=== PATIENT | female | born 1990 | race Caucasian/White ===

== ENCOUNTER 2021-07-05 16:08 | Emergency (ER) | payer OTHER, SELFPAY ==
--- NOTE | 2021-07-05 16:13 | ED.URI ---
HPI - URI/Sore Throat General Chief Complaint: Upper Respiratory Infection Stated Complaint: uri Time Seen by Provider: 07/05/21 16:13 Source: patient Mode of arrival: ambulatory Limitations: no limitations History of Present Illness HPI Narrative: Ms. Mares is a 31-year-old female patient presenting to the clinic today with complaints of productive cough, sinus pressure, and chest congestion/nasal congestion x9 days. She denies any known fever has had some chills. She reports that her sick kids are also sick and have received antibiotics for this illness. Reports that she is coughing so much that she is throwing up. MD elicited complaint: cough, rhinorrhea, nasal congestion and sinus pain Related Data Home Medications Medication Instructions Recorded Confirmed buspirone 15 mg PO BID 03/17/19 03/17/19 sertraline [Zoloft] 150 mg PO DAILY 03/17/19 03/17/19 Allergies Allergy/AdvReac Type Severity Reaction Status Date / Time No Known Allergies Allergy Verified 03/17/19 09:50 Review of Systems Review of Systems: Pertinent positives per HPI. Patient denies any fever, rash, headache, visual changes, dizziness, sore throat, shortness of breath, chest pain, palpitations, nausea, vomiting, diarrhea, constipation, abdominal pain, or any urinary issues. [facility] Social History Social History Gender identity (if verbalized by the patient): Female Comments At the time of my signature, I reviewed and agree with the nursing past medical, surgical, social, and family history. There is no relevant family history pertinent to the patient complaint. Exam Narrative: General: Well-developed, thin in no apparent distress Head: Normocephalic, atraumatic Eyes: Pupils equally round and reactive to light bilaterally, EOM intact, sclera and conjunctive clear, no discharge, lids normal Ears: TMs intact and clear, ear canals clear, no drainage, grossly hearing normal. Nose: Nares patent, yellow nasal discharge, moderate inflammation, sinus tenderness to the frontal sinuses. Mouth: Oropharynx without lesions or masses, good dentition, MMM. Postnasal drip Neck: Supple, trachea midline, no enlargement of anterior or posterior cervical nodes, no thyroid masses or goiter palpable. Cardio: Regular rate and rhythm, s1 and s2 normal, no murmur appreciated. Resp: Lung sounds diminished in the bases otherwise clear to auscultation bilaterally anteriorly and posteriorly, no rhonchi, rales, wheezing or rubs Course Course Emergency Course: Portions of this record may have been created with voice recognition software. Level of Care: Express Care Visit Vital Signs Vital signs: Vital Signs Temperature 37.0 C 07/05/21 16:23 Pulse Rate 99 07/05/21 16:23 Respiratory Rate 18 07/05/21 16:23 Blood Pressure 108/71 07/05/21 16:23 Pulse Oximetry 99 07/05/21 16:23 Temperature 37.0 C 07/05/21 16:23 Pulse Rate 99 07/05/21 16:23 Respiratory Rate 18 07/05/21 16:23 Blood Pressure 108/71 07/05/21 16:23 Pulse Oximetry 99 07/05/21 16:23 Vital signs reviewed MDM - URI/Sore Throat MDM Narrative Medical decision making narrative: At the time of visit patient is resting comfortably on the exam table. She has productive cough with yellow/green phlegm as well as sinus pressure and pain. I suspect that she is got acute bronchitis with sinusitis and will treat her with a prescription for some Augmentin as well as a prescription of for prednisone. Supportive measures were also discussed with patient she voiced understanding of discharge instructions and agreed with treatment plan. Differential Diagnosis Differential diagnosis: Likely sinusitis, viral infection, influenza and pharyngitis Discharge Plan Discharge Clinical Impression: Bronchitis Sinusitis Qualifiers: Sinusitis location: frontal Chronicity: acute Recurrence: non-recurrent Qualified Code(s): J01.10 -
[2021-07-05 16:23] VITALS: BP 108/71; PULSE 99; RESP 18; TEMP 37; O2SAT 99
== END 2021-07-05 16:24 | disposition home or self-care (01) ==
PROVIDERS: Emergency Provider Nurse Practitioner Family; PCP Family Medicine
DX: J01.10 Acute frontal sinusitis, unspecified (principal); J40 Bronchitis, not specified as acute or chronic
CPT/HCPCS: 99213; G0463

== ENCOUNTER 2021-07-21 11:08 | Emergency (ER) | payer OTHER, SELFPAY ==
--- NOTE | 2021-07-21 11:14 | ED.FEMALEGU ---
HPI - Female Genitourinary General Chief complaint: Unspecified Stated complaint: Preg Test Source: patient, RN notes reviewed and old records reviewed Mode of arrival: ambulatory Limitations: no limitations History of Present Illness HPI Narrative: 31-year-old female presents to the [facility] requesting a test. Patient states that she has tried to call multiple [employer] and not able to get in until she goes to urgent care for positive test and have the paperwork to prove it. Patient states that she is been taking vitamins. Denies any other symptoms. No abdominal pain or chest pain. Patient states last menstrual period was May 01. 2, para 1 Related Data Allergies Allergy/AdvReac Type Severity Reaction Status Date / Time No Known Allergies Allergy Verified 03/17/19 09:50 Review of Systems Review of Systems: All systems reviewed & are unremarkable except as noted in HPI and below Constitutional: Constitutional: Reports no additional constitutional complaints, Denies chills and Denies fatigue Eyes: Eyes: Reports no additional eye complaints ENT: Reports system reviewed and no additional complaints, except as documented Cardiovascular: Cardiovascular: Reports no additional cardiovascular complaints Respiratory: Respiratory: Reports no additional respiratory complaints Gastrointestinal: Gastrointestinal: Reports no additional gastrointestinal complaints, Denies abdominal pain, Denies diarrhea, Denies nausea and Denies vomiting Genitourinary: Genitourinary: Reports no additional female genitourinary complaints, Denies hematuria, Denies dysuria, Denies flank pain and Denies vaginal discharge Comments: Missed period Musculoskeletal: Musculoskeletal: Reports no additional musculoskeletal complaints and Denies back pain Integumentary/Breasts: Skin/Breast: Reports system reviewed and no additional complaints, except as docu Neurologic: Reports system reviewed and no additional complaints, except as documented Psychiatric: Psychiatric: Reports no additional psychiatric complaints Allergic/Immunologic: Allergic/Immunologic: Reports no additional allergic/immunologic complaints PMFSH Social History Social History Gender identity (if verbalized by the patient): Female Comments At the time of my signature, I reviewed and agree with the nursing past medical, surgical, social, and family history. There is no relevant family history pertinent to the patient complaint. Exam Const: General: healthy appearing, no acute distress and alert Nutritional Appearance: well nourished Orientation/consciousness: patient oriented x3 Limitations: no limitations HENMT: Head: normal to inspection Ears: external ears normal Eyes: Conjunctivae: conjunctivae normal Pupils: Equal, round and reactive pupils present Neck: Neck: normal visual inspection, no lymphadenopathy and no meningeal signs Chest: Chest palpation & inspection: normal inspection of the chest and abnormal inspection of the chest Resp: Effort & Inspection: normal respiratory effort Auscultation: clear to auscultation bilaterally Cardio: Rate: regular rate Rhythm: regular rhythm GI: GI Palp: Yes Soft to palpation and No Tenderness to palpation present (GI) Skin: General skin exam: normal color Rashes: no rashes Wounds: no wounds Neuro: General: patient oriented x3, moves all extremities, no meningeal signs and no focal motor deficits Cranial nerves: Yes Equal, round and reactive pupils present Speech: normal speech Gait exam (Neuro): Normal gait present Extrem: General: normal to inspection Psych: Mental Status: mental status grossly normal Affect: normal affect Attitude: cooperative Thought content: Yes Normal thought content present Judgement: Good judgement present (Psych) Course Course Emergency Course: Discharge instructions reviewed with patient, as well as pr
[2021-07-21 11:17] VITALS: BP 117/72; PULSE 102; RESP 16; TEMP 37.3; O2SAT 100
[2021-07-21 11:18] VITALS: BP 117/72; PULSE 102; RESP 16; TEMP 37.3; O2SAT 100
== END 2021-07-21 11:34 | disposition home or self-care (01) ==
PROVIDERS: Emergency Provider Nurse Practitioner; PCP Family Medicine
DX: Z32.01 Encounter for pregnancy test, result positive (principal)
CPT/HCPCS: 81025; 99212; G0463

== ENCOUNTER 2022-01-04 11:10 | Emergency (ER) | payer OTHER, SELFPAY ==
[2022-01-04 12:09] VITALS: BP 103/62; PULSE 74; RESP 16; TEMP 36.1; O2SAT 98
--- NOTE | 2022-01-04 12:37 | ED.URI ---
HPI - URI/Sore Throat General Chief Complaint: Upper Respiratory Infection Stated Complaint: fever/cough Time Seen by Provider: 01/04/22 12:37 Source: patient and RN notes reviewed Mode of arrival: ambulatory Limitations: no limitations History of Present Illness HPI Narrative: 31-year-old female who is 35 weeks presents with concern for cough, sore throat, headache, ear ringing for 8 days. She reports what little she can take [id number] is not helping. She reports intermittent fevers. MD elicited complaint: cough Related Data Allergies Allergy/AdvReac Type Severity Reaction Status Date / Time No Known Allergies Allergy Verified 03/17/19 09:50 Review of Systems Review of Systems: CONSTITUTIONAL: Reports malaise, fever. EYES: Denies visual changes, redness, or discharge. ENT: Reports rhinorrhea, congestion, sore throat. Denies sinus pain, otalgia CARDIOVASCULAR: Denies chest pain, palpitations, or edema. RESPIRATORY: Reports persistent cough. Denies dyspnea. GASTROINTESTINAL: Denies abdominal pain, nausea, vomiting, diarrhea SKIN: Denies rash or itching. MUSCULOSKELETAL: Reports myalgia. NEUROLOGIC: Reports headache. All systems reviewed & are unremarkable except as noted in HPI and below PMFSH Social History Social History Gender identity (if verbalized by the patient): Female Comments At time of signature, agree with nursing past medical, surgical, social and family history. There is no relevant family history pertinent to the presenting complaint Exam Narrative: GENERAL: Nontoxic-appearing and in no acute distress. HEAD: Normocephalic EYES: PERRLA, conjunctivae clear ENT: Nares clear, turbinates edematous and erythematous, clear discharge. Mucous membranes moist. TM pearly jensen with dull light reflex bilaterally; no tragal tenderness. Oropharynx not erythematous without lesions. Tonsils not enlarged and without exudate, no drooling, no hoarseness, no trismus, uvula midline. NECK: Supple. No lymphadenopathy CHEST: Inspiratory and expiratory wheeze throughout, no rhonchi, breath sounds equal. No rales, or stridor. No respiratory distress, speaks in full sentences. HEART: Regular rate and rhythm. No murmur heard. SKIN: Warm, dry, no rash. NEURO: Alert and oriented x3. PSYCH: Normal mood and affect Course Course Emergency Course: Discussed with patient findings on exam of lung sounds, discussed risks versus benefits of a chest x-ray along with risks versus benefits of treating with an antibiotic without a chest x-ray. Through shared decision making was decided to treat with antibiotic without a chest x-ray. Patient is aware of diagnosis, understands and agrees to treatment plan. Anticipatory guidance given. Patient agrees to follow-up as directed and is aware of reasons to seek care at the emergency department. Portions of this record may have been created with voice recognition software Level of Care: Express Care Visit Vital Signs Vital signs: Vital Signs Temperature 96.9 F L 01/04/22 12:09 Pulse Rate 74 01/04/22 12:09 Respiratory Rate 16 01/04/22 12:09 Blood Pressure 103/62 01/04/22 12:09 Pulse Oximetry 98 01/04/22 12:09 Oxygen Delivery Room Air 01/04/22 12:09 Temperature 96.9 F L 01/04/22 12:09 Pulse Rate 74 01/04/22 12:09 Respiratory Rate 16 01/04/22 12:09 Blood Pressure 103/62 01/04/22 12:09 Pulse Oximetry 98 01/04/22 12:09 Oxygen Delivery Room Air 01/04/22 12:09 Reviewed. MDM - URI/Sore Throat MDM Narrative Medical decision making narrative: Differential diagnosis considered: Baum virus, strep pharyngitis, allergic rhinitis, upper respiratory tract infection, sinusitis, rhinosinusitis, nasopharyngitis. viral pharyngitis, otitis media, otitis externa, pneumonia, bronchitis, viral cough syndrome, viral syndrome, and influenza. Exam findings show no acute concerns or changes; patient
== END 2022-01-04 12:50 | disposition home or self-care (01) ==
PROVIDERS: Emergency Provider Nurse Practitioner; PCP Family Medicine
DX: O99.513 Diseases of the respiratory system complicating pregnancy, third trimester (principal); Z3A.35 35 weeks gestation of pregnancy; Z20.822 Contact with and (suspected) exposure to COVID-19
CPT/HCPCS: 87081; 87426; 87804; 87880; 99213; C9803; G0463

== ENCOUNTER 2024-01-10 16:28 | Emergency (ER) | payer OTHER, SELFPAY ==
[2024-01-10 17:01] VITALS: BP 126/87; PULSE 96; RESP 20; TEMP 37.2; O2SAT 99
--- NOTE | 2024-01-10 17:26 | ED_ITS ---
HPI - Eye Problem General Chief complaint: Eye Problems Stated complaint: right eye painful,light sensitive Time Seen by Provider: 01/10/24 16:58 Source: patient and RN notes reviewed Mode of arrival: ambulatory Limitations: no limitations History of Present Illness HPI Narrative: Patient presents today complaining of a one-week history of right eye pain, watering itching, photophobia, and foreign body sensation. Reports her eye was matted shut this morning. She did have some intermittent vision changes, but has improved since earlier today. Pain increases with blinking. She does wear contacts and have been wearing them all week except today when she switched over to her glasses. Visual acuity upon arrival: Right eye-20/20, left eye-20/50. Related Data Home Medications Medication Instructions Recorded Confirmed dextroamphetamine-amphetamine 10 10 mg BID 01/10/24 01/10/24 mg tablet gabapentin 300 mg capsule 300 mg HS 01/10/24 01/10/24 lorazepam 0.5 mg tablet 0.5 mg HS 01/10/24 01/10/24 Allergies Allergy/AdvReac Type Severity Reaction Status Date / Time No Known Allergies Allergy Verified 01/10/24 16:56 Review of Systems Review of Systems: CONSTITUTIONAL: Denies body aches, fever, chills, or sweats. EYES: Right eye foreign body, watering, itching, matting, vision changes, photophobia, foreign body ENT: Denies rhinorrhea, congestion, sore throat, or otalgia. CARDIOVASCULAR: Denies chest pain, palpitations, or edema. RESPIRATORY: Denies cough or dyspnea. GASTROINTESTINAL: Denies abdominal pain, nausea, vomiting, or diarrhea. GENITOURINARY: Denies dysuria or hematuria. SKIN: Denies rash, itching, or wounds. MUSCULOSKELETAL: Denies back pain, joint pain, or myalgia. NEUROLOGIC: Denies headache, numbness, tingling, or weakness. PSYCH: Denies depression or anxiety. [facility] Social History Social History Gender identity (if verbalized by the patient): Female Comments At time of signature, I have reviewed and agree with nursing past medical, surgical, social and family history unless otherwise noted. Please see nursing chart for further information. There is no relevant family history pertinent to the presenting complaint Exam Narrative: GENERAL: Well-appearing, well-nourished, and in no acute distress. HEAD: Normocephalic, atraumatic. EYES: EOMI. PERRL. Left eye normal. Right eye: Mildly injected conjunctiva. No active drainage. No swelling.+ fluorescein uptake. See procedure note. ENT: Mucous membranes pink and moist. NECK: Normal AROM. CHEST: No respiratory distress. EXTREMITIES: Normal range of motion. No edema. SKIN: Warm, dry, no rash. Capillary refill normal. Normal skin turgor. NEURO: No focal deficits. Alert and oriented x3. Gait steady. PSYCH: Normal affect. No signs of depression or anxiety. Course Course Level of Care: Express Care Visit Vital Signs Vital signs: Vital Signs Temperature 99 F 01/10/24 17:01 Pulse Rate 96 01/10/24 17:01 Respiratory Rate 20 01/10/24 17:01 Blood Pressure 126/87 01/10/24 17:01 Pulse Oximetry 99 01/10/24 17:01 Oxygen Delivery Room Air 01/10/24 17:01 Temperature 99 F 01/10/24 17:01 Pulse Rate 96 01/10/24 17:01 Respiratory Rate 20 01/10/24 17:01 Blood Pressure 126/87 01/10/24 17:01 Pulse Oximetry 99 01/10/24 17:01 Oxygen Delivery Room Air 01/10/24 17:01 Reviewed Procedures Other Procedure Procedure 1: Other Procedure: Right eye was anesthetized with 1 drop of tetracaine and anesthesia was achieved. The eye was flushed with eye wash. Lid was inverted and examined. Moistened Qtip was used to sweep underneath the upper eyelid with 0 foreign bodies resulting. Cornea was dyed with fluorescein and 1 abrasion noted transecting the lower portion of the iris. Pt tolerated procedure well. MDM - Eye Problem MDM Narrative Medical decision making narrative: Corneal abrasion noted. Urged patient to keep hurt contacts out of her eye a until her eye is fully healed. Prescription for ofloxacin drops sent to pharmacy. Recommend follow-up with her eye doctor in 3 days, especially if symptoms are not improving. Patient agrees with plan. Anticipatory guidance given. Differential Diagnosis Differential diagnosis: Likely corneal abrasion, conjunctivitis and corneal ulcer Critical Care Time Critical Care Time Critical Care Time: No Discharge Plan Discharge Clinical Impression: Abrasion of cornea, right Qualifiers: Encounter type: initial encounter Qualified Code(s): S05.01XA - Injury of conjunctiva and corneal abrasion without foreign body, right eye, initial encounter Patient Disposition: Home, Self-Care Condition: Stable Instructions: Antibiotic Form, Corneal Abrasion (DC) Additional Instructions: Please use the ofloxacin eyedrops as directed. Do not put contacts back in your eye until your eye is feeling back to normal. Follow-up with an eye doctor in 3 days if symptoms are not improving. Your blood pressure was elevated above 120/80 today at Urgent Care. This puts you above the threshold for follow up. Please schedule a followup visit with your personal physician as soon as possible, for further evaluation and treatment. Even blood pressure exceeding 120/80 may indicate pre-hypertension. Prescriptions: New ofloxacin 0.3 % drops See Rx Instructions .ROUTE .COMPLEX Qty: 10 0RF Rx Instructions: put 1-2 drps into affected eye(s) every 2-4 h x 2 days, then 1-2 drps 4 times/day days 3-7 No Action dextroamphetamine-amphetamine 10 mg tablet 10 mg BID lorazepam 0.5 mg tablet 0.5 mg HS gabapentin 300 mg capsule 300 mg HS Follow-up/Referrals: PHYSICIAN,GEROPSYCHOLOGIST [Primary Care Provider] - Time of Disposition: 17:33
== END 2024-01-10 17:54 | disposition home or self-care (01) ==
PROVIDERS: Emergency Provider Nurse Practitioner
DX: S05.01XA Injury of conjunctiva and corneal abrasion without foreign body, right eye, initial encounter (principal); X58.XXXA Exposure to other specified factors, initial encounter; F98.8 Other specified behavioral and emotional disorders with onset usually occurring in childhood and adolescence
CPT/HCPCS: 99213; A9270; G0463

== ENCOUNTER 2024-05-13 00:05 | Emergency (ER) | payer OTHER, SELFPAY ==
--- NOTE | ~2024-05-13 | XR_ITS ---
Portable chest x-ray Comparison: 03/19/2005 Clinical History: Fever Findings: Lungs are clear, without focal consolidation or pleural effusion. Cardiomediastinal silho uette is stable. Bones and soft tissues are unremarkable. Impression: Normal chest. Reviewed, dictated and finalized at location . Impression: Normal chest.
[2024-05-13 00:07] VITALS: BP 137/74; PULSE 99; RESP 17; TEMP 38; O2SAT 100
--- OUTSIDE RECORDS SUMMARY | 2024-05-13 00:07 | XMS_ITS | Clinical Summary ---
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 Medications Norethindrone, Contraceptive, 0.35 MG tablet Take 1 tablet by mouth daily. 3 Active LORazepam (ATIVAN) 1 MG tablet Take 1 tablet (1 mg total) by mouth daily. Active amphetamine-dextroa mphetamine (ADDERALL) 10 MG tablet Take 1 tablet (10 mg total) by mouth daily. 4 Active vitamin D2, ergocalciferol, (DRISDOL) 1.25 mg capsule Take 1 capsule (1.25 mg total) by mouth every 7 days. 3 Active ondansetron (ZOFRAN-ODT) 4 MG disintegrating tablet Take 1 tablet (4 mg total) by mouth every 8 (eight) hours as needed for Nausea. 20 tablet 4 Active Social History Tobacco Use Types Packs/Day Years Used Date Smoking Tobacco: Every Day Smokeless Tobacco: Never Alcohol Use Standard Drinks/Week Comments Never 0 (1 standard drink = 0.6 oz pur e alcohol) AUDIT-C Answer Date Recorded Q1: How often do you have a drink containing alc ohol? Never 08/26/2020 Average Number of Drinks Not on file 021 Frequency of Binge Drinking Not on file 07/31 Comments No Sex and Gender Information Value Date Recorded Sex Assigned at Not on file Legal Sex Female 6:31 PM CDT Gender Identity Not on file Sexual Orientation Not on file Last Filed Vital Signs Vital Sign Reading Time Taken Comments Blood Pressure 154/105 11/12/2023 3:04 AM CDT Pulse 95 11/12/2023 3:04 AM CDT Temperature 36.7 C (98 F) 11/12/2023 3:04 AM CDT Respiratory Rate 16 11/12/2023 3:04 AM CDT Oxygen Saturation 98% 11/12/2023 3:04 AM CDT Inhaled Oxygen Concentration - - Weight 43.1 kg (95 lb) 11/12/2023 3:04 AM CDT Height 152.4 cm (5') 11/12/2023 3:04 AM CDT Body Mass Index 18.55 11/12/2023 3:04 AM CDT Plan of Treatment Health Maintenance Due Date Last Done Comments Annual Physical 1995 Pneumococcal Vaccine: Pediatrics (0 to 5 Years) and At-Risk Patients (6 to 64 Years) (1 of 2 - PCV) 1998 Hepatitis C 2010 HPV Vaccines (2 - 3-dose series) 07/22/2016 06/24/2016 Cervical Cancer Screening Pap with HPV Testing (Age 30 to 64) Every 5 Years 2022 COVID-19 Vaccine ( season) 2023 Influenza Adult (#1) 2023 02/01/2017 PHQ-2 (Physician [place]) 03/01/2024 Cervical Cancer Screening Pap Smear (Age 30 to 64) Every 3 Years 08/29/2024 08/29/2021 Cervical Cancer Screening with HPV 08/29/2024 DTaP, Tdap and Td Vaccines (8 - Td or Tdap) 11/15/2031 11/14/2021, 04/26/2017, 06/24/2016, Additional history exists Hepatitis B Vaccines Completed 06/24/2016, 03/05/2003, 08/09/2002, Additional history exists Meningococcal Vaccine Aged Out 06/24/2016, 007 No longer eligible based on patient's age to complete this topic Meningococcal B Vaccine Aged Out No l onger eligible based on patient's age to complete this topic RSV Immunizations Under 20 Months Aged Out No longer eligible based on patient's age to complete this topic Insurance [employer] Care Teams Pickle Cutter Relationship Specialty Start Date End Date None, Provider, PCP - General 08/26/20 Taina Freeman MD [address] [place] [address] [facility] 05/12/23
--- OUTSIDE RECORDS SUMMARY | 2024-05-13 00:07 | XMS_ITS | Referral Summary ---
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 CLERK 03/30/2024 3:26 PM PAYROLL ACCOUNTING CLERK Jayleen Amaral MD LAB BLOOD ORDERABLES Fi nal Result Performing Organization Address [facility] [place] [address] * (ABNORMAL) CBC without differential (03/30/2024 3:02 PM PAYROLL ACCOUNTING CLERK) [facility] [place] WBC 8.6 3.8 - 9.9 K/cumm Hgb 11.7(L) 11.9 - 15.5 g/dL [facility] Hct 35.5(L) 35.6 - 45.5 % [facility] Plt 292 150 - 400 K/cumm [facility] MPV 10.0 9.1 - 12.3 fL [facility] RBC 3.89(L) 3.90 - 5.20 M/cumm [facility] MCV 91.3 81.3 - 96.4 fL [facility] MCH 30.1 27.1 - 33.3 pg [facility] MCHC 33.0 32.3 - 35.7 g/dL [facility] RDW CV 13.4 11.1 - 14.9 % [facility] RDW SD 45.4 35.7 - 48.1 fL [facility] NRBC abs 0.00 0.00 - 0.01 K/cumm [facility] Blood 03/30/2024 3:02 PM PAYROLL ACCOUNTING CLERK 03/30/2024 3:26 PM PAYROLL ACCOUNTING CLERK Jayleen Amaral MD LAB BLOOD ORDERABLES Fi nal Result Performing Organization Address [facility] Co de Phone Number [facility] Department [place] [employer] [place] [address] * Total testosterone (03/30/2024 3:02 PM PAYROLL ACCOUNTING CLERK) Testosterone 20.0 8.4 - 48.1 ng/dL Blood 03/30/2024 3:02 PM PAYROLL ACCOUNTING CLERK 03/30/2024 3:33 PM PAYROLL ACCOUNTING CLERK Jayleen Amaral MD LAB BLOOD ORDERABLES Fi nal Result Performing Organization Address City/[facility] Co de Phone Number [facility] Department [place] [employer] [place] [address] * Follicle stimulating hormone (03/30/2024 3:02 PM PAYROLL ACCOUNTING CLERK) FSH 3.0 IUnits/L Comment: Interpretive Data Male: Adults: 1.5 - 12.4 IUnits/L Female: Follicular: 3.5 - 12.5 IUnits/L Ovulation: 4.7 - 21.5 IUnits/L Luteal: 1.7 - 7.7 IUnits/L Postmenopausal: 25.8 - 134.8 IUnits/L Current interpretive data was last revised 2015. Blood 03/30/2024 3:02 PM PAYROLL ACCOUNTING CLERK 03/30/2024 3:26 PM PAYROLL ACCOUNTING CLERK us Jayleen Amaral MD LAB BLOOD ORDERABLES Fi nal Result [facility] Department [place] [address] * Pap with reflex to High Risk HPV (08/29/2021 10:23 AM CDT) Thin prep (Pap test) 08/29/2021 10:23 AM CDT 08/29/2021 12:26 PM CDT Narrative PATHOLOGY [facility] - 09/11/2021 11:52 AM CDT EPIC results best viewed via link to PDF [facility] Sharyn Guerrero [facility] [place] [address] Note to Patients: This report may contain a detailed description of human tissue sent by a health care provider to the laboratory for pathologic evaluation. The content of this report is essential for diagnosis and may provide important critical findings. This information may be unfamiliar to patients to review without a medical professional present. It is advised that the patient review this report in the presence of a health care provider who can answer questions and explain the details. CYTOPATHOLOGY REPORT FINAL Patient Name: SAVANNA PRINCE Gender: F : 1990 (Age: 31) Address: [address] [place] [phone] Hospital #: [id number] Service: SUPERVISOR GRADING Location: [facility] Patient Type: [facility] Ref Lab Taken: 08/29/2021 Received: 08/29/2021 Accessioned: 09/02/2021 Reported: 09/11/2021 Physician(s): Les Couch MD, PHD FINAL INTERPRETATION SOURCE OF SPECIMEN: Liquid based Thin Prep pap with Reflex HPV STATEMENT OF ADEQUACY: - Satisfactory for evaluation - No endocervical/transformation zone sample present in a patient GENERAL CATEGORY: - Negative for squamous intraepithelial lesion or malignancy DESCRIPTION: - Shift in shane suggestive of bacterial vaginosis This specimen has been rescreened in accordance with this laboratory's Financial Business Analyst Program. 09/11/2021 11:52 CLEVE Bartholomew(ASCP) Report Electronically Reviewed and Signed Out By CLEVE Nieves(ASCP) 09/11/2021 11:52:49 Cervicovaginal Cytology (Pap Test) Disclaimer: The Pap test is a screening test used to detect cervical cancer and its precursors; it is not a diagnostic procedure. False negative and false positive results do occur. Pap test results should be interpreted in the context of pertinent clinical information and biopsy results as indicated. Gross Description A. Liquid based Thin Prep pap with Reflex HPV: Cervical/vaginal - Screening ThinPrep Clinical Diagnosis and History Last Menstrual Period: Not Provided. Menstrual History: The patient is a 31 year old woman with routine screening. Report Images and scanned documents, if included only viewable in PDF version The performance characteristics of some immunohistochemical stains, in-situ hybridization and fluorescence in-situ hybridization tests and immunophenotyping by flow cytometry cited in this report (if any) were determined by the Surgical Pathology Department at [facility] as part of an ongoing senior quality control technician program and in compliance with federally mandated regulations drawn from the Clinical Laboratory Improvement Act of 1988 (CLIA '88). Some of these tests rely on the use of analyte specific reagents and are subject to specific labeling requirements by the US Food and Drug Administration. Such diagnostic tests may only be performed in a facility that is certified by the Department of Health and Human Services as a high complexity laboratory under CLIA '88. The FDA has determined that such clearance or approval is not necessary. This test is used for clinical purposes. It should not be regarded as investigational or for research. Nevertheless, federal rules concerning the medical use of analyte specific reagents require that the following disclaimer be attached to the report: This test was developed and its performance characteristics determined by the Surgical Pathology Department of [facility]. It has not been cleared or approved by the U. S. Food and Drug Administration. Les Couch MD PhD LAB CYTOLOGY ORDERA BLES Final Result PATHOLOGY [facility] IO 3rd Floor [place], [place] [phone] * Hepatitis C antibody (08/27/2021 2:39 PM CDT) Hep C Ab Nonreactive Nonreactive [facility] Comment:Antibodies to HCV no t detected. Does NOT exclude the possibility of recent exposure to HCV. Blood 08/27/2021 2:39 PM CDT 08/27/2021 3:18 PM CDT us Les Couch MD PhD LAB MICROBI OLOGY - GENERAL ORDERABLES Edited Result - Final [facility] Department [place] [address] from Last 3 Months or Most Recently Relevant to Health Maintenance Insurance [facility] Advance Directives For more information, please contact: [phone] * Full Code (Latest Code Status on File) Date Activated Date Inactivated Comments 01/30/2022 9:49 AM 02/01/2022 6:51 PM * Full Code Date Activated Date Inactivated Comments 01/29/2022 10:53 PM 01/30/2022 9:49 AM Full CPR in case of cardiopulmonary arrest * Full Code Date Activated Date Inactivated Comments 01/21/2022 3:22 PM 01/22/2022 12:25 AM Full CPR in case of cardiopulmonary arrest Care Teams Consulting Services Project Manager Relationship Specialty Start Date End Date Taina Freeman MD [address] [address] PCP - General Family Medicine 08/27/21
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
--- OUTSIDE RECORDS SUMMARY | 2024-05-13 00:08 | XMS_ITS | Data Portability ---
Author Organization [facility], Main Office Address [address] [place] [address] Assessment No assessment recorded. Plan of Treatment Reminders Order Date Submit Date Provider Last Modified By Organization Details Last Modified Time Details Appointments None recorded. Lab iron + total iron-bindin g capacity (TIBC), serum 2022 023 [facility] (Lab), [address] [place], [address], 3 21:18:32 ferritin, serum or plasma 2022 023 [facility] (Lab), [address] [place], [address], 3 21:30:47 CBC w/ auto diff 2022 023 [facility] (Lab), [address] [place], [address], 3 19:51:06 vitamin B12, serum 2022 023 [facility] (Lab), [address] [place], [address], 3 22:11:07 folate, serum 2022 023 [facility] (Lab), [address] [place], [address], 3 22:11:13 Referral None recorded. Procedures None recorded. Surgeries None recorded. Imaging None recorded. Medication Orders cyanocobala min (vit B-12) 1,000 mcg/mL injection solution 2022 023 [email or web address] Not available 3 12:22:29 cyanocobala min (vit B-12) 1,000 mcg/mL injection solution 2022 023 [email or web address] Not available 3 09:19:36 cyanocobala min (vit B-12) 1,000 mcg tablet 2022 023 [facility]/Pharmacy #[id number], [address] [place], [address], 3 09:00:32 Patient TargetsNo targets recorded. Patient InstructionsNo instructions recorded. Reason for Referral None Reported. Results Created Date Observation Date Name Description Value Unit Range Abnormal Flag Note LastModifiedBy Organization Detail LastModifiedTime 12/13/1912/12/2020 VITAM IN B12 (LINDA SY ) vb12 312 pg/mL 239-93 1 Not Available [facility] (Lab) [address] [place], [address], 12/12/2020 22:45:39 12/13/1912/12/2020 PASQUALE TIN ferritin 6 NG/mL 6.24-1 37 low Not Available [facility] (Lab) [address] [place], [address], 12/12/2020 22:22:01 12/13/1912/12/2020 TSH thyroid-stim ulating hormone 0.998 uIU/m L 0.465- 4.680 Not Available [facility] (Lab) [address] [place], [address], 12/12/2020 22:19:06 12/13/1912/12/2020 VITAM IN D 25-HY DROXY vd25oh 47.1 NG/mL 30-100 Vitam in D Statu s: Defic ient: <20 ng/mL Insuf ficie nt: 20-29 ng/mL Suffi cient : 30-10 0 ng/mL Not Available [facility] (Lab) [address] [place], [address], 12/12/2020 22:11:16 12/13/1912/12/2020 T4 FREE free T4 1.05 NG/dL 0.78-2 .19 Not Available [facility] (Lab) [address] [place], [address], 12/12/2020 22:04:07 12/13/1912/12/2020 IRON/ TIBC PANEL total iron binding capacity 366 mcg/d L 265-47 5 Not Available [facility] (Lab) [address] [place], [address], 12/12/2020 21:54:28 12/13/1912/12/2020 IRON/ TIBC PANEL % transferrin saturation 32 % 20-55 Not Available [facility] (Lab) [address] [place], [address], 12/12/2020 21:54:28 12/13/1912/12/2020 IRON/ TIBC PANEL unsaturated iron bind capacity 248 mcg/d L 126-38 2 Not Available [facility] (Lab) [address] [place], [address], 12/12/2020 21:54:28 12/13/1912/12/2020 IRON/ TIBC PANEL iron 118 mcg/d L 42-175 Not Available [facility] (Lab) [address] [place], [address], 12/12/2020 21:54:28 12/13/1912/12/2020 MAGNE SIUM magnesium 2.1 mg/dL 1.6-2. 3 Not Available [facility] (Lab) [address] [place], [address], 12/12/2020 21:53:51 12/13/19 21 12/12/2020 COMPR EHENS NAHOMY METAB OLIC PANEL agap 10.0 mmol/ L 14-22 low Not Available [facility] (Lab) [address] [place], [address], 12/12/2020 21:53:48 12/13/19 21 12/12/2020 COMPR EHENS NAHOMY METAB OLIC PANEL sodium 138 mmol/ L 137-14 5 Not Available [facility] (Lab) [address] [place], [address], 12/12/2020 21:53:48 12/13/19 21 12/12/2020 COMPR EHENS NAHOMY METAB OLIC PANEL potassium 4.0 mmol/ L 3.5-5. 1 Not Available [facility] (Lab) [address] [place], [address], 12/12/2020 21:53:48 12/13/1912/12/2020 COMPR EHENS NAHOMY METAB OLIC PANEL chloride 106 mmol/ L 98-107 Not Available [facility] (Lab) [address] [place], [address], 12/12/2020 21:53:48 12/13/19 21 12/12/2020 COMPR EHENS NAHOMY METAB OLIC PANEL carbon dioxide 26 mmol/ L 22-30 Not Available [facility] (Lab) [address] [place], [address], 12/12/2020 21:53:48 12/13/19 21 12/12/2020 COMPR EHENS NAHOMY METAB OLIC PANEL glucose 95 mg/dL 70-99 Not Available [facility] (Lab) [address] [place], [address], 12/12/2020 21:53:48 12/13/19 21 12/12/2020 COMPR EHENS NAHOMY METAB OLIC PANEL BUN 10 mg/dL 8-19 Not Available [facility] (Lab) [address] [place], [address], 12/12/2020 21:53:48 12/13/1912/12/2020 COMPR EHENS NAHOMY METAB OLIC PANEL creatinine 0.60 mg/dL 0.66-1 .25 low Not Available [facility] (Lab) [address] [place], [address], 12/12/2020 21:53:48 12/13/1912/12/2020 COMPR EHENS NAHOMY METAB OLIC PANEL GFR >60 Refer ence Range : [place] ge GFR Healt hy Adult : >60 mL/mi n/1.7 3 m2 Chron ic Kidne y Disea se: 15-60 mL/mi n/1.7 3 m2 Kidne y Failu re: <15/m L/min /1.73 m2 www.n iddk. nih.g ov MDRD study equat ion hasn' t been valid ated in child hao <18 yrs of age, pregn ant women , the elder ly >85 yrs of age, or in some racia l or ethni c subgr oups, suc as Hispa nics. Outsi de the valid ated elizabeth eters , estim ated GFR is less accur ate requi ring clini chela judgm ent on a case by case basis . Clini chela inter preta tion for other races and ages must be made by the clini rudolph . Futhe rmore , any of th e limit ation s with the use of serum creat inine relat ed to nutri zahra l statu s o r medic ation usage hasn' t accou nted for the MDRD Study equat ion. For perso ns < 18 yrs of age, a pedia tric GFR calcu lator can be locat ed on the [facility] websi te: https ://dee dee davison.o zach/pr ofess ional s/kdo qi/gf r_cal culat or Not Available [facility] (Lab) [address] [place], [address], 12/12/2020 21:53:48 12/13/1912/12/2020 COMPR EHENS NAHOMY METAB OLIC PANEL alkaline phosphatase 43 U/L 38-126 Not Available [facility] (Lab) [address] [place], [address], 12/12/2020 21:53:48 12/13/19 21 12/12/2020 COMPR EHENS NAHOMY METAB OLIC PANEL alanine aminotransfe rase 19 U/L 0-35 Not Available [facility] (Lab) [address] [place], [address], 12/12/2020 21:53:48 12/13/1912/12/2020 COMPR EHENS NAHOMY METAB OLIC PANEL aspartate aminotransfe rase 29 U/L 15-37 Not Available [facility] (Lab) [address] [place], [address], 12/12/2020 21:53:48 12/13/1912/12/2020 COMPR EHENS NAHOMY METAB OLIC PANEL bilirubin, total 0.70 mg/dL 0.20-1 .30 Not Available [facility] (Lab) [address] [place], [address], 12/12/2020 21:53:48 12/13/1912/12/2020 COMPR EHENS ANHOMY METAB OLIC PANEL calcium 9.8 mg/dL 8.4-10 .2 Not Available [facility] (Lab) [address] [place], [address], 12/12/2020 21:53:48 12/13/19 21 12/12/2020 COMPR EHENS NAHOMY METAB OLIC PANEL total protein 7.3 g/dL 6.3-8. 2 Not Available [facility] (Lab) [address] [place], [address], 12/12/2020 21:53:48 12/13/19 21 12/12/2020 COMPR EHENS NAHOMY METAB OLIC PANEL albumin 4.5 g/dL 3.4-5. 0 Not Available [facility] (Lab) [address] [place], [address], 12/12/2020 21:53:48 12/13/19 21 12/12/2020 COMPR EHENS NAHOMY METAB OLIC PANEL globulin 2.8 g/dL 2.6-4. 2 Not Available [facility] (Lab) [address] [place], [address], 12/12/2020 21:53:48 12/13/1912/12/2020 COMPR EHENS NAHOMY METAB OLIC PANEL A/G ratio 1.6 ratio 1.0-2. 0 Not Available [facility] (Lab) [address] [place], [address], 12/12/2020 21:53:48 12/13/1912/12/2020 HEMOG LOBIN A1C HA1C 5.4 % 4.0-6. 0 Diabe angela Scree mallory Crite stephenie: <5.7% Consi stent with absen ce of diabe angela 5.7-6 .4% Consi stent with incre ased risk for diabe angela (pred iabet es) >OR=6 .5% Consi stent with diabe angela REFER ENCE: Diabe angela Care 2016, 39(Soto ppl.1 ):s13 -s22 Not Available [facility] (Lab) [address] [place], [address], 12/12/2020 21:36:09 12/13/1912/12/2020 CBC/C OMPLE TE BLD COUNT W/DIF F hematocrit 39.9 % 35.7-4 5.7 Not Available [facility] (Lab) [address] [place], [address], 12/12/2020 20:06:02 12/13/19 21 12/12/2020 CBC/C OMPLE TE BLD COUNT W/DIF F white blood cells 8.3 x10'3 /uL 4.2-10 .8 Not Available [facility] (Lab) [address] [place], [address], 12/12/2020 20:06:02 12/13/19 21 12/12/2020 CBC/C OMPLE TE BLD COUNT W/DIF F red blood cells 4.55 x10'6 /uL 3.80-5 .20 Not Available [facility] (Lab) [address] [place], [address], 12/12/2020 20:06:02 12/13/1912/12/2020 CBC/C OMPLE TE BLD COUNT W/DIF F hemoglobin 13.0 g/dL 12.0-1 5.6 Not Available [facility] (Lab) [address] [place], [address], 12/12/2020 20:06:02 12/13/1912/12/2020 CBC/C OMPLE TE BLD COUNT W/DIF F mean red cell volume 87.7 fL 82.0-9 9.0 Not Available [facility] (Lab) [address] [place], [address], 12/12/2020 20:06:02 12/13/1912/12/2020 CBC/C OMPLE TE BLD COUNT W/DIF F mean red cell hemoglobin 28.6 pg 27.0-3 3.0 Not Available [facility] (Lab) [address] [place], [address], 12/12/2020 20:06:02 12/13/1912/12/2020 CBC/C OMPLE TE BLD COUNT W/DIF F mean RBC HGB concentratio n 32.6 g/dL 31.0-3 6.0 Not Available [facility] (Lab) [address] [place], [address], 12/12/2020 20:06:02 12/13/1912/12/2020 CBC/C OMPLE TE BLD COUNT W/DIF F red cell distribution width 14.4 % 11.8-1 5.5 Not Available [facility] (Lab) [address] [place], [address], 12/12/2020 20:06:02 12/13/19 21 12/12/2020 CBC/C OMPLE TE BLD COUNT W/DIF F platelets 369 x10'3 /uL 150-40 0 Not Available [facility] (Lab) [address] [place], [address], 12/12/2020 20:06:02 12/13/1912/12/2020 CBC/C OMPLE TE BLD COUNT W/DIF F mean platelet volume 10.4 fL 9.0-12 .4 Not Available [facility] (Lab) [address] [place], [address], 12/12/2020 20:06:02 12/13/1912/12/2020 CBC/C OMPLE TE BLD COUNT W/DIF F neutrophils 55.5 % 39.0-7 2.0 Not Available [facility] (Lab) [address] [place], [address], 12/12/2020 20:06:02 12/13/1912/12/2020 CBC/C OMPLE TE BLD COUNT W/DIF F lymphocytes 36.4 % 16.0-4 7.0 Not Available [facility] (Lab) [address] [place], [address], 12/12/2020 20:06:02 12/13/1912/12/2020 CBC/C OMPLE TE BLD COUNT W/DIF F monocytes 5.9 % 5.0-12 .0 Not Available [facility] (Lab) [address] [place], [address], 12/12/2020 20:06:02 12/13/1912/12/2020 CBC/C OMPLE TE BLD COUNT W/DIF F eosinophils 1.2 % 1.0-7. 0 Not Available [facility] (Lab) [address] [place], [address], 12/12/2020 20:06:02 12/13/19 21 12/12/2020 CBC/C OMPLE TE BLD COUNT W/DIF F basophils 0.5 % 0.0-2. 0 Not Available [facility] (Lab) [address] [place], [address], 12/12/2020 20:06:02 12/13/1912/12/2020 CBC/C OMPLE TE BLD COUNT W/DIF F immature granulocytes 0.5 % 0.00-0 .50 Not Available [facility] (Lab) [address] [place], [address], 12/12/2020 20:06:02 12/13/1912/12/2020 CBC/C OMPLE TE BLD COUNT W/DIF F neutrophils, absolute count 4.58 x10'3 /uL 1.5-8. 0 Not Available [facility] (Lab) [address] [place], [address], 12/12/2020 20:06:02 12/13/1912/12/2020 CBC/C OMPLE TE BLD COUNT W/DIF F lymphocytes, absolute count 3.00 x10'3 /uL 1.07-3 .43 Not Available [facility] (Lab) [address] [place], [address], 12/12/2020 20:06:02 12/13/1912/12/2020 CBC/C OMPLE TE BLD COUNT W/DIF F monocytes, absolute count 0.49 x10'3 /uL 0.29-0 .99 Not Available [facility] (Lab) [address] [place], [address], 12/12/2020 20:06:02 12/13/19 21 12/12/2020 CBC/C OMPLE TE BLD COUNT W/DIF F eosinophils, absolute count 0.10 x10'3 /uL 0.02-0 .53 Not Available [facility] (Lab) [address] [place], [address], 12/12/2020 20:06:02 12/13/19 21 12/12/2020 CBC/C OMPLE TE BLD COUNT W/DIF F basophils, absolute count 0.04 x10'3 /uL 0.01-0 .08 Not Available [facility] (Lab) [address] [place], [address], 12/12/2020 20:06:02 12/13/19 21 12/12/2020 CBC/C OMPLE TE BLD COUNT W/DIF F immature granulocytes ,absolute 0.04 x10'3 /uL 0.00-0 .05 Not Available [facility] (Lab) [address] [place], [address], 12/12/2020 20:06:02 12/13/19 21 12/12/2020 CBC/C OMPLE TE BLD COUNT W/DIF F nucleated red blood cells 0.0 % -0 Not Available [facility] (Lab) [address] [place], [address], 12/12/2020 20:06:02 12/13/19 21 12/12/2020 CBC/C OMPLE TE BLD COUNT W/DIF F NRBC# 0.00 x10'3 /uL Not Available [facility] (Lab) [address] [place], [address], 12/12/2020 20:06:02 06/05/19 22 06/06/2021 KAMAR/A NTINU CLEAR ANTIB ODIES ,IFA antinuclear antibodies, ifa negati ve Negat nahomy <1:80 Borde rline 1:80 Posit nahomy >1:80 ICA nomen clatu re: AC-0 For more infor jann n about Hep-2 cell patte rns use ANAgloria ttern s.org , the offic ial websi te for the Inter natio nal Conse nsus on Antin uclea r Antib adilia (KAMAR) Patte rns ([facility] ). Perfo rmed at: - [facility] n [address] [facility], [place] [address] Lab Direc tor: Cornelius stewart PhD, Phone : [phone] Not Available [facility] [address] [place], [address], 06/06/2021 17:09:51 06/05/19 22 06/04/2021 VITAM IN B12 (LINDA SY ) vb12 272 pg/mL 239-93 1 Not Available [facility] (Lab) [address] [place], [address], 06/04/2021 22:32:44 06/05/19 22 06/04/2021 VITAM IN D 25-HY DROXY vd25oh 23.9 NG/mL 30-100 low Vitam in D Statu s: Defic ient: <20 ng/mL Insuf ficie nt: 20-29 ng/mL Suffi cient : 30-10 0 ng/mL Not Available [facility] (Lab) [address] [place], [address], 06/04/2021 22:00:05 06/05/19 22 06/04/2021 HEMOG LOBIN A1C HA1C 5.1 % 4.0-6. 0 Diabe angela Scree mallory Crite stephenie: <5.7% Consi stent with absen ce of diabe angela 5.7-6 .4% Consi stent with incre ased risk for diabe angela (pred iabet es) >OR=6 .5% Consi stent with diabe angela REFER ENCE: Diabe angela Care 2016, 39(Soto ppl.1 ):s13 -s22 Not Available [facility] (Lab) [address] [place], [address], 06/04/2021 20:27:57 06/05/19 22 06/04/2021 PASQUALE TIN ferritin 7 NG/mL 6.24-1 37 Not Available [facility] (Lab) [address] [place], [address], 06/04/2021 20:03:55 06/05/19 22 06/04/2021 TSH thyroid-stim ulating hormone 1.570 uIU/m L 0.465- 4.680 Not Available [facility] (Lab) [address] [place], [address], 06/04/2021 20:02:19 06/05/19 22 06/04/2021 SEDIM ENTAT ION RATE erythrocyte sedimentatio n rate 12 mm/HR 0-20 Not Available [facility] (Lab) [address] [place], [address], 06/04/2021 19:47:26 06/05/19 22 06/04/2021 T4 FREE free T4 1.18 NG/dL 0.78-2 .19 Not Available [facility] (Lab) [address] [place], [address], 06/04/2021 19:38:29 06/05/19 22 06/04/2021 IRON/ TIBC PANEL total iron binding capacity 356 mcg/d L 265-47 5 Not Available [facility] (Lab) [address] [place], [address], 06/04/2021 19:33:02 06/05/19 22 06/04/2021 IRON/ TIBC PANEL % transferrin saturation 9 % 20-55 low Not Available [facility] (Lab) [address] [place], [address], 06/04/2021 19:33:02 06/05/19 22 06/04/2021 IRON/ TIBC PANEL unsaturated iron bind capacity 325 mcg/d L 126-38 2 Not Available [facility] (Lab) [address] [place], [address], 06/04/2021 19:33:02 06/05/19 22 06/04/2021 IRON/ TIBC PANEL iron 31 mcg/d L 42-175 low Not Available [facility] (Lab) [address] [place], [address], 06/04/2021 19:33:02 06/05/19 22 06/04/2021 C REACT NAHOMY PROTE IN,UL TRA SENS C-reactive protein <0.030 mg/dL 0.0-0. 5 Not Available [facility] (Lab) [address] [place], [address], 06/04/2021 19:32:16 06/05/19 22 06/04/2021 RHEUM ATOID FACTO R rf <8.6 IU/mL 0.0-11 .9 Not Available [facility] (Lab) [address] [place], [address], 06/04/2021 19:32:15 06/05/19 22 06/04/2021 MAGNE SIUM magnesium 2.1 mg/dL 1.6-2. 3 Not Available [facility] (Lab) [address] [place], [address], 06/04/2021 19:30:47 06/05/19 22 06/04/2021 COMPR EHENS NAHOMY METAB OLIC PANEL carbon dioxide 23 mmol/ L 22-30 Not Available [facility] (Lab) [address] [place], [address], 06/04/2021 19:30:44 06/05/19 22 06/04/2021 COMPR EHENS NAHOMY METAB OLIC PANEL sodium 136 mmol/ L 137-14 5 low Not Available [facility] (Lab) [address] [place], [address], 06/04/2021 19:30:44 06/05/19 22 06/04/2021 COMPR EHENS NAHOMY METAB OLIC PANEL potassium 4.1 mmol/ L 3.5-5. 1 Not Available [facility] (Lab) [address] [place], [address], 06/04/2021 19:30:44 06/05/19 22 06/04/2021 COMPR EHENS NAHOMY METAB OLIC PANEL chloride 103 mmol/ L 98-107 Not Available [facility] (Lab) [address] [place], [address], 06/04/2021 19:30:44 06/05/19 22 06/04/2021 COMPR EHENS NAHOMY METAB OLIC PANEL agap 14.1 mmol/ L 14-22 Not Available [facility] (Lab) [address] [place], [address], 06/04/2021 19:30:44 06/05/19 22 06/04/2021 COMPR EHENS NAHOMY METAB OLIC PANEL glucose 98 mg/dL 70-99 Not Available [facility] (Lab) [address] [place], [address], 06/04/2021 19:30:44 06/05/19 22 06/04/2021 COMPR EHENS NAHOMY METAB OLIC PANEL BUN 10 mg/dL 8-19 Not Available [facility] (Lab) [address] [place], [address], 06/04/2021 19:30:44 06/05/19 22 06/04/2021 COMPR EHENS NAHOMY METAB OLIC PANEL creatinine 0.57 mg/dL 0.66-1 .25 low Not Available [facility] (Lab) [address] [place], [address], 06/04/2021 19:30:44 06/05/19 22 06/04/2021 COMPR EHENS NAHOMY METAB OLIC PANEL GFR >60 Refer ence Range : [place] ge GFR Healt hy Adult : >60 mL/mi n/1.7 3 m2 Chron ic Kidne y Disea se: 15-60 mL/mi n/1.7 3 m2 Kidne y Failu re: <15/m L/min /1.73 m2 www.n iddk. nih.g ov The MDRD study equat ion has not been valid ated in child hao <18 years of age; pregn ant women ; the elder ly >85 years of age; or in some racia l or ethni c subgr oups, such as Hispa nics. Outsi de the valid ated elizabeth eters , estim ated GFR is less accur ate, requi ring clini chela judgm ent on a case- by-ca se basis . Clini chela inter preta tion for other races and ages must be made by the clini rudolph. The MDRD study equat ion has not been valid ated for the evalu ation of serum creat inine relat ed to nutri zahra l statu s or medic ation usage . For perso ns <18 years of age, a pedia tric GFR calcu lator is avail able on the [facility] websi te: https ://dee dee mane.jose davison.o rg/pr ciro mckeonal s/kdo qi/gf r_cal culat or Not Available [facility] (Lab) [address] [place], [address], 06/04/2021 19:30:44 06/05/19 22 06/04/2021 COMPR EHENS NAHOMY METAB OLIC PANEL alkaline phosphatase 50 U/L 38-126 Not Available [facility] (Lab) [address] [place], [address], 06/04/2021 19:30:44 06/05/19 22 06/04/2021 COMPR EHENS NAHOMY METAB OLIC PANEL alanine aminotransfe rase 18 U/L 0-35 Not Available [facility] (Lab) [address] [place], [address], 06/04/2021 19:30:44 06/05/19 22 06/04/2021 COMPR EHENS NAHOMY METAB OLIC PANEL aspartate aminotransfe rase 24 U/L 15-37 Not Available [facility] (Lab) [address] [place], [address], 06/04/2021 19:30:44 06/05/19 22 06/04/2021 COMPR EHENS NAHOMY METAB OLIC PANEL bilirubin, total 0.40 mg/dL 0.20-1 .30 Not Available [facility] (Lab) [address] [place], [address], 06/04/2021 19:30:44 06/05/19 22 06/04/2021 COMPR EHENS NAHOMY METAB OLIC PANEL calcium 10.2 mg/dL 8.4-10 .2 Not Available [facility] (Lab) [address] [place], [address], 06/04/2021 19:30:44 06/05/19 22 06/04/2021 COMPR EHENS NAHOMY METAB OLIC PANEL total protein 7.6 g/dL 6.3-8. 2 Not Available [facility] (Lab) [address] [place], [address], 06/04/2021 19:30:44 06/05/19 22 06/04/2021 COMPR EHENS NAHOMY METAB OLIC PANEL albumin 4.9 g/dL 3.4-5. 0 Not Available [facility] (Lab) [address] [place], [address], 06/04/2021 19:30:44 06/05/19 22 06/04/2021 COMPR EHENS NAHOMY METAB OLIC PANEL globulin 2.7 g/dL 2.6-4. 2 Not Available [facility] (Lab) [address] [place], [address], 06/04/2021 19:30:44 06/05/19 22 06/04/2021 COMPR EHENS NAHOMY METAB OLIC PANEL A/G ratio 1.8 ratio 1.0-2. 0 Not Available [facility] (Lab) [address] [facility] [place], [address], 06/04/2021 19:30:44 06/05/19 22 06/04/2021 CBC/C OMPLE TE BLD COUNT W/DIF F hematocrit 35.6 % 35.7-4 5.7 low Not Available [facility] (Lab) [address] [place], [address], 06/04/2021 19:05:36 06/05/19 22 06/04/2021 CBC/C OMPLE TE BLD COUNT W/DIF F white blood cells 7.6 x10'3 /uL 4.2-10 .8 Not Available [facility] (Lab) [address] [place], [address], 06/04/2021 19:05:36 06/05/19 22 06/04/2021 CBC/C OMPLE TE BLD COUNT W/DIF F red blood cells 4.12 x10'6 /uL 3.80-5 .20 Not Available [facility] (Lab) [address] [place], [address], 06/04/2021 19:05:36 06/05/19 22 06/04/2021 CBC/C OMPLE TE BLD COUNT W/DIF F hemoglobin 11.7 g/dL 12.0-1 5.6 low Not Available [facility] (Lab) [address] [place], [address], 06/04/2021 19:05:36 06/05/19 22 06/04/2021 CBC/C OMPLE TE BLD COUNT W/DIF F mean red cell volume 86.4 fL 82.0-9 9.0 Not Available [facility] (Lab) [address] [place], [address], 06/04/2021 19:05:36 06/05/19 22 06/04/2021 CBC/C OMPLE TE BLD COUNT W/DIF F mean red cell hemoglobin 28.4 pg 27.0-3 3.0 Not Available [facility] (Lab) [address] [place], [address], 06/04/2021 19:05:36 06/05/19 22 06/04/2021 CBC/C OMPLE TE BLD COUNT W/DIF F mean RBC HGB concentratio n 32.9 g/dL 31.0-3 6.0 Not Available [facility] (Lab) [address] [place], [address], 06/04/2021 19:05:36 06/05/19 22 06/04/2021 CBC/C OMPLE TE BLD COUNT W/DIF F neutrophils 56.5 % 39.0-7 2.0 Not Available [facility] (Lab) [address] [place], [address], 06/04/2021 19:05:36 06/05/19 22 06/04/2021 CBC/C OMPLE TE BLD COUNT W/DIF F red cell distribution width 17.8 % 11.8-1 5.5 high Not Available [facility] (Lab) [address] [place], [address], 06/04/2021 19:05:36 06/05/19 22 06/04/2021 CBC/C OMPLE TE BLD COUNT W/DIF F platelets 365 x10'3 /uL 150-40 0 Not Available [facility] (Lab) [address] [place], [address], 06/04/2021 19:05:36 06/05/19 22 06/04/2021 CBC/C OMPLE TE BLD COUNT W/DIF F mean platelet volume 10.4 fL 9.0-12 .4 Not Available [facility] (Lab) [address] [place], [address], 06/04/2021 19:05:36 06/05/19 22 06/04/2021 CBC/C OMPLE TE BLD COUNT W/DIF F lymphocytes 33.0 % 16.0-4 7.0 Not Available [facility] (Lab) [address] [place], [address], 06/04/2021 19:05:36 06/05/19 22 06/04/2021 CBC/C OMPLE TE BLD COUNT W/DIF F monocytes 8.4 % 5.0-12 .0 Not Available [facility] (Lab) [address] [place], [address], 06/04/2021 19:05:36 06/05/19 22 06/04/2021 CBC/C OMPLE TE BLD COUNT W/DIF F eosinophils 1.7 % 1.0-7. 0 Not Available [facility] (Lab) [address] [place], [address], 06/04/2021 19:05:36 06/05/19 22 06/04/2021 CBC/C OMPLE TE BLD COUNT W/DIF F basophils 0.3 % 0.0-2. 0 Not Available [facility] (Lab) [address] [place], [address], 06/04/2021 19:05:36 06/05/19 22 06/04/2021 CBC/C OMPLE TE BLD COUNT W/DIF F immature granulocytes 0.1 % 0.00-0 .50 Not Available [facility] (Lab) [address] [place], [address], 06/04/2021 19:05:36 06/05/19 22 06/04/2021 CBC/C OMPLE TE BLD COUNT W/DIF F neutrophils, absolute count 4.31 x10'3 /uL 1.5-8. 0 Not Available [facility] (Lab) [address] [place], [address], 06/04/2021 19:05:36 06/05/19 22 06/04/2021 CBC/C OMPLE TE BLD COUNT W/DIF F lymphocytes, absolute count 2.52 x10'3 /uL 1.07-3 .43 Not Available [facility] (Lab) [address] [place], [address], 06/04/2021 19:05:36 06/05/19 22 06/04/2021 CBC/C OMPLE TE BLD COUNT W/DIF F monocytes, absolute count 0.64 x10'3 /uL 0.29-0 .99 Not Available [facility] (Lab) [address] [place], [address], 06/04/2021 19:05:36 06/05/19 22 06/04/2021 CBC/C OMPLE TE BLD COUNT W/DIF F nucleated red blood cells 0.0 % -0 Not Available [facility] (Lab) [address] [place], [address], 06/04/2021 19:05:36 06/05/19 22 06/04/2021 CBC/C OMPLE TE BLD COUNT W/DIF F eosinophils, absolute count 0.13 x10'3 /uL 0.02-0 .53 Not Available [facility] (Lab) [address] [place], [address], 06/04/2021 19:05:36 06/05/19 22 06/04/2021 CBC/C OMPLE TE BLD COUNT W/DIF F basophils, absolute count 0.02 x10'3 /uL 0.01-0 .08 Not Available [facility] (Lab) [address] [place], [address], 06/04/2021 19:05:36 06/05/19 22 06/04/2021 CBC/C OMPLE TE BLD COUNT W/DIF F immature granulocytes ,absolute 0.01 x10'3 /uL 0.00-0 .05 Not Available [facility] (Lab) [address] [place], [address], 06/04/2021 19:05:36 06/05/19 22 06/04/2021 CBC/C OMPLE TE BLD COUNT W/DIF F NRBC# 0.00 x10'3 /uL Not Available [facility] (Lab) [address] [place], [address], 06/04/2021 19:05:36 04/24/19 23 04/24/2022 VITAM IN B12 (LINDA SY ) vb12 265 pg/mL 239-93 1 Not Available [facility] (Lab) [address] [place], [address], 04/24/2022 23:07:27 04/24/19 23 04/24/2022 VITAM IN D 25-HY DROXY vd25oh 16.0 NG/mL 30-100 low Vitam in D Statu s: Defic ient: <20 ng/mL Insuf ficie nt: 20-29 ng/mL Suffi cient : 30-10 0 ng/mL Not Available [facility] (Lab) [address] [place], [address], 04/24/2022 22:19:47 04/24/19 23 04/24/2022 PASQUALE TIN ferritin 15 NG/mL 6.24-1 37 Not Available [facility] (Lab) [address] [place], [address], 04/24/2022 21:49:59 04/24/19 23 04/24/2022 TSH thyroid-stim ulating hormone 3.070 uIU/m L 0.465- 4.680 Not Available [facility] (Lab) [address] [place], [address], 04/24/2022 21:49:24 04/24/19 23 04/24/2022 T4 FREE free T4 1.01 NG/dL 0.78-2 .19 Not Available [facility] (Lab) [address] [place], [address], 04/24/2022 21:47:07 04/24/19 23 04/24/2022 IRON/ TIBC PANEL total iron binding capacity 306 mcg/d L 265-47 5 Not Available [facility] (Lab) [address] [place], [address], 04/24/2022 21:45:37 04/24/19 23 04/24/2022 IRON/ TIBC PANEL % transferrin saturation 36 % 20-55 Not Available [facility] (Lab) [address] [place], [address], 04/24/2022 21:45:37 04/24/19 23 04/24/2022 IRON/ TIBC PANEL unsaturated iron bind capacity 196 mcg/d L 126-38 2 Not Available [facility] (Lab) [address] [place], [address], 04/24/2022 21:45:37 04/24/19 23 04/24/2022 IRON/ TIBC PANEL iron 110 mcg/d L 42-175 Not Available [facility] (Lab) [address] [place], [address], 04/24/2022 21:45:37 04/24/19 23 04/24/2022 MAGNE SIUM magnesium 2.0 mg/dL 1.6-2. 3 Not Available [facility] (Lab) [address] [place], [address], 04/24/2022 21:44:23 04/24/19 23 04/24/2022 COMPR EHENS NAHOMY METAB OLIC PANEL glucose 87 mg/dL 70-99 Not Available [facility] (Lab) [address] [place], [address], 04/24/2022 21:44:19 04/24/19 23 04/24/2022 COMPR EHENS NAHOMY METAB OLIC PANEL sodium 138 mmol/ L 137-14 5 Not Available [facility] (Lab) [address] [place], [address], 04/24/2022 21:44:19 04/24/19 23 04/24/2022 COMPR EHENS NAHOMY METAB OLIC PANEL potassium 4.5 mmol/ L 3.5-5. 1 Not Available [facility] (Lab) [address] [place], [address], 04/24/2022 21:44:19 04/24/19 23 04/24/2022 COMPR EHENS NAHOMY METAB OLIC PANEL chloride 108 mmol/ L 98-107 high Not Available [facility] (Lab) [address] [place], [address], 04/24/2022 21:44:19 04/24/19 23 04/24/2022 COMPR EHENS NAHOMY METAB OLIC PANEL carbon dioxide 21 mmol/ L 22-30 low Not Available [facility] (Lab) [address] [place], [address], 04/24/2022 21:44:19 04/24/19 23 04/24/2022 COMPR EHENS NAHOMY METAB OLIC PANEL anion gap 13.5 mmol/ L 14-22 low Not Available [facility] (Lab) [address] [place], [address], 04/24/2022 21:44:19 04/24/19 23 04/24/2022 COMPR EHENS NAHOMY METAB OLIC PANEL BUN 10 mg/dL 8-19 Not Available [facility] (Lab) [address] [place], [address], 04/24/2022 21:44:19 04/24/19 23 04/24/2022 COMPR EHENS NAHOMY METAB OLIC PANEL creatinine 0.57 mg/dL 0.66-1 .25 low Not Available [facility] (Lab) [address] [place], [address], 04/24/2022 21:44:19 04/24/19 23 04/24/2022 COMPR EHENS NAHOMY METAB OLIC PANEL GFR >60 Refer ence Range : [place] ge GFR Healt hy Adult : >60 mL/mi n/1.7 3 m2 Chron ic Kidne y Disea se: 15-60 mL/mi n/1.7 3 m2 Kidne y Failu re: <15/m L/min /1.73 m2 www.n iddk. nih.g ov The MDRD study equat ion has not been valid ated in child hao <18 years of age; pregn ant women ; the elder ly >85 years of age; or in some racia l or ethni c subgr oups, such as Mani nics. Outsi de the valid ated elizabeth eters , estim ated GFR is less accur ate, requi ring clini chela judgm ent on a case- by-ca se basis . Clini chela inter preta tion for other races and ages must be made by the clini rudolph. The MDRD study equat ion has not been valid ated for the evalu ation of serum creat inine relat ed to nutri zahra l statu s or medic ation usage . For perso ns <18 years of age, a pedia tric GFR calcu lator is avail able on the [facility] websi te: https ://dee dee mane.jose davison.o rg/pr ofess ional s/kdo qi/gf r_cal culat or Not Available [facility] (Lab) [address] [place], [address], 04/24/2022 21:44:19 04/24/19 23 04/24/2022 COMPR EHENS NAHOMY METAB OLIC PANEL alkaline phosphatase 51 U/L 38-126 Not Available [facility] (Lab) [address] [place], [address], 04/24/2022 21:44:19 04/24/19 23 04/24/2022 COMPR EHENS NAHOMY METAB OLIC PANEL alanine aminotransfe rase 21 U/L 0-35 Not Available [facility] (Lab) [address] [place], [address], 04/24/2022 21:44:19 04/24/19 23 04/24/2022 COMPR EHENS NAHOMY METAB OLIC PANEL aspartate aminotransfe rase 25 U/L 15-37 Not Available [facility] (Lab) [address] [place], [address], 04/24/2022 21:44:19 04/24/19 23 04/24/2022 COMPR EHENS NAHOMY METAB OLIC PANEL bilirubin, total 0.40 mg/dL 0.20-1 .30 Not Available [facility] (Lab) [address] [place], [address], 04/24/2022 21:44:19 04/24/19 23 04/24/2022 COMPR EHENS NAHOMY METAB OLIC PANEL calcium 9.9 mg/dL 8.4-10 .2 Not Available [facility] (Lab) [address] [place], [address], 04/24/2022 21:44:19 04/24/19 23 04/24/2022 COMPR EHENS NAHOMY METAB OLIC PANEL total protein 7.2 g/dL 6.3-8. 2 Not Available [facility] (Lab) [address] [place], [address], 04/24/2022 21:44:19 04/24/19 23 04/24/2022 COMPR EHENS NAHOMY METAB OLIC PANEL albumin 4.5 g/dL 3.4-5. 0 Not Available [facility] (Lab) [address] [place], [address], 04/24/2022 21:44:19 04/24/19 23 04/24/2022 COMPR EHENS NAHOMY METAB OLIC PANEL globulin 2.7 g/dL 2.6-4. 2 Not Available [facility] (Lab) [address] [place], [address], 04/24/2022 21:44:19 04/24/1904/24/2022 COMPR EHENS NAHOMY METAB OLIC PANEL A/G ratio 1.7 ratio 1.0-2. 0 Not Available [facility] (Lab) [address] [place], [address], 04/24/2022 21:44:19 04/24/19 23 04/24/2022 HEMOG LOBIN A1C HA1C 5.4 % 4.0-6. 0 Diabe angela Scree mallory Crite stephenie: <5.7% Consi stent with absen ce of diabe angela 5.7-6 .4% Consi stent with incre ased risk for diabe angela (pred iabet es) >OR=6 .5% Consi stent with diabe angela REFER ENCE: Diabe angela Care 2016, 39(Soto ppl.1 ):s13 -s22 Not Available [facility] (Lab) [address] [place], [address], 04/24/2022 21:39:34 04/24/1904/24/2022 CBC/C OMPLE TE BLD COUNT W/DIF F mean red cell volume 94.6 fL 82.0-9 9.0 Not Available [facility] (Lab) [address] [place], [address], 04/24/2022 20:12:45 04/24/1904/24/2022 CBC/C OMPLE TE BLD COUNT W/DIF F white blood cells 12.0 x10'3 /uL 4.2-10 .8 high Not Available [facility] (Lab) [address] [place], [address], 04/24/2022 20:12:45 04/24/19 23 04/24/2022 CBC/C OMPLE TE BLD COUNT W/DIF F red blood cells 4.25 x10'6 /uL 3.80-5 .20 Not Available [facility] (Lab) [address] [place], [address], 04/24/2022 20:12:45 04/24/19 23 04/24/2022 CBC/C OMPLE TE BLD COUNT W/DIF F hemoglobin 13.3 g/dL 12.0-1 5.6 Not Available [facility] (Lab) [address] [place], [address], 04/24/2022 20:12:45 04/24/19 23 04/24/2022 CBC/C OMPLE TE BLD COUNT W/DIF F hematocrit 40.2 % 35.7-4 5.7 Not Available [facility] (Lab) [address] [place], [address], 04/24/2022 20:12:45 04/24/19 23 04/24/2022 CBC/C OMPLE TE BLD COUNT W/DIF F mean red cell hemoglobin 31.3 pg 27.0-3 3.0 Not Available [facility] (Lab) [address] [place], [address], 04/24/2022 20:12:45 04/24/19 23 04/24/2022 CBC/C OMPLE TE BLD COUNT W/DIF F mean RBC HGB concentratio n 33.1 g/dL 31.0-3 6.0 Not Available [facility] (Lab) [address] [place], [address], 04/24/2022 20:12:45 04/24/19 23 04/24/2022 CBC/C OMPLE TE BLD COUNT W/DIF F red cell distribution width 13.1 % 11.8-1 5.5 Not Available [facility] (Lab) [address] [place], [address], 04/24/2022 20:12:45 04/24/19 23 04/24/2022 CBC/C OMPLE TE BLD COUNT W/DIF F platelets 375 x10'3 /uL 150-40 0 Not Available [facility] (Lab) [address] [place], [address], 04/24/2022 20:12:45 04/24/19 23 04/24/2022 CBC/C OMPLE TE BLD COUNT W/DIF F mean platelet volume 11.3 fL 9.0-12 .4 Not Available [facility] (Lab) [address] [place], [address], 04/24/2022 20:12:45 04/24/19 23 04/24/2022 CBC/C OMPLE TE BLD COUNT W/DIF F neutrophils 63.3 % 39.0-7 2.0 Not Available [facility] (Lab) [address] [place], [address], 04/24/2022 20:12:45 04/24/19 23 04/24/2022 CBC/C OMPLE TE BLD COUNT W/DIF F lymphocytes 26.5 % 16.0-4 7.0 Not Available [facility] (Lab) [address] [place], [address], 04/24/2022 20:12:45 04/24/19 23 04/24/2022 CBC/C OMPLE TE BLD COUNT W/DIF F monocytes 7.0 % 5.0-12 .0 Not Available [facility] (Lab) [address] [place], [address], 04/24/2022 20:12:45 04/24/19 23 04/24/2022 CBC/C OMPLE TE BLD COUNT W/DIF F eosinophils 2.4 % 1.0-7. 0 Not Available [facility] (Lab) [address] [place], [address], 04/24/2022 20:12:45 04/24/19 23 04/24/2022 CBC/C OMPLE TE BLD COUNT W/DIF F basophils 0.3 % 0.0-2. 0 Not Available [facility] (Lab) [address] [place], [address], 04/24/2022 20:12:45 04/24/19 23 04/24/2022 CBC/C OMPLE TE BLD COUNT W/DIF F immature granulocytes 0.5 % 0.00-0 .50 Not Available [facility] (Lab) [address] [place], [address], 04/24/2022 20:12:45 04/24/1904/24/2022 CBC/C OMPLE TE BLD COUNT W/DIF F neutrophils, absolute count 7.58 x10'3 /uL 1.5-8. 0 Not Available [facility] (Lab) [address] [place], [address], 04/24/2022 20:12:45 04/24/19 23 04/24/2022 CBC/C OMPLE TE BLD COUNT W/DIF F lymphocytes, absolute count 3.17 x10'3 /uL 1.07-3 .43 Not Available [facility] (Lab) [address] [place], [address], 04/24/2022 20:12:45 04/24/1904/24/2022 CBC/C OMPLE TE BLD COUNT W/DIF F monocytes, absolute count 0.84 x10'3 /uL 0.29-0 .99 Not Available [facility] (Lab) [address] [place], [address], 04/24/2022 20:12:45 04/24/1904/24/2022 CBC/C OMPLE TE BLD COUNT W/DIF F eosinophils, absolute count 0.29 x10'3 /uL 0.02-0 .53 Not Available [facility] (Lab) [address] [place], [address], 04/24/2022 20:12:45 04/24/19 23 04/24/2022 CBC/C OMPLE TE BLD COUNT W/DIF F basophils, absolute count 0.04 x10'3 /uL 0.01-0 .08 Not Available [facility] (Lab) [address] [place], [address], 04/24/2022 20:12:45 04/24/19 23 04/24/2022 CBC/C OMPLE TE BLD COUNT W/DIF F immature granulocytes ,absolute 0.06 x10'3 /uL 0.00-0 .05 high Not Available [facility] (Lab) [address] [place], [address], 04/24/2022 20:12:45 04/24/19 23 04/24/2022 CBC/C OMPLE TE BLD COUNT W/DIF F nucleated red blood cells 0.0 % -0 Not Available [facility] (Lab) [address] [place], [address], 04/24/2022 20:12:45 04/24/19 23 04/24/2022 CBC/C OMPLE TE BLD COUNT W/DIF F NRBC# 0.00 x10'3 /uL Not Available [facility] (Lab) [address] [place], [address], 04/24/2022 20:12:45 09/16/1909/15/2022 CBC/C OMPLE TE BLD COUNT W/DIF F white blood cells 9.2 x10'3 /uL 4.2-10 .8 Not Available [facility] (Lab) [address] [place], [address], 09/15/2022 19:51:06 09/16/1909/15/2022 CBC/C OMPLE TE BLD COUNT W/DIF F red blood cells 4.35 x10'6 /uL 3.80-5 .20 Not Available [facility] (Lab) [address] [place], [address], 09/15/2022 19:51:06 09/16/19 23 09/15/2022 CBC/C OMPLE TE BLD COUNT W/DIF F hemoglobin 13.4 g/dL 12.0-1 5.6 Not Available [facility] (Lab) [address] [place], [address], 09/15/2022 19:51:06 09/16/19 23 09/15/2022 CBC/C OMPLE TE BLD COUNT W/DIF F hematocrit 40.6 % 35.7-4 5.7 Not Available [facility] (Lab) [address] [place], [address], 09/15/2022 19:51:06 09/16/19 23 09/15/2022 CBC/C OMPLE TE BLD COUNT W/DIF F mean red cell volume 93.3 fL 82.0-9 9.0 Not Available [facility] (Lab) [address] [place], [address], 09/15/2022 19:51:06 09/16/19 23 09/15/2022 CBC/C OMPLE TE BLD COUNT W/DIF F mean red cell hemoglobin 30.8 pg 27.0-3 3.0 Not Available [facility] (Lab) [address] [place], [address], 09/15/2022 19:51:06 09/16/19 23 09/15/2022 CBC/C OMPLE TE BLD COUNT W/DIF F mean RBC HGB concentratio n 33.0 g/dL 31.0-3 6.0 Not Available [facility] (Lab) [address] [place], [address], 09/15/2022 19:51:06 09/16/19 23 09/15/2022 CBC/C OMPLE TE BLD COUNT W/DIF F red cell distribution width 14.1 % 11.8-1 5.5 Not Available [facility] (Lab) [address] [place], [address], 09/15/2022 19:51:06 09/16/1909/15/2022 CBC/C OMPLE TE BLD COUNT W/DIF F platelets 401 x10'3 /uL 150-40 0 high Not Available [facility] (Lab) [address] [place], [address], 09/15/2022 19:51:06 09/16/19 23 09/15/2022 CBC/C OMPLE TE BLD COUNT W/DIF F mean platelet volume 10.5 fL 9.0-12 .4 Not Available [facility] (Lab) [address] [place], [address], 09/15/2022 19:51:06 09/16/19 23 09/15/2022 CBC/C OMPLE TE BLD COUNT W/DIF F neutrophils 62.5 % 39.0-7 2.0 Not Available [facility] (Lab) [address] [place], [address], 09/15/2022 19:51:06 09/16/1909/15/2022 CBC/C OMPLE TE BLD COUNT W/DIF F lymphocytes 28.1 % 16.0-4 7.0 Not Available [facility] (Lab) [address] [place], [address], 09/15/2022 19:51:06 09/16/19 23 09/15/2022 CBC/C OMPLE TE BLD COUNT W/DIF F monocytes 6.6 % 5.0-12 .0 Not Available [facility] (Lab) [address] [place], [address], 09/15/2022 19:51:06 09/16/19 23 09/15/2022 CBC/C OMPLE TE BLD COUNT W/DIF F eosinophils 2.0 % 1.0-7. 0 Not Available [facility] (Lab[facility] [address] [facility] [place], [address], 09/15/2022 19:51:06 09/16/1909/15/2022 CBC/C OMPLE TE BLD COUNT W/DIF F basophils 0.5 % 0.0-2. 0 Not Available [facility] (Lab) [address] [place], [address], 09/15/2022 19:51:06 09/16/1909/15/2022 CBC/C OMPLE TE BLD COUNT W/DIF F immature granulocytes 0.3 % 0.00-0 .50 Not Available [facility] (Lab) [address] [place], [address], 09/15/2022 19:51:06 09/16/1909/15/2022 CBC/C OMPLE TE BLD COUNT W/DIF F neutrophils, absolute count 5.73 x10'3 /uL 1.5-8. 0 Not Available [facility] (Lab) [address] [place], [address], 09/15/2022 19:51:06 09/16/1909/15/2022 CBC/C OMPLE TE BLD COUNT W/DIF F lymphocytes, absolute count 2.58 x10'3 /uL 1.07-3 .43 Not Available [facility] (Lab) [address] [place], [address], 09/15/2022 19:51:06 09/16/19 23 09/15/2022 CBC/C OMPLE TE BLD COUNT W/DIF F monocytes, absolute count 0.61 x10'3 /uL 0.29-0 .99 Not Available [facility] (Lab) [address] [place], [address], 09/15/2022 19:51:06 09/16/19 23 09/15/2022 CBC/C OMPLE TE BLD COUNT W/DIF F eosinophils, absolute count 0.18 x10'3 /uL 0.02-0 .53 Not Available [facility] (Lab) [address] [place], [address], 09/15/2022 19:51:06 09/16/19 23 09/15/2022 CBC/C OMPLE TE BLD COUNT W/DIF F basophils, absolute count 0.05 x10'3 /uL 0.01-0 .08 Not Available [facility] (Lab) [address] [place], [address], 09/15/2022 19:51:06 09/16/19 23 09/15/2022 CBC/C OMPLE TE BLD COUNT W/DIF F immature granulocytes ,absolute 0.03 x10'3 /uL 0.00-0 .05 Not Available [facility] (Lab) [address] [place], [address], 09/15/2022 19:51:06 09/16/19 23 09/15/2022 CBC/C OMPLE TE BLD COUNT W/DIF F nucleated red blood cells 0.0 % -0 Not Available [facility] (Lab) [address] [place], [address], 09/15/2022 19:51:06 09/16/19 23 09/15/2022 CBC/C OMPLE TE BLD COUNT W/DIF F NRBC# 0.00 x10'3 /uL Not Available [facility] (Lab) [address] [place], [address], 09/15/2022 19:51:06 09/16/19 23 09/15/2022 IRON/ TIBC PANEL total iron binding capacity 331 mcg/d L 265-47 5 Not Available [facility] (Lab) [address] [place], [address], 09/15/2022 21:20:57 09/16/1909/15/2022 IRON/ TIBC PANEL % transferrin saturation 45 % 20-55 Not Available [facility] (Lab) [address] [place], [address], 09/15/2022 21:20:57 09/16/19 23 09/15/2022 IRON/ TIBC PANEL unsaturated iron bind capacity 181 mcg/d L 126-38 2 Not Available [facility] (Lab) [address] [place], [address], 09/15/2022 21:20:57 09/16/19 23 09/15/2022 IRON/ TIBC PANEL iron 150 mcg/d L 42-175 Not Available [facility] (Lab) [address] [place], [address], 09/15/2022 21:20:57 09/16/19 23 09/15/2022 PASQUALE TIN ferritin 12 NG/mL 6.24-1 37 Not Available [facility] (Lab) [address] [place], [address], 09/15/2022 21:30:47 09/16/19 23 09/15/2022 VITAM IN B12 (LINDA SY ) vb12 271 pg/mL 239-93 1 Not Available [facility] (Lab) [address] [place], [address], 09/15/2022 22:11:07 09/16/19 23 09/15/2022 FOLAT E, SERUM /PLAS MA folate 3.59 NG/mL 2.76-2 0.0 Not Available [facility] (Lab) [address] [place], [address], 09/15/2022 22:11:13 Result Notes None recorded. Problems Name Problem SNOMED Code Status Onset Date Resolution Date Notes Provider Name and Address Organization Details Recorded Time Cobalamin deficiency 044749215 Active 2021 Not Available [facility] 23:30:02 Vitamin D deficiency 88216406 Active 2021 Not Available [employer] 3 23:30:02 Depressive disorder 30472622 Active 2020 Not Available [facility] 3 23:30:02 Adult attention deficit hyperactivity disorder 588422365 Active 2020 Not Available [facility] 3 23:30:02 Anxiety 25387242 Active 2020 Not Available [facility] 3 23:30:02 Iron deficiency anemia 46679335 Active 2021 Not Available [facility] 3 23:30:02 Paresthesia 10799749 Active 2022 Taina Freeman MD [address] [place] [address], [facility] [address], [place], [address] , [facility] [employer] 3 13:47:15 Problem Notes None recorded. Medical Equipment None Reported. Allergies No known drug allergies Medications Name Sig Start Date Stop Date Status Note LastModified by Organization Details LastModified Time cyclobenzap rine 10 mg tablet 12/12 completed Not Available Not Available Not Available Vitamin B-6 25 mg tablet TAKE 1 TABLET BY MOUTH TWICE A DAY 04/23 completed Not Available Not Available Not Available nicotine 14 mg/24 hr daily transdermal patch APPLY 1 PATCH EVERY DAY 04/23 completed Not Available Not Available Not Available ondansetron HCl 4 mg tablet TAKE 1 TABLET BY MOUTH EVERY 8 HOURS NEEDED FOR NAUSEA AND VOMITING 04/23 completed Not Available Not Available Not Available prednisone 20 mg tablet TAKE 2 TABLETS BY MOUTH EVERY DAY FOR 5 DAYS 04/23 completed Not Available Not Available Not Available dextroamphe tamine-amph etamine 10 mg tablet 12/12 completed Not Available Not Available Not Available sertraline 100 mg tablet 04/23 completed Not Available Not Available Not Available cyanocobala min (vit B-12) 1,000 mcg tablet 1 po qday 2022 active Not Available Not Available Not Avai lable acetaminoph en 500 mg tablet 04/23 completed Not Available Not Available Not Available lamotrigine 25 mg tablet TAKE 1 TABLET DAILY FOR 2 WEEKS, THEN 2 TABLETS DAILY FOR 2 WEEKS, THEN 4 TABLETS DAILY 04/23 completed Not Available Not Available Not Available famotidine 20 mg tablet TAKE 1 TABLET BY MOUTH TWICE A DAY 04/23 completed Not Available Not Available Not Available pantoprazol e 40 mg tablet,melony yed release TAKE 1 TABLET BY MOUTH EVERY DAY active Not Available Not Available No t Available cyanocobala min (vit B-12) 1,000 mcg/mL injection solution Inject 1 mL every month by subcutane ous route. 2022 active Not Available Not Available Not Avai lable ferrous sulfate 325 mg (65 mg iron) tablet TAKE 1 TABLET BY MOUTH EVERY DAY WITH BREAKFAST 04/23 completed Not Available Not Available Not Available dextroamphe tamine-amph etamine 20 mg tablet TAKE 1 TABLET BY MOUTH TWICE A DAY 04/23 completed Not Available Not Available Not Available fluoxetine 10 mg capsule 1 po qday 04/23 completed Not Available Not Available Not Available docusate sodium 100 mg capsule 04/23 completed Not Available Not Available Not Available dextroamphe tamine-amph etamine ER 10 mg 24hr capsule,ext end release 12/12 completed Not Available Not Available Not Available hydroxyzine HCl 25 mg tablet TAKE 1 TABLET BY MOUTH 3 TIMES A DAY NEEDED FOR ITCHING. 04/23 completed Not Available Not Available Not Available ergocalcife rol (vitamin D2) 1,250 mcg (50,000 unit) capsule TAKE 1 CAPSULE EVERY WEEK BY ORAL ROUTE. active Not Available Not Available No t Available lorazepam 1 mg tablet TAKE 1 TABLET BY MOUTH THREE TIMES A DAY active Not Available Not Available No t Available ibuprofen 600 mg tablet 04/23 completed Not Available Not Available Not Available albuterol sulfate HFA 90 mcg/actuati on aerosol inhaler 2 PUFF INHALED FOUR TIMES DAILY NEEDED FOR SHORTNESS OF BREATH OR WHEEZING 04/23 completed Not Available Not Available Not Available norethindro ne (contracept nahomy) 0.35 mg tablet TAKE 1 TABLET BY MOUTH AT THE SAME TIME EACH DAY active Not Available Not Available No t Available sertraline 50 mg tablet TAKE 1 TABLET BY MOUTH EVERY DAY 04/23 completed Not Available Not Available Not Available risperidone 1 mg tablet TAKE 1 TABLET BY MOUTH IN THE MORNING AND 1 AT BEDTIME 04/23 completed Not Available Not Available Not Available amoxicillin 875 mg-potassiu m clavulanate 125 mg tablet TAKE 1 TABLET BY MOUTH EVERY 12 HOURS FOR 10 DAYS 04/23 completed Not Available Not Available Not Available aripiprazol e 5 mg tablet 04/23 completed Not Available Not Available Not Available nitrofurant oin monohydrate /macrocryst als 100 mg capsule 12/12 completed Not Available Not Available Not Available aripiprazol e 2 mg tablet 12/12 completed Not Available Not Available Not Available Vitals Date Recorded Body mass index (BMI) Body height Oxygen saturation Oxygen saturation in Arterial blood by Pulse oximetry Heart rate Body temperature Body weight Systolic blood pressure Diastolic blood pressure Provider Name and Address Organization Details Last Updated DateTime 1 15.7 kg/m2 154.94 cm 95 % 95 % 93 /min 98.3 [degF] 70857.1 7 g 110 mm[Hg] 74 mm[Hg] Not Available [facility] 3 23:29:10 Date Recorded Body mass index (BMI) Body height Oxygen saturation Oxygen saturation in Arterial blood by Pulse oximetry Heart rate Body temperature Body weight Systolic blood pressure Diastolic blood pressure Provider Name and Address Organization Details Last Updated DateTime 2 17.4 kg/m2 154.94 cm 98 % 98 % 122 /min 98.2 [degF] 61851.5 g 106 mm[Hg] 76 mm[Hg] Not Available [facility] 3 23:29:11 Date Recorded Body mass index (BMI) Body height Oxygen saturation Oxygen saturation in Arterial blood by Pulse oximetry Heart rate Body temperature Body weight Systolic blood pressure Diastolic blood pressure Provider Name and Address Organization Details Last Updated DateTime 3 21.2 kg/m2 154.94 cm 100 % 100 % 83 /min 98.5 [degF] 47803.3 5 g 118 mm[Hg] 70 mm[Hg] Not Available [facility] 3 23:29:11 Date Recorded Body height Body mass index (BMI) Body weight Body temperature Heart rate Oxygen saturation Oxygen saturation in Arterial blood by Pulse oximetry Systolic blood pressure Diastolic blood pressure Provider Name and Address Organization Details Last Updated DateTime 3 154.94 cm 20.2 kg/m2 62695.3 8 g 98 [degF] 84 /min 99 % 99 % 116 mm[Hg] 76 mm[Hg] Jacqueline Ingram RN [place] [facility] 08:45:12 Date Recorded Body height Body mass index (BMI) Body weight Body temperature Heart rate Oxygen saturation Oxygen saturation in Arterial blood by Pulse oximetry Systolic blood pressure Diastolic blood pressure Provider Name and Address Organization Details Last Updated DateTime 3 154.94 cm 19.3 kg/m2 82745.4 2 g 98.2 [degF] 92 /min 99 % 99 % 100 mm[Hg] 60 mm[Hg] Jacqueline Ingram RN [place] [facility] 12:01:00 Social History Question Answer Notes LastModified by Organizat ion Details LastModified Time Tobacco Smoking Status Current Every Day Smoker Not Available [facility] 04/29/2022 23:28:30 What Is Your Level Of Caffeine Consumption? Occasional [id number] Information not available 04/29/2022 What Type Of Diet Are You Following? REGULAR MIGRATION.967671 8130 Information not available 04/29/2022 What Was The Date Of Your Most Recent Tobacco Screening? 12/12/2020 MIGRATION.[id number] Information not available 04/29/2022 What Is Your Current Pack Years? 20-29packyears MIGRATION.505253 5058 Information not available 04/29/2022 What Is Your Relationship Status? Single MIGRATION.[id number] 7939 Information not available 04/29/2022 Do You Use Your Seat Belt Or Car Seat Routinely? Yes MIGRATION.030495 5764 Information not available 04/29/2022 At What Age Did You Start Smoking Tobacco? 20 MIGRATION.077102 6907 Information not available 04/29/2022 How Much Tobacco Do You Smoke? 1 PPD MIGRATION.190927 1853 Information not available 04/29/2022 Do You Participate In Social Media? No MIGRATION.726539 9594 Information not available 04/29/2022 Do You Feel Stressed (tense, Restless, Nervous, Or Anxious, Or Unable To Sleep At Night)? [id number] MIGRATION.423112 6971 Information not available 04/29/2022 Do You Use Any Illicit Or Recreational Drugs? No MIGRATION.695668 6193 Information not available 04/29/2022 Has Tobacco Cessation Counseling Been Provided? No MIGRATION.201929 0999 Information not available 04/29/2022 Do You Have Any Dietary Restrictions? No MIGRATION.716295 5816 Information not available 04/29/2022 Do You Or Have You Ever Used Any Other Forms Of Tobacco Or Nicotine? No MIGRATION.428058 5973 Information not available 04/29/2022 Sex: Female Functional Status Question Answer Note LastModified by Organizat ion Details LastModified Time What is your exercise level? Occasional [id number] 26 Information not available 04/29/2022 Mental Status None recorded. Family History Relationship Description Onset Age of this Age Resolved Age Notes LastModified by Organization Details LastModified Time Father Cerebrovascu lar accident MIGRATION.862 [id number] Not available 04/29/2022 23:28:48 Father Essential hypertension MIGRATION.540 [id number] Not available 04/29/2022 23:28:48 Father Chronic pain MIGRATION.0 30 [id number] Not available 04/29/2022 23:28:48 Mother Chronic pain MIGRATION.0 30 [id number] Not available 04/29/2022 23:28:48 Sister Deep venous thrombosis MIGRATION.910 [id number] Not available 04/29/2022 23:28:48 Sister Cardiac arrest 30 MIGRATION.814 [id number] Not available 04/29/2022 23:28:49 Maternal Aunt Deep venous thrombosis MIGRATION.700 [id number] Not available 04/29/2022 23:28:49 Maternal Grandmother Deep venous thrombosis MIGRATION.407 [id number] Not available 04/29/2022 23:28:49 Maternal Grandmother Amyotrophic lateral sclerosis MIGRATION.450 [id number] Not available 04/29/2022 23:28:49 Notes:Potentially some pater nal aunts/uncles ALS Medical History No medical history recorded. Gynecological History Statement/Question Response Menses Monthly N How many live births 1 Date of Last Pap Abnormal Pap N Age at Menarche 13 Date of LMP Breast Problems no Obstetrics History GPAL:G 1 P 0 0 0 0 Past Encounters Encounter ID Performer Location Encounter Start Date Encounter Closed Date Diagnosis/Indication Diagnosis SNOMED-CT Code Diagnosis ICD10 Code Diagnosis Note [id number] [facility] Primary Care Jaquan enrico [address] [facility] [address] [place] [address] 12/12/2020 00:00:00 12/19/2020 09:58:51 [id number] [facility] Primary Care Willian prettye [address] [facility] [address] [place] [address] 06/04/2021 00:00:00 06/04/2021 17:00:43 [id number] [facility] Primary Care Willian prettye [address] [facility] [address] [place] [address] 04/23/2022 00:00:00 04/28/2022 08:02:27 [id number] Taina Freeman MD [facility] Primary Care Willian prettye [address] [facility] [address] [place] [address] 08/05/2022 08:40:07 08/05/2022 09:27:02 Cobalamin deficiency 151466424 E53.8 b12 was below 300, pt with numbness/t ingling, 1000 mcg IM x 1b12 1000 mcg po qdayf/u in 4 weeks, recheck labsconsid er further testing if no improvemen t vs neuro referral Iron defic iency anemia 19958616 D50.9 labs in April normal, but pt notes she had iron infusion in Dec2rechec k labs in 4 weeks to monitor [id number] Taina Freeman MD [facility] Primary Care Willian weston [address] [facility] [address] [place], [place] [address] 09/15/2022 11:56:31 09/15/2022 13:14:41 Cobalamin deficiency 863288835 E53.8 b12 was below 300, pt with numbness/t ingling, fooyxryb15 1000 mcg IM x 1b12 1000 mcg po qdayf/u in 4 weeks, recheck labsconsid er further testing if no improvemen t vs neuro referral update 09/15/22 B12 shot todayrepea t labsif normal, will refer to neurology for further evaluation of symptoms Iron defic iency anemia 79658497 D50.9 labs in April normal, but pt notes she had iron infusion in Dec2rechec k labs in 4 weeks to monitor update 09/15/22: Check labs todayunabl e to tolerate oral iron, will refer for iron infusion if low Health Concerns Section Related Observation LastModified by Organization Lainey mclean LastModified Time None Recorded Concern Status LastModified by Organization Details LastModified Time None Recorded Advance Directives Directive None Recorded Payers Encounter Date Sequence Insurance Name Policy Number Policy Mccormack Covered Member ID Mccormack Member ID Guarantor Name 08/05/2022 1 [facility] (MEDICAID HMO) [id number] Huyen Mares [id number] Huyen Mares 09/15/2022 1 [facility] (MEDICAID HMO) [id number] Huyen Hardingyer [id number] Huyen Mares Notes Date Note Type Note Provider Name and Address Organization Details Recorded Time 08/05/2022 text/html very fatigued, still dizzy. Has h/o iron deficiency anemia, can't tolerate oral iron pills. Has h/o b12 deficiencyhad baby 2 months ago, on progesterone only pill with light vaginal bleedinghas long h/o heartburn-not currently taking anythinghas long h/o diarrhea, no current blood in stools update 08/05/22: Had iron infusion in 12/2021. No interval change in symptoms. Taina Freeman MD [address], [place], [address], [employer] 08/05/2022 09:03:49 09/15/2022 text/html very fatigued, still dizzy. Has h/o iron deficiency anemia, can't tolerate oral iron pills. Has h/o b12 deficiencyhad baby 2 months ago, on progesterone only pill with light vaginal bleedinghas long h/o heartburn-not currently taking anythinghas long h/o diarrhea, no current blood in stools update 08/05/22: Had iron infusion in 12/2021. No interval change in symptoms. update 09/15/22: Energy may be a bit better with b12 replacement, otherwise no interval change. Taina Freeman MD [address], [place], [address], [employer] 09/15/2022 12:12:29 OBGyn Episode No OBEpisode recorded.
--- OUTSIDE RECORDS SUMMARY | 2024-05-13 00:08 | XMS_ITS | Patient Health Summary ---
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 AM [facility] Squamous Epithelial Cells 6-10(A) None Seen, 0-2, 3-5 /hpf 03/02/2017 10:55 AM [facility] Mucus UA 1+ /LPF 03/02/2017 10:55 AM [facility] Urine URINE SPECIMEN OBTAINED BY CLEAN CATCH PROCEDURE / Unknown Collection / Unknown 03/02/2017 10:23 AM [employer]ELINE REPRESENTATIVES 03/02/2017 10:37 AM [facility] Narrative [facility] - 03/02/2017 10:55 AM [employer]EL[employer] REPRESENTATIVES Justin Diaz MD LAB - URINALYSIS ORDERABLES Performing Organization Address [facility]/ZIP Co de Phone Number [facility] [address] [place] [address] * CULTURE URINE (03/02/2017 10:23 AM LIFELINE REPRESENTATIVES) Only the most recent of2 resultswithin the time period is included. Culture Urine 10,000-50,000 CFU/mL urogenital shane ROSALEE 03/03/2017 2:55 PM LIFELINE REPRESENTATIVES [facility] Urine URINE SPECIMEN OBTAINED BY CLEAN CATCH PROCEDURE / Unknown Collection / Unknown 03/02/2017 10:23 AM [employer] REPRESENTATIVES 03/02/2017 10:37 AM [employer] REPRESENTATIVES Justin Diaz MD LAB - MICROBIOLO GY ORDERABLES [facility] [address] [place] [address], [facility] [phone] * ALPHA FETOPROTEIN BLOOD MATERNAL QUAD PANEL (02/01/2017 1:16 PM LIFELINE REPRESENTATIVES) Results Report 02/04/2017 3:36 AM LIFELINE REPRESENTATIVES [facility] Test Results *Screen Negative* 02/04/2017 3:36 AM LIFELINE REPRESENTATIVES [facility] Gestational Age Weeks 18.4 WEEKS 02/04/2017 3:36 AM LIFELINE REPRESENTATIVES [facility] Gestational Age Based On Ultrasound 02/04/2017 3:36 AM LIFELINE REPRESENTATIVES [facility] Comment:18.4 on 02/01/2017 M[age] [place] 25[age]2 YEARS 02/04/2017 3:36 AM LIFELINE REPRESENTATIVES [facility] Race 02/04/2017 3:36 AM LIFELINE REPRESENTATIVES [facility] Weight 112 lbs 02/04/2017 3:36 AM LIFELINE REPRESENTATIVES [facility] Insulin Dependent Diabetes No 02/04/2017 3:36 AM [employer]ELINE REPRESENTATIVES [facility] Multiple Gestation No 2016 3:36 AM LIFELINE REPRESENTATIVES [facility] Alpha-Fetoprotein Value (EIA) 46.0 ng/mL 02/04/2017 3:36 AM LIFELINE REPRESENTATIVES [facility] AFP MoM Value 0.83 02/04/2017 3:36 AM LIFELINE REPRESENTATIVES [facility] hCG Value 64715 mIU/mL 02/04/2017 3:36 AM LIFELINE REPRESENTATIVES [facility] hCG Mom 1.31 02/04/2017 3:36 AM LIFELINE REPRESENTATIVES [facility] Estriol Value 1.81 ng/mL 02/04/2017 3:36 AM LIFELINE REPRESENTATIVES [facility] Estriol MoM 1.14 02/04/2017 3:36 AM LIFELINE REPRESENTATIVES [facility] JOSE E Value 278.31 pg/mL 02/04/2017 3:36 AM LIFELINE REPRESENTATIVES [facility] Jose E MoM Value 1.30 02/04/2017 3:36 AM LIFELINE REPRESENTATIVES [facility] ([facility]) OSBR Risk 1 [place] [address] 02/04/2017 3:36 AM LIFELINE REPRESENTATIVES [facility] ([facility]) DSR (2nd Trimester) 1 IN 2174 02/04/2017 3:36 AM LIFELINE REPRESENTATIVES [facility] ([facility]) DSR (By Age) 1 IN 1022 017 3:36 AM LIFELINE REPRESENTATIVES [facility] ([facility]) T18 Risk Not increased 02/04/2017 3:36 AM LIFELINE REPRESENTATIVES [facility] ([facility]) T18 (by Age) 1:3981 02/04/2017 3:36 AM LIFELINE REPRESENTATIVES [facility] ([facility]) Interpretation Comment 02/04/2017 3:36 AM LIFELINE REPRESENTATIVES [facility] ([facility]) Comment: Interpretation: Screen Negative This result is screen negative for OSB, Down Syndrome and Trisomy 18. The AFP MoM and patient specific risks calculated are based on the gestational age and the clinical information provided. This test can identify up to 80% of open neural tube defects. Closed neural tube defects and some open defects may not be detected by this test. The combination of maternal age, AFP, hCG, uE3, and JOSE E identifies 75-80% of Down Syndrome. The combination of maternal age, AFP, hCG and uE3 identifies 60% of Trisomy 18 pregnancies. The [employer] recommends amniocentesis be offered to women age 35 and older. Recalculations are not recommended when gestational dating by LMP and ultrasound are within 10 days. Comments Comment 02/04/2017 3:36 AM LIFELINE REPRESENTATIVES [facility] ([facility]) Comment: Shani Bassett, PhD, [facility] Director, Biochemical and Molecular Genetics References: Available Upon Request. Multiples Of Median Cutoffs Abbreviation Definitions For AFP Elevations IDD- Insulin Dep Diabetes Cochran 2.5 Black 2.8 OSBR- Open Spina Bifida IDD 2.0 Twins 4.5 Risk DSR Cutoff 1:270 DSR- Down Syndrome Risk T18 Cutoff 1:100 T18- Trisomy 18 Down Syndrome and Trisomy 18 screening are considered Investigational For further inquiries contact [facility] Services at [phone]. Blood BLOOD SPECIMEN / Unknown Venipuncture / Unknown 02/01/2017 1:16 PM L[employer]ELINE REPRESENTATIVES 02/01/2017 1:31 PM LIFELINE REPRESENTATIVES Narrative [facility] ([facility]) - 02/04/2017 3:36 AM LIFELINE REPRESENTATIVES [facility]formed at[facility] [address] [place], [place] [id number] Legal Services Professional: Ghada Louise MD, Phone: [phone] Huyen Johnston MD LAB - CHEMISTRY SILVIANO HOLLIDAY Performing Organization Address City/[facility]/ZIP Co de Phone Number [facility] ([facility]) [address] [place] [address] * STREP A SCREEN DIRECT W RFLX STREP A CULTURE (01/27/2017 7:24 PM LIFELINE REPRESENTATIVES) Strep A Rapid Negative Negative 01/27/2017 7:37 PM LIFELINE REPRESENTATIVES [facility] Microbiology ENTIRE THROAT (SURFACE REGION OF NECK) / Unknown Collection / Unknown 01/27/2017 7:24 PM [employer]ELINE REPRESENTATIVES 01/27/2017 7:27 PM [employer]IFELINE REPRESENTATIVES Narrative [facility] - 01/27/2017 7:37 PM [employer]ELINE REPRESENTATIVES Test has reflexed to a Strep A culture. Candi Easton DO LAB - MICROBIOLOGY O RDERASHELLEY Performing Organization Address [facility] Co de Phone Number [facility] [address] [place] [address] * CULTURE STREP GROUP A (01/27/2017 7:24 PM LIFELINE REPRESENTATIVES) Culture Negative for beta-hemolytic Streptococcus Group A ROSALEE 01/30/2017 12:57 PM LIFELINE REPRESENTATIVES [facility] Microbiology ENTIRE THROAT (SURFACE REGION OF NECK) / Unknown Collection / Unknown 01/27/2017 7:24 PM LIFELINE REPRESENTATIVES 01/27/2017 7:27 PM LIFELINE REPRESENTATIVES Candi Easton DO LAB - MICROBIOLOGY O RDERABLES Performing Organization Address City/[facility]/ZIP Co de Phone Number [facility] [address] [place] [address], [facility] [phone] * (ABNORMAL) URINALYSIS MICROSCOPIC ONLY W/REFLEX CULTURE (01/27/2017 6:54 PM [employer]IFELINE REPRESENTATIVES) Reflex Status Culture to follow 01/27/2017 7:13 PM [facility] RBC UA 0-5 0-5, None Seen # /hpf 01/27/2017 7:13 PM [facility] WBC UA 0-5 0-5, None Seen # /hpf 01/27/2017 7:13 PM [facility] Bacteria UA Trace(A) None Seen 01/27/2017 7:13 PM [facility] Squamous Epithelial Cells 6-10(A) None Seen, 0-2, 3-5 /hpf 01/27/2017 7:13 PM [facility] Mucus UA 2+ /LPF 01/27/2017 7:13 PM [facility] Urine URINE SPECIMEN OBTAINED BY CLEAN CATCH PROCEDURE / Unknown Collection / Unknown 01/27/2017 6:54 PM [employer] REPRESENTATIVES 01/27/2017 7:01 PM [employer]IFELINE REPRESENTATIVES Narrative [facility] - 01/27/2017 7:13 PM LIFELINE REPRESENTATIVES Candi Easton DO LAB - URINALYSIS ORD ERABLES [facility] [address] [place] [address] * (ABNORMAL) URINALYSIS ROUTINE W/REFLEX TO CULTURE (01/27/2017 6:54 PM [employer]IFELINE REPRESENTATIVES) Color UA Yellow Straw, Yellow 01/27/2017 7:13 PM [facility] Clarity UA Slt Cloudy(A) Clear 01/27/2017 7:13 PM [facility] Glucose UA Negative Negative 01/27/2017 7:13 PM [facility] Bilirubin UA Negative Negative 01/27/2017 7:13 PM [facility] Ketone UA Negative Negative 01/27/2017 7:13 PM [facility] Specific [place] UA 1.015 1.005 - 1.030 01/27/2017 7:13 PM [facility] Blood UA 1+(A) Negative 01/27/2017 7:13 PM [facility] pH UA 6.0 5.0 - 8.0 pH 01/27/2017 7:13 PM [facility] Protein UA Negative Negative 01/27/2017 7:13 PM [facility] Urobilinogen UA Negative Negative mg/dL 01/27/2017 7:13 PM [facility] Nitrite UA Negative Negative 01/27/2017 7:13 PM [facility] Leukocyte UA 1+(A) Negative 01/27/2017 7:13 PM [facility] Urine Microscopy Urine microscopy to follow 01/27/2017 7:13 PM [facility] Reflex Status Culture to follow 01/27/2017 7:13 PM [facility] Urine URINE SPECIMEN OBTAINED BY CLEAN CATCH PROCEDURE / Unknown Collection / Unknown 01/27/2017 6:54 PM [employer] REPRESENTATIVES 01/27/2017 7:01 PM LIFELINE REPRESENTATIVES [facility] - 01/27/2017 7:13 PM LIFELINE REPRESENTATIVES Candi Easton DO LAB - URINALYSIS ORD ERABLES [facility] [address] [place] [address] * (ABNORMAL) COMPREHENSIVE METABOLIC PANEL (01/27/2017 6:31 PM LIFELINE REPRESENTATIVES) Glucose 83 74 - 106 mg/dL 01/27/2017 6:54 PM [facility] Sodium 135(L) 136 - 145 mmol/L 01/27/2017 6:54 PM [facility] Potassium 3.6 3.5 - 5.1 mmol/L 01/27/2017 6:54 PM [facility] Chloride 103 98 - 107 mmol/L 01/27/2017 6:54 PM [facility] CO2 24 22 - 31 mmol/L 01/27/2017 6:54 PM [facility] Calcium 9.1 8.5 - 10.1 mg/dL 01/27/2017 6:54 PM [facility] Anion Gap 8 8 - 16 mmol/L 01/27/2017 6:54 PM [facility] BUN 4(L) 7 - 21 mg/dL 01/27/2017 6:54 PM [facility] Creatinine 0.43(L) 0.50 - 1.30 mg/dL 01/27/2017 6:54 PM [facility] Alkaline Phosphatase 56 38 - 126 U/L 01/27/2017 6:54 PM [facility] ALT 20 13 - 61 U/L 01/27/2017 6:54 PM [facility] AST 18 5 - 40 U/L 01/27/2017 6:54 PM LIFELINE REPRESENTATIVES [facility] Protein Total 6.9 6.4 - 8.2 gm/dL 01/27/2017 6:54 PM LIFELINE REPRESENTATIVES [facility] Albumin 3.1(L) 3.4 - 5.0 gm/dL 01/27/2017 6:54 PM LIFELINE REPRESENTATIVES [facility] Bilirubin Total 0.2 0.2 - 1.0 mg/dL 01/27/2017 6:54 PM [employer]IFELINE REPRESENTATIVES [facility] eGFR by MDRD >60 >60 mL/min/1.7 3m2 01/27/2017 6:54 PM LIFELINE REPRESENTATIVES [facility] eGFR by MDRD >60 >60 mL/min/1.7 3m2 01/27/2017 6:54 PM LIFELINE REPRESENTATIVES [facility] Blood BLOOD SPECIMEN / Unknown Venipuncture / Unknown 01/27/2017 6:31 PM [employer] REPRESENTATIVES 01/27/2017 6:35 PM [employer]ELINE REPRESENTATIVES Candi Easton DO LAB - CHEMISTRY SILVIANO HOLLIDAY Performing Organization Address City/State/[facility] Co de Phone Number [facility] [address] [place] [phone] * SKIN TEST PPD - POINT OF CARE (09/29/2016) PPD neg MISCELLANEOUS SAMPLE S / Unknown 09/29/2016 Pinky Garcia LEATHER PRODUCTION WORKER-

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
--- OUTSIDE RECORDS SUMMARY | 2024-05-13 00:08 | XMS_ITS | Clinical Summary ---
Author Organization [facility] Address [address] [place] [address] Care Team Providers Care Call Center Dispatcher Name Role Phone Barbra Kendrick PA-C Unavailable [phone] Barbra Kendrick PA-C Primary Care Provider [phone] Source Comments [facility],non-owned Affiliates and Associated Physician Practices is amultiple site organization consisting of ambulatory clinics and hospital sitesin [place], [place], [place] and [place]. This disclosure is being madepursuant to the Care Everywhere program and may not contain all information available regarding this patient. Last updated 17.[facility] Allergies Active Allergy Reactions Criticality Noted [...] 20 mg by mouth once daily Active Gqhytgjl-Obj-Ip-FA ( VITAMIN WITH IRON) tabletIndications:S upervision of [...] 02/01/2017 MENINGOCOCAL MENINGITIS 06/24/2016 TDAP (7yrs+) 04/26/2017,06/24/2016 Family History Medical History Relation Name Comments Bipolar Disorder Father Hypertension Father Anxiety Disorder Mother Alcohol abuse Sister Relation Name Status Comments Father Mother Sister Social History Tobacco Use Types Packs/Day Years [...] Mass Index 25.89 07/09/2017 11:04 AM CDT Plan of Treatment Health Maintenance Due Date Last Done Comments PAP SMEAR 1992 HEPATITIS C SCREENING 03/22/2010 HEPATITIS B VACCINE (2 of 3 - 19+ 3-dose series) 07/22/2016 06/24/2016 HPV VACCINE (2 - 3-dose series) 07/22/2016 06/24/2016 COVID-19 VACCINE (1 - 2023-2 5 season) 2023 INFLUENZA VACCINE (#1) 2023 02/01/2017 DEPRESSION SCREENING 03/01/2024 DTAP/TDAP/TD VACCINES (3 - T d or Tdap) 04/26/2027 04/26/2017, 06/24/2016 ZOSTER VACCINE (1 of 2) 2042 MENINGOCOCCAL GROUPS A/C/Y/W VACCINE Aged Out 06/24/2016 No longer eligible b ased on patient's age to complete this topic HIV SCREENING Completed 04/26/2017 HIB VACCINE Aged Out No longer eligi ble based on patient's age to complete this topic MENINGOCOCCAL (Group B) VACCINE SHARED DECISION-MAKING Aged Out No longer eligible based on patient's age to complete this topic PNEUMOCOCCAL VACCINE Aged Out No long er eligible based on patient's age to complete this topic Procedures Procedure Name Priority Date/Time Associated Diagnosis Comments CULTURE STREP B Routine 06/01/2017 3:22 PM CDT 35 weeks gestation of (HCC) HIV-1 HIV-2 ANTIBODY + HIV P24 AG PANEL Routine 04/26/2017 3:30 PM AUTO TECH Supervision of high-risk of young primigravida (HCC) GLUCOSE CHALLENGE Routine 03/30/2017 1:3 8 PM AUTO TECH Supervision of high-risk of young primigravida (HCC) from Last 3 Months or Most Recently Relevant to Health Maintenance Results * (ABNORMAL) CULTURE STREP B (06/01/2017 3:22 PM CDT) Culture Strep B Growth of Streptococcus agalactiae (Group B)(AA) ROSALEE 06/03/2017 3:13 PM CDT [facility] Microbiology MISCELLANEOUS SAMPLES / Unknown Collection / Unknown 06/01/2017 3:22 PM CDT 06/01/2017 3:29 PM CDT Narrative [facility] - 06/03/2017 3:13 PM CDT Susceptibility testing of penicillin, other beta-lactam antibiotics, and vancomycin is not necessary for beta-hemolytic streptococci groups A,B,C and G because resistant strains have not been recognized. Debra Cortes MD LAB - MICROBIOLOGY O RDERABLES [facility] [address] [place], [place] [address] [phone] * HIV-1 HIV-2 ANTIBODY + HIV P24 AG PANEL (04/26/2017 3:30 PM AUTO TECH) Pathologist [facility] HIV1/2 Ab + P24 Ag Non Reactive Non Reactive 04/27/2017 12:22 AM AUTO TECH [facility] Blood BLOOD SPECIMEN / Unknown Venipuncture / Unknown 04/26/2017 3:30 PM AUTO TECH 04/26/2017 3:46 PM AUTO TECH Narrative [facility] - 04/27/2017 12:22 AM AUTO TECH No Laboratory evidence of HIV infection. Judit Ingram MD LAB - CHEMISTRY O [place] Performing Organization Address City/[facility]/ZIP Co de Phone Number [facility] [address] [place] [address] * GLUCOSE CHALLENGE (03/30/2017 1:38 PM AUTO TECH) [facility] Glucose Challenge 97 64 - 140 mg/dL 03/30/2017 2:28 PM AUTO TECH [facility] Glucose Challenge Time 1 hr 03/30/2017 2:28 PM AUTO TECH [facility] Blood BLOOD SPECIMEN / Unknown Venipuncture / Unknown 03/30/2017 1:38 PM AUTO TECH 03/30/2017 2:04 PM AUTO TECH Kwadwo Givens MD LAB - CHEMISTRY [place] [facility] [address] [place] [address] from Last 3 Months or Most Recently Relevant to Health Maintenance Advance Directives * Full Code (Latest Code Status on File) Date Activated Date Inactivated Comments 07/09/2017 12:57 PM 07/12/2017 5:35 PM * Full Code Date Activated Date Inactivated Comments 03/03/2017 4:49 AM 03/03/2017 2:29 PM * Full Code Date Activated Date Inactivated Comments 03/03/2017 4:08 AM 03/03/2017 4:49 AM Care Teams Call Center Dispatcher Relationship Specialty Start Date End Date Barbra Kendrick PA-C PCP - General 02/08/18 Barbra Kendrick PA-C Physician Judo Teacher 12/16/16
[2024-05-13 00:41] LABS: Basophils Percent Auto 0.2 % (0.2-1.2); Hematocrit 38.5 % (37.0-47.0); Hemoglobin 13.2 g/dL (12.0-15.0); Immature Granulocyte Absolute 0.05 K/mm3 (0.00-0.031); Immature Granulocyte Percent A 0.4 % (0-0.5); Lymphocytes Absolute Auto 0.92 K/mm3 (0.9-3.2); Lymphocytes Percent Auto 7.5 % (18.3-44.2); Mean Corpuscular HGB Conc 34.3 g/dl (32-36); Mean Corpuscular Hemoglobin 30.5 pg (26-34); Mean Corpuscular Volume 88.9 fl (80-100); Mean Platelet Volume 9.8 fl (7.4-10.4); Monocytes Absolute Auto 1.1 K/mm3 (0.1-0.6); Monocytes Percent Auto 8.7 % (2.6-8.5); Neutrophils Absolute Auto 10.2 K/mm3 (1.3-6.7); Neutrophils Percent Auto 83.2 % (45.5-73.1); Platelet Count Result 299 k/mm3 (150-375); Red Blood Count 4.33 M/mm3 (4.2-5.4); Red Cell Distribution Width 14.9 % (11.5-14.5); White Blood Count 12.3 K/mm3 (4.5-10.0)
[2024-05-13 00:54] LABS: Alanine Aminotransferase 24 U/L (6-35); Alkaline Phosphatase 44 U/L (38-126); Anion Gap 16 mmol/L (4-12); Aspartate Amino Transferase 24 U/L (14-36); Bilirubin,Total 0.6 mg/dL (0.2-1.3); Blood Urea Nitrogen 10 mg/dL (7-17); Calcium 9.2 mg/dL (8.4-10.2); Carbon Dioxide 17 mmol/L (22-30); Chloride 101 mmol/L (98-107); Estimated CRCL calculation 58 ml/min; Estimated Glomerular Filt Rate > 60; Glucose 146 mg/dL (65-110); Lipase 84 U/L (23-300); Potassium 3.7 mmol/L (3.4-5.0); Sodium 134 mmol/L (137-145)
[2024-05-13 01:17] LABS: Influenza A QL RT-PCR Negative (Negative); Influenza B QL RT-PCR Negative (Negative); RSV RNA, RT-PCR Negative (Negative); SARS-CoV-2 RNA PCR Negative (Negative)
[2024-05-13 03:16] LABS: Add Urine Microscopic? YES; Appearance Urine Cloudy (Clear); Bacteria Urine None Seen /hpf; Bilirubin Urine 1+ (Negative); Blood Urine 3+ (Negative); Color Urine Dark Yellow (Yellow); Glucose Urine UA Negative (Negative); Ketones Urine Trace mg/dL (Negative); Leukocyte Esterase Ur Trace LEU/UL (Negative); Need Manual Microscopic Reviewed; Nitrate Urine Negative (Negative); Non Pathogenic Casts 0-2; Protein Urine 3+ mg/dL (Negative); RBC Urine >100 /hpf (0-2); Specific Grav Ur 1.034 (1.001-1.035); Squamous Epithelial Cell Urine None Seen /hpf (Few); WBC Urine 0-5 /hpf (0-3)
[2024-05-13 04:52] VITALS: BP 125/84; PULSE 110; RESP 17; TEMP 38.9; O2SAT 98
[2024-05-13] MEDS: ACETAMINOPHEN 500 MG TABLET 1000 MG PO (05:02)
--- OUTSIDE RECORDS SUMMARY | 2024-05-13 05:28 | XMS_ITS | Referral Summary ---
Author Organization [address] Address [address] [place] [phone] Care Team Providers Care Flight Control Tower Operator Name Role Phone Taina Freeman MD Primary Care Provider + Encounters Date Type Department Care Team Description 04/28/2024 9:00 AM CONDUCTOR FREIGHT Procedure visit [facility] [address] [place] [address] Floor [address] [place] [phone] Jayleen Amaral MD Encounter for IUD insertion (Primary Dx); Screen for STD (sexually transmitted disease); Abnormal uterine bleeding 03/30/2024 2:15 PM CONDUCTOR FREIGHT Office Visit [facility] [address] [place] [address] Floor [address] [place] [phone] Jayleen Amaral MD Bilateral ovarian cysts (Primary [...] # Disposition: Follow up task sent to [facility] scheduling pool. Desires discharge home today. 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 More than 4 times per year 02/01/2022 Do you belong to any clubs o r organizations such as episcopalian groups, unions, fraternal or athletic groups, or [...] care, and heating? Not very hard 02/01/2022 [facility] Occupat ional Health - Occupational Stress [...] place to sleep or slept in a penitentiary (including now)? No 02/01/2022 [place] Depression Scale Answer Date Recorded [place] Depression Scale Total 20 10/27/2021 The thought [...] Comments Blood Pressure 130/83 04/28/2024 9:10 AM CONDUCTOR FREIGHT Pulse 99 04/28/2024 9:10 AM CONDUCTOR FREIGHT Temperature 37.2 C (99 F) 01/24/2024 5:00 PM CONDUCTOR FREIGHT Respiratory Rate 18 01/24/2024 9:37 PM CONDUCTOR FREIGHT Oxygen Saturation 99% 04/28/2024 9:10 AM CONDUCTOR FREIGHT Inhaled Oxygen Concentration - - Weight 44 kg (96 lb 14.4 oz) 04/28/2024 9:10 AM CONDUCTOR FREIGHT Height 154.9 cm (5' 1 ) 03/30/2024 2:23 PM CONDUCTOR FREIGHT Body Mass Index 18.31 03/30/2024 2:23 PM CONDUCTOR FREIGHT Plan of Treatment Not on file Procedures Procedure Name Priority Date/Time Associated Diagnosis Comments TRICHOMONAS VAGINALIS PCR Routine 04/28/2024 9:50 AM CONDUCTOR FREIGHT N. GONORRHOEAE/C. TRACHOMATIS AMPLIFICATION Routine 04/28/2024 9:50 AM CONDUCTOR FREIGHT POCT HCG, URINE Routine 04/28/2024 9:16 AM CONDUCTOR FREIGHT Encounter for IUD insertion PROLACTIN Routine 03/30/2024 3:02 PM CONDUCTOR FREIGHT Abnormal uterine bleeding TOTAL TESTOSTERONE Routine 03/30/2024 3: 02 PM CONDUCTOR FREIGHT Abnormal uterine bleeding ESTRADIOL Routine 03/30/2024 3:02 PM CONDUCTOR FREIGHT Abnormal uterine bleeding FOLLICLE STIMULATING HORMONE Routine 03/30/2024 3:02 PM CONDUCTOR FREIGHT Abnormal uterine bleeding CBC WITHOUT DIFFERENTIAL Routine 03/30/2024 3:02 PM CONDUCTOR FREIGHT Abnormal uterine bleeding THYROID FUNCTION CASCADE Routine 03/30/2024 3:02 PM CONDUCTOR FREIGHT Abnormal uterine bleeding PAP WITH REFLEX TO HIGH RISK HPV Routine 08/29/2021 10:23 AM CDT Encounter for supervision of other normal in second trimester HEPATITIS C ANTIBODY Routine 08/27/2021 2:39 PM CDT , unspecified gestational age from Last 3 Months or Most Recently Relevant to Health Maintenance Results * N. gonorrhoeae/C. trachomatis Amplification Endocervical (04/28/2024 9:50 AM CONDUCTOR FREIGHT) C. trachomatis Not Detected DARLENE N. gonorrhoeae Not Detected [facility] Comment: Interpretive Data This assay detects Chlamydia trachomatis and Neisseria gonorrhoeae by nucleic acid amplification testing (NAAT). This assay has been cleared by the [place] Food and Drug administration. The performance characteristics of this test have been verified by the [facility] Molecular Infectious Disease laboratory. The performance characteristics of this test have not been evaluated in individuals less than 14 years of age. Current Interpretive Data was last revised on 2023. Endocervical 04/28/2024 9:50 AM CONDUCTOR FREIGHT 04/28/2024 11:42 AM CONDUCTOR FREIGHT us Jayleen Amaral MD LAB MICROBIOLOGY - GENE [facility] ORDERABLES Final Result FRED [facility] [place] [address] [facility] * Trichomonas vaginalis PCR Endocervical (04/28/2024 9:50 AM CONDUCTOR FREIGHT) [facility] Trichomonas DNA Not Detected [facility] Comment: Interpretive Data This assay detects Trichomonas vaginalis by nucleic acid amplification testing (NAAT). This assay has been cleared by the [place] Food and Drug administration. The performance characteristics of this test have been verified by the [facility] Molecular Infectious Disease laboratory. The performance of this test has not been evaluated in individuals less than 18 years of age. Current Interpretive Data was last revised on 2023. Endocervical 04/28/2024 9:50 AM CONDUCTOR FREIGHT 04/28/2024 11:42 AM CONDUCTOR FREIGHT Jayleen Amaral MD LAB MICROBIOLOGY - GENE RAL ORDERABLES Final Result Performing Organization Address City/[facility] Co de Phone Number FRED [facility] [place] [address] [facility] * POCT hCG, urine (04/28/2024 9:16 AM CONDUCTOR FREIGHT) [facility] HCG, ur, POC Negative Negative Lot Number [id number] QC Backgroud Clear Acceptable QC Control Line Acceptable Urine 04/28/2024 9:16 AM CONDUCTOR FREIGHT Result [facility] Jayleen Amaral MD POINT OF CARE TEST ORDE RABLES Final Result * Thyroid Function [place] (03/30/2024 3:02 PM CONDUCTOR FREIGHT) [facility] TSH 1.18 0.30 - 4.20 mcIUnit/mL Blood 03/30/2024 3:02 PM CONDUCTOR FREIGHT 03/30/2024 3:26 PM CONDUCTOR FREIGHT Jayleen Amaral MD LAB BLOOD ORDERABLES Fi nal Result Performing Organization Address [facility] Co de Phone Number [place] [address] * (ABNORMAL) Prolactin (03/30/2024 3:02 PM CONDUCTOR FREIGHT) [facility] Prolactin 4.1(L) 4.8 - 23.3 ng/mL Blood 03/30/2024 3:02 PM CONDUCTOR FREIGHT 03/30/2024 3:33 PM CONDUCTOR FREIGHT Jayleen Amaral MD LAB BLOOD ORDERABLES Fi nal Result Performing Organization Address [facility] [place] [address] * Estradiol (03/30/2024 3:02 PM CONDUCTOR FREIGHT) [facility] Estradiol 69.6 pg/mL Comment: Interpretive Data Males: 11 43 pg/mL Females: Premenopausal: 31 533 pg/mL Postmenopausal: < 50 pg/mL Patients treated with Fluvestrant (Faslodex) should be tested using an alternate assay such as LC-MS due to potential for cross-reactivity. Estradiol varies widely throughout the menstrual cycle. Current interpretive data was last revised 2023. Blood 03/30/2024 3:02 PM CONDUCTOR FREIGHT 03/30/2024 3:26 PM CONDUCTOR FREIGHT Jayleen Amaral MD LAB BLOOD ORDERABLES Fi nal Result Performing Organization Address [facility] [place] [address] * (ABNORMAL) CBC without differential (03/30/2024 3:02 PM CONDUCTOR FREIGHT) [facility] WBC 8.6 3.8 - 9.9 K/cumm Hgb 11.7(L) 11.9 - 15.5 g/dL [facility] Hct 35.5(L) 35.6 - 45.5 % [facility] Plt 292 150 - 400 K/cumm [facility] MPV 10.0 9.1 - 12.3 fL [facility] RBC 3.89(L) 3.90 - 5.20 M/cumm [facility] MCV 91.3 81.3 - 96.4 fL [facility] MCH 30.1 27.1 - 33.3 pg [facility] MCHC 33.0 32.3 - 35.7 g/dL [facility] RDW CV 13.4 11.1 - 14.9 % [facility] RDW SD 45.4 35.7 - 48.1 fL [facility] NRBC abs 0.00 0.00 - 0.01 K/cumm [facility] Blood 03/30/2024 3:02 PM CONDUCTOR FREIGHT 03/30/2024 3:26 PM CONDUCTOR FREIGHT Jayleen Amaral MD LAB BLOOD ORDERABLES Fi nal Result Performing Organization Address [facility] Co de Phone Number [facility] [place] [address] * Total testosterone (03/30/2024 3:02 PM CONDUCTOR FREIGHT) Testosterone 20.0 8.4 - 48.1 ng/dL Blood 03/30/2024 3:02 PM CONDUCTOR FREIGHT 03/30/2024 3:33 PM CONDUCTOR FREIGHT Jayleen Amaral MD LAB BLOOD ORDERABLES Fi nal Result Performing Organization Address [facility] Co de Phone Number [facility] [place] [address] * Follicle stimulating hormone (03/30/2024 3:02 PM CONDUCTOR FREIGHT) [facility] 3.0 IUnits/L Comment: Interpretive Data Male: Adults: 1.5 - 12.4 IUnits/L Female: Follicular: 3.5 - 12.5 IUnits/L Ovulation: 4.7 - 21.5 IUnits/L Luteal: 1.7 - 7.7 IUnits/L Postmenopausal: 25.8 - 134.8 IUnits/L Current interpretive data was last revised 2015. Blood 03/30/2024 3:02 PM CONDUCTOR FREIGHT 03/30/2024 3:26 PM CONDUCTOR FREIGHT us Jayleen Amaral MD LAB BLOOD ORDERABLES Fi nal Result FR[facility] Department [place] [address] * Pap with reflex to High Risk HPV (08/29/2021 10:23 AM CDT) Thin prep (Pap test) 08/29/2021 10:23 AM CDT 08/29/2021 12:26 PM CDT Narrative PATHOLOGY [facility] - 09/11/2021 11:52 AM CDT EPIC results best viewed via link to PDF [facility] Sharyn Guerre[facility] [place] [address] Note to Patients: This report may contain [...] Gender: F : 1990 (Age: 31) Address: [address] [place] [phone] Hospital #: [id number] Service: SOLUTION MAKE UP OPERATOR Location: [facility] Patient Type: [facility] Ref Lab Taken: 08/29/2021 Received: 08/29/2021 Accessioned: [...] been rescreened in accordance with this laboratory's Labor Utilization Superintendent Program. 09/11/2021 11:52 CLEVE Bartholomew(ASCP) Report Electronically [...] determined by the Surgical Pathology Department at [facility] as part of an ongoing quality control assistant program and in compliance with federally mandated [...] determined by the Surgical Pathology Department of [facility]. It has not been cleared or approved by the [place]. Food and Drug Administration. Les Couch MD PhD LAB CYTOLOGY ORDERA BLES Final Result PATHOLOGY [facility] IO 3rd Floor [place], [place] [phone] * Hepatitis C antibody (08/27/2021 2:39 PM CDT) Hep C Ab Nonreactive Nonreactive [facility] Comment:Antibodies to HCV no t detected. Does NOT exclude the possibility of recent exposure to HCV. Blood 08/27/2021 2:39 PM CDT 08/27/2021 3:18 PM CDT us Les Couch MD PhD LAB MICROBI OLOGY - GENERAL ORDERABLES Edited Result - Final [facility] [place] [address] from Last 3 Months or Most Recently Relevant to Health Maintenance Insurance [facility] Advance Directives For more information, please contact: [phone] * Full Code (Latest Code Status on File) Date Activated Date Inactivated Comments 01/30/2022 9:49 AM 02/01/2022 6:51 PM * Full Code Date Activated Date Inactivated Comments 01/29/2022 10:53 PM 01/30/2022 9:49 AM Full CPR in case of cardiopulmonary arrest * Full Code Date Activated Date Inactivated Comments 01/21/2022 3:22 PM 01/22/2022 12:25 AM Full CPR in case of cardiopulmonary arrest Care Teams Flight Control Tower Operator Relationship Specialty Start Date End Date Taina Freeman MD [address] [place] [address] [phone] PCP - General Family Medicine 08/27/21
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
--- OUTSIDE RECORDS SUMMARY | 2024-05-13 05:28 | XMS_ITS | Clinical Summary ---
Author Organization [facility] Address [facility] [place] [address] Care Team Providers Care Shopping Inspector Name Role Phone None, Provider Primary Care Provider Taina Wallace MD Unavailable Allergies Active Allergy Reactions Criticality Noted Date [...] Influenza Adult (#1) 2023 02/01/2017 PHQ-2 (Physician [place]) 03/01/2024 Cervical Cancer Screening Pap Smear (Age [...] complete this topic Insurance [employer]ZAR Care Teams Shopping Inspector Relationship Specialty Start Date End Date None, Provider, PCP - General 08/26/20 Taina Freeman MD [address] [place] [id number] [facility] 05/12/23
--- OUTSIDE RECORDS SUMMARY | 2024-05-13 05:28 | XMS_ITS | Clinical Summary ---
Author Organization [facility] Address [address] [place] [address] Care Team Providers Care Director Imaging Name Role Phone Barbra Kendrick PA-C Unavailable [phone] Barbra Kendrick PA-C Primary Care Provider [phone] Source Comments [facility],non-owned Affiliates and Associated Physician Practices is amultiple site organization consisting of ambulatory clinics and hospital sitesin [place] and [place]. This disclosure is being madepursuant to the Care Everywhere program and may not contain all information available regarding this patient. Last updated 17.[facility] Allergies Active Allergy Reactions Criticality Noted [...] 20 mg by mouth once daily Active Athgqlgi-Avz-Fa-FA ( VITAMIN WITH IRON) tabletIndications:S upervision of [...] P24 AG PANEL Routine 04/26/2017 3:30 PM BIOMEDICAL ENGINEERING AIDE Supervision of high-risk of young primigravida (HCC) GLUCOSE CHALLENGE Routine 03/30/2017 1:3 8 PM BIOMEDICAL ENGINEERING AIDE Supervision of high-risk of young primigravida (HCC) from Last 3 Months or Most Recently Relevant to Health Maintenance Results * (ABNORMAL) CULTURE STREP B (06/01/2017 3:22 PM CDT) Culture Strep B Growth of Streptococcus agalactiae (Group B)(AA) [place] 06/03/2017 3:13 PM CDT [facility] MICROBIOLOGY Microbiology MISCELLANEOUS SAMPLES / Unknown Collection / Unknown 06/01/2017 3:22 PM CDT 06/01/2017 3:29 PM CDT Narrative [facility] MICROBIOLOGY - 06/03/2017 3:13 PM CDT Susceptibility testing of penicillin, other beta-lactam antibiotics, and vancomycin is not necessary for beta-hemolytic streptococci groups A,B,C and G because resistant strains have not been recognized. Debra Cortes MD LAB - MICROBIOLOGY O RDERABLES [facility] MICROBIOLOGY [address] [place], [place] [address] [place] [phone] * HIV-1 HIV-2 ANTIBODY + HIV P24 AG PANEL (04/26/2017 3:30 PM BIOMEDICAL ENGINEERING AIDE) Pathologist [facility] HIV1/2 Ab + P24 Ag Non Reactive Non Reactive 04/27/2017 12:22 AM BIOMEDICAL ENGINEERING AIDE [facility] Blood BLOOD SPECIMEN / Unknown Venipuncture / Unknown 04/26/2017 3:30 PM BIOMEDICAL ENGINEERING AIDE 04/26/2017 3:46 PM BIOMEDICAL ENGINEERING AIDE Narrative [facility] - 04/27/2017 12:22 AM BIOMEDICAL ENGINEERING AIDE No Laboratory evidence of HIV infection. Judit Ingram MD LAB - CHEMISTRY O [place] Performing Organization Address City/[facility]/ZIP Co de Phone Number [facility] [address] [place] [address] * GLUCOSE CHALLENGE (03/30/2017 1:38 PM BIOMEDICAL ENGINEERING AIDE) [facility] Glucose Challenge 97 64 - 140 mg/dL 03/30/2017 2:28 PM BIOMEDICAL ENGINEERING AIDE [facility] Glucose Challenge Time 1 hr 03/30/2017 2:28 PM BIOMEDICAL ENGINEERING AIDE [facility] Blood BLOOD SPECIMEN / Unknown Venipuncture / Unknown 03/30/2017 1:38 PM BIOMEDICAL ENGINEERING AIDE 03/30/2017 2:04 PM BIOMEDICAL ENGINEERING AIDE Kwadwo Givens MD LAB - CHEMISTRY [place] [facility] [address] [place] [address] from Last 3 Months or Most Recently Relevant to Health Maintenance Advance Directives * Full Code (Latest Code Status on File) Date Activated Date Inactivated Comments 07/09/2017 12:57 PM 07/12/2017 5:35 PM * Full Code Date Activated Date Inactivated Comments 03/03/2017 4:49 AM 03/03/2017 2:29 PM * Full Code Date Activated Date Inactivated Comments 03/03/2017 4:08 AM 03/03/2017 4:49 AM Care Teams Director Imaging Relationship Specialty Start Date End Date Barbra Kendrick PA-C PCP - General 02/08/18 Barbra Kendrick PA-C Physician Peanut Vendor 12/16/16
--- OUTSIDE RECORDS SUMMARY | 2024-05-13 05:28 | XMS_ITS | Referral Summary ---
Author Organization [facility] Address [address] [place] [address] Care Team Providers Care Inside Sales Supervisor Name Role Phone Barbra Kendrick PA-C Unavailable [phone] Barbra Kendrick PA-C Primary Care Provider [phone] Source Comments [facility],non-owned Affiliates and Associated Physician Practices is amultiple site organization consisting of ambulatory clinics and hospital sitesin [place], [place], [place] and [place]. This disclosure is being madepursuant to the Care Everywhere program and may not contain all information available regarding this patient. Last updated 17.[facility] Allergies Active Allergy Reactions Criticality Noted [...] 20 mg by mouth once daily Active Szkeonsd-Pcf-Ha-FA ( VITAMIN WITH IRON) tabletIndications:S upervision of [...] P24 AG PANEL Routine 04/26/2017 3:30 PM INDUSTRIAL AUTOMATION ENGINEER Supervision of high-risk of young primigravida (HCC) GLUCOSE CHALLENGE Routine 03/30/2017 1:3 8 PM INDUSTRIAL AUTOMATION ENGINEER Supervision of high-risk of young primigravida (HCC) from Last 3 Months or Most Recently Relevant to Health Maintenance Results * (ABNORMAL) CULTURE STREP B (06/01/2017 3:22 PM CDT) Culture Strep B Growth of Streptococcus agalactiae (Group B)(AA) [place] 06/03/2017 3:13 PM CDT [facility] MICROBIOLOGY Microbiology MISCELLANEOUS SAMPLES / Unknown Collection / Unknown 06/01/2017 3:22 PM CDT 06/01/2017 3:29 PM CDT Narrative [facility] MICROBIOLOGY - 06/03/2017 3:13 PM CDT Susceptibility testing of penicillin, other beta-lactam antibiotics, and vancomycin is not necessary for beta-hemolytic streptococci groups A,B,C and G because resistant strains have not been recognized. Debra Cortes MD LAB - MICROBIOLOGY O RDERABLES [facility]CROBIOLOG[facility] [address] [place] [place] [address], [facility] [phone] * HIV-1 HIV-2 ANTIBODY + HIV P24 AG PANEL (04/26/2017 3:30 PM INDUSTRIAL AUTOMATION ENGINEER) HIV1/2 Ab + P24 Ag Non Reactive Non Reactive 04/27/2017 12:22 AM INDUSTRIAL AUTOMATION ENGINEER [facility] Blood BLOOD SPECIMEN / Unknown Venipuncture / Unknown 04/26/2017 3:30 PM INDUSTRIAL AUTOMATION ENGINEER 04/26/2017 3:46 PM INDUSTRIAL AUTOMATION ENGINEER Narrative [facility] - 04/27/2017 12:22 AM INDUSTRIAL AUTOMATION ENGINEER No Laboratory evidence of HIV infection. Judit Ingram MD LAB - CHEMISTRY O RDERABLES [facility] [address] [place] [address] * GLUCOSE CHALLENGE (03/30/2017 1:38 PM INDUSTRIAL AUTOMATION ENGINEER) [facility] Glucose Challenge 97 64 - 140 mg/dL 03/30/2017 2:28 PM INDUSTRIAL AUTOMATION ENGINEER [facility] Glucose Challenge Time 1 hr 03/30/2017 2:28 PM INDUSTRIAL AUTOMATION ENGINEER [facility] Blood BLOOD SPECIMEN / Unknown Venipuncture / Unknown 03/30/2017 1:38 PM INDUSTRIAL AUTOMATION ENGINEER 03/30/2017 2:04 PM INDUSTRIAL AUTOMATION ENGINEER Kwadwo Givens MD LAB - CHEMISTRY [place] [facility] [address] [place] [address] from Last 3 Months or Most Recently [...] 4:08 AM 03/03/2017 4:49 AM Care Teams Inside Sales Supervisor Relationship Specialty Start Date End Date Barbra Kendrick PA-C PCP - General 02/08/18 Barbra Kendrick PA-C Physician Back Panel Padder 12/16/16
--- OUTSIDE RECORDS SUMMARY | 2024-05-13 05:29 | XMS_ITS | Patient Health Summary ---
Author Organization [facility] Address [address] [place] [address] Care Team Providers Care Design Technician Name Role Phone Barbra Kendrick PA-C Unavailable [phone] Barbra Kendrick PA-C Primary Care Provider [phone] Note from [facility],non-owned Affiliates and Associated Physician Practices is amultiple site organization consisting of ambulatory clinics and hospital sitesin [place], [place], [place] and [place]. This disclosure is being madepursuant to the Care Everywhere program and may not contain all information available regarding this patient. Last updated 17.[facility] Allergies * Cefaclor(Urticaria) -Medium Criticality Medications * [...] 20 mg by mouth once daily * Svrzvjva-Uug-Da-FA ( VITAMIN WITH IRON) tablet(Started 03/04/2017) Take [...] for Supervision of high-risk of young primigravida ([facility]) * GLUCOSE PROTEIN KETONE URINE - POINT OF CAR(Performed 06/29/2017) Performed for Encounter to establish gestational age using ultrasound ([facility]) * GLUCOSE PROTEIN KETONE URINE - POINT OF CAR(Performed 06/22/2017) Performed for Supervision of high-risk of young primigravida ([facility]) * GLUCOSE PROTEIN KETONE URINE - POINT OF CAR(Performed 06/15/2017) Performed for Supervision of high-risk of young primigravida ([facility]) * SONOGRAM - COMPLETE(Performed 06/08/2017) Performed for 35 weeks gestation of ([facility]) * GLUCOSE PROTEIN KETONE URINE - POINT OF CAR(Performed 06/08/2017) Performed for Supervision of high-risk of young primigravida ([facility]) * CULTURE STREP B(Performed 06/01/2017) Performed for 35 weeks gestation of ([facility]) * GLUCOSE PROTEIN KETONE URINE - POINT OF CAR(Performed 06/01/2017) Performed for 35 weeks gestation of ([facility]) * GLUCOSE PROTEIN KETONE URINE - POINT OF CAR(Performed 05/25/2017) Performed for Supervision of high-risk of young primigravida ([facility]) * SONOGRAM - COMPLETE(Performed 05/11/2017) Performed for Evaluate anatomy not seen on prior sonogram * CBC W AUTO DIFFERENTIAL(Performed 05/11/2017) Performed for Supervision of high-risk of young primigravida ([facility]) * GLUCOSE PROTEIN KETONE URINE - POINT OF CAR(Performed 05/11/2017) Performed for Supervision of high-risk of young primigravida ([facility]) * RPR(Performed 04/26/2017) Performed for Supervision of high-risk of young primigravida ([facility]) * HIV-1 HIV-2 ANTIBODY + HIV P24 AG PANEL(Performed 04/26/2017) Performed for Supervision of high-risk of young primigravida ([facility]) * GLUCOSE PROTEIN KETONE URINE - POINT OF CAR(Performed 04/26/2017) Performed for Encounter to establish gestational age using ultrasound ([facility]) * SONOGRAM - COMPLETE(Performed 03/30/2017) * GLUCOSE CHALLENGE(Performed 03/30/2017) Performed for Supervision of high-risk of young primigravida ([facility]) * GLUCOSE PROTEIN KETONE URINE - POINT OF CAR(Performed 03/30/2017) Performed for Supervision of high-risk of young primigravida ([facility]) * IMAGING/RADIOLOGY/XRAY RESULTS ORDER(Performed 03/09/2017) * BLOOD TYPE VERIFICATION(Performed 03/03/2017) * TYPE + SCREEN PANEL(Performed 03/03/2017) Performed for Supervision of high-risk of young primigravida ([facility]) * CBC W AUTO DIFFERENTIAL(Performed 03/03/2017) Performed for Supervision of high-risk of young primigravida ([facility]) * CULTURE STREP B(Performed 03/03/2017) Performed for Supervision of high-risk of young primigravida ([facility]) * TRICHOMONAS RAPID TEST(Performed 03/03/2017) Performed for Supervision of high-risk of young primigravida ([facility]) * CHLAMYDIA + GC AMPLIFIED PROBE(Performed 03/03/2017) Performed for Supervision of high-risk of young primigravida ([facility]) * LAB HISTORICAL RESULTS-ONBASE(Performed 03/03/2017) * LAB HISTORICAL RESULTS-ONBASE(Performed 03/03/2017) * LAB HISTORICAL RESULTS-ONBASE(Performed 03/03/2017) * LAB HISTORICAL RESULTS-ONBASE(Performed 03/03/2017) * SONOGRAM - COMPLETE(Performed 03/02/2017) * URINE MICROSCOPIC ONLY(Performed 03/02/2017) Performed for Supervision of high-risk of young primigravida ([facility]) * URINALYSIS REFLEX TO MICROSCOPIC NO CULTURE(Performed 03/02/2017) Performed for Supervision of high-risk of young primigravida ([facility]) * CULTURE URINE(Performed 03/02/2017) Performed for Supervision of high-risk of young primigravida ([facility]) * GLUCOSE PROTEIN KETONE URINE - POINT OF CAR(Performed 03/02/2017) Performed for Supervision of high-risk of young primigravida ([facility]) * ALPHA FETOPROTEIN BLOOD MATERNAL QUAD PANEL(Performed 02/01/2017) Performed for Supervision of high-risk of young primigravida ([facility]) * GLUCOSE PROTEIN KETONE URINE - POINT OF CAR(Performed 02/01/2017) Performed for Supervision of high-risk of young primigravida ([facility]) * SONOGRAM - COMPLETE(Performed 02/01/2017) Performed for Supervision of high-risk of young primigravida ([facility]) * CULTURE STREP GROUP A(Performed 01/27/2017) * [...] Encounter to establish gestational age using ultrasound ([facility]) * GLUCOSE PROTEIN KETONE URINE - POINT OF CAR(Performed 12/16/2016) Performed for Supervision of high-risk of young primigravida ([facility]) * SONOGRAM - COMPLETE(Performed 12/16/2016) * SKIN [...] - 15.6 gm/dL 07/11/2017 5:49 AM CDT [facility] Hematocrit 25.9(L) 35.9 - 45.5 % 07/11/2017 5:49 AM CDT [facility] Blood BLOOD SPECIMEN / Unknown Lab Venipuncture / Unknown 07/11/2017 5:28 AM CDT 07/11/2017 5:36 AM CDT Cinda Donaldson MD LAB - HEMATOLOGY ORD ERABLES [facility] [address] [place] [address] * (ABNORMAL) BLOOD GASES CORD BERNARDINO (ISTAT) (07/10/2017 3:59 AM CDT) pH Cord Venous POCT 7.30 7.28 - 7.40 pH 07/10/2017 4:03 AM CDT [facility] pCO2 Cord Venous POCT 36 35 - 45 mmHg 07/10/2017 4:03 AM CDT [facility] pO2 Cord Venous POCT 17(L) 22 - 33 mmHg 07/10/2017 4:03 AM CDT [facility] HCO3 Cord Arterial POCT 18(L) 22 - 24 mmol/L 07/10/2017 4:03 AM CDT [facility] BE Cord Venous POCT Calc -8(L) -6.4 - 1.6 mmol/L 07/10/2017 4:03 AM CDT [facility] TCO2 Cord Venous POCT 19(L) 22 - 30 mmol/L 07/10/2017 4:03 AM CDT [facility] O2 Saturation % Cord Venous Calc POCT 21 % 07/10/2017 4:03 AM CDT [facility] Site CORD BERNARDINO 07/10/2017 4:03 AM CDT [facility] Sample iSTAT CORD V 07/10/2017 4:03 AM CDT [facility] Blood CORD BLOOD SPECIMEN / Unknown 07/10/2017 3:59 AM CDT 07/10/2017 4:03 AM CDT Kailyn Muhammad MD LAB - POINT OF CARE ORDERABLES Performing Organization Address City/State/[facility] Co de Phone Number [facility] [address] [place] [address] * PREPARE (CROSSMATCH) RBC UNIT(S), 2 Units (07/09/2017 7:45 PM CDT) Product Code [id number] [facility] Unit Donor # [id number] S [facility] ABO Donor Type O [facility] Rh Type Unit POS [facility] Unit Status Ret'd [facility] ABO Rh Type Unit OPOS [facility] Donor Unit Expiration Date [facility] Blood Type Barcode 5100 [facility] Product Code [id number] [facility] Unit Donor [facility] [id number] S [facility] ABO Donor Type O [facility] Rh Type Unit POS [facility] Unit Status Ret'd [facility] ABO Rh Type Unit OPOS [facility] Donor Unit Expiration Date [facility] Blood Type Barcode 5100 [facility] Blood Bank BLOOD SPECIMEN / Unknown 07/09/2017 7:45 PM CDT Debra Cortes MD LAB - BLOOD BANK ORD ERABLES Performing Organization Address [facility] Co de Phone Number [facility] [address] [place] [address] * RUBELLA ANTIBODY IGG (07/09/2017 12:13 PM CDT) Rubella Antibody IgG Positive - Immune 07/09/2017 1:07 PM CDT [facility] Blood BLOOD SPECIMEN / Unknown Venipuncture / Unknown 07/09/2017 12:13 PM CDT 07/09/2017 12:19 PM CDT Apple Pineda DO LAB - SEROLOGY ORDERABLES Performing Organization Address [facility] Co de Phone Number [facility] [address] [place] [address] * TYPE & SCREEN (07/09/2017 11:44 AM CDT) Only the most recent of2 resultswithin the time period is included. ABO O 07/09/2017 12:52 PM CDT [facility] Rh Type Positive 07/09/2017 12:52 PM CDT [facility] Comment:History checked. Antibody Screen Negative 07/09/2017 12:52 PM CDT [facility] Blood Bank BLOOD SPECIMEN / Unknown Venipuncture / Unknown 07/09/2017 11:44 AM CDT 07/09/2017 12:03 PM CDT Apple Pineda DO LAB - BLOOD BAN K ORDERABLES Performing Organization Address [facility] Co de Phone Number [facility] [address] [place] [address] * (ABNORMAL) CBC W AUTO DIFFERENTIAL (07/09/2017 11:44 AM CDT) Only the most recent of4 resultswithin the time period is included. WBC 10.3 4.4 - 10.7 x10E9/L 07/09/2017 12:10 PM CDT [facility] WBC Corrected x10E9/L 07/09/2017 12:10 PM CDT [facility] RBC 3.55(L) 3.80 - 5.20 x10E12/L 07/09/2017 12:10 PM CDT [facility] Hemoglobin 8.5(L) 12.0 - 15.6 gm/dL 07/09/2017 12:10 PM CDT [facility] Hematocrit 27.8(L) 35.9 - 45.5 % 07/09/2017 12:10 PM CDT [facility] MCV 78.3(L) 80.7 - 98.3 fl 07/09/2017 12:10 PM CDT [facility] MCH 23.9(L) 26.7 - 34.0 pg 07/09/2017 12:10 PM CDT [facility] MCHC 30.6(L) 30.8 - 35.9 gm/dL 07/09/2017 12:10 PM CDT [facility] Platelet Count 308 153 - 416 x10E9/L 07/09/2017 12:10 PM CDT [facility] RDW-CV 15.2(H) 12.1 - 14.9 % 07/09/2017 12:10 PM CDT [facility] MPV 11.4 9.4 - 12.9 fl 07/09/2017 12:10 PM CDT [facility] Neutrophils % 61.6 44.0 - 73.0 % 07/09/2017 12:10 PM CDT [facility] Lymphocytes % 27.3 20.0 - 43.0 % 07/09/2017 12:10 PM CDT [facility] Monocytes % 9.1 5.0 - 13.0 % 07/09/2017 12:10 PM CDT [facility] Eosinophils % 0.8 0.0 - 6.0 % 07/09/2017 12:10 PM CDT [facility] Basophils % 0.2 0.0 - 2.0 % 07/09/2017 12:10 PM CDT [facility] Immature Granulocytes 1.0 0 - 1 % 07/09/2017 12:10 PM CDT [facility] Neutrophil Absolute 6.36 2.01 - 7.14 x10E9/L 07/09/2017 12:10 PM CDT [facility] Lymphocytes Absolute 2.82 1.07 - 3.94 x10E9/L 07/09/2017 12:10 PM CDT [facility] Monocytes Absolute 0.94 0.26 - 1.07 x10E9/L 07/09/2017 12:10 PM CDT [facility] Eosinophils Absolute 0.08 0 - 0.47 x10E9/L 07/09/2017 12:10 PM CDT [facility] Basophils Absolute 0.02 0 - 0.08 x10E9/L 07/09/2017 12:10 PM CDT [facility] Immature Granulocytes Absolute 0.10(H) 0.00 - 0.06 x10E9/L 07/09/2017 12:10 PM CDT [facility] nRBC Auto 0 /100 WBC 07/09/2017 12:10 PM CDT [facility] Blood BLOOD SPECIMEN / Unknown Venipuncture / Unknown 07/09/2017 11:44 AM CDT 07/09/2017 12:03 PM CDT Apple Pineda DO LAB - HEMATOLOG Y ORDERABLES [facility] [address] [place] [address] * GLUCOSE PROTEIN KETONE URINE - POINT [...] POINT OF CARE ORDERABLES Performing Organization Address City/[facility] Co de Phone Number [facility] POCT TESTING [address] [place] [address] * SONOGRAM - COMPLETE (06/29/2017 3:52 PM CDT) Only the most recent of7 resultswithin the time period is included. Anatomical Region Laterality Modality Other 06/29/2017 3:52 PM CDT Narrative 06/29/2017 4:54 PM CDT [facility] PHONE: FAX: Pat. Name: HUYEN PRINCE Pat. No: [id number] Study Date: 06/29/2017 3:52pm , Age: 01 1990, 27 Pregnancies: 1, Para 0 Height: 61 in Weight: 100 lb LMP: 08/25/2016 GA by LMP: 44w0d GA by Base: 39w5d SOCRATES: 07/01/2017 GA by US: 38w0d SOCRATES: 07/13/2017 GA Selected: 39w5d (From [facility]) SOCRATES: 07/01/2017 Referring MD: MD Imelda, [facility] Medical Driver: Louise Garvey RDMS CPT4: [id number] BMI: 18.89 Hist/Ind: Low lying placenta-resolved Depression/Anxiety Size less than Dates MEASUREMENTS & AGE GROWTH EVALUATION Measurement GA Range Srce %for GA Ratios ----- ---- ------- BPD 9.4 cm 38w2d (51s3i-11s6r) Hadl BPD 53% FL/BPD 0.81 (0.71 - 0.87) HC 33.1 cm 37w5d (45d6n-64e6f) Hadl HC 8% FL/AC 0.23 (0.20 - 0.24) AC 33.6 cm 37w4d (29z1b-13g7g) Hadl AC 17% HC/AC 0.98 (0.89 - 1.08) FL 7.6 cm 39w0d (17m1m-53q1x) Hadl FL 50% CI 0.82 (0.70 - 0.86) HL 6.1 cm 35w4d (44i7j-53c1m) Alfredo HL <05 GA for sonogram 38w0d (08k2n-78o7y) Weight Estimate: based on (BPD,HC,AC,FL) [place]lock Weight: [...] <Electronic Signature> 06/29/2017 04:53pm Solis Ryder MD [facility] ORDERABLES * (ABNORMAL) CULTURE STREP B (06/01/2017 3:22 PM CDT) Only the most recent of2 resultswithin the time period is included. Culture Strep B Growth of Streptococcus agalactiae (Group B)(AA) [place] 06/03/2017 3:13 PM CDT [facility] Microbiology MISCELLANEOUS SAMPLES / Unknown Collection / Unknown 06/01/2017 3:22 PM CDT 06/01/2017 3:29 PM CDT Narrative [facility] - 06/03/2017 3:13 PM CDT Susceptibility testing of penicillin, other beta-lactam antibiotics, and vancomycin is not necessary for beta-hemolytic streptococci groups A,B,C and G because resistant strains have not been recognized. Debra Cortes MD LAB - MICROBIOLOGY O RDLINDA [facility] [address] [phone] * HIV-1 HIV-2 ANTIBODY + HIV P24 AG PANEL (04/26/2017 3:30 PM [employer]) HIV1/2 Ab + P24 Ag Non Reactive Non Reactive 04/27/2017 12:22 AM [employer] Blood BLOOD SPECIMEN / Unknown Venipuncture / Unknown 04/26/2017 3:30 PM [employer] 04/26/2017 3:46 PM [employer] Narrative [facility] - 04/27/2017 12:22 AM [employer] No Laboratory evidence of HIV infection. Judit Ingram MD LAB - CHEMISTRY O RDERASHELLEY [facility] [address] [place] [address] * RPR (04/26/2017 3:30 PM [employer]) RPR Non Reactive Non Reactive 04/27/2017 10:[address] [facility] Blood BLOOD SPECIMEN / Unknown Venipuncture / Unknown 04/26/2017 3:30 PM [employer] 04/26/2017 3:46 PM [employer] Judit Ingram MD LAB - CHEMISTRY O RDERABLES [facility] [address] [place] [address] * GLUCOSE CHALLENGE (03/30/2017 1:38 PM [employer]) Pathologist [facility] Glucose Challenge 97 64 - 140 mg/dL 03/30/2017 2:28 PM [employer] [facility] Glucose Challenge Time 1 hr 03/30/2017 2:28 PM [employer] Blood BLOOD SPECIMEN / Unknown Venipuncture / Unknown 03/30/2017 1:38 PM [employer] 03/30/2017 2:04 PM [employer] Kwadwo Givens MD LAB - CHEMISTRY SILVIANO HOLLIDAY Performing Organization Address City/[facility]/ZIP Co de Phone Number [facility] [address] [place] [address] * BLOOD TYPE VERIFICATION (03/03/2017 6:07 AM [employer]) ABO O 03/03/2017 7:09 AM [employer] Rh Type Positive 03/03/2017 7:09 AM [employer] Blood Bank BLOOD SPECIMEN / Unknown Lab Venipuncture / Unknown 03/03/2017 6:07 AM [employer] 03/03/2017 6:16 AM [employer] Moses Lopez MD LAB - BLOOD BANK ORD ERABLES Performing Organization Address [facility]/ZIP Co de Phone Number [facility] [address] [place] [address] * TRICHOMONAS RAPID TEST (03/03/2017 4:48 AM [employer]) Trichomonas Rapid Test Negative Negative 03/03/2017 5:37 AM [employer] [facility] Microbiology ENTIRE VAGINA / Unknown Collection / Unknown 03/03/2017 4:48 AM [employer] 03/03/2017 5:20 AM [employer] Mackenzie Baker MD LAB - MICROBIOLOGY O RDGURJITBLES Performing Organization Address City/[facility]/ZIP Co de Phone Number [facility] [address] [place] [address] * CHLAMYDIA + GC AMPLIFIED PROBE (03/03/2017 4:48 AM [employer]) Chlamydia Amplified Probe Negative Negative 03/03/2017 12:38 PM [employer] GC Amplified Probe Negative Negative 03/03/2017 12:38 PM [employer] Microbiology PART OF UTERINE CERVIX / Unknown Collection / Unknown 03/03/2017 4:48 AM [employer] 03/03/2017 5:20 AM [employer] Narrative [facility] - 03/03/2017 12:38 PM [employer] Results based on detection/no detection of ribosomal RNA by amplified method. Mackenzie Baker MD LAB - MICROBIOLOGY O RDLINDA [facility] [address] [place], [place] [id number] [place] [address] * LAB HISTORICAL RESULTS-ONBASE (03/03/2017) Only the most recent of4 resultswithin the time period is included. 03/03/2017 Historical Provider LAB - CHEMISTRY O ANTHONY Performing Organization Address City/[facility]/ZIP Co de Phone Number [place] [address] [place], [place] [id number] [place] [address] * (ABNORMAL) URINALYSIS ROUTINE AUTO Urine Clean Catch (03/02/2017 10:23 AM [employer]) Color UA Yellow Straw, Yellow 03/02/2017 10:[address] [facility] Clarity UA Slt Cloudy(A) Clear 03/02/2017 10:[address] [facility] Glucose UA Negative Negative 03/02/2017 10:[address] [facility] Bilirubin UA Negative Negative 03/02/2017 10:[address] [facility] Ketone UA Negative Negative 03/02/2017 10:[address] [facility] Specific [place] UA 1.015 1.005 - 1.030 03/02/2017 10:[address] [facility] Blood UA 1+(A) Negative 03/02/2017 10:[address] [facility] pH UA 6.0 5.0 - 8.0 pH 03/02/2017 10:[address] [facility] Protein UA Negative Negative 03/02/2017 10:[address] [facility] Urobilinogen UA Negative Negative mg/dL 03/02/2017 10:[address] [facility] Nitrite UA Negative Negative 03/02/2017 10:[address] [facility] Leukocyte UA 3+(A) Negative 03/02/2017 10:[address] [facility] Urine Microscopy Urine microscopy to follow 03/02/2017 10:[address] [facility] Urine URINE SPECIMEN OBTAINED BY CLEAN CATCH PROCEDURE / Unknown Collection / Unknown 03/02/2017 10:23 AM [employer] 03/02/2017 10:37 AM [facility] Narrative [facility] - 03/02/2017 10:52 AM [employer] Justin Diaz MD LAB - URINALYSIS ORDERABLES Performing Organization Address City/[facility]/ZIP Co de Phone Number [facility] [address] [place] [address] * (ABNORMAL) URINALYSIS MICROSCOPIC ONLY (03/02/2017 10:23 AM [employer]) RBC UA 0-5 0-5, None Seen # /hpf 03/02/2017 10:[address] [facility] WBC UA 21-50(A) 0-5, None Seen # /hpf 03/02/2017 10:[address] [facility] Bacteria UA Trace(A) None Seen 03/02/2017 10:[address] [facility] Squamous Epithelial Cells 6-10(A) None Seen, 0-2, 3-5 /hpf 03/02/2017 10:[address] [facility] Mucus UA 1+ /LPF 03/02/2017 10:[address] [facility] Urine URINE SPECIMEN OBTAINED BY CLEAN CATCH PROCEDURE / Unknown Collection / Unknown 03/02/2017 10:23 AM [employer] 03/02/2017 10:37 AM [facility] Narrative [facility] - 03/02/2017 10:55 AM [employer] Justin Diaz MD LAB - URINALYSIS ORDERABLES Performing Organization Address [facility]/ZIP Co de Phone Number [facility] [address] [place] [id number] * CULTURE URINE (03/02/2017 10:23 AM [employer]) Only the most recent of2 resultswithin the time period is included. Culture Urine 10,000-50,000 CFU/mL urogenital shane [place]ALEE 03/03/2017 2:55 PM [employer] MICROBIOLOG[facility] Urine URINE SPECIMEN OBTAINED BY CLEAN CATCH PROCEDURE / Unknown Collection / Unknown 03/02/2017 10:23 AM CARDROOM PLASTIC CARD GRADER 03/02/2017 10:37 AM CARDROOM PLASTIC CARD GRADER Justin Diaz MD LAB - MICROBIOLO GY ORDERABLES [facility] MICRO[facility] [address] [place] [address], [facility] [phone] * ALPHA FETOPROTEIN BLOOD MATERNAL QUAD PANEL (02/01/2017 1:16 PM CARDROOM PLASTIC CARD GRADER) Results Report 02/04/2017 3:36 AM CARDROOM PLASTIC CARD GRADER [facility] ([facility]) Test Results *Screen Negative* 02/04/2017 3:36 AM CARDROOM PLASTIC CARD GRADER [facility] ([facility]) Gestational Age Weeks 18.4 WEEKS 02/04/2017 3:36 AM CARDROOM PLASTIC CARD GRADER [facility]) Gestational Age Based On Ultrasound 02/04/2017 3:36 AM CARDROOM PLASTIC CARD GRADER [facility] ([facility]) Comment:18.4 on 02/01/2017 M[age] [place] 25[age]2 YEARS 02/04/2017 3:36 AM CARDROOM PLASTIC CARD GRADER [facility]) Race 02/04/2017 3:36 AM CARDROOM PLASTIC CARD GRADER [facility] Weight 112 lbs 02/04/2017 3:36 AM CARDROOM PLASTIC CARD GRADER [facility]) Insulin Dependent Diabetes No 02/04/2017 3:36 AM CARDROOM PLASTIC CARD GRADER [facility]) Multiple Gestation No 2016 3:36 AM CARDROOM PLASTIC CARD GRADER [facility]) Alpha-Fetoprotein Value (EIA) 46.0 ng/mL 02/04/2017 3:36 AM CARDROOM PLASTIC CARD GRADER [facility]) AFP MoM Value 0.83 02/04/2017 3:36 AM CARDROOM PLASTIC CARD GRADER [facility] hCG Value 55742 mIU/mL 02/04/2017 3:36 AM CARDROOM PLASTIC CARD GRADER [facility] hCG Mom 1.31 02/04/2017 3:36 AM CARDROOM PLASTIC CARD GRADER [facility]) Estriol Value 1.81 ng/mL 02/04/2017 3:36 AM CARDROOM PLASTIC CARD GRADER [facility]) Estriol MoM 1.14 02/04/2017 3:36 AM CARDROOM PLASTIC CARD GRADER [facility]) JOSE E Value 278.31 pg/mL 02/04/2017 3:36 AM CARDROOM PLASTIC CARD GRADER [facility]) Jose E MoM Value 1.30 02/04/2017 3:36 AM CARDROOM PLASTIC CARD GRADER [facility] ([facility]) [place] 1 [place] [address] 02/04/2017 3:36 AM CARDROOM PLASTIC CARD GRADER [facility] ([facility]) DSR (2nd Trimester) 1 IN 2174 02/04/2017 3:36 AM CARDROOM PLASTIC CARD GRADER [facility] ([facility]) DSR (By Age) 1 IN 1022 017 3:36 AM CARDROOM PLASTIC CARD GRADER [facility] ([facility]) T18 Risk Not increased 02/04/2017 3:36 AM CARDROOM PLASTIC CARD GRADER [facility] ([facility]) T18 (by Age) 1:3981 02/04/2017 3:36 AM CARDROOM PLASTIC CARD GRADER [facility] ([facility]) Interpretation Comment 02/04/2017 3:36 AM CARDROOM PLASTIC CARD GRADER [facility] ([facility]) Comment: Interpretation: Screen Negative This result is [...] identifies 60% of Trisomy 18 pregnancies. The [employer] recommends amniocentesis be offered to women age 35 and older. Recalculations are not recommended when gestational dating by LMP and ultrasound are within 10 days. Comments Comment 02/04/2017 3:36 AM CARDROOM PLASTIC CARD GRADER [facility] ([facility]) Comment: Shani Bassett, PhD, [facility] Director, Biochemical and Molecular Genetics References: Available Upon Request. Multiples Of Median Cutoffs Abbreviation Definitions For AFP Elevations IDD- Insulin Dep Diabetes Cochran 2.5 Black 2.8 OSBR- Open Spina Bifida IDD 2.0 Twins 4.5 Risk DSR Cutoff 1:270 DSR- Down Syndrome Risk T18 Cutoff 1:100 T18- Trisomy 18 Down Syndrome and Trisomy 18 screening are considered Investigational For further inquiries contact [facility] Services at [phone]. Blood BLOOD SPECIMEN / Unknown Venipuncture / Unknown 02/01/2017 1:16 PM CARDROOM PLASTIC CARD GRADER 02/01/2017 1:31 PM CARDROOM PLASTIC CARD GRADER Narrative [facility] ([facility]) - 02/04/2017 3:36 AM CARDROOM PLASTIC CARD GRADER Performed at: - [facility] [address] [place], [place] [id number] Hot Air Furnace Installer And Repairer: Ghada Louise MD, Phone: [phone] Huyen Johnston MD LAB - CHEMISTRY SILVIANO HOLLIDAY Performing Organization Address City/[facility]/ZIP Co de Phone Number [facility] ([facility]) [address] [place] [address] * STREP A SCREEN DIRECT W RFLX STREP A CULTURE (01/27/2017 7:24 PM CARDROOM PLASTIC CARD GRADER) Strep A Rapid Negative Negative 01/27/2017 7:37 PM CARDROOM PLASTIC CARD GRADER [facility] Microbiology ENTIRE THROAT (SURFACE REGION OF NECK) / Unknown Collection / Unknown 01/27/2017 7:24 PM CARDROOM PLASTIC CARD GRADER 01/27/2017 7:27 PM CARDROOM PLASTIC CARD GRADER Narrative [facility] - 01/27/2017 7:37 PM CARDROOM PLASTIC CARD GRADER Test has reflexed to a Strep A culture. Candi Easton DO LAB - MICROBIOLOGY O RDERASHELLEY Performing Organization Address [facility] Co de Phone Number [facility] [address] [place] [address] * CULTURE STREP GROUP A (01/27/2017 7:24 PM CARDROOM PLASTIC CARD GRADER) Culture Negative for beta-hemolytic Streptococcus Group A ROSALEE 01/30/2017 12:57 PM CARDROOM PLASTIC CARD GRADER [facility] MICROBIOLOGY Microbiology ENTIRE THROAT (SURFACE REGION OF NECK) / Unknown Collection / Unknown 01/27/2017 7:24 PM CARDROOM PLASTIC CARD GRADER 01/27/2017 7:27 PM CARDROOM PLASTIC CARD GRADER Candi Easton DO LAB - MICROBIOLOGY O RDERABLES Performing Organization Address City/[facility]/ZIP Co de Phone Number [facility] MICROBIOLOGY [address] [place] [address], [facility] [phone] * (ABNORMAL) URINALYSIS MICROSCOPIC ONLY W/REFLEX CULTURE (01/27/2017 6:54 PM CARDROOM PLASTIC CARD GRADER) Reflex Status Culture to follow 01/27/2017 7:[address] [facility] RBC UA 0-5 0-5, None Seen # /hpf 01/27/2017 7:[address] [facility] WBC UA 0-5 0-5, None Seen # /hpf 01/27/2017 7:[address] [facility] Bacteria UA Trace(A) None Seen 01/27/2017 7:[address] [facility] Squamous Epithelial Cells 6-10(A) None Seen, 0-2, 3-5 /hpf 01/27/2017 7:[address] [facility] Mucus UA 2+ /LPF 01/27/2017 7:[address] [facility] Urine URINE SPECIMEN OBTAINED BY CLEAN CATCH PROCEDURE / Unknown Collection / Unknown 01/27/2017 6:54 PM CARDROOM PLASTIC CARD GRADER 01/27/2017 7:01 PM CARDROOM PLASTIC CARD GRADER Narrative [facility] - 01/27/2017 7:13 PM CARDROOM PLASTIC CARD GRADER Candi Easton DO LAB - URINALYSIS ORD ERABLES [facility] [address] [place] [address] * (ABNORMAL) URINALYSIS ROUTINE W/REFLEX TO CULTURE (01/27/2017 6:54 PM CARDROOM PLASTIC CARD GRADER) Color UA Yellow Straw, Yellow 01/27/2017 7:[address] [facility] Clarity UA Slt Cloudy(A) Clear 01/27/2017 7:[address] [facility] Glucose UA Negative Negative 01/27/2017 7:[address] [facility] Bilirubin UA Negative Negative 01/27/2017 7:[address] [facility] Ketone UA Negative Negative 01/27/2017 7:[address] [facility] Specific [place] UA 1.015 1.005 - 1.030 01/27/2017 7:[address] [facility] Blood UA 1+(A) Negative 01/27/2017 7:[address] [facility] pH UA 6.0 5.0 - 8.0 pH 01/27/2017 7:[address] [facility] Protein UA Negative Negative 01/27/2017 7:[address] [facility] Urobilinogen UA Negative Negative mg/dL 01/27/2017 7:[address] [facility] Nitrite UA Negative Negative 01/27/2017 7:[address] [facility] Leukocyte UA 1+(A) Negative 01/27/2017 7:[address] [facility] Urine Microscopy Urine microscopy to follow 01/27/2017 7:[address] [facility] Reflex Status Culture to follow 01/27/2017 7:[address] [facility] Urine URINE SPECIMEN OBTAINED BY CLEAN CATCH PROCEDURE / Unknown Collection / Unknown 01/27/2017 6:54 PM CARDROOM PLASTIC CARD GRADER 01/27/2017 7:01 PM CARDROOM PLASTIC CARD GRADER [facility]ORAT[facility] - 01/27/2017 7:13 PM CARDROOM PLASTIC CARD GRADER Candi Easton DO LAB - URINALYSIS ORD ERABLES [facility] [address] [place] [address] * (ABNORMAL) COMPREHENSIVE METABOLIC PANEL (01/27/2017 6:31 PM CARDROOM PLASTIC CARD GRADER) Glucose 83 74 - 106 mg/dL 01/27/2017 6:[address] [facility] Sodium 135(L) 136 - 145 mmol/L 01/27/2017 6:[address] [facility] Potassium 3.6 3.5 - 5.1 mmol/L 01/27/2017 6:[address] [facility] Chloride 103 98 - 107 mmol/L 01/27/2017 6:[address] [facility] CO2 24 22 - 31 mmol/L 01/27/2017 6:[address] [facility] Calcium 9.1 8.5 - 10.1 mg/dL 01/27/2017 6:[address] [facility] Anion Gap 8 8 - 16 mmol/L 01/27/2017 6:[address] [facility] BUN 4(L) 7 - 21 mg/dL 01/27/2017 6:[address] [facility] Creatinine 0.43(L) 0.50 - 1.30 mg/dL 01/27/2017 6:[address] [facility] Alkaline Phosphatase 56 38 - 126 U/L 01/27/2017 6:[address] [facility] ALT 20 13 - 61 U/L 01/27/2017 6:[address] [facility] AST 18 5 - 40 U/L 01/27/2017 6:54 PM CARDROOM PLASTIC CARD GRADER [facility] Protein Total 6.9 6.4 - 8.2 gm/dL 01/27/2017 6:54 PM CARDROOM PLASTIC CARD GRADER [facility] Albumin 3.1(L) 3.4 - 5.0 gm/dL 01/27/2017 6:54 PM CARDROOM PLASTIC CARD GRADER [facility] Bilirubin Total 0.2 0.2 - 1.0 mg/dL 01/27/2017 6:54 PM CARDROOM PLASTIC CARD GRADER [facility] eGFR by MDRD >60 >60 mL/min/1.7 3m2 01/27/2017 6:54 PM CARDROOM PLASTIC CARD GRADER [facility] eGFR by MDRD >60 >60 mL/min/1.7 3m2 01/27/2017 6:54 PM CARDROOM PLASTIC CARD GRADER [facility] Blood BLOOD SPECIMEN / Unknown Venipuncture / Unknown 01/27/2017 6:31 PM CARDROOM PLASTIC CARD GRADER 01/27/2017 6:35 PM CARDROOM PLASTIC CARD GRADER Candi Easton DO LAB - CHEMISTRY SILVIANO HOLLIDAY Performing Organization Address City/State/[facility] Co de Phone Number [facility] [address] [place] [id number] * SKIN TEST PPD - POINT OF CARE (09/29/2016) PPD neg MISCELLANEOUS SAMPLE S / Unknown 09/29/2016 Pinky Garcia EYEWEAR CONSULTANT-GAS COMPRESSOR OPERATOR LAB - POINT OF CA RE ORDERABLES Care Teams Design Technician Relationship Specialty Start Date End Date Barbra Kendrick PA-C PCP - General 02/08/18 Barbra Kendrick PA-C Physician Braid Folder 12/16/16
[2024-05-13] MEDS: KETOROLAC 30 MG/ML VIAL (*BKC) IV PUSH (05:42)
[2024-05-13] MEDS: SODIUM CHLORIDE 0.9% IV 2,000 ML 999 ML IV CONT (05:43)
--- NOTE | 2024-05-13 06:01 | ED_ITS ---
HPI - General Adult General Chief complaint: Nausea/Vomiting/Diarrhea Stated complaint: nausea/vomiting/confusion Time Seen by Provider: 05/13/24 05:16 History of Present Illness HPI narrative: This is a 34-year-old female presenting with 1 day of fevers. Associated symptoms include nausea, vomiting, diarrhea, fatigue, headaches and body aches. She denies chest pain difficulty breathing or urinary symptoms. She has been taking Motrin Tylenol with some relief. Patient had a Mirena placed several weeks ago. Related Data Home Medications ?Medication ?Instructions ?Recorded ?Confirmed ?Last Taken ?Type dextroamphetamine-amphetamine 10 10 mg BID 01/10/24 01/10/24 Unknown History mg tablet gabapentin 300 mg capsule 300 mg HS 01/10/24 01/10/24 Unknown History lorazepam 0.5 mg tablet 0.5 mg HS 01/10/24 01/10/24 Unknown History Allergies Allergy/AdvReac Type Severity Reaction Status Date / Time No Known Allergies Allergy Verified 05/13/24 00:06 [facility] Social History Social History Gender identity (if verbalized by the patient): Female Exam 2 Narrative: APPEARANCE: No apparent distress. Head: atraumatic. EYES: EOMI, NOSE: Atraumatic NECK: Trachea midline RESPIRATORY: No increased rate of breathing clear to auscultation CARDIOVASCULAR: Mildly tachycardic no peripheral edema ABDOMINAL: Soft nontender no guarding or rebound, no CVA tenderness MUSCULOSKELETAl: No obvious deformities NEURO: Alert. Moving 4/4 extremities SKIN:: Warm, dry. Normal color PSYCHIATRIC: Normal affect Course Vital Signs Vital signs: Vital Signs Temperature 100.4 F H 05/13/24 00:07 Pulse Rate 99 05/13/24 00:07 Respiratory Rate 17 05/13/24 00:07 Blood Pressure 137/74 05/13/24 00:07 Pulse Oximetry 100 05/13/24 00:07 Oxygen Delivery Room Air 05/13/24 00:07 Temperature 102.1 F H 05/13/24 04:52 Pulse Rate 110 H 05/13/24 04:52 Respiratory Rate 17 05/13/24 04:52 Blood Pressure 125/84 05/13/24 04:52 Pulse Oximetry 98 05/13/24 04:52 Oxygen Delivery Room Air 05/13/24 00:07 Medical Decision Making [facility] Narrative Medical decision making narrative: -Course: 34-year-old female presenting with 1 day symptoms. Patient give Toradol, Tylenol and IV fluids. Workup significant for a white count of 12.3. Metabolic panel within normal limits. Urine without evidence of infection. Urine had RBCs but she is starting her menstrual period. Viral swabs negative. Patient was concerned about her Mirena but she has no suprapubic tenderness or vaginal symptoms. On re-evaluation patient is feeling better. Suspect viral illness. Patient discharged with supportive measures and return precautions. Primary care follow-up -DDX includes but is not limited to: Viral syndrome, pneumonia, UTI, endometritis Vital Signs Vital Signs: Vital Signs Temperature 100.4 F H 05/13/24 00:07 Pulse Rate 99 05/13/24 00:07 Respiratory Rate 17 05/13/24 00:07 Blood Pressure 137/74 05/13/24 00:07 Pulse Oximetry 100 05/13/24 00:07 Oxygen Delivery Room Air 05/13/24 00:07 Temperature 102.1 F H 05/13/24 04:52 Pulse Rate 110 H 05/13/24 04:52 Respiratory Rate 17 05/13/24 04:52 Blood Pressure 125/84 05/13/24 04:52 Pulse Oximetry 98 05/13/24 04:52 Oxygen Delivery Room Air 05/13/24 00:07 Lab Data 05/13/24 00:26 05/13/24 00:26 Labs: Lab Results 05/13/24 05/13/24 Range/Units 00:26 02:57 WBC 12.3 H (4.5-10.0) K/mm3 RBC 4.33 (4.2-5.4) M/mm3 Hgb 13.2 (12.0-15.0) g/dL Hct 38.5 (37.0-47.0) % MCV 88.9 (80-100) fl MCH 30.5 (26-34) pg MCHC 34.3 (32-36) g/dl RDW 14.9 H (11.5-14.5) % Plt Count 299 (150-375) k/mm3 MPV 9.8 (7.4-10.4) fl Immature Gran % (Auto) 0.4 (0-0.5) % Neut % (Auto) 83.2 H (45.5-73.1) % Lymph % (Auto) 7.5 L (18.3-44.2) % Whiteside % (Auto) 8.7 H (2.6-8.5) % Eos % (Auto) 0.0 (0-4.4) % Baso % (Auto) 0.2 (0.2-1.2) % Lymph # (Auto) 0.92 (0.9-3.2) K/mm3 Whiteside # (Auto) 1.1 H (0.1-0.6) K/mm3 Eos # (Auto) 0.0 (0-0.3) K/mm3 Baso # (Auto) 0.0 (0.0-0.1) K/mm3 Abs Immat Gran (auto) 0.05 H (0.00-0.031) K/mm3 Absolute Neuts (auto) 10.2 H (1.3-6.7) K/mm3 Absolute Nucleated RBC 0.000 (0.0-0.012) K/mm3 Nucleated RBC % 0.0 (0.0-0.2) % Sodium 134 L (137-145) mmol/L Potassium 3.7 (3.4-5.0) mmol/L Chloride 101 (98-107) mmol/L Carbon Dioxide 17 L (22-30) mmol/L Anion Gap 16 H (4-12) mmol/L BUN 10 (7-17) mg/dL Creatinine 0.83 (0.7-1.0) mg/dL Estim Creat Clear Calc 58 ml/min Estimated GFR > 60 (59 - ) Glucose 146 H (65-110) mg/dL Calcium 9.2 (8.4-10.2) mg/dL Total Bilirubin 0.6 (0.2-1.3) mg/dL AST 24 (14-36) U/L ALT 24 (6-35) U/L Alkaline Phosphatase 44 (38-126) U/L Total Protein 8.0 (6.3-8.2) g/dL Albumin 5.0 (3.5-5.1) g/dL Lipase 84 (23-300) U/L Urine Color Dark yellow (Yellow) Urine Appearance Cloudy H (Clear) Urine pH 6.0 (5.0-9.0) Ur Specific [place] 1.034 (1.001-1.035) Urine Protein 3+ H (Negative) mg/dL Urine Glucose (UA) Negative (Negative) mg/dL Urine Ketones Trace H (Negative) mg/dL Ur Blood (Man) 3+ H (Negative) Urine Nitrate Negative (Negative) Urine Bilirubin 1+ H (Negative) Urine Urobilinogen 1.0 (<2.0) mg/dL Add Ur Microanalysis Reviewed Leukocyte Esterase Rfl Trace H (Negative) RAMIRO/UL Urine RBC >100 H (0-2) /hpf Urine WBC 0-5 (0-3) /hpf Ur Squamous Epith Cells None seen (Few) /hpf Urine Bacteria None seen /hpf Urine Casts 0-2 Influenza A (RT-PCR) Negative (Negative) Influenza B (RT-PCR) Negative (Negative) RSV (RT-PCR) Negative (Negative) SARS-CoV-2 RNA (RT-PCR) Negative (Negative) Discharge Plan Discharge Clinical Impression: Acute viral syndrome Patient Disposition: Home, Self-Care Condition: Stable Instructions: Antibiotic Form, Viral Syndrome (ED) Additional Instructions: You were seen in the emergency department for fevers. I suspect you have a viral illness. Continue using Motrin and Tylenol for fevers and body aches. Use Zofran for nausea. If you feel that you are getting worse or you develop any new symptoms please return to the ED for re-evaluation. Patient Language: Spanish Prescriptions: New ibuprofen 800 mg tablet 800 mg PO TID PRN (Reason: pain) 7 Days Qty: 21 0RF acetaminophen 500 mg tablet 1,000 mg PO TID PRN (Reason: cassandra) 7 Days Qty: 42 0RF ondansetron 4 mg tablet,disintegrating 4 mg PO Q8H PRN (Reason: nausea and vomiting) Qty: 14 0RF No Action dextroamphetamine-amphetamine 10 mg tablet 10 mg BID lorazepam 0.5 mg tablet 0.5 mg HS gabapentin 300 mg capsule 300 mg HS ofloxacin 0.3 % drops See Rx Instructions .ROUTE .COMPLEX Qty: 10 0RF Rx Instructions: put 1-2 drps into affected eye(s) every 2-4 h x 2 days, then 1-2 drps 4 times/day days 3-7 Follow-up/Referrals: PHYSICIAN,CHIPPER MACHINE OPERATOR [Primary Care Provider] -
[2024-05-13 07:35] VITALS: BP 102/69; PULSE 88; RESP 17; O2SAT 99
== END 2024-05-13 07:37 | disposition home or self-care (01) ==
PROVIDERS: Emergency Provider Emergency Medicine
DX: B34.9 Viral infection, unspecified (principal); Z20.822 Contact with and (suspected) exposure to COVID-19
CPT/HCPCS: 36415; 71045; 80053; 81001; 83690; 85025; 87637; 96361; 96374; 99284; A9270; J1885; J7030

== ENCOUNTER 2024-05-16 12:29 | Emergency (ER) | payer OTHER, SELFPAY ==
--- NOTE | ~2024-05-16 | CT_ITS ---
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 Comparison: None. Technique: CT soft tissues neck was performed with contrast. . Automated exposure control and iterat lane reconstruction technique were employed. The dose-length product was 158.86 mGy-cm. 75 mL Omnipaqu e 350 was given IV. Findings: LOWER HEAD: The visualized brain parenchyma, optic globes/orbits and mastoids are normal. Right max illary sinus disease. SALIVARY GLANDS: Dilated ducts in size the right submandibular gland with possible occlusion of the m ain duct due to edema. Follow-up advised.. THYROID: Normal. SUPRAHYOID DEEP SPACES: Edema is seen in the right side of the neck extending down around the right s ubmandibular gland and extending superiorly to the area posterior to the tonsil and deep to the azeb ble with abscess seen posterior to the tongue measuring 3 x 1.9x 2.3 cm which is most likely peritons illar abscess. Deviation of the uvula to the left is noted. Narrowing of the oropharynx is noted. Lym phadenopathy is seen in the right and left posterior triangles and in the parapharyngeal spaces with the largest measures 1.8 cm on the right and 1.3 cm on the left CAROTID ARTERIES: Normal. JUGULAR VEINS: Severe narrowing or near occlusion seen near to the right skull base. ORAL CAVITY: normal as visualized. LARYNX AND TRACHEA: Patent and normal. No prevertebral soft tissue swelling. SUPERFICIAL SOFT TISSUES: Normal. No lymphadenopathy or neck mass. THORACIC INLET/VISUALIZED UPPER CHEST: Normal. SKELETAL: Normal. IMPRESSION: 1. Right peritonsillar abscess extending to superiorly near to the skull base and inferiorly around the submandibular gland with narrowing of the oropharyngeal area. 2. Bilateral lymphadenopathy in the parapharyngeal and posterior triangles. 3. Narrowing of the jugular vein on the right side near to the skull base. Reviewed, dictated and finalized at location A. IMPRESSION: 1. Right peritonsillar abscess extending to superiorly near to the skull base and inferiorly around the submandibular gland with narrowing of the oropharynge al area. 2. Bilateral lymphadenopathy in the parapharyngeal and posterior triangles. 3. Narrowing of the jugular vein on the right side near to the skull base.
[2024-05-16 12:34] VITALS: BP 124/68; PULSE 106; RESP 16; TEMP 36.4; O2SAT 100
--- OUTSIDE RECORDS SUMMARY | 2024-05-16 13:48 | XMS_ITS | Clinical Summary ---
Author Organization [facility] Address [address] [place] [address] Care Team Providers Care Guest Service Manager Name Role Phone Barbra Kendrick PA-C Unavailable [phone] Barbra Kendrick PA-C Primary Care Provider [phone] Source Comments [facility],non-owned Affiliates and Associated Physician Practices is amultiple site organization consisting of ambulatory clinics and hospital sitesin [place], [place], [place] and [place]. This disclosure is being madepursuant to the Care Everywhere program and may not contain all information available regarding this patient. Last updated 17.[facility] Allergies Active Allergy Reactions [...] 20 mg by mouth once daily Active [id number]-[id number]-[id number] ( VITAMIN WITH IRON) tabletIndications:S upervision of [...] P24 AG PANEL Routine 04/26/2017 3:30 PM TRANSMISSION MECHANIC Supervision of high-risk of young primigravida (HCC) GLUCOSE CHALLENGE Routine 03/30/2017 1:3 8 PM TRANSMISSION MECHANIC Supervision of high-risk of young primigravida (HCC) from Last 3 Months or Most Recently Relevant to Health Maintenance Results * (ABNORMAL) CULTURE STREP B (06/01/2017 3:22 PM CDT) Culture Strep B Growth of Streptococcus agalactiae (Group B)(AA) ROSALEE 06/03/2017 3:13 PM CDT [facility] MICRO[facility] Microbiology MISCELLANEOUS SAMPLES / Unknown Collection / Unknown 06/01/2017 3:22 PM CDT 06/01/2017 3:29 PM CDT Narrative [facility]CRO[facility] - 06/03/2017 3:13 PM CDT Susceptibility testing of penicillin, other beta-lactam antibiotics, and vancomycin is not necessary for beta-hemolytic streptococci groups A,B,C and G because resistant strains have not been recognized. Debra Cortes MD LAB - MICROBIOLOGY O RDERABLES [facility]CROBIOLOG[facility] [address] [place], [place] [address] [phone] * HIV-1 HIV-2 ANTIBODY + HIV P24 AG PANEL (04/26/2017 3:30 PM TRANSMISSION MECHANIC) Pathologist [facility] HIV1/2 Ab + P24 Ag Non Reactive Non Reactive 04/27/2017 12:22 AM TRANSMISSION MECHANIC [facility] Blood BLOOD SPECIMEN / Unknown Venipuncture / Unknown 04/26/2017 3:30 PM TRANSMISSION MECHANIC 04/26/2017 3:46 PM TRANSMISSION MECHANIC Narrative [facility] - 04/27/2017 12:22 AM TRANSMISSION MECHANIC No Laboratory evidence of HIV infection. Judit Ingram MD LAB - CHEMISTRY O NOLANERASHELLEY Performing Organization Address City/[facility]/ZIP Co de Phone Number [facility] [address] [place] [address] * GLUCOSE CHALLENGE (03/30/2017 1:38 PM TRANSMISSION MECHANIC) [facility] Glucose Challenge 97 64 - 140 mg/dL 03/30/2017 2:28 PM TRANSMISSION MECHANIC [facility] Glucose Challenge Time 1 hr 03/30/2017 2:28 PM TRANSMISSION MECHANIC [facility] Blood BLOOD SPECIMEN / Unknown Venipuncture / Unknown 03/30/2017 1:38 PM TRANSMISSION MECHANIC 03/30/2017 2:04 PM TRANSMISSION MECHANIC Kwadwo Givens MD LAB - CHEMISTRY SILVIANO HOLLIDAY [facility] [address] [place] [address] from Last 3 Months or Most Recently Relevant to Health Maintenance Advance Directives * Full Code (Latest Code Status on File) Date Activated Date Inactivated Comments 07/09/2017 12:57 PM 07/12/2017 5:35 PM * Full Code Date Activated Date Inactivated Comments 03/03/2017 4:49 AM 03/03/2017 2:29 PM * Full Code Date Activated Date Inactivated Comments 03/03/2017 4:08 AM 03/03/2017 4:49 AM Care Teams Guest Service Manager Relationship Specialty Start Date End Date Barbra Kendrick PA-C PCP - General 02/08/18 Barbra Kendrick PA-C Physician Stratigrapher 12/16/16
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
--- OUTSIDE RECORDS SUMMARY | 2024-05-16 13:48 | XMS_ITS | Referral Summary ---
Author Organization [address] Address [address] [place] [phone] Care Team Providers Care Mitten Sewer Name Role Phone Taina Freeman MD Primary Care Provider + Encounters Date Type Department Care Team Description 04/28/2024 9:00 AM OVERHEAD CRANE INSPECTOR Procedure visit [facility] [address] [place] [address] Floor [address] [place] [phone] Jayleen Amaral MD Encounter for IUD insertion (Primary Dx); Screen for STD (sexually transmitted disease); Abnormal uterine bleeding 03/30/2024 2:15 PM OVERHEAD CRANE INSPECTOR Office Visit [facility] Clinic [address] [place] [address] Floor [address] [place] [phone] Jayleen Amaral MD Bilateral ovarian cysts (Primary [...] # Disposition: Follow up task sent to [facility] scheduling pool. Desires discharge home today. [...] education: completed in all 3 trimesters [x] Founder / Ceo: Completed [x] Car seat discussed [x] PP [...] week 02/01/2022 How often do you attend [facility] or tenriism services? More than 4 times per year 02/01/2022 Do you belong to any clubs o r organizations such as zoroastrianism groups, unions, fraternal or athletic groups, or [...] care, and heating? Not very hard 02/01/2022 [facility] Occupat ional Health - Occupational Stress [...] place to sleep or slept in a group home (including now)? No 02/01/2022 [place] Depression Scale Answer Date Recorded [place] Depression Scale Total 20 10/27/2021 The thought [...] Comments Blood Pressure 130/83 04/28/2024 9:10 AM OVERHEAD CRANE INSPECTOR Pulse 99 04/28/2024 9:10 AM OVERHEAD CRANE INSPECTOR Temperature 37.2 C (99 F) 01/24/2024 5:00 PM OVERHEAD CRANE INSPECTOR Respiratory Rate 18 01/24/2024 9:37 PM OVERHEAD CRANE INSPECTOR Oxygen Saturation 99% 04/28/2024 9:10 AM OVERHEAD CRANE INSPECTOR Inhaled Oxygen Concentration - - Weight 44 kg (96 lb 14.4 oz) 04/28/2024 9:10 AM OVERHEAD CRANE INSPECTOR Height 154.9 cm (5' 1 ) 03/30/2024 2:23 PM OVERHEAD CRANE INSPECTOR Body Mass Index 18.31 03/30/2024 2:23 PM OVERHEAD CRANE INSPECTOR Plan of Treatment Not on file Procedures Procedure Name Priority Date/Time Associated Diagnosis Comments TRICHOMONAS VAGINALIS PCR Routine 04/28/2024 9:50 AM OVERHEAD CRANE INSPECTOR N. GONORRHOEAE/C. TRACHOMATIS AMPLIFICATION Routine 04/28/2024 9:50 AM OVERHEAD CRANE INSPECTOR POCT HCG, URINE Routine 04/28/2024 9:16 AM OVERHEAD CRANE INSPECTOR Encounter for IUD insertion PROLACTIN Routine 03/30/2024 3:02 PM OVERHEAD CRANE INSPECTOR Abnormal uterine bleeding TOTAL TESTOSTERONE Routine 03/30/2024 3: 02 PM OVERHEAD CRANE INSPECTOR Abnormal uterine bleeding ESTRADIOL Routine 03/30/2024 3:02 PM OVERHEAD CRANE INSPECTOR Abnormal uterine bleeding FOLLICLE STIMULATING HORMONE Routine 03/30/2024 3:02 PM OVERHEAD CRANE INSPECTOR Abnormal uterine bleeding CBC WITHOUT DIFFERENTIAL Routine 03/30/2024 3:02 PM OVERHEAD CRANE INSPECTOR Abnormal uterine bleeding THYROID FUNCTION CASCADE Routine 03/30/2024 3:02 PM OVERHEAD CRANE INSPECTOR Abnormal uterine bleeding PAP WITH REFLEX TO HIGH RISK HPV Routine 08/29/2021 10:23 AM CDT Encounter for supervision of other normal in second trimester HEPATITIS C ANTIBODY Routine 08/27/2021 2:39 PM CDT , unspecified gestational age from Last 3 Months or Most Recently Relevant to Health Maintenance Results * N. gonorrhoeae/C. trachomatis Amplification Endocervical (04/28/2024 9:50 AM OVERHEAD CRANE INSPECTOR) C. trachomatis Not Detected DARLENE N. gonorrhoeae Not Detected [facility] Comment: Interpretive Data This assay detects Chlamydia trachomatis and Neisseria gonorrhoeae by nucleic acid amplification testing (NAAT). This assay has been cleared by the [place] Food and Drug administration. The performance characteristics of this test have been verified by the [facility] laboratory. The performance characteristics of this test have not been evaluated in individuals less than 14 years of age. Current Interpretive Data was last revised on 2023. Endocervical 04/28/2024 9:50 AM OVERHEAD CRANE INSPECTOR 04/28/2024 11:42 AM OVERHEAD CRANE INSPECTOR us Jayleen Amaral MD LAB MICROBIOLOGY - GENE [facility] ORDERABLES Final Result [facility] [place] [address] [facility] * Trichomonas vaginalis PCR Endocervical (04/28/2024 9:50 AM OVERHEAD CRANE INSPECTOR) [facility] Trichomonas DNA Not Detected [facility] Comment: Interpretive Data This assay detects Trichomonas vaginalis by nucleic acid amplification testing (NAAT). This assay has been cleared by the [place] Food and Drug administration. The performance characteristics of this test have been verified by the [facility] laboratory. The performance of this test has not been evaluated in individuals less than 18 years of age. Current Interpretive Data was last revised on 2023. Endocervical 04/28/2024 9:50 AM OVERHEAD CRANE INSPECTOR 04/28/2024 11:42 AM OVERHEAD CRANE INSPECTOR Jayleen Amaral MD LAB MICROBIOLOGY - GENE [facility] ORDERABLES Final Result Performing Organization Address City/[facility] Co de Phone Number FRED [facility] Department [place] [address] [facility] * POCT hCG, urine (04/28/2024 9:16 AM OVERHEAD CRANE INSPECTOR) [facility] HCG, ur, POC Negative Negative Lot Number [id number] QC Backgroud Clear Acceptable QC Control Line Acceptable Urine 04/28/2024 9:16 AM OVERHEAD CRANE INSPECTOR Result [facility] Jayleen Amaral MD POINT OF CARE TEST ORDE RABLES Final Result * Thyroid Function [place] (03/30/2024 3:02 PM OVERHEAD CRANE INSPECTOR) [facility] TSH 1.18 0.30 - 4.20 mcIUnit/mL Blood 03/30/2024 3:02 PM OVERHEAD CRANE INSPECTOR 03/30/2024 3:26 PM OVERHEAD CRANE INSPECTOR Jayleen Amaral MD LAB BLOOD ORDERABLES Fi nal Result Performing Organization Address [facility] Co de Phone Number [place] [address] * (ABNORMAL) Prolactin (03/30/2024 3:02 PM OVERHEAD CRANE INSPECTOR) [facility] Prolactin 4.1(L) 4.8 - 23.3 ng/mL Blood 03/30/2024 3:02 PM OVERHEAD CRANE INSPECTOR 03/30/2024 3:33 PM OVERHEAD CRANE INSPECTOR Jayleen Amaral MD LAB BLOOD ORDERABLES Fi nal Result Performing Organization Address [facility] [place] [address] * Estradiol (03/30/2024 3:02 PM OVERHEAD CRANE INSPECTOR) [facility] Estradiol 69.6 pg/mL Comment: Interpretive Data Males: 11 43 pg/mL Females: Premenopausal: 31 533 pg/mL Postmenopausal: < 50 pg/mL Patients treated with Fluvestrant (Faslodex) should be tested using an alternate assay such as LC-MS due to potential for cross-reactivity. Estradiol varies widely throughout the menstrual cycle. Current interpretive data was last revised 2023. Blood 03/30/2024 3:02 PM OVERHEAD CRANE INSPECTOR 03/30/2024 3:26 PM OVERHEAD CRANE INSPECTOR Jayleen Amaral MD LAB BLOOD ORDERABLES Fi nal Result Performing Organization Address [facility] [place] [address] * (ABNORMAL) CBC without differential (03/30/2024 3:02 PM OVERHEAD CRANE INSPECTOR) [facility] WBC 8.6 3.8 - 9.9 K/cumm Hgb 11.7(L) 11.9 - 15.5 g/dL [facility] Hct 35.5(L) 35.6 - 45.5 % [facility] Plt 292 150 - 400 K/cumm [facility] MPV 10.0 9.1 - 12.3 fL [facility] RBC 3.89(L) 3.90 - 5.20 M/cumm [facility] MCV 91.3 81.3 - 96.4 fL [facility] MCH 30.1 27.1 - 33.3 pg [facility] MCHC 33.0 32.3 - 35.7 g/dL [facility] RDW CV 13.4 11.1 - 14.9 % [facility] RDW SD 45.4 35.7 - 48.1 fL [facility] NRBC abs 0.00 0.00 - 0.01 K/cumm [facility] Blood 03/30/2024 3:02 PM OVERHEAD CRANE INSPECTOR 03/30/2024 3:26 PM OVERHEAD CRANE INSPECTOR Jayleen Amaral MD LAB BLOOD ORDERABLES Fi nal Result Performing Organization Address [facility] Co de Phone Number [facility] Department [place] [address] * Total testosterone (03/30/2024 3:02 PM OVERHEAD CRANE INSPECTOR) Testosterone 20.0 8.4 - 48.1 ng/dL Blood 03/30/2024 3:02 PM OVERHEAD CRANE INSPECTOR 03/30/2024 3:33 PM OVERHEAD CRANE INSPECTOR Jayleen Amaral MD LAB BLOOD ORDERABLES Fi nal Result Performing Organization Address City/[facility] Co de Phone Number [facility] Department [place] [address] * Follicle stimulating hormone (03/30/2024 3:02 PM OVERHEAD CRANE INSPECTOR) [facility] 3.0 IUnits/L Comment: Interpretive Data Male: Adults: 1.5 - 12.4 IUnits/L Female: Follicular: 3.5 - 12.5 IUnits/L Ovulation: 4.7 - 21.5 IUnits/L Luteal: 1.7 - 7.7 IUnits/L Postmenopausal: 25.8 - 134.8 IUnits/L Current interpretive data was last revised 2015. Blood 03/30/2024 3:02 PM OVERHEAD CRANE INSPECTOR 03/30/2024 3:26 PM OVERHEAD CRANE INSPECTOR us Jayleen Amaral MD LAB BLOOD ORDERABLES Fi nal Result [facility] [place] [address] * Pap with reflex to High Risk HPV (08/29/2021 10:23 AM CDT) Thin prep (Pap test) 08/29/2021 10:23 AM CDT 08/29/2021 12:26 PM CDT Narrative PATHOLOGY [facility] - 09/11/2021 11:52 AM CDT EPIC results best viewed via link to PDF [facility] Sharyn Guerrero [facility] [place] [address] Note to Patients: This report may contain [...] Gender: F : 1990 (Age: 31) Address: [address] [place] [phone] Hospital #: [id number] Service: BOTTOM SCRUBBER Location: [facility] Patient Type: [facility] Ref Lab Taken: [...] been rescreened in accordance with this laboratory's Circulation Librarian Program. 09/11/2021 11:52 CLEVE Bartholomew(ASCP) Report Electronically [...] determined by the Surgical Pathology Department at [facility] as part of an ongoing ict quality assurance engineer program and in compliance with federally mandated [...] determined by the Surgical Pathology Department of [facility]. It has not been cleared or approved by the [place]. [place]. Food and Drug Administration. Les Couch MD PhD LAB CYTOLOGY ORDERA BLES Final Result PATHOLOGY [facility] [address] Floor [place], [place] [phone] * Hepatitis C antibody (08/27/2021 2:39 PM CDT) Hep C Ab Nonreactive Nonreactive [facility] Comment:Antibodies to HCV no t detected. Does NOT exclude the possibility of recent exposure to HCV. Blood 08/27/2021 2:39 PM CDT 08/27/2021 3:18 PM CDT us Les Couch MD PhD LAB MICROBI OLOGY - GENERAL ORDERABLES Edited Result - Final [facility] [place] [address] from Last 3 Months or Most Recently Relevant to Health Maintenance Insurance [facility] Advance Directives For more information, please contact: [phone] * Full Code (Latest Code Status on File) Date Activated Date Inactivated Comments 01/30/2022 9:49 AM 02/01/2022 6:51 PM * Full Code Date Activated Date Inactivated Comments 01/29/2022 10:53 PM 01/30/2022 9:49 AM Full CPR in case of cardiopulmonary arrest * Full Code Date Activated Date Inactivated Comments 01/21/2022 3:22 PM 01/22/2022 12:25 AM Full CPR in case of cardiopulmonary arrest Care Teams Mitten Sewer Relationship Specialty Start Date End Date Taina Freeman MD [address] [address] PCP - General Family Medicine 08/27/21
--- OUTSIDE RECORDS SUMMARY | 2024-05-16 13:48 | XMS_ITS | Clinical Summary ---
Author Organization [facility] Address [facility] [place] [address] Care Team Providers Care Senior Vice President And Chief Information Officer Name Role Phone None, Provider Primary Care Provider Taina Wallace MD Unavailable [phone] Allergies Active Allergy Reactions Criticality Noted Date [...] Influenza Adult (#1) 2023 02/01/2017 PHQ-2 (Physician Arlee) 03/01/2024 Cervical Cancer Screening Pap Smear (Age [...] complete this topic Insurance [employer] Care Teams Senior Vice President And Chief Information Officer Relationship Specialty Start Date End Date None, Provider, PCP - General 08/26/20 Taina Freeman MD [address] [place] [id number] [facility] 05/12/23
--- NOTE | 2024-05-16 14:04 | ED.GENADULT ---
HPI - General Adult General Chief complaint: Fever <Dakotah Booker PA-C - Last Filed: 05/16/24 14:06> Stated complaint: Fever-Flu like symptoms-difficulty swallowing <Dakotah Booker PA-C - Last Filed: 05/16/24 14:06> Time Seen by Provider: 05/16/24 14:06 <Dakotah Booker PA-C - Last Filed: 05/16/24 14:06> Focused HPI: This is a 34-year-old female who presents to the ED for chief complaint of sore throat and difficulty swallowing. Over the past couple days she states that she has had difficulty opening her mouth and taking her medications due to the sore throat. It is worse on the right side and has noticed swelling to the right submandibular region. Endorses temperature of 101.7? F at home. Denies left-sided pain or swelling. Denies shortness of breath GENERAL: Well-appearing, well-nourished, and in no acute distress. HEAD: Normocephalic, atraumatic. ENT: Submandibular swelling palpated in the area is quite tender. There is trismus and muffled voice. Able to partially visualize right peritonsillar significant swelling and redness. Floor of the mouth intact. CHEST: Clear to auscultation. No respiratory distress. HEART: Regular rate and rhythm. NEURO: Alert and oriented x3. Patient screened in triage and initial orders placed. Additional care and disposition to be based upon diagnostic testing and treatment. <Dakotah Booker PA-C - Last Filed: 05/16/24 14:06> History of Present Illness HPI narrative: Agree with the above following additions/corrections: Seen 05/13/2024 for a fever/nausea/vomiting/diarrhea that had begun on the . Viral panel was negative the that time that she was diagnosed with generalized viral syndrome. At home she has been trialing Tylenol. She developed a new lump in her right neck and has been having difficulty swallowing and is still nauseated vomiting, barely able to talk. Febrile to 103 at home. Has a sore throat. <Shameka Mckeon MD - Last Filed: 05/16/24 21:55> Related Data Home medications: Home Medications ?Medication ?Instructions ?Recorded ?Confirmed ?Last Taken ?Type dextroamphetamine-amphetamine 10 10 mg BID 01/10/24 01/10/24 Unknown History mg tablet gabapentin 300 mg capsule 300 mg HS 01/10/24 01/10/24 Unknown History lorazepam 0.5 mg tablet 0.5 mg HS 01/10/24 01/10/24 Unknown History <Dakotah Booker PA-C - Last Filed: 05/16/24 14:06> Allergies/adverse reactions: Allergies Allergy/AdvReac Type Severity Reaction Status Date / Time No Known Allergies Allergy Verified 05/13/24 00:06 <Dakotah Booker PA-C - Last Filed: 05/16/24 14:06> [facility] Social History Social History: Social History Gender identity (if verbalized by the patient): Female <Dakotah Booker PA-C - Last Filed: 05/16/24 14:06> Exam Narrative: GENERAL: Ill-appearing, cachectic/emaciated HEAD: Normocephalic, atraumatic. EYES: non icteric ENT: Nares clear, no rhinorrhea or epistaxis. Muffled voice/dysphonia. Trismus. Prominent right tonsillar structure consistent with peritonsillar abscess. Unable to appreciate uvula. Managing secretions. NECK: No meningismus. Significant R > L lymphadenopathy. CHEST: Speaking in full sentences. No respiratory distress. HEART: Tachycardic rate and rhythm. . ABDOMEN: Soft, nondistended. EXTREMITIES: Normal range of motion. No lower extremity edema. SKIN: Warm, dry, no rash. NEURO: No focal deficits. Alert and oriented x3. PSYCH: Normal mood and affect. <Shameka Mckeon MD - Last Filed: 05/16/24 21:55> Course Vital Signs Vital signs: Vital Signs Temperature 97.6 F 05/16/24 12:34 Pulse Rate 106 H 05/16/24 12:34 Respiratory Rate 16 05/16/24 12:34 Blood Pressure 124/68 05/16/24 12:34 Pulse Oximetry 100 05/16/24 12:34 Temperature 100.3 F H 05/16/24 20:32 Pulse Rate 115 H 05/16/24 20:32 Respiratory Rate 19 05/16/24 20:32 Blood Pressure 127/66 05/16/24 20:32 Pulse Oximetry 97 05/16/24 20:32 <Dakotah Booker PA-C - Last Filed: 05/16/24 14:06> Vital Signs Temperature 97.6 F 05/16/24 12:34 Pulse Rate 106 H 05/16/24 12:34 Respiratory Rate 16 05/16/24 12:34 Blood Pressure 124/68 05/16/24 12:34 Pulse Oximetry 100 05/16/24 12:34 Temperature 100.3 F H 05/16/24 20:32 Pulse Rate 115 H 05/16/24 20:32 Respiratory Rate 19 05/16/24 20:32 Blood Pressure 127/66 05/16/24 20:32 Pulse Oximetry 97 05/16/24 20:32 <Shameka Mckeon MD - Last Filed: 05/16/24 21:55> Medical Decision Making MDM Narrative Medical decision making narrative: Patient presents with dysphagia/odynophagia and dysphonia as well as nausea/vomiting/diarrhea and febrile at home to 103F. In the emergency department she is afebrile with vital signs notable for mild tachycardia. Elevated CRP. Leukocytosis. Right [employer]ST on exam and confirmed on CT. Given Solu-Medrol and Unasyn. Needle Aspiration - Procedure Note Glycopyrilate administered to decrease secretions. Suction available for use by myself and patient as needed Laryngoscope used as tongue depressor and light source Injected 2mL of lidocaine into mucosa of anterior tonsillar pillar using 25 gauge needle Cut distal tip off of needle sheath and placed over spinal needle (used over 18gau given degree of trismus) to expose 1 cm of needle to prevent accidentally plunging deeper than desired First tried superior then middle then inferior poles Blood return without significant purulent aspiration material Suction used. Patient tolerated procedure well Estimated blood loss <10cc Discussed with customer sales distributor Dr. Yee who states if she is otherwise tolerating her secretions would recommend that she be seen in his clinic office tomorrow morning, 05/17/2024. Recommend she call at 8:30 a.m. and office staff would put her on the schedule later that morning. He has a procedure at 9am but will be able to be seen after that. COnfirmed address. Recommends continuing antibiotics, states clindamycin or Augmentin are fine. Recommends steroid be given and I did inform him that this had already been done. Patient to be discharged but upon obtaining discharge vital signs it was noted that she had become febrile to 103.2F with HR 122. Patient given acetaminophen, ketorolac and 1 L IV fluids. Patient reassessed and she notes that she is in pain again and uncomfortable, especially now in her back as she has been lying the stretcher for several hours. Patient initially believe she is unable to swallow pills so acetaminophen order was changed to elixir. She then attempted to swallow this but notes that she had difficulty and to spit it/suction it out. She would like to trial pills again. Patient states she previously took Ativan multiple times a day for anxiety. This has been decreased to 0.5mg dosage and she only takes it at night but not for the past several days due to pain. We discussed strategies to enable her to safely be discharged home to make appointment. Because she is describing stiff muscle use and pain and is anxious and has been having difficulty breathing, I think it is reasonable to give a small dose of Valium. She is open to this. Still tachycardic but improved and fever has defervesced a bit as well. I did give strict ED return precautions and she verified understanding. <Shameka Mckeon MD - Last Filed: 05/16/24 21:55> Differential Diagnosis Differential Diagnosis: peritonsillar abscess; RPA. Considered Jalen's angina. Considered suppurative/reactive lymph node versus additional abscess in neck. Viral versus bacterial etiology including covid, flu, strep. <Shameka Mckeon MD - Last Filed: 05/16/24 21:55> Vital Signs Vital Signs: Vital Signs Temperature 97.6 F 05/16/24 12:34 Pulse Rate 106 H 05/16/24 12:34 Respiratory Rate 16 05/16/24 12:34 Blood Pressure 124/68 05/16/24 12:34 Pulse Oximetry 100 05/16/24 12:34 Temperature 100.3 F H 05/16/24 20:32 Pulse Rate 115 H 05/16/24 20:32 Respiratory Rate 19 05/16/24 20:32 Blood Pressure 127/66 05/16/24 20:32 Pulse Oximetry 97 05/16/24 20:32 <Dakotah Booker PA-C - Last Filed: 05/16/24 14:06> Vital Signs Temperature 97.6 F 05/16/24 12:34 Pulse Rate 106 H 05/16/24 12:34 Respiratory Rate 16 05/16/24 12:34 Blood Pressure 124/68 05/16/24 12:34 Pulse Oximetry 100 05/16/24 12:34 Temperature 100.3 F H 05/16/24 20:32 Pulse Rate 115 H 05/16/24 20:32 Respiratory Rate 19 05/16/24 20:32 Blood Pressure 127/66 05/16/24 20:32 Pulse Oximetry 97 05/16/24 20:32 <Shameka Mckeon MD - Last Filed: 05/16/24 21:55> Lab Data Lab results reviewed: Yes I reviewed the patient's lab results. <Shameka Mckeon MD - Last Filed: 05/16/24 21:55> Result diagrams: 05/16/24 14:05 05/16/24 14:05 <Dakotah Booker PA-C - Last Filed: 05/16/24 14:06> Labs: Lab Results 05/16/24 05/16/24 05/16/24 Range/Units 14:05 14:05 15:32 WBC 14.2 H (4.5-10.0) K/mm3 RBC 4.96 (4.2-5.4) M/mm3 Hgb 14.7 (12.0-15.0) g/dL Hct 44.1 (37.0-47.0) % MCV 88.9 (80-100) fl MCH 29.6 (26-34) pg MCHC 33.3 (32-36) g/dl RDW 15.0 H (11.5-14.5) % Plt Count 309 (150-375) k/mm3 MPV 10.2 (7.4-10.4) fl Immature Gran % (Auto) 0.6 H (0-0.5) % Neut % (Auto) 88.1 H (45.5-73.1) % Lymph % (Auto) 5.5 L (18.3-44.2) % [place] % (Auto) 5.3 (2.6-8.5) % Eos % (Auto) 0.1 (0-4.4) % Baso % (Auto) 0.4 (0.2-1.2) % Lymph # (Auto) 0.79 L (0.9-3.2) K/mm3 [place] # (Auto) 0.8 H (0.1-0.6) K/mm3 Eos # (Auto) 0.0 (0-0.3) K/mm3 Baso # (Auto) 0.1 (0.0-0.1) K/mm3 Abs Immat Gran (auto) 0.08 H (0.00-0.031) K/mm3 Absolute Neuts (auto) 12.5 H (1.3-6.7) K/mm3 Absolute Nucleated RBC 0.000 (0.0-0.012) K/mm3 Nucleated RBC % 0.0 (0.0-0.2) % PT 16.8 H (11.1-14.7) Seconds INR 1.3 APTT 37.6 H (22.3-36.8) Seconds Sodium 138 (137-145) mmol/L Potassium 3.4 (3.4-5.0) mmol/L Chloride 97 L (98-107) mmol/L Carbon Dioxide 26 (22-30) mmol/L Anion Gap 15 H (4-12) mmol/L BUN 12 (7-17) mg/dL Creatinine 0.70 (0.7-1.0) mg/dL Estim Creat Clear Calc 64 ml/min Estimated GFR > 60 (59 - ) Glucose 128 H (65-110) mg/dL Lactic Acid 1.4 (0.7-2.0) mmol/L Calcium 9.4 (8.4-10.2) mg/dL Total Bilirubin 0.9 (0.2-1.3) mg/dL AST 53 H (14-36) U/L ALT 86 H (6-35) U/L Alkaline Phosphatase 152 H (38-126) U/L C-Reactive Protein 28.4 H (<1.0) mg/dL Total Protein 9.0 H (6.3-8.2) g/dL Albumin 4.8 (3.5-5.1) g/dL Lipase 54 Cancelled (23-300) U/L Urine Color (Yellow) Urine Appearance (Clear) Urine pH (5.0-9.0) Ur Specific [place] (1.001-1.035) Urine Protein (Negative) mg/dL Urine Glucose (UA) (Negative) mg/dL Urine Ketones (Negative) mg/dL Ur Blood (Man) (Negative) Urine Nitrate (Negative) Urine Bilirubin (Negative) Urine Urobilinogen (<2.0) mg/dL Leukocyte Esterase Rfl (Negative) RAMIRO/UL Urine RBC (0-2) /hpf Urine WBC (0-3) /hpf Ur Squamous Epith Cells (Few) /hpf Urine Bacteria /hpf Urine Casts Monoscreen (Negative) Group A Strep (PCR) (Negative) 05/16/24 05/16/24 05/16/24 Range/Units 16:25 17:40 17:41 WBC (4.5-10.0) K/mm3 RBC (4.2-5.4) M/mm3 Hgb (12.0-15.0) g/dL Hct (37.0-47.0) % MCV (80-100) fl MCH (26-34) pg MCHC (32-36) g/dl RDW (11.5-14.5) % Plt Count (150-375) k/mm3 MPV (7.4-10.4) fl Immature Gran % (Auto) (0-0.5) % Neut % (Auto) (45.5-73.1) % Lymph % (Auto) (18.3-44.2) % [place] % (Auto) (2.6-8.5) % Eos % (Auto) (0-4.4) % Baso % (Auto) (0.2-1.2) % Lymph # (Auto) (0.9-3.2) K/mm3 [place] # (Auto) (0.1-0.6) K/mm3 Eos # (Auto) (0-0.3) K/mm3 Baso # (Auto) (0.0-0.1) K/mm3 Abs Immat Gran (auto) (0.00-0.031) K/mm3 Absolute Neuts (auto) (1.3-6.7) K/mm3 Absolute Nucleated RBC (0.0-0.012) K/mm3 Nucleated RBC % (0.0-0.2) % PT (11.1-14.7) Seconds INR APTT (22.3-36.8) Seconds Sodium (137-145) mmol/L Potassium (3.4-5.0) mmol/L Chloride (98-107) mmol/L Carbon Dioxide (22-30) mmol/L Anion Gap (4-12) mmol/L BUN (7-17) mg/dL Creatinine (0.7-1.0) mg/dL Estim Creat Clear Calc ml/min Estimated GFR (59 - ) Glucose (65-110) mg/dL Lactic Acid (0.7-2.0) mmol/L Calcium (8.4-10.2) mg/dL Total Bilirubin (0.2-1.3) mg/dL AST (14-36) U/L ALT (6-35) U/L Alkaline Phosphatase (38-126) U/L C-Reactive Protein (<1.0) mg/dL Total Protein (6.3-8.2) g/dL Albumin (3.5-5.1) g/dL Lipase (23-300) U/L Urine Color Yellow (Yellow) Urine Appearance Clear (Clear) Urine pH 6.0 (5.0-9.0) Ur Specific [place] > 1.045 H (1.001-1.035) Urine Protein 2+ H (Negative) mg/dL Urine Glucose (UA) Negative (Negative) mg/dL Urine Ketones 2+ H (Negative) mg/dL Ur Blood (Man) 3+ H (Negative) Urine Nitrate Negative (Negative) Urine Bilirubin Negative (Negative) Urine Urobilinogen 1.0 (<2.0) mg/dL Leukocyte Esterase Rfl Negative (Negative) RAMIRO/UL Urine RBC 51-100 H (0-2) /hpf Urine WBC 0-5 (0-3) /hpf Ur Squamous Epith Cells None seen (Few) /hpf Urine Bacteria None seen /hpf Urine Casts 0-2 Monoscreen Negative (Negative) Group A Strep (PCR) Detected A (Negative) <Dakotah Booker PA-C - Last Filed: 05/16/24 14:06> Lab Results 05/16/24 05/16/24 05/16/24 Range/Units 14:05 14:05 15:32 WBC 14.2 H (4.5-10.0) K/mm3 RBC 4.96 (4.2-5.4) M/mm3 Hgb 14.7 (12.0-15.0) g/dL Hct 44.1 (37.0-47.0) % MCV 88.9 (80-100) fl MCH 29.6 (26-34) pg MCHC 33.3 (32-36) g/dl RDW 15.0 H (11.5-14.5) % Plt Count 309 (150-375) k/mm3 MPV 10.2 (7.4-10.4) fl Immature Gran % (Auto) 0.6 H (0-0.5) % Neut % (Auto) 88.1 H (45.5-73.1) % Lymph % (Auto) 5.5 L (18.3-44.2) % [place] % (Auto) 5.3 (2.6-8.5) % Eos % (Auto) 0.1 (0-4.4) % Baso % (Auto) 0.4 (0.2-1.2) % Lymph # (Auto) 0.79 L (0.9-3.2) K/mm3 [place] # (Auto) 0.8 H (0.1-0.6) K/mm3 Eos # (Auto) 0.0 (0-0.3) K/mm3 Baso # (Auto) 0.1 (0.0-0.1) K/mm3 Abs Immat Gran (auto) 0.08 H (0.00-0.031) K/mm3 Absolute Neuts (auto) 12.5 H (1.3-6.7) K/mm3 Absolute Nucleated RBC 0.000 (0.0-0.012) K/mm3 Nucleated RBC % 0.0 (0.0-0.2) % PT 16.8 H (11.1-14.7) Seconds INR 1.3 APTT 37.6 H (22.3-36.8) Seconds Sodium 138 (137-145) mmol/L Potassium 3.4 (3.4-5.0) mmol/L Chloride 97 L (98-107) mmol/L Carbon Dioxide 26 (22-30) mmol/L Anion Gap 15 H (4-12) mmol/L BUN 12 (7-17) mg/dL Creatinine 0.70 (0.7-1.0) mg/dL Estim Creat Clear Calc 64 ml/min Estimated GFR > 60 (59 - ) Glucose 128 H (65-110) mg/dL Lactic Acid 1.4 (0.7-2.0) mmol/L Calcium 9.4 (8.4-10.2) mg/dL Total Bilirubin 0.9 (0.2-1.3) mg/dL AST 53 H (14-36) U/L ALT 86 H (6-35) U/L Alkaline Phosphatase 152 H (38-126) U/L C-Reactive Protein 28.4 H (<1.0) mg/dL Total Protein 9.0 H (6.3-8.2) g/dL Albumin 4.8 (3.5-5.1) g/dL Lipase 54 Cancelled (23-300) U/L Urine Color (Yellow) Urine Appearance (Clear) Urine pH (5.0-9.0) Ur Specific [place] (1.001-1.035) Urine Protein (Negative) mg/dL Urine Glucose (UA) (Negative) mg/dL Urine Ketones (Negative) mg/dL Ur Blood (Man) (Negative) Urine Nitrate (Negative) Urine Bilirubin (Negative) Urine Urobilinogen (<2.0) mg/dL Leukocyte Esterase Rfl (Negative) RAMIRO/UL Urine RBC (0-2) /hpf Urine WBC (0-3) /hpf Ur Squamous Epith Cells (Few) /hpf Urine Bacteria /hpf Urine Casts Monoscreen (Negative) Group A Strep (PCR) (Negative) 05/16/24 05/16/24 05/16/24 Range/Units 16:25 17:40 17:41 WBC (4.5-10.0) K/mm3 RBC (4.2-5.4) M/mm3 Hgb (12.0-15.0) g/dL Hct (37.0-47.0) % MCV (80-100) fl MCH (26-34) pg MCHC (32-36) g/dl RDW (11.5-14.5) % Plt Count (150-375) k/mm3 MPV (7.4-10.4) fl Immature Gran % (Auto) (0-0.5) % Neut % (Auto) (45.5-73.1) % Lymph % (Auto) (18.3-44.2) % [place] % (Auto) (2.6-8.5) % Eos % (Auto) (0-4.4) % Baso % (Auto) (0.2-1.2) % Lymph # (Auto) (0.9-3.2) K/mm3 [place] # (Auto) (0.1-0.6) K/mm3 Eos # (Auto) (0-0.3) K/mm3 Baso # (Auto) (0.0-0.1) K/mm3 Abs Immat Gran (auto) (0.00-0.031) K/mm3 Absolute Neuts (auto) (1.3-6.7) K/mm3 Absolute Nucleated RBC (0.0-0.012) K/mm3 Nucleated RBC % (0.0-0.2) % PT (11.1-14.7) Seconds INR APTT (22.3-36.8) Seconds Sodium (137-145) mmol/L Potassium (3.4-5.0) mmol/L Chloride (98-107) mmol/L Carbon Dioxide (22-30) mmol/L Anion Gap (4-12) mmol/L BUN (7-17) mg/dL Creatinine (0.7-1.0) mg/dL Estim Creat Clear Calc ml/min Estimated GFR (59 - ) Glucose (65-110) mg/dL Lactic Acid (0.7-2.0) mmol/L Calcium (8.4-10.2) mg/dL Total Bilirubin (0.2-1.3) mg/dL AST (14-36) U/L ALT (6-35) U/L Alkaline Phosphatase (38-126) U/L C-Reactive Protein (<1.0) mg/dL Total Protein (6.3-8.2) g/dL Albumin (3.5-5.1) g/dL Lipase (23-300) U/L Urine Color Yellow (Yellow) Urine Appearance Clear (Clear) Urine pH 6.0 (5.0-9.0) Ur Specific [place] > 1.045 H (1.001-1.035) Urine Protein 2+ H (Negative) mg/dL Urine Glucose (UA) Negative (Negative) mg/dL Urine Ketones 2+ H (Negative) mg/dL Ur Blood (Man) 3+ H (Negative) Urine Nitrate Negative (Negative) Urine Bilirubin Negative (Negative) Urine Urobilinogen 1.0 (<2.0) mg/dL Leukocyte Esterase Rfl Negative (Negative) RAMIRO/UL Urine RBC 51-100 H (0-2) /hpf Urine WBC 0-5 (0-3) /hpf Ur Squamous Epith Cells None seen (Few) /hpf Urine Bacteria None seen /hpf Urine Casts 0-2 Monoscreen Negative (Negative) Group A Strep (PCR) Detected A (Negative) <Shameka Mckeon MD - Last Filed: 05/16/24 21:55> Imaging Data Radiologist's impression: Impressions Soft Tissue Neck CT 05/16/24 15:19 IMPRESSION: 1. Right peritonsillar abscess extending to superiorly near to the skull base and inferiorly around the submandibular gland with narrowing of the oropharyngeal area. 2. Bilateral lymphadenopathy in the parapharyngeal and posterior triangles. 3. Narrowing of the jugular vein on the right side near to the skull base. <Shameka Mckeon MD - Last Filed: 05/16/24 21:55> Discharge Plan Discharge Clinical Impression: Abscess, peritonsillar, Lymphadenopathy of head and neck region, CRP elevated, Leukocytosis, Transaminitis, Strep pharyngitis <Dakotah Booker PA-C - Last Filed: 05/16/24 14:06> Patient Disposition: Home, Self-Care <Dakotah Booker PA-C - Last Filed: 05/16/24 14:06> Condition: Stable <Dakotah Booker PA-C - Last Filed: 05/16/24 14:06> Instructions: Antibiotic Form, Pharyngitis (ED), Peritonsillar Abscess (DC), Leukocytosis (ED), Transaminitis (ED) <Dakotah Booker PA-C - Last Filed: 05/16/24 14:06> Additional Instructions: As we discussed, call the ENT (ear, nose, throat)/customer sales distributor's office at 8:30 a.m. in the morning 05/17/24 and they will tell you when your appointment tomorrow will be. You can continue to take the antibiotics prescribed. Acetaminophen/Tylenol (maximum 4000 mg per day) is safe to take with NSAIDs (ibuprofen/Motrin) for pain relief. Return to the emergency department with any new or worsening symptoms including shortness of breath, difficulty managing your secretions, etc. It is important that you take the entire duration to reduce risk of complication (scarlet fever, rheumatic fever, abscess, mastoiditis).Also return if you have signs or symptoms of glomerulonephritis (foamy urine, edema) as well as other new/unmanaged/worsened symptoms. <Dakotah Booker PA-C - Last Filed: 05/16/24 14:06> Patient Language: Moldovan <Dakotah Booker PA-C - Last Filed: 05/16/24 14:06> Prescriptions: New clindamycin HCl 300 mg capsule 300 mg PO Q6H 7 Days Qty: 28 0RF ibuprofen 600 mg tablet 600 mg PO TID PRN (Reason: pain) Qty: 30 0RF acetaminophen 500 mg capsule 1,000 mg PO Q6H PRN (Reason: pain) Qty: 30 0RF No Action dextroamphetamine-amphetamine 10 mg tablet 10 mg BID lorazepam 0.5 mg tablet 0.5 mg HS gabapentin 300 mg capsule 300 mg HS ofloxacin 0.3 % drops See Rx Instructions .ROUTE .COMPLEX Qty: 10 0RF Rx Instructions: put 1-2 drps into affected eye(s) every 2-4 h x 2 days, then 1-2 drps 4 times/day days 3-7 ibuprofen 800 mg tablet 800 mg PO TID PRN (Reason: pain) 7 Days Qty: 21 0RF acetaminophen 500 mg tablet 1,000 mg PO TID PRN (Reason: cassandra) 7 Days Qty: 42 0RF ondansetron 4 mg tablet,disintegrating 4 mg PO Q8H PRN (Reason: nausea and vomiting) Qty: 14 0RF <Dakotah Booker PA-C - Last Filed: 05/16/24 14:06> Follow-up/Referrals: Bryan Yee MD [Physician] - ([facility] [id number] ) UNKNOWN,DOCTOR [Primary Care Provider] - <Dakotah Booker PA-C - Last Filed: 05/16/24 14:06> Stand Alone Forms: Work/School Release IP <Dakotah Booker PA-C - Last Filed: 05/16/24 14:06> Time of Disposition: 18:48 <Dakotah Booker PA-C - Last Filed: 05/16/24 14:06> 18:48 <Shameka Mckeon MD - Last Filed: 05/16/24 21:55>
[2024-05-16 14:15] LABS: Basophils Absolute Auto 0.1 K/mm3 (0.0-0.1); Basophils Percent Auto 0.4 % (0.2-1.2); Eosinophils Percent Auto 0.1 % (0-4.4); Hematocrit 44.1 % (37.0-47.0); Hemoglobin 14.7 g/dL (12.0-15.0); Immature Granulocyte Absolute 0.08 K/mm3 (0.00-0.031); Immature Granulocyte Percent A 0.6 % (0-0.5); Lymphocytes Absolute Auto 0.79 K/mm3 (0.9-3.2); Lymphocytes Percent Auto 5.5 % (18.3-44.2); Mean Corpuscular HGB Conc 33.3 g/dl (32-36); Mean Corpuscular Hemoglobin 29.6 pg (26-34); Mean Corpuscular Volume 88.9 fl (80-100); Mean Platelet Volume 10.2 fl (7.4-10.4); Monocytes Absolute Auto 0.8 K/mm3 (0.1-0.6); Monocytes Percent Auto 5.3 % (2.6-8.5); Neutrophils Absolute Auto 12.5 K/mm3 (1.3-6.7); Neutrophils Percent Auto 88.1 % (45.5-73.1); Platelet Count Result 309 k/mm3 (150-375); Red Blood Count 4.96 M/mm3 (4.2-5.4); White Blood Count 14.2 K/mm3 (4.5-10.0)
[2024-05-16] MEDS: SODIUM CHLORIDE 0.9% IV 1,000 ML 999 ML IV CONT ×3 (14:21→19:32)
[2024-05-16] MEDS: methylPREDNISolone SOD SUCC 125 MG VIAL IV PUSH (14:21)
[2024-05-16] MEDS: HYDROmorphone HCL INJ (*CRX) 1 MG/ML SYR 0.5 MG IV PUSH ×2 (14:22→19:50)
[2024-05-16] MEDS: KETOROLAC 15 MG/ML VIAL (*BKC) IV PUSH ×2 (14:22→19:33)
[2024-05-16 14:26] LABS: INR 1.3; Prothrombin Time 16.8 Seconds (11.1-14.7)
[2024-05-16 14:28] LABS: Partial Thromboplastin Time 37.6 Seconds (22.3-36.8)
[2024-05-16 14:30] LABS: Alanine Aminotransferase 86 U/L (6-35); Albumin Level 4.8 g/dL (3.5-5.1); Alkaline Phosphatase 152 U/L (38-126); Anion Gap 15 mmol/L (4-12); Aspartate Amino Transferase 53 U/L (14-36); Bilirubin,Total 0.9 mg/dL (0.2-1.3); Blood Urea Nitrogen 12 mg/dL (7-17); Calcium 9.4 mg/dL (8.4-10.2); Carbon Dioxide 26 mmol/L (22-30); Chloride 97 mmol/L (98-107); Estimated CRCL calculation 64 ml/min; Estimated Glomerular Filt Rate > 60; Glucose 128 mg/dL (65-110); Lipase 54 U/L (23-300); Potassium 3.4 mmol/L (3.4-5.0); Sodium 138 mmol/L (137-145)
[2024-05-16 15:04] LABS: CRP 28.4 mg/dL (<1.0)
--- OUTSIDE RECORDS SUMMARY | 2024-05-16 15:30 | XMS_ITS | Clinical Summary ---
Author Organization [facility] Address [facility] [place] [address] Care Team Providers Care Sales Office Administrator Name Role Phone None, Provider Primary Care Provider Taina Wallace MD Unavailable [phone] Allergies Active Allergy Reactions Criticality Noted Date [...] Influenza Adult (#1) 2023 02/01/2017 PHQ-2 (Physician [place]) 03/01/2024 Cervical Cancer Screening Pap Smear (Age [...] complete this topic Insurance BALTAZAR Care Teams Sales Office Administrator Relationship Specialty Start Date End Date None, Provider, PCP - General 08/26/20 Taina Freeman MD [address] [place] [address] [facility] 05/12/23
--- OUTSIDE RECORDS SUMMARY | 2024-05-16 15:30 | XMS_ITS | Clinical Summary ---
Author Organization [facility] Address [address] [place] [address] Care Team Providers Care Car Construction Superintendent Name Role Phone Barbra Kendrick PA-C Unavailable [phone] Barbra Kendrick PA-C Primary Care Provider [phone] Source Comments [facility],non-owned Affiliates and Associated Physician Practices is amultiple site organization consisting of ambulatory clinics and hospital sitesin [place], [place], [place] and [place]. This disclosure is being madepursuant to the Care Everywhere program and may not contain all information available regarding this patient. Last updated 17.[facility] Allergies Active Allergy Reactions Criticality Noted Date [...] 20 mg by mouth once daily Active Mtnvioiq-Jyy-Tx-FA ( VITAMIN WITH IRON) tabletIndications:S upervision of [...] P24 AG PANEL Routine 04/26/2017 3:30 PM SQUIRREL MAN Supervision of high-risk of young primigravida (HCC) GLUCOSE CHALLENGE Routine 03/30/2017 1:3 8 PM SQUIRREL MAN Supervision of high-risk of young primigravida (HCC) from Last 3 Months or Most Recently Relevant to Health Maintenance Results * (ABNORMAL) CULTURE STREP B (06/01/2017 3:22 PM CDT) Culture Strep B Growth of Streptococcus agalactiae (Group B)(AA) ROSALEE 06/03/2017 3:13 PM CDT [facility] MICROBIOLOGY Microbiology MISCELLANEOUS SAMPLES / Unknown Collection / Unknown 06/01/2017 3:22 PM CDT 06/01/2017 3:29 PM CDT Narrative [facility] MICROBIOLOGY - 06/03/2017 3:13 PM CDT Susceptibility testing of penicillin, other beta-lactam antibiotics, and vancomycin is not necessary for beta-hemolytic streptococci groups A,B,C and G because resistant strains have not been recognized. Debra Cortes MD LAB - MICROBIOLOGY O RDERABLES [facility] MICROBIOLOGY [address] [place], [place] [address] [phone] * HIV-1 HIV-2 ANTIBODY + HIV P24 AG PANEL (04/26/2017 3:30 PM SQUIRREL MAN) Pathologist [facility] HIV1/2 Ab + P24 Ag Non Reactive Non Reactive 04/27/2017 12:22 AM SQUIRREL MAN [facility] Blood BLOOD SPECIMEN / Unknown Venipuncture / Unknown 04/26/2017 3:30 PM SQUIRREL MAN 04/26/2017 3:46 PM SQUIRREL MAN Narrative [facility] - 04/27/2017 12:22 AM SQUIRREL MAN No Laboratory evidence of HIV infection. Judit Ingram MD LAB - CHEMISTRY O NOLANERASHELLEY Performing Organization Address City/[facility]/ZIP Co de Phone Number [facility] [address] [place] [address] * GLUCOSE CHALLENGE (03/30/2017 1:38 PM SQUIRREL MAN) [facility] Glucose Challenge 97 64 - 140 mg/dL 03/30/2017 2:28 PM SQUIRREL MAN [facility] Glucose Challenge Time 1 hr 03/30/2017 2:28 PM SQUIRREL MAN [facility] Blood BLOOD SPECIMEN / Unknown Venipuncture / Unknown 03/30/2017 1:38 PM SQUIRREL MAN 03/30/2017 2:04 PM SQUIRREL MAN Kwadwo Givens MD LAB - CHEMISTRY SILVIANO HOLLID[place] [facility] [address] [place] [address] from Last 3 Months or Most Recently Relevant to Health Maintenance Advance Directives * Full Code (Latest Code Status on File) Date Activated Date Inactivated Comments 07/09/2017 12:57 PM 07/12/2017 5:35 PM * Full Code Date Activated Date Inactivated Comments 03/03/2017 4:49 AM 03/03/2017 2:29 PM * Full Code Date Activated Date Inactivated Comments 03/03/2017 4:08 AM 03/03/2017 4:49 AM Care 

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
--- OUTSIDE RECORDS SUMMARY | 2024-05-16 15:30 | XMS_ITS | Data Portability ---
Author Organization [email or web address], Main Office Address [address] [place] [address] Assessment No assessment recorded. Plan of Treatment Reminders Order Date Submit Date Provider Last Modified By Organization Details Last Modified Time Details Appointments None recorded. Lab iron + total iron-bindin g capacity (TIBC), serum 2022 023 [facility] (Lab), [address] [place], [address], 3 21:18:32 ferritin, serum or plasma 2022 023 [facility] (Lab), [address] [place], [address], 3 21:30:47 CBC w/ auto diff 2022 023 [facility] (Lab), [address] [place], [address], 3 19:51:06 vitamin B12, serum 2022 023 [facility] (Lab), [address] [place], [address], 3 22:11:07 folate, serum 2022 023 [facility] (Lab), [address] [place], [address], 3 22:11:13 Referral None recorded. Procedures None recorded. Surgeries None recorded. Imaging None recorded. Medication Orders cyanocobala min (vit B-12) 1,000 mcg/mL injection solution 2022 023 [email or web address] Not available 3 12:22:29 cyanocobala min (vit B-12) 1,000 mcg/mL injection solution 2022 023 [email or web address] Not available 3 09:19:36 cyanocobala min (vit B-12) 1,000 mcg tablet 2022 023 [facility]armacy #[id number], [address] [place], [address], 3 09:00:32 Patient TargetsNo targets recorded. Patient InstructionsNo instructions recorded. Reason for Referral None Reported. Results Created Date Observation Date Name Description Value Unit Range Abnormal Flag Note LastModifiedBy Organization Detail LastModifiedTime 12/13/1912/12/2020 VITAM IN B12 (LINDA SY ) vb12 312 pg/mL 239-93 1 Not Available [facility] (Lab) [address] [place], [address], 12/12/2020 22:45:39 12/13/1912/12/2020 PASQUALE TIN ferritin 6 NG/mL 6.24-1 37 low Not Available [facility] (Lab) [address] [place], [address], 12/12/2020 22:22:01 12/13/1912/12/2020 TSH thyroid-stim ulating hormone 0.998 uIU/m L 0.465- 4.680 Not Available [facility] (Lab) [address] [place], [address], 12/12/2020 22:19:06 12/13/1912/12/2020 VITAM IN D 25-HY DROXY vd25oh 47.1 NG/mL 30-100 Vitam in D Statu s: Defic ient: <20 ng/mL Insuf ficie nt: 20-29 ng/mL Suffi cient : 30-10 0 ng/mL Not Available [facility] (Lab) [address] [place], [address], 12/12/2020 22:11:16 12/13/1912/12/2020 T4 FREE free T4 1.05 NG/dL 0.78-2 .19 Not Available [facility] (Lab) [address] [place], [address], 12/12/2020 22:04:07 12/13/1912/12/2020 IRON/ TIBC PANEL total iron binding capacity 366 mcg/d L 265-47 5 Not Available [facility] (Lab) [address] [place], [address], 12/12/2020 21:54:28 12/13/1912/12/2020 IRON/ TIBC PANEL % transferrin saturation 32 % 20-55 Not Available [facility] (Lab) [address] [place], [address], 12/12/2020 21:54:28 12/13/1912/12/2020 IRON/ TIBC PANEL unsaturated iron bind capacity 248 mcg/d L 126-38 2 Not Available [facility] (Lab) [address] [place], [address], 12/12/2020 21:54:28 12/13/1912/12/2020 IRON/ TIBC PANEL iron 118 mcg/d L 42-175 Not Available [facility] (Lab) [address] [place], [address], 12/12/2020 21:54:28 12/13/1912/12/2020 MAGNE SIUM magnesium 2.1 mg/dL 1.6-2. 3 Not Available [facility] (Lab) [address] [place], [address], 12/12/2020 21:53:51 12/13/19 21 12/12/2020 COMPR EHENS NAHOMY METAB OLIC PANEL agap 10.0 mmol/ L 14-22 low Not Available [facility] (Lab) [address] [place], [address], 12/12/2020 21:53:48 12/13/19 21 12/12/2020 COMPR EHENS NAHOMY METAB OLIC PANEL sodium 138 mmol/ L 137-14 5 Not Available [facility] (Lab) [address] [place], [address], 12/12/2020 21:53:48 12/13/19 21 12/12/2020 COMPR EHENS NAHOMY METAB OLIC PANEL potassium 4.0 mmol/ L 3.5-5. 1 Not Available [facility] (Lab) [address] [place], [address], 12/12/2020 21:53:48 12/13/1912/12/2020 COMPR EHENS NAHOMY METAB OLIC PANEL chloride 106 mmol/ L 98-107 Not Available [facility] (Lab) [address] [place], [address], 12/12/2020 21:53:48 12/13/19 21 12/12/2020 COMPR EHENS NAHOMY METAB OLIC PANEL carbon dioxide 26 mmol/ L 22-30 Not Available [facility] (Lab) [address] [place], [address], 12/12/2020 21:53:48 12/13/19 21 12/12/2020 COMPR EHENS NAHOMY METAB OLIC PANEL glucose 95 mg/dL 70-99 Not Available [facility] (Lab) [address] [place], [address], 12/12/2020 21:53:48 12/13/19 21 12/12/2020 COMPR EHENS NAHOMY METAB OLIC PANEL BUN 10 mg/dL 8-19 Not Available [facility] (Lab) [address] [place], [address], 12/12/2020 21:53:48 12/13/1912/12/2020 COMPR EHENS NAHOMY METAB OLIC PANEL creatinine 0.60 mg/dL 0.66-1 .25 low Not Available [facility] (Lab) [address] [place], [address], 12/12/2020 21:53:48 12/13/1912/12/2020 COMPR EHENS NAHOMY METAB OLIC PANEL GFR >60 Refer ence Range : [place] ge GFR Healt hy Adult : >60 [...] lator can be locat ed on the [facility] websi te: https :[email or web address] dee davison.o zach/pr ofess ional s/kdo qi/gf r_cal culat or Not Available [facility] (Lab) [address] [place], [address], 12/12/2020 21:53:48 12/13/1912/12/2020 COMPR EHENS NAHOMY METAB OLIC PANEL alkaline phosphatase 43 U/L 38-126 Not Available [facility] (Lab) [address] [place], [address], 12/12/2020 21:53:48 12/13/19 21 12/12/2020 COMPR EHENS NAHOMY METAB OLIC PANEL alanine aminotransfe rase 19 U/L 0-35 Not Available [facility] (Lab) [address] [place], [address], 12/12/2020 21:53:48 12/13/1912/12/2020 COMPR EHENS NAHOMY METAB OLIC PANEL aspartate aminotransfe rase 29 U/L 15-37 Not Available [facility] (Lab) [address] [place], [address], 12/12/2020 21:53:48 12/13/1912/12/2020 COMPR EHENS NAHOMY METAB OLIC PANEL bilirubin, total 0.70 mg/dL 0.20-1 .30 Not Available [facility] (Lab) [address] [place], [address], 12/12/2020 21:53:48 12/13/1912/12/2020 COMPR EHENS NAHOMY METAB OLIC PANEL calcium 9.8 mg/dL 8.4-10 .2 Not Available [facility] (Lab) [address] [place], [address], 12/12/2020 21:53:48 12/13/19 21 12/12/2020 COMPR EHENS NAHOMY METAB OLIC PANEL total protein 7.3 g/dL 6.3-8. 2 Not Available [facility] (Lab) [address] [place], [address], 12/12/2020 21:53:48 12/13/19 21 12/12/2020 COMPR EHENS NAHOMY METAB OLIC PANEL albumin 4.5 g/dL 3.4-5. 0 Not Available [facility] (Lab) [address] [place], [address], 12/12/2020 21:53:48 12/13/19 21 12/12/2020 COMPR EHENS NAHOMY METAB OLIC PANEL globulin 2.8 g/dL 2.6-4. 2 Not Available [facility] (Lab) [address] [place], [address], 12/12/2020 21:53:48 12/13/1912/12/2020 COMPR EHENS NAHOMY METAB OLIC PANEL A/G ratio 1.6 ratio 1.0-2. 0 Not Available [facility] (Lab) [address] [place], [address], 12/12/2020 21:53:48 12/13/1912/12/2020 HEMOG LOBIN A1C HA1C 5.4 % 4.0-6. 0 Diabe angela Scree mallory Crite stephenie: <5.7% Consi stent with absen ce of diabe angela 5.7-6 .4% Consi stent with incre ased risk for diabe angela (pred iabet es) >OR=6 .5% Consi stent with diabe angela REFER ENCE: Diabe angela Care 2016, 39(Soto ppl.1 ):s13 -s22 Not Available [facility] (Lab) [address] [place], [address], 12/12/2020 21:36:09 12/13/1912/12/2020 CBC/C OMPLE TE BLD COUNT W/DIF F hematocrit 39.9 % 35.7-4 5.7 Not Available [facility] (Lab) [address] [place], [address], 12/12/2020 20:06:02 12/13/19 21 12/12/2020 CBC/C OMPLE TE BLD COUNT W/DIF F white blood cells 8.3 x10'3 /uL 4.2-10 .8 Not Available [facility] (Lab) [address] [place], [address], 12/12/2020 20:06:02 12/13/19 21 12/12/2020 CBC/C OMPLE TE BLD COUNT W/DIF F red blood cells 4.55 x10'6 /uL 3.80-5 .20 Not Available [facility] (Lab) [address] [place], [address], 12/12/2020 20:06:02 12/13/1912/12/2020 CBC/C OMPLE TE BLD COUNT W/DIF F hemoglobin 13.0 g/dL 12.0-1 5.6 Not Available [facility] (Lab) [address] [place], [address], 12/12/2020 20:06:02 12/13/1912/12/2020 CBC/C OMPLE TE BLD COUNT W/DIF F mean red cell volume 87.7 fL 82.0-9 9.0 Not Available [facility] (Lab) [address] [place], [address], 12/12/2020 20:06:02 12/13/1912/12/2020 CBC/C OMPLE TE BLD COUNT W/DIF F mean red cell hemoglobin 28.6 pg 27.0-3 3.0 Not Available [facility] (Lab) [address] [place], [address], 12/12/2020 20:06:02 12/13/1912/12/2020 CBC/C OMPLE TE BLD COUNT W/DIF F mean RBC HGB concentratio n 32.6 g/dL 31.0-3 6.0 Not Available [facility] (Lab) [address] [place], [address], 12/12/2020 20:06:02 12/13/1912/12/2020 CBC/C OMPLE TE BLD COUNT W/DIF F red cell distribution width 14.4 % 11.8-1 5.5 Not Available [facility] (Lab) [address] [place], [address], 12/12/2020 20:06:02 12/13/19 21 12/12/2020 CBC/C OMPLE TE BLD COUNT W/DIF F platelets 369 x10'3 /uL 150-40 0 Not Available [facility] (Lab) [address] [place], [address], 12/12/2020 20:06:02 12/13/1912/12/2020 CBC/C OMPLE TE BLD COUNT W/DIF F mean platelet volume 10.4 fL 9.0-12 .4 Not Available [facility] (Lab) [address] [place], [address], 12/12/2020 20:06:02 12/13/1912/12/2020 CBC/C OMPLE TE BLD COUNT W/DIF F neutrophils 55.5 % 39.0-7 2.0 Not Available [facility] (Lab) [address] [place], [address], 12/12/2020 20:06:02 12/13/1912/12/2020 CBC/C OMPLE TE BLD COUNT W/DIF F lymphocytes 36.4 % 16.0-4 7.0 Not Available [facility] (Lab) [address] [place], [address], 12/12/2020 20:06:02 12/13/1912/12/2020 CBC/C OMPLE TE BLD COUNT W/DIF F monocytes 5.9 % 5.0-12 .0 Not Available [facility] (Lab) [address] [place], [address], 12/12/2020 20:06:02 12/13/1912/12/2020 CBC/C OMPLE TE BLD COUNT W/DIF F eosinophils 1.2 % 1.0-7. 0 Not Available [facility] (Lab) [address] [place], [address], 12/12/2020 20:06:02 12/13/19 21 12/12/2020 CBC/C OMPLE TE BLD COUNT W/DIF F basophils 0.5 % 0.0-2. 0 Not Available [facility] (Lab) [address] [place], [address], 12/12/2020 20:06:02 12/13/1912/12/2020 CBC/C OMPLE TE BLD COUNT W/DIF F immature granulocytes 0.5 % 0.00-0 .50 Not Available [facility] (Lab) [address] [place], [address], 12/12/2020 20:06:02 12/13/1912/12/2020 CBC/C OMPLE TE BLD COUNT W/DIF F neutrophils, absolute count 4.58 x10'3 /uL 1.5-8. 0 Not Available [facility] (Lab) [address] [place], [address], 12/12/2020 20:06:02 12/13/1912/12/2020 CBC/C OMPLE TE BLD COUNT W/DIF F lymphocytes, absolute count 3.00 x10'3 /uL 1.07-3 .43 Not Available [facility] (Lab) [address] [place], [address], 12/12/2020 20:06:02 12/13/1912/12/2020 CBC/C OMPLE TE BLD COUNT W/DIF F monocytes, absolute count 0.49 x10'3 /uL 0.29-0 .99 Not Available [facility] (Lab) [address] [place], [address], 12/12/2020 20:06:02 12/13/19 21 12/12/2020 CBC/C OMPLE TE BLD COUNT W/DIF F eosinophils, absolute count 0.10 x10'3 /uL 0.02-0 .53 Not Available [facility] (Lab) [address] [place], [address], 12/12/2020 20:06:02 12/13/19 21 12/12/2020 CBC/C OMPLE TE BLD COUNT W/DIF F basophils, absolute count 0.04 x10'3 /uL 0.01-0 .08 Not Available [facility] (Lab) [address] [place], [address], 12/12/2020 20:06:02 12/13/19 21 12/12/2020 CBC/C OMPLE TE BLD COUNT W/DIF F immature granulocytes ,absolute 0.04 x10'3 /uL 0.00-0 .05 Not Available [facility] (Lab) [address] [place], [address], 12/12/2020 20:06:02 12/13/19 21 12/12/2020 CBC/C OMPLE TE BLD COUNT W/DIF F nucleated red blood cells 0.0 % -0 Not Available [facility] (Lab) [address] [place], [address], 12/12/2020 20:06:02 12/13/19 21 12/12/2020 CBC/C OMPLE TE BLD COUNT W/DIF F NRBC# 0.00 x10'3 /uL Not Available [facility] (Lab) [address] [place], [address], 12/12/2020 20:06:02 06/05/19 22 06/06/2021 KAMAR/A NTINU [...] uclea r Antib adilia (KAMAR) Patte rns ([facility] ). Perfo rmed at: - [facility] n [address] [facility] [address], [facility], [place] [address] Lab Direc tor: Cornelius stewart PhD, Phone : [phone] Not Available [facility] [address] [place], [address], 06/06/2021 17:09:51 06/05/19 22 06/04/2021 VITAM IN B12 (LINDA SY ) vb12 272 pg/mL 239-93 1 Not Available [facility] (Lab) [address] [place], [address], 06/04/2021 22:32:44 06/05/19 22 06/04/2021 VITAM IN D 25-HY DROXY vd25oh 23.9 NG/mL 30-100 low Vitam in D Statu s: Defic ient: <20 ng/mL Insuf ficie nt: 20-29 ng/mL Suffi cient : 30-10 0 ng/mL Not Available [facility] (Lab) [address] [place], [address], 06/04/2021 22:00:05 06/05/19 22 06/04/2021 HEMOG LOBIN A1C HA1C 5.1 % 4.0-6. 0 Diabe angela Scree mallory Crite stephenie: <5.7% Consi stent with absen ce of diabe angela 5.7-6 .4% Consi stent with incre ased risk for diabe angela (pred iabet es) >OR=6 .5% Consi stent with diabe angela REFER ENCE: Diabe angela Care 2016, 39(Soto ppl.1 ):s13 -s22 Not Available [facility] (Lab) [address] [place], [address], 06/04/2021 20:27:57 06/05/19 22 06/04/2021 PASQUALE TIN ferritin 7 NG/mL 6.24-1 37 Not Available [facility] (Lab) [address] [place], [address], 06/04/2021 20:03:55 06/05/19 22 06/04/2021 TSH thyroid-stim ulating hormone 1.570 uIU/m L 0.465- 4.680 Not Available [facility] (Lab) [address] [place], [address], 06/04/2021 20:02:19 06/05/19 22 06/04/2021 SEDIM ENTAT ION RATE erythrocyte sedimentatio n rate 12 mm/HR 0-20 Not Available [facility] (Lab) [address] [place], [address], 06/04/2021 19:47:26 06/05/19 22 06/04/2021 T4 FREE free T4 1.18 NG/dL 0.78-2 .19 Not Available [facility] (Lab) [address] [place], [address], 06/04/2021 19:38:29 06/05/19 22 06/04/2021 IRON/ TIBC PANEL total iron binding capacity 356 mcg/d L 265-47 5 Not Available [facility] (Lab) [address] [place], [address], 06/04/2021 19:33:02 06/05/19 22 06/04/2021 IRON/ TIBC PANEL % transferrin saturation 9 % 20-55 low Not Available [facility] (Lab) [address] [place], [address], 06/04/2021 19:33:02 06/05/19 22 06/04/2021 IRON/ TIBC PANEL unsaturated iron bind capacity 325 mcg/d L 126-38 2 Not Available [facility] (Lab) [address] [place], [address], 06/04/2021 19:33:02 06/05/19 22 06/04/2021 IRON/ TIBC PANEL iron 31 mcg/d L 42-175 low Not Available [facility] (Lab) [address] [place], [address], 06/04/2021 19:33:02 06/05/19 22 06/04/2021 C REACT NAHOMY PROTE IN,UL TRA SENS C-reactive protein <0.030 mg/dL 0.0-0. 5 Not Available [facility] (Lab) [address] [place], [address], 06/04/2021 19:32:16 06/05/19 22 06/04/2021 RHEUM ATOID FACTO R rf <8.6 IU/mL 0.0-11 .9 Not Available [facility] (Lab) [address] [place], [address], 06/04/2021 19:32:15 06/05/19 22 06/04/2021 MAGNE SIUM magnesium 2.1 mg/dL 1.6-2. 3 Not Available [facility] (Lab) [address] [place], [address], 06/04/2021 19:30:47 06/05/19 22 06/04/2021 COMPR EHENS NAHOMY METAB OLIC PANEL carbon dioxide 23 mmol/ L 22-30 Not Available [facility] (Lab) [address] [place], [address], 06/04/2021 19:30:44 06/05/19 22 06/04/2021 COMPR EHENS NAHOMY METAB OLIC PANEL sodium 136 mmol/ L 137-14 5 low Not Available [facility] (Lab) [address] [place], [address], 06/04/2021 19:30:44 06/05/19 22 06/04/2021 COMPR EHENS NAHOMY METAB OLIC PANEL potassium 4.1 mmol/ L 3.5-5. 1 Not Available [facility] (Lab) [address] [place], [address], 06/04/2021 19:30:44 06/05/19 22 06/04/2021 COMPR EHENS NAHOMY METAB OLIC PANEL chloride 103 mmol/ L 98-107 Not Available [facility] (Lab) [address] [place], [address], 06/04/2021 19:30:44 06/05/19 22 06/04/2021 COMPR EHENS NAHOMY METAB OLIC PANEL agap 14.1 mmol/ L 14-22 Not Available [facility] (Lab) [address] [place], [address], 06/04/2021 19:30:44 06/05/19 22 06/04/2021 COMPR EHENS NAHOMY METAB OLIC PANEL glucose 98 mg/dL 70-99 Not Available [facility] (Lab) [address] [place], [address], 06/04/2021 19:30:44 06/05/19 22 06/04/2021 COMPR EHENS NAHOMY METAB OLIC PANEL BUN 10 mg/dL 8-19 Not Available [facility] (Lab) [address] [place], [address], 06/04/2021 19:30:44 06/05/19 22 06/04/2021 COMPR EHENS NAHOMY METAB OLIC PANEL creatinine 0.57 mg/dL 0.66-1 .25 low Not Available [facility] (Lab) [address] [place], [address], 06/04/2021 19:30:44 06/05/19 22 06/04/2021 COMPR EHENS NAHOMY METAB OLIC PANEL GFR >60 Refer ence Range : [place] ge GFR Healt hy Adult : >60 [...] calcu lator is avail able on the [facility] websi te: https :[email or web address] dee mane.jose davison.o rg/pr ciro mckeonal s/kdo qi/gf r_cal culat or Not Available [facility] (Lab) [address] [place], [address], 06/04/2021 19:30:44 06/05/19 22 06/04/2021 COMPR EHENS NAHOMY METAB OLIC PANEL alkaline phosphatase 50 U/L 38-126 Not Available [facility] (Lab) [address] [place], [address], 06/04/2021 19:30:44 06/05/19 22 06/04/2021 COMPR EHENS NAHOMY METAB OLIC PANEL alanine aminotransfe rase 18 U/L 0-35 Not Available [facility] (Lab) [address] [place], [address], 06/04/2021 19:30:44 06/05/19 22 06/04/2021 COMPR EHENS NAHOMY METAB OLIC PANEL aspartate aminotransfe rase 24 U/L 15-37 Not Available [facility] (Lab) [address] [place], [address], 06/04/2021 19:30:44 06/05/19 22 06/04/2021 COMPR EHENS NAHOMY METAB OLIC PANEL bilirubin, total 0.40 mg/dL 0.20-1 .30 Not Available [facility] (Lab) [address] [place], [address], 06/04/2021 19:30:44 06/05/19 22 06/04/2021 COMPR EHENS NAHOMY METAB OLIC PANEL calcium 10.2 mg/dL 8.4-10 .2 Not Available [facility] (Lab) [address] [place], [address], 06/04/2021 19:30:44 06/05/19 22 06/04/2021 COMPR EHENS NAHOMY METAB OLIC PANEL total protein 7.6 g/dL 6.3-8. 2 Not Available [facility] (Lab) [address] [place], [address], 06/04/2021 19:30:44 06/05/19 22 06/04/2021 COMPR EHENS NAHOMY METAB OLIC PANEL albumin 4.9 g/dL 3.4-5. 0 Not Available [facility] (Lab) [address] [place], [address], 06/04/2021 19:30:44 06/05/19 22 06/04/2021 COMPR EHENS NAHOMY METAB OLIC PANEL globulin 2.7 g/dL 2.6-4. 2 Not Available [facility] (Lab) [address] [place], [address], 06/04/2021 19:30:44 06/05/19 22 06/04/2021 COMPR EHENS NAHOMY METAB OLIC PANEL A/G ratio 1.8 ratio 1.0-2. 0 Not Available [facility] (Lab) [address] [facility] [place], [address], 06/04/2021 19:30:44 06/05/19 22 06/04/2021 CBC/C OMPLE TE BLD COUNT W/DIF F hematocrit 35.6 % 35.7-4 5.7 low Not Available [facility] (Lab) [address] [place], [address], 06/04/2021 19:05:36 06/05/19 22 06/04/2021 CBC/C OMPLE TE BLD COUNT W/DIF F white blood cells 7.6 x10'3 /uL 4.2-10 .8 Not Available [facility] (Lab) [address] [place], [address], 06/04/2021 19:05:36 06/05/19 22 06/04/2021 CBC/C OMPLE TE BLD COUNT W/DIF F red blood cells 4.12 x10'6 /uL 3.80-5 .20 Not Available [facility] (Lab) [address] [place], [address], 06/04/2021 19:05:36 06/05/19 22 06/04/2021 CBC/C OMPLE TE BLD COUNT W/DIF F hemoglobin 11.7 g/dL 12.0-1 5.6 low Not Available [facility] (Lab) [address] [place], [address], 06/04/2021 19:05:36 06/05/19 22 06/04/2021 CBC/C OMPLE TE BLD COUNT W/DIF F mean red cell volume 86.4 fL 82.0-9 9.0 Not Available [facility] (Lab) [address] [place], [address], 06/04/2021 19:05:36 06/05/19 22 06/04/2021 CBC/C OMPLE TE BLD COUNT W/DIF F mean red cell hemoglobin 28.4 pg 27.0-3 3.0 Not Available [facility] (Lab) [address] [place], [address], 06/04/2021 19:05:36 06/05/19 22 06/04/2021 CBC/C OMPLE TE BLD COUNT W/DIF F mean RBC HGB concentratio n 32.9 g/dL 31.0-3 6.0 Not Available [facility] (Lab) [address] [place], [address], 06/04/2021 19:05:36 06/05/19 22 06/04/2021 CBC/C OMPLE TE BLD COUNT W/DIF F neutrophils 56.5 % 39.0-7 2.0 Not Available [facility] (Lab) [address] [place], [address], 06/04/2021 19:05:36 06/05/19 22 06/04/2021 CBC/C OMPLE TE BLD COUNT W/DIF F red cell distribution width 17.8 % 11.8-1 5.5 high Not Available [facility] (Lab) [address] [place], [address], 06/04/2021 19:05:36 06/05/19 22 06/04/2021 CBC/C OMPLE TE BLD COUNT W/DIF F platelets 365 x10'3 /uL 150-40 0 Not Available [facility] (Lab) [address] [place], [address], 06/04/2021 19:05:36 06/05/19 22 06/04/2021 CBC/C OMPLE TE BLD COUNT W/DIF F mean platelet volume 10.4 fL 9.0-12 .4 Not Available [facility] (Lab) [address] [place], [address], 06/04/2021 19:05:36 06/05/19 22 06/04/2021 CBC/C OMPLE TE BLD COUNT W/DIF F lymphocytes 33.0 % 16.0-4 7.0 Not Available [facility] (Lab) [address] [place], [address], 06/04/2021 19:05:36 06/05/19 22 06/04/2021 CBC/C OMPLE TE BLD COUNT W/DIF F monocytes 8.4 % 5.0-12 .0 Not Available [facility] (Lab) [address] [place], [address], 06/04/2021 19:05:36 06/05/19 22 06/04/2021 CBC/C OMPLE TE BLD COUNT W/DIF F eosinophils 1.7 % 1.0-7. 0 Not Available [facility] (Lab) [address] [place], [address], 06/04/2021 19:05:36 06/05/19 22 06/04/2021 CBC/C OMPLE TE BLD COUNT W/DIF F basophils 0.3 % 0.0-2. 0 Not Available [facility] (Lab) [address] [place], [address], 06/04/2021 19:05:36 06/05/19 22 06/04/2021 CBC/C OMPLE TE BLD COUNT W/DIF F immature granulocytes 0.1 % 0.00-0 .50 Not Available [facility] (Lab) [address] [place], [address], 06/04/2021 19:05:36 06/05/19 22 06/04/2021 CBC/C OMPLE TE BLD COUNT W/DIF F neutrophils, absolute count 4.31 x10'3 /uL 1.5-8. 0 Not Available [facility] (Lab) [address] [place], [address], 06/04/2021 19:05:36 06/05/19 22 06/04/2021 CBC/C OMPLE TE BLD COUNT W/DIF F lymphocytes, absolute count 2.52 x10'3 /uL 1.07-3 .43 Not Available [facility] (Lab) [address] [place], [address], 06/04/2021 19:05:36 06/05/19 22 06/04/2021 CBC/C OMPLE TE BLD COUNT W/DIF F monocytes, absolute count 0.64 x10'3 /uL 0.29-0 .99 Not Available [facility] (Lab) [address] [place], [address], 06/04/2021 19:05:36 06/05/19 22 06/04/2021 CBC/C OMPLE TE BLD COUNT W/DIF F nucleated red blood cells 0.0 % -0 Not Available [facility] (Lab) [address] [place], [address], 06/04/2021 19:05:36 06/05/19 22 06/04/2021 CBC/C OMPLE TE BLD COUNT W/DIF F eosinophils, absolute count 0.13 x10'3 /uL 0.02-0 .53 Not Available [facility] (Lab) [address] [place], [address], 06/04/2021 19:05:36 06/05/19 22 06/04/2021 CBC/C OMPLE TE BLD COUNT W/DIF F basophils, absolute count 0.02 x10'3 /uL 0.01-0 .08 Not Available [facility] (Lab) [address] [place], [address], 06/04/2021 19:05:36 06/05/19 22 06/04/2021 CBC/C OMPLE TE BLD COUNT W/DIF F immature granulocytes ,absolute 0.01 x10'3 /uL 0.00-0 .05 Not Available [facility] (Lab) [address] [place], [address], 06/04/2021 19:05:36 06/05/19 22 06/04/2021 CBC/C OMPLE TE BLD COUNT W/DIF F NRBC# 0.00 x10'3 /uL Not Available [facility] (Lab) [address] [place], [address], 06/04/2021 19:05:36 04/24/19 23 04/24/2022 VITAM IN B12 (LINDA SY ) vb12 265 pg/mL 239-93 1 Not Available [facility] (Lab) [address] [place], [address], 04/24/2022 23:07:27 04/24/19 23 04/24/2022 VITAM IN D 25-HY DROXY vd25oh 16.0 NG/mL 30-100 low Vitam in D Statu s: Defic ient: <20 ng/mL Insuf ficie nt: 20-29 ng/mL Suffi cient : 30-10 0 ng/mL Not Available [facility] (Lab) [address] [place], [address], 04/24/2022 22:19:47 04/24/19 23 04/24/2022 PASQUALE TIN ferritin 15 NG/mL 6.24-1 37 Not Available [facility] (Lab) [address] [place], [address], 04/24/2022 21:49:59 04/24/19 23 04/24/2022 TSH thyroid-stim ulating hormone 3.070 uIU/m L 0.465- 4.680 Not Available [facility] (Lab) [address] [place], [address], 04/24/2022 21:49:24 04/24/19 23 04/24/2022 T4 FREE free T4 1.01 NG/dL 0.78-2 .19 Not Available [facility] (Lab) [address] [place], [address], 04/24/2022 21:47:07 04/24/19 23 04/24/2022 IRON/ TIBC PANEL total iron binding capacity 306 mcg/d L 265-47 5 Not Available [facility] (Lab) [address] [place], [address], 04/24/2022 21:45:37 04/24/19 23 04/24/2022 IRON/ TIBC PANEL % transferrin saturation 36 % 20-55 Not Available [facility] (Lab) [address] [place], [address], 04/24/2022 21:45:37 04/24/19 23 04/24/2022 IRON/ TIBC PANEL unsaturated iron bind capacity 196 mcg/d L 126-38 2 Not Available [facility] (Lab) [address] [place], [address], 04/24/2022 21:45:37 04/24/19 23 04/24/2022 IRON/ TIBC PANEL iron 110 mcg/d L 42-175 Not Available [facility] (Lab) [address] [place], [address], 04/24/2022 21:45:37 04/24/19 23 04/24/2022 MAGNE SIUM magnesium 2.0 mg/dL 1.6-2. 3 Not Available [facility] (Lab) [address] [place], [address], 04/24/2022 21:44:23 04/24/19 23 04/24/2022 COMPR EHENS NAHOMY METAB OLIC PANEL glucose 87 mg/dL 70-99 Not Available [facility] (Lab) [address] [place], [address], 04/24/2022 21:44:19 04/24/19 23 04/24/2022 COMPR EHENS NAHOMY METAB OLIC PANEL sodium 138 mmol/ L 137-14 5 Not Available [facility] (Lab) [address] [place], [address], 04/24/2022 21:44:19 04/24/19 23 04/24/2022 COMPR EHENS NAHOMY METAB OLIC PANEL potassium 4.5 mmol/ L 3.5-5. 1 Not Available [facility] (Lab) [address] [place], [address], 04/24/2022 21:44:19 04/24/19 23 04/24/2022 COMPR EHENS NAHOMY METAB OLIC PANEL chloride 108 mmol/ L 98-107 high Not Available [facility] (Lab) [address] [place], [address], 04/24/2022 21:44:19 04/24/19 23 04/24/2022 COMPR EHENS NAHOMY METAB OLIC PANEL carbon dioxide 21 mmol/ L 22-30 low Not Available [facility] (Lab) [address] [place], [address], 04/24/2022 21:44:19 04/24/19 23 04/24/2022 COMPR EHENS NAHOMY METAB OLIC PANEL anion gap 13.5 mmol/ L 14-22 low Not Available [facility] (Lab) [address] [place], [address], 04/24/2022 21:44:19 04/24/19 23 04/24/2022 COMPR EHENS NAHOMY METAB OLIC PANEL BUN 10 mg/dL 8-19 Not Available [facility] (Lab) [address] [place], [address], 04/24/2022 21:44:19 04/24/19 23 04/24/2022 COMPR EHENS NAHOMY METAB OLIC PANEL creatinine 0.57 mg/dL 0.66-1 .25 low Not Available [facility] (Lab) [address] [place], [address], 04/24/2022 21:44:19 04/24/19 23 04/24/2022 COMPR EHENS NAHOMY METAB OLIC PANEL GFR >60 Refer ence Range : [place] ge GFR Healt hy Adult : >60 [...] calcu lator is avail able on the [facility] websi te: https :[email or web address] dee [email or web address] [email or web address] rg/pr ofess ional s/kdo qi/gf r_cal culat or Not Available [facility] (Lab) [address] [place], [address], 04/24/2022 21:44:19 04/24/19 23 04/24/2022 COMPR EHENS NAHOMY METAB OLIC PANEL alkaline phosphatase 51 U/L 38-126 Not Available [facility] (Lab) [address] [place], [address], 04/24/2022 21:44:19 04/24/19 23 04/24/2022 COMPR EHENS NAHOMY METAB OLIC PANEL alanine aminotransfe rase 21 U/L 0-35 Not Available [facility] (Lab) [address] [place], [address], 04/24/2022 21:44:19 04/24/19 23 04/24/2022 COMPR EHENS NAHOMY METAB OLIC PANEL aspartate aminotransfe rase 25 U/L 15-37 Not Available [facility] (Lab) [address] [place], [address], 04/24/2022 21:44:19 04/24/19 23 04/24/2022 COMPR EHENS NAHOMY METAB OLIC PANEL bilirubin, total 0.40 mg/dL 0.20-1 .30 Not Available [facility] (Lab) [address] [place], [address], 04/24/2022 21:44:19 04/24/19 23 04/24/2022 COMPR EHENS NAHOMY METAB OLIC PANEL calcium 9.9 mg/dL 8.4-10 .2 Not Available [facility] (Lab) [address] [place], [address], 04/24/2022 21:44:19 04/24/19 23 04/24/2022 COMPR EHENS NAHOMY METAB OLIC PANEL total protein 7.2 g/dL 6.3-8. 2 Not Available [facility] (Lab) [address] [place], [address], 04/24/2022 21:44:19 04/24/19 23 04/24/2022 COMPR EHENS NAHOMY METAB OLIC PANEL albumin 4.5 g/dL 3.4-5. 0 Not Available [facility] (Lab) [address] [place], [address], 04/24/2022 21:44:19 04/24/19 23 04/24/2022 COMPR EHENS NAHOMY METAB OLIC PANEL globulin 2.7 g/dL 2.6-4. 2 Not Available [facility] (Lab) [address] [place], [address], 04/24/2022 21:44:19 04/24/1904/24/2022 COMPR EHENS NAHOMY METAB OLIC PANEL A/G ratio 1.7 ratio 1.0-2. 0 Not Available [facility] (Lab) [address] [place], [address], 04/24/2022 21:44:19 04/24/19 23 04/24/2022 HEMOG LOBIN A1C HA1C 5.4 % 4.0-6. 0 Diabe angela Scree mallory Crite stephenie: <5.7% Consi stent with absen ce of diabe angela 5.7-6 .4% Consi stent with incre ased risk for diabe angela (pred iabet es) >OR=6 .5% Consi stent with diabe angela REFER ENCE: Diabe angela Care 2016, 39(Soto ppl.1 ):s13 -s22 Not Available [facility] (Lab) [address] [place], [address], 04/24/2022 21:39:34 04/24/1904/24/2022 CBC/C OMPLE TE BLD COUNT W/DIF F mean red cell volume 94.6 fL 82.0-9 9.0 Not Available [facility] (Lab) [address] [place], [address], 04/24/2022 20:12:45 04/24/1904/24/2022 CBC/C OMPLE TE BLD COUNT W/DIF F white blood cells 12.0 x10'3 /uL 4.2-10 .8 high Not Available [facility] (Lab) [address] [place], [address], 04/24/2022 20:12:45 04/24/19 23 04/24/2022 CBC/C OMPLE TE BLD COUNT W/DIF F red blood cells 4.25 x10'6 /uL 3.80-5 .20 Not Available [facility] (Lab) [address] [place], [address], 04/24/2022 20:12:45 04/24/19 23 04/24/2022 CBC/C OMPLE TE BLD COUNT W/DIF F hemoglobin 13.3 g/dL 12.0-1 5.6 Not Available [facility] (Lab) [address] [place], [address], 04/24/2022 20:12:45 04/24/19 23 04/24/2022 CBC/C OMPLE TE BLD COUNT W/DIF F hematocrit 40.2 % 35.7-4 5.7 Not Available [facility] (Lab) [address] [place], [address], 04/24/2022 20:12:45 04/24/19 23 04/24/2022 CBC/C OMPLE TE BLD COUNT W/DIF F mean red cell hemoglobin 31.3 pg 27.0-3 3.0 Not Available [facility] (Lab) [address] [place], [address], 04/24/2022 20:12:45 04/24/19 23 04/24/2022 CBC/C OMPLE TE BLD COUNT W/DIF F mean RBC HGB concentratio n 33.1 g/dL 31.0-3 6.0 Not Available [facility] (Lab) [address] [place], [address], 04/24/2022 20:12:45 04/24/19 23 04/24/2022 CBC/C OMPLE TE BLD COUNT W/DIF F red cell distribution width 13.1 % 11.8-1 5.5 Not Available [facility] (Lab) [address] [place], [address], 04/24/2022 20:12:45 04/24/19 23 04/24/2022 CBC/C OMPLE TE BLD COUNT W/DIF F platelets 375 x10'3 /uL 150-40 0 Not Available [facility] (Lab) [address] [place], [address], 04/24/2022 20:12:45 04/24/19 23 04/24/2022 CBC/C OMPLE TE BLD COUNT W/DIF F mean platelet volume 11.3 fL 9.0-12 .4 Not Available [facility] (Lab) [address] [place], [address], 04/24/2022 20:12:45 04/24/19 23 04/24/2022 CBC/C OMPLE TE BLD COUNT W/DIF F neutrophils 63.3 % 39.0-7 2.0 Not Available [facility] (Lab) [address] [place], [address], 04/24/2022 20:12:45 04/24/19 23 04/24/2022 CBC/C OMPLE TE BLD COUNT W/DIF F lymphocytes 26.5 % 16.0-4 7.0 Not Available [facility] (Lab) [address] [place], [address], 04/24/2022 20:12:45 04/24/19 23 04/24/2022 CBC/C OMPLE TE BLD COUNT W/DIF F monocytes 7.0 % 5.0-12 .0 Not Available [facility] (Lab) [address] [place], [address], 04/24/2022 20:12:45 04/24/19 23 04/24/2022 CBC/C OMPLE TE BLD COUNT W/DIF F eosinophils 2.4 % 1.0-7. 0 Not Available [facility] (Lab) [address] [place], [address], 04/24/2022 20:12:45 04/24/19 23 04/24/2022 CBC/C OMPLE TE BLD COUNT W/DIF F basophils 0.3 % 0.0-2. 0 Not Available [facility] (Lab) [address] [place], [address], 04/24/2022 20:12:45 04/24/19 23 04/24/2022 CBC/C OMPLE TE BLD COUNT W/DIF F immature granulocytes 0.5 % 0.00-0 .50 Not Available [facility] (Lab) [address] [place], [address], 04/24/2022 20:12:45 04/24/1904/24/2022 CBC/C OMPLE TE BLD COUNT W/DIF F neutrophils, absolute count 7.58 x10'3 /uL 1.5-8. 0 Not Available [facility] (Lab) [address] [place], [address], 04/24/2022 20:12:45 04/24/19 23 04/24/2022 CBC/C OMPLE TE BLD COUNT W/DIF F lymphocytes, absolute count 3.17 x10'3 /uL 1.07-3 .43 Not Available [facility] (Lab) [address] [place], [address], 04/24/2022 20:12:45 04/24/1904/24/2022 CBC/C OMPLE TE BLD COUNT W/DIF F monocytes, absolute count 0.84 x10'3 /uL 0.29-0 .99 Not Available [facility] (Lab) [address] [place], [address], 04/24/2022 20:12:45 04/24/1904/24/2022 CBC/C OMPLE TE BLD COUNT W/DIF F eosinophils, absolute count 0.29 x10'3 /uL 0.02-0 .53 Not Available [facility] (Lab) [address] [place], [address], 04/24/2022 20:12:45 04/24/19 23 04/24/2022 CBC/C OMPLE TE BLD COUNT W/DIF F basophils, absolute count 0.04 x10'3 /uL 0.01-0 .08 Not Available [facility] (Lab) [address] [place], [address], 04/24/2022 20:12:45 04/24/19 23 04/24/2022 CBC/C OMPLE TE BLD COUNT W/DIF F immature granulocytes ,absolute 0.06 x10'3 /uL 0.00-0 .05 high Not Available [facility] (Lab) [address] [place], [address], 04/24/2022 20:12:45 04/24/19 23 04/24/2022 CBC/C OMPLE TE BLD COUNT W/DIF F nucleated red blood cells 0.0 % -0 Not Available [facility] (Lab) [address] [place], [address], 04/24/2022 20:12:45 04/24/19 23 04/24/2022 CBC/C OMPLE TE BLD COUNT W/DIF F NRBC# 0.00 x10'3 /uL Not Available [facility] (Lab) [address] [place], [address], 04/24/2022 20:12:45 09/16/1909/15/2022 CBC/C OMPLE TE BLD COUNT W/DIF F white blood cells 9.2 x10'3 /uL 4.2-10 .8 Not Available [facility] (Lab) [address] [place], [address], 09/15/2022 19:51:06 09/16/1909/15/2022 CBC/C OMPLE TE BLD COUNT W/DIF F red blood cells 4.35 x10'6 /uL 3.80-5 .20 Not Available [facility] (Lab) [address] [place], [address], 09/15/2022 19:51:06 09/16/19 23 09/15/2022 CBC/C OMPLE TE BLD COUNT W/DIF F hemoglobin 13.4 g/dL 12.0-1 5.6 Not Available [facility] (Lab) [address] [place], [address], 09/15/2022 19:51:06 09/16/19 23 09/15/2022 CBC/C OMPLE TE BLD COUNT W/DIF F hematocrit 40.6 % 35.7-4 5.7 Not Available [facility] (Lab) [address] [place], [address], 09/15/2022 19:51:06 09/16/19 23 09/15/2022 CBC/C OMPLE TE BLD COUNT W/DIF F mean red cell volume 93.3 fL 82.0-9 9.0 Not Available [facility] (Lab) [address] [place], [address], 09/15/2022 19:51:06 09/16/19 23 09/15/2022 CBC/C OMPLE TE BLD COUNT W/DIF F mean red cell hemoglobin 30.8 pg 27.0-3 3.0 Not Available [facility] (Lab) [address] [place], [address], 09/15/2022 19:51:06 09/16/19 23 09/15/2022 CBC/C OMPLE TE BLD COUNT W/DIF F mean RBC HGB concentratio n 33.0 g/dL 31.0-3 6.0 Not Available [facility] (Lab) [address] [place], [address], 09/15/2022 19:51:06 09/16/19 23 09/15/2022 CBC/C OMPLE TE BLD COUNT W/DIF F red cell distribution width 14.1 % 11.8-1 5.5 Not Available [facility] (Lab) [address] [place], [address], 09/15/2022 19:51:06 09/16/1909/15/2022 CBC/C OMPLE TE BLD COUNT W/DIF F platelets 401 x10'3 /uL 150-40 0 high Not Available [facility] (Lab) [address] [place], [address], 09/15/2022 19:51:06 09/16/19 23 09/15/2022 CBC/C OMPLE TE BLD COUNT W/DIF F mean platelet volume 10.5 fL 9.0-12 .4 Not Available [facility] (Lab) [address] [place], [address], 09/15/2022 19:51:06 09/16/19 23 09/15/2022 CBC/C OMPLE TE BLD COUNT W/DIF F neutrophils 62.5 % 39.0-7 2.0 Not Available [facility] (Lab) [address] [place], [address], 09/15/2022 19:51:06 09/16/1909/15/2022 CBC/C OMPLE TE BLD COUNT W/DIF F lymphocytes 28.1 % 16.0-4 7.0 Not Available [facility] (Lab) [address] [place], [address], 09/15/2022 19:51:06 09/16/19 23 09/15/2022 CBC/C OMPLE TE BLD COUNT W/DIF F monocytes 6.6 % 5.0-12 .0 Not Available [facility] (Lab) [address] [place], [address], 09/15/2022 19:51:06 09/16/19 23 09/15/2022 CBC/C OMPLE TE BLD COUNT W/DIF F eosinophils 2.0 % 1.0-7. 0 Not Available [facility] (Lab) [address] [facility] [place], [address], 09/15/2022 19:51:06 09/16/1909/15/2022 CBC/C OMPLE TE BLD COUNT W/DIF F basophils 0.5 % 0.0-2. 0 Not Available [facility] (Lab) [address] [place], [address], 09/15/2022 19:51:06 09/16/1909/15/2022 CBC/C OMPLE TE BLD COUNT W/DIF F immature granulocytes 0.3 % 0.00-0 .50 Not Available [facility] (Lab) [address] [place], [address], 09/15/2022 19:51:06 09/16/1909/15/2022 CBC/C OMPLE TE BLD COUNT W/DIF F neutrophils, absolute count 5.73 x10'3 /uL 1.5-8. 0 Not Available [facility] (Lab) [address] [place], [address], 09/15/2022 19:51:06 09/16/1909/15/2022 CBC/C OMPLE TE BLD COUNT W/DIF F lymphocytes, absolute count 2.58 x10'3 /uL 1.07-3 .43 Not Available [facility] (Lab) [address] [place], [address], 09/15/2022 19:51:06 09/16/19 23 09/15/2022 CBC/C OMPLE TE BLD COUNT W/DIF F monocytes, absolute count 0.61 x10'3 /uL 0.29-0 .99 Not Available [facility] (Lab) [address] [place], [address], 09/15/2022 19:51:06 09/16/19 23 09/15/2022 CBC/C OMPLE TE BLD COUNT W/DIF F eosinophils, absolute count 0.18 x10'3 /uL 0.02-0 .53 Not Available [facility] (Lab) [address] [place], [address], 09/15/2022 19:51:06 09/16/19 23 09/15/2022 CBC/C OMPLE TE BLD COUNT W/DIF F basophils, absolute count 0.05 x10'3 /uL 0.01-0 .08 Not Available [facility] (Lab) [address] [place], [address], 09/15/2022 19:51:06 09/16/19 23 09/15/2022 CBC/C OMPLE TE BLD COUNT W/DIF F immature granulocytes ,absolute 0.03 x10'3 /uL 0.00-0 .05 Not Available [facility] (Lab) [address] [place], [address], 09/15/2022 19:51:06 09/16/19 23 09/15/2022 CBC/C OMPLE TE BLD COUNT W/DIF F nucleated red blood cells 0.0 % -0 Not Available [facility] (Lab) [address] [place], [address], 09/15/2022 19:51:06 09/16/19 23 09/15/2022 CBC/C OMPLE TE BLD COUNT W/DIF F NRBC# 0.00 x10'3 /uL Not Available [facility] (Lab) [address] [place], [address], 09/15/2022 19:51:06 09/16/19 23 09/15/2022 IRON/ TIBC PANEL total iron binding capacity 331 mcg/d L 265-47 5 Not Available [facility] (Lab) [address] [place], [address], 09/15/2022 21:20:57 09/16/1909/15/2022 IRON/ TIBC PANEL % transferrin saturation 45 % 20-55 Not Available [facility] (Lab) [address] [place], [address], 09/15/2022 21:20:57 09/16/19 23 09/15/2022 IRON/ TIBC PANEL unsaturated iron bind capacity 181 mcg/d L 126-38 2 Not Available [facility] (Lab) [address] [place], [address], 09/15/2022 21:20:57 09/16/19 23 09/15/2022 IRON/ TIBC PANEL iron 150 mcg/d L 42-175 Not Available [facility] (Lab) [address] [place], [address], 09/15/2022 21:20:57 09/16/19 23 09/15/2022 PAQSUALE TIN ferritin 12 NG/mL 6.24-1 37 Not Available [facility] (Lab) [address] [place], [address], 09/15/2022 21:30:47 09/16/19 23 09/15/2022 VITAM IN B12 (LINDA SY ) vb12 271 pg/mL 239-93 1 Not Available [facility] (Lab) [address] [place], [address], 09/15/2022 22:11:07 09/16/19 23 09/15/2022 FOLAT E, SERUM /PLAS MA folate 3.59 NG/mL 2.76-2 0.0 Not Available [facility] (Lab) [address] [place], [address], 09/15/2022 22:11:13 Result Notes None recorded. Problems Name Problem SNOMED Code Status Onset Date Resolution Date Notes Provider Name and Address Organization Details Recorded Time Cobalamin deficiency 837593342 Active 2021 Not Available [facility] 23:30:02 Vitamin D deficiency 35045378 Active 2021 Not Available [facility] 3 23:30:02 Depressive disorder 30056684 Active 2020 Not Available [facility] 3 23:30:02 Adult attention deficit hyperactivity disorder 985996779 Active 2020 Not Available [facility] 3 23:30:02 Anxiety 05628300 Active 2020 Not Available [facility] 3 23:30:02 Iron deficiency anemia 47435969 Active 2021 Not Available [facility] 3 23:30:02 Paresthesia 34158794 Active 2022 Taina Freeman MD [address] [place] [address], [address], [place], [address] , [facility] [employer] 3 13:47:15 Problem Notes None recorded. Medical [...] % 95 % 93 /min 98.3 [degF] 37657.1 7 g 110 mm[Hg] 74 mm[Hg] Not Available [facility] 3 23:29:10 Date Recorded Body mass index (BMI) Body height Oxygen saturation Oxygen saturation in Arterial blood by Pulse oximetry Heart rate Body temperature Body weight Systolic blood pressure Diastolic blood pressure Provider Name and Address Organization Details Last Updated DateTime 2 17.4 kg/m2 154.94 cm 98 % 98 % 122 /min 98.2 [degF] 84825.5 g 106 mm[Hg] 76 mm[Hg] Not Available [facility] 3 23:29:11 Date Recorded Body mass index (BMI) Body height Oxygen saturation Oxygen saturation in Arterial blood by Pulse oximetry Heart rate Body temperature Body weight Systolic blood pressure Diastolic blood pressure Provider Name and Address Organization Details Last Updated DateTime 3 21.2 kg/m2 154.94 cm 100 % 100 % 83 /min 98.5 [degF] 56273.3 5 g 118 mm[Hg] 70 mm[Hg] Not Available [facility] 3 23:29:11 Date Recorded Body height Body mass index (BMI) Body weight Body temperature Heart rate Oxygen saturation Oxygen saturation in Arterial blood by Pulse oximetry Systolic blood pressure Diastolic blood pressure Provider Name and Address Organization Details Last Updated DateTime 3 154.94 cm 20.2 kg/m2 33161.3 8 g 98 [degF] 84 /min 99 % 99 % 116 mm[Hg] 76 mm[Hg] Jacqueline Ingram RN [place] - [email or web address] 3 08:45:12 Date Recorded Body height Body mass index (BMI) Body weight Body temperature Heart rate Oxygen saturation Oxygen saturation in Arterial blood by Pulse oximetry Systolic blood pressure Diastolic blood pressure Provider Name and Address Organization Details Last Updated DateTime 3 154.94 cm 19.3 kg/m2 03046.4 2 g 98.2 [degF] 92 /min 99 % 99 % 100 mm[Hg] 60 mm[Hg] Jacqueline Ingram RN [place] - [email or web address] 3 12:01:00 Social History Question Answer Notes LastModified by Organizat ion Details LastModified Time Tobacco Smoking Status Current Every Day Smoker Not Available [facility] 04/29/2022 23:28:30 What Is Your Level Of Caffeine Consumption? Occasional [id number] Information not available 04/29/2022 What Type Of Diet Are You Following? REGULAR [id number] Information not available 04/29/2022 What Was The Date Of Your Most Recent Tobacco Screening? 12/12/2020 [id number] Information not available 04/29/2022 What Is Your Current Pack Years? 20-29packyears [id number] Information not available 04/29/2022 What Is Your Relationship Status? Single [id number] Information not available 04/29/2022 Do You Use Your Seat Belt Or Car Seat Routinely? Yes [id number] Information not available 04/29/2022 At What Age Did You Start Smoking Tobacco? 20 [id number] Information not available 04/29/2022 How Much Tobacco Do You Smoke? 1 PPD [id number].[id number] Information not available 04/29/2022 Do You Participate In Social Media? No [id number] Information not available 04/29/2022 Do You Feel Stressed (tense, Restless, Nervous, Or Anxious, Or Unable To Sleep At Night)? [id number] [id number] Information not available 04/29/2022 Do You Use Any Illicit Or Recreational Drugs? No [id number].[id number] Information not available 04/29/2022 Has Tobacco Cessation Counseling Been Provided? No [id number].251984 [id number] Information not available 04/29/2022 Do You Have Any Dietary Restrictions? No [id number] Information not available 04/29/2022 Do You Or Have You Ever Used Any Other Forms Of Tobacco Or Nicotine? No [id number].[id number] Information not available 04/29/2022 Sex: Female Functional Status Question Answer Note LastModified by Organizat ion Details LastModified Time What is your exercise level? Occasional [id number] Information not available 04/29/2022 Mental Status None recorded. Family History Relationship Description Onset Age of this Age Resolved Age Notes LastModified by Organization Details LastModified Time Father Cerebrovascu lar accident [id number] Not available 04/29/2022 23:28:48 Father Essential hypertension [id number] Not available 04/29/2022 23:28:48 Father Chronic pain MIGRATION.0 30 [id number] Not available 04/29/2022 23:28:48 Mother Chronic pain MIGRATION.0 30 [id number] Not available 04/29/2022 23:28:48 Sister Deep venous thrombosis [id number].252 [id number] Not available 04/29/2022 23:28:48 Sister Cardiac arrest 30 [id number].012 [id number] Not available 04/29/2022 23:28:49 Maternal Aunt Deep venous thrombosis [id number].471 [id number] Not available 04/29/2022 23:28:49 Maternal Grandmother Deep venous thrombosis MIGRATION.202 [id number] Not available 04/29/2022 23:28:49 Maternal Grandmother Amyotrophic lateral sclerosis MIGRATION.062 [id number] Not available 04/29/2022 23:28:49 Notes:Potentially some pater [...] SNOMED-CT Code Diagnosis ICD10 Code Diagnosis Note [id number] [facility] Primary Care Jaquan enrico [address] [facility] [address] [place] [address] 12/12/2020 00:00:00 12/19/2020 09:58:51 [id number] [facility] Primary Care Willian prettye [address] [facility] [address] [place] [address] 06/04/2021 00:00:00 06/04/2021 17:00:43 [id number] [facility] Primary Care Willian prettye [address] [facility] [address] [place] [address] 04/23/2022 00:00:00 04/28/2022 08:02:27 [id number] Taina Freeman MD [facility] Primary Care Willian prettye [address] [facility] [address] [place] [address] 08/05/2022 08:40:07 08/05/2022 09:27:02 Cobalamin deficiency [id number] E53.8 b12 was below 300, pt with numbness/t ingling, [id number] 1000 mcg IM x 1b12 1000 mcg po qdayf/u in 4 weeks, recheck labsconsid er further testing if no improvemen t vs neuro referral Iron defic iency anemia [id number] D50.9 labs in April normal, but pt notes she had iron infusion in Dec2rechec k labs in 4 weeks to monitor [id number] Taina Freeman MD [facility] Primary Care Willian weston [address] [facility] [address] [place] [place], [place] [address] 09/15/2022 11:56:31 09/15/2022 13:14:41 Cobalamin deficiency [id number] E53.8 b12 was below 300, pt with numbness/t ingling, [id number] 1000 mcg IM x 1b12 1000 mcg po qdayf/u in 4 weeks, recheck labsconsid er further testing if no improvemen t vs neuro referral update 09/15/22 B12 shot todayrepea t labsif normal, will refer to neurology for further evaluation of symptoms Iron defic iency anemia [id number] D50.9 labs in April normal, but pt [...] Mccormack Member ID Guarantor Name 08/05/2022 1 [facility] (MEDICAID HMO) [id number] Huyen Mares [id number] Huyen Mares 09/15/2022 1 [facility] (MEDICAID HMO) [id number] Huyen Hardingyer [id number] Huyen Mares Notes Date Note Type Note [...] Freeman MD [address], [address], [place], [phone], [employer] 08/05/2022 09:03:49 09/15/2022 text/html very fatigued, still [...] Freeman MD [address], [place], [phone], [employer] 09/15/2022 12:12:29 OBGyn Episode No OBEpisode recorded.
--- OUTSIDE RECORDS SUMMARY | 2024-05-16 15:30 | XMS_ITS | Referral Summary ---
Author Organization [address] Address [address] [place] [id number] Care Team Providers Care Child And Family Services Specialist Name Role Phone Taina Freeman MD Primary Care Provider + Encounters Date Type Department Care Team Description 04/28/2024 9:00 AM COMMERCIAL MANAGEMENT ACCOUNTANT Procedure visit [facility] [address] [place] [address] Floor [address] [place] [phone] Jayleen Amaral MD Encounter for IUD insertion (Primary Dx); Screen for STD (sexually transmitted disease); Abnormal uterine bleeding 03/30/2024 2:15 PM COMMERCIAL MANAGEMENT ACCOUNTANT Office Visit [facility]s [facility] Clinic [address] [place] [address] Floor [address] [place] [phone] Jayleen Amaral MD Bilateral ovarian cysts (Primary [...] # Disposition: Follow up task sent to [facility] scheduling pool. Desires discharge home today. Encounter [...] education: completed in all 3 trimesters [x] Lab Technician: Completed [x] Car seat discussed [x] PP [...] week 02/01/2022 How often do you attend [facility] or taoism services? More than 4 times per year 02/01/2022 Do you belong to any clubs o r organizations such as sabianism groups, unions, fraternal or athletic groups, or [...] care, and heating? Not very hard 02/01/2022 [facility] [place] of Occupat ional Health - Occupational Stress [...] place to sleep or slept in a long-term (including now)? No 02/01/2022 [place] Depression Scale Answer Date Recorded [place] Depression Scale Total 20 10/27/2021 The thought [...] Comments Blood Pressure 130/83 04/28/2024 9:10 AM COMMERCIAL MANAGEMENT ACCOUNTANT Pulse 99 04/28/2024 9:10 AM COMMERCIAL MANAGEMENT ACCOUNTANT Temperature 37.2 C (99 F) 01/24/2024 5:00 PM COMMERCIAL MANAGEMENT ACCOUNTANT Respiratory Rate 18 01/24/2024 9:37 PM COMMERCIAL MANAGEMENT ACCOUNTANT Oxygen Saturation 99% 04/28/2024 9:10 AM COMMERCIAL MANAGEMENT ACCOUNTANT Inhaled Oxygen Concentration - - Weight 44 kg (96 lb 14.4 oz) 04/28/2024 9:10 AM COMMERCIAL MANAGEMENT ACCOUNTANT Height 154.9 cm (5' 1 ) 03/30/2024 2:23 PM COMMERCIAL MANAGEMENT ACCOUNTANT Body Mass Index 18.31 03/30/2024 2:23 PM COMMERCIAL MANAGEMENT ACCOUNTANT Plan of Treatment Not on file Procedures Procedure Name Priority Date/Time Associated Diagnosis Comments TRICHOMONAS VAGINALIS PCR Routine 04/28/2024 9:50 AM COMMERCIAL MANAGEMENT ACCOUNTANT N. GONORRHOEAE/C. TRACHOMATIS AMPLIFICATION Routine 04/28/2024 9:50 AM COMMERCIAL MANAGEMENT ACCOUNTANT POCT HCG, URINE Routine 04/28/2024 9:16 AM COMMERCIAL MANAGEMENT ACCOUNTANT Encounter for IUD insertion PROLACTIN Routine 03/30/2024 3:02 PM COMMERCIAL MANAGEMENT ACCOUNTANT Abnormal uterine bleeding TOTAL TESTOSTERONE Routine 03/30/2024 3: 02 PM COMMERCIAL MANAGEMENT ACCOUNTANT Abnormal uterine bleeding ESTRADIOL Routine 03/30/2024 3:02 PM COMMERCIAL MANAGEMENT ACCOUNTANT Abnormal uterine bleeding FOLLICLE STIMULATING HORMONE Routine 03/30/2024 3:02 PM COMMERCIAL MANAGEMENT ACCOUNTANT Abnormal uterine bleeding CBC WITHOUT DIFFERENTIAL Routine 03/30/2024 3:02 PM COMMERCIAL MANAGEMENT ACCOUNTANT Abnormal uterine bleeding THYROID FUNCTION CASCADE Routine 03/30/2024 3:02 PM COMMERCIAL MANAGEMENT ACCOUNTANT Abnormal uterine bleeding PAP WITH REFLEX TO HIGH RISK HPV Routine 08/29/2021 10:23 AM CDT Encounter for supervision of other normal in second trimester HEPATITIS C ANTIBODY Routine 08/27/2021 2:39 PM CDT , unspecified gestational age from Last 3 Months or Most Recently Relevant to Health Maintenance Results * N. gonorrhoeae/C. trachomatis Amplification Endocervical (04/28/2024 9:50 AM COMMERCIAL MANAGEMENT ACCOUNTANT) C. trachomatis Not Detected DARLENE N. gonorrhoeae Not Detected [facility] Comment: Interpretive Data This assay detects Chlamydia trachomatis and Neisseria gonorrhoeae by nucleic acid amplification testing (NAAT). This assay has been cleared by the [place] Food and Drug administration. The performance characteristics of this test have been verified by the [facility] Molecular Infectious Disease laboratory. The performance characteristics of this test have not been evaluated in individuals less than 14 years of age. Current Interpretive Data was last revised on 2023. Endocervical 04/28/2024 9:50 AM COMMERCIAL MANAGEMENT ACCOUNTANT 04/28/2024 11:42 AM COMMERCIAL MANAGEMENT ACCOUNTANT us Jayleen Amaral MD LAB MICROBIOLOGY - GENE [facility] ORDERABLES Final Result [facility] Department [place] [address] [facility] * Trichomonas vaginalis PCR Endocervical (04/28/2024 9:50 AM COMMERCIAL MANAGEMENT ACCOUNTANT) [facility] Trichomonas DNA Not Detected [facility] Comment: Interpretive Data This assay detects Trichomonas vaginalis by nucleic acid amplification testing (NAAT). This assay has been cleared by the [place] Food and Drug administration. The performance characteristics of this test have been verified by the [facility] Molecular Infectious Disease laboratory. The performance of this test has not been evaluated in individuals less than 18 years of age. Current Interpretive Data was last revised on 2023. Endocervical 04/28/2024 9:50 AM COMMERCIAL MANAGEMENT ACCOUNTANT 04/28/2024 11:42 AM COMMERCIAL MANAGEMENT ACCOUNTANT Jayleen Amaral MD LAB MICROBIOLOGY - GENE [facility] ORDERABLES Final Result Performing Organization Address City/[facility] Co de Phone Number FR[facility] Department [place] [address] [facility] * POCT hCG, urine (04/28/2024 9:16 AM COMMERCIAL MANAGEMENT ACCOUNTANT) [facility] HCG, ur, POC Negative Negative Lot Number [id number] QC Backgroud Clear Acceptable QC Control Line Acceptable Urine 04/28/2024 9:16 AM COMMERCIAL MANAGEMENT ACCOUNTANT Result [facility] Jayleen Amaral MD POINT OF CARE TEST ORDE RABLES Final Result * Thyroid Function [place] (03/30/2024 3:02 PM COMMERCIAL MANAGEMENT ACCOUNTANT) [facility] TSH 1.18 0.30 - 4.20 mcIUnit/mL Blood 03/30/2024 3:02 PM COMMERCIAL MANAGEMENT ACCOUNTANT 03/30/2024 3:26 PM COMMERCIAL MANAGEMENT ACCOUNTANT Jayleen Amaral MD LAB BLOOD ORDERABLES Fi nal Result Performing Organization Address [facility] Co de Phone [place] [address] * (ABNORMAL) Prolactin (03/30/2024 3:02 PM COMMERCIAL MANAGEMENT ACCOUNTANT) [facility] Prolactin 4.1(L) 4.8 - 23.3 ng/mL Blood 03/30/2024 3:02 PM COMMERCIAL MANAGEMENT ACCOUNTANT 03/30/2024 3:33 PM COMMERCIAL MANAGEMENT ACCOUNTANT Jayleen Amaral MD LAB BLOOD ORDERABLES Fi nal Result Performing Organization Address [facility]/[place] [address] * Estradiol (03/30/2024 3:02 PM COMMERCIAL MANAGEMENT ACCOUNTANT) [facility] Estradiol 69.6 pg/mL Comment: Interpretive Data Males: 11 43 pg/mL Females: Premenopausal: 31 533 pg/mL Postmenopausal: < 50 pg/mL Patients treated with Fluvestrant (Faslodex) should be tested using an alternate assay such as LC-MS due to potential for cross-reactivity. Estradiol varies widely throughout the menstrual cycle. Current interpretive data was last revised 2023. Blood 03/30/2024 3:02 PM COMMERCIAL MANAGEMENT ACCOUNTANT 03/30/2024 3:26 PM COMMERCIAL MANAGEMENT ACCOUNTANT Jayleen Amaral MD LAB BLOOD ORDERABLES Fi nal Result Performing Organization Address [facility]/[place] [address] * (ABNORMAL) CBC without differential (03/30/2024 3:02 PM COMMERCIAL MANAGEMENT ACCOUNTANT) [facility] WBC [...] [facility] Blood 03/30/2024 3:02 PM COMMERCIAL MANAGEMENT ACCOUNTANT 03/30/2024 3:26 PM COMMERCIAL MANAGEMENT ACCOUNTANT Jayleen Amaral MD LAB BLOOD ORDERABLES Fi nal Result Performing Organization Address [facility] Co de Phone Number [facility] [place] [address] * Total testosterone (03/30/2024 3:02 PM COMMERCIAL MANAGEMENT ACCOUNTANT) Testosterone 20.0 8.4 - 48.1 ng/dL Blood 03/30/2024 3:02 PM COMMERCIAL MANAGEMENT ACCOUNTANT 03/30/2024 3:33 PM COMMERCIAL MANAGEMENT ACCOUNTANT Jayleen Amaral MD LAB BLOOD ORDERABLES Fi nal Result Performing Organization Address City/[facility] Co de Phone Number [facility] [place] [address] * Follicle stimulating hormone (03/30/2024 3:02 PM COMMERCIAL MANAGEMENT ACCOUNTANT) FSH 3.0 IUnits/L Comment: Interpretive Data Male: Adults: 1.5 - 12.4 IUnits/L Female: Follicular: 3.5 - 12.5 IUnits/L Ovulation: 4.7 - 21.5 IUnits/L Luteal: 1.7 - 7.7 IUnits/L Postmenopausal: 25.8 - 134.8 IUnits/L Current interpretive data was last revised 2015. Blood 03/30/2024 3:02 PM COMMERCIAL MANAGEMENT ACCOUNTANT 03/30/2024 3:26 PM COMMERCIAL MANAGEMENT ACCOUNTANT us Jayleen Amaral MD LAB BLOOD ORDERABLES Fi nal Result [facility] Department [place] [address] * Pap with reflex to High Risk HPV (08/29/2021 10:23 AM CDT) Thin prep (Pap test) 08/29/2021 10:23 AM CDT 08/29/2021 12:26 PM CDT Narrative PATHOLOGY [facility] - 09/11/2021 11:52 AM CDT EPIC results best viewed via link to PDF [facility] [place] [address] Note to Patients: This report may contain [...] Gender: F : 1990 (Age: 31) Address: [address] [place] [phone] Hospital #: [id number] 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 09/11/2021 11:52 CLEVE Bartholomew(ASCP) Report Electronically [...] determined by the Surgical Pathology Department at [facility] as part of an ongoing quality assurance group leader program and in compliance with federally mandated [...] determined by the Surgical Pathology Department of [facility]. It has not been cleared or approved by the [place]. S. Food and Drug Administration. Les Couch MD PhD LAB CYTOLOGY ORDERA BLES Final Result PATHOLOGY [facility] IO 3rd Floor [place], [place] [phone] * Hepatitis C antibody (08/27/2021 2:39 PM CDT) Hep C Ab Nonreactive Nonreactive [facility] Comment:Antibodies to HCV no t detected. Does NOT exclude the possibility of recent exposure to HCV. Blood 08/27/2021 2:39 PM CDT 08/27/2021 3:18 PM CDT us Les Couch MD PhD LAB MICROBI OLOGY - GENERAL ORDERABLES Edited Result - Final [facility] Department [place] [address] from Last 3 Months or Most Recently Relevant to Health Maintenance Insurance [facility] Advance Directives For more information, please contact: [phone] * Full Code (Latest Code Status on File) Date Activated Date Inactivated Comments 01/30/2022 9:49 AM 02/01/2022 6:51 PM * Full Code Date Activated Date Inactivated Comments 01/29/2022 10:53 PM 01/30/2022 9:49 AM Full CPR in case of cardiopulmonary arrest * Full Code Date Activated Date Inactivated Comments 01/21/2022 3:22 PM 01/22/2022 12:25 AM Full CPR in case of cardiopulmonary arrest Care Teams Child And Family Services Specialist Relationship Specialty Start Date End Date Taina Freeman MD [address] [address] PCP - General Family Medicine 08/27/21
[2024-05-16] MEDS: AMPICILLIN SULB 1.5 GM/NS 50ML 1.5 GM/50 ML VIAL IVPB (15:31)
[2024-05-16 15:47] LABS: Lactic Acid Reflex 1.4 mmol/L (0.7-2.0)
[2024-05-16 16:30] VITALS: BP 122/88; PULSE 98; RESP 18; TEMP 37.2; O2SAT 99
[2024-05-16 16:47] LABS: Add Urine Microscopic? YES; Appearance Urine Clear (Clear); Bacteria Urine None Seen /hpf; Bilirubin Urine Negative (Negative); Blood Urine 3+ (Negative); Color Urine Yellow (Yellow); Glucose Urine UA Negative (Negative); Ketones Urine 2+ mg/dL (Negative); Leukocyte Esterase Ur Negative LEU/UL (Negative); Nitrate Urine Negative (Negative); Non Pathogenic Casts 0-2; Protein Urine 2+ mg/dL (Negative); RBC Urine 51-100 /hpf (0-2); Specific Grav Ur > 1.045 (1.001-1.035); Squamous Epithelial Cell Urine None Seen /hpf (Few); WBC Urine 0-5 /hpf (0-3)
[2024-05-16] MEDS: GLYCOPYRROLATE INJ (*SP) 0.2 MG/ML VIAL IV PUSH (17:18)
[2024-05-16 18:16] LABS: Strep Group A RT-PCR DETECTED (Negative)
[2024-05-16 18:56] LABS: Monoscreen Negative (Negative); Negative Monotest Control Negative (Negative); Positive Monotest Control Positive (Positive)
[2024-05-16 19:14] VITALS: BP 126/75; PULSE 122; RESP 17; TEMP 39.6; O2SAT 99
[2024-05-16] MEDS: ACETAMINOPHEN 500 MG TABLET 1000 MG PO ×2 (19:32→20:30)
[2024-05-16] MEDS: ACETAMINOPHEN ELIXIR 325 MG/10.15 ML UDC 650 MG PO (19:50)
[2024-05-16 19:51] VITALS: RESP 18; O2SAT 98
--- NOTE | 2024-05-16 20:28 | PC.NURSE ---
Rn attempted to give pt PO tylenol pills then pt states she is unable to swallow well and would like to try liquid form first. Pt then tried liquid tylenol and ended up spitting it up after adminsitration. MD Mckeon notified. Per MD Mckeon pt states she wants to try PO tyelnol in pill form again.
[2024-05-16] MEDS: diazePAM INJ (*CRX) 10 MG/2 ML SYRINGE 2.5 MG IV PUSH (20:30)
[2024-05-16 20:32] VITALS: BP 127/66; PULSE 115; RESP 19; TEMP 37.9; O2SAT 97
== END 2024-05-16 20:42 | disposition home or self-care (01) ==
PROVIDERS: Physician Assistant; Emergency Provider Student in an Organized Health Care Education/Training Program
DX: J36 Peritonsillar abscess (principal); B95.8 Unspecified staphylococcus as the cause of diseases classified elsewhere; R59.1 Generalized enlarged lymph nodes; D72.829 Elevated white blood cell count, unspecified; R74.01 Elevation of levels of liver transaminase levels; R79.82 Elevated C-reactive protein (CRP); Z79.899 Other long term (current) drug therapy; F41.9 Anxiety disorder, unspecified
CPT/HCPCS: 36415; 70491; 80053; 81001; 83605; 83690; 85025; 85610; 85730; 86140; 86308; 87040; 87070; 87651; 96361; 96365; 96375; 96376; 99284; A9270; J0295; J1171; J1596; J1885; J2919; J3360; J7030; Q9967

== ENCOUNTER 2024-06-13 17:36 | Emergency (ER) | payer OTHER, SELFPAY ==
--- NOTE | ~2024-06-13 | CT_ITS ---
CT brain wo con Ordering provider: Margaret Frye MD History: 34 years Female with . headache . Comparison: None. Technique: CT of the head without contrast. Radiation reduction technique utilized.The dose-length pr oduct was 605.33 mGy-cm. FINDINGS: BRAIN PARENCHYMA AND CSF SPACES: No midline shift, mass effect or hemorrhage. The brain parenchyma a nd CSF spaces are otherwise normal. VISUALIZED PARANASAL SINUSES: Well aerated. MASTOIDS: Well aerated. BONES: The bones appear intact. SOFT TISSUES: Visualized nasopharynx is normal. Superficial soft tissues are normal. IMPRESSION: No acute intracranial findings. Reviewed, dictated and finalized at location A.
--- NOTE | ~2024-06-13 | XR_ITS ---
XR chest 1V portable Ordering provider: Margaret Frye MD History: 34 years Female with . sob . Comparison: May 13, 2024 FINDINGS: MEDIASTINUM: The cardiac silhouette is not enlarged. LUNGS: No infiltrates, effusions or pneumothorax. OTHER: No free air under the diaphragm. IMPRESSION: No acute cardiopulmonary pathology. Reviewed, dictated and finalized at location A.
--- OUTSIDE RECORDS SUMMARY | 2024-06-13 17:38 | XMS_ITS | Clinical Summary ---
Author Organization [facility] Address [facility] [place] [address] Care Team Providers Care Glass Calibrator Name Role Phone None, Provider Primary Care Provider Taina Wallace MD Unavailable [phone] Allergies Active Allergy Reactions Criticality Noted Date [...] 5 Years) and At-Risk Patients (6 to 49 Years) (1 of 2 - PCV) 1998 Hepatitis C 2010 HPV Vaccines (2 - 3-dose series) 07/22/2016 06/24/2016 Cervical Cancer Screening Pap with HPV Testing (Age 30 to 64) Every 5 Years 2022 COVID-19 Vaccine ( season) 2023 PHQ-2 (Physician [place]) 03/01/2024 Cervical Cancer Screening Pap Smear (Age [...] complete this topic Insurance [employer] Care Teams Glass Calibrator Relationship Specialty Start Date End Date None, Provider, PCP - General 08/26/20 Taina Freeman MD [address] [place] [address] FAMILY PRACTICE 05/12/23
--- OUTSIDE RECORDS SUMMARY | 2024-06-13 17:39 | XMS_ITS | Data Portability ---
Author Organization [facility], Main Office Address [address] [place] [address] Assessment No assessment recorded. Plan of Treatment Reminders Order Date Submit Date Provider Last Modified By Organization Details Last Modified Time Details Appointments None recorded. Lab iron + total iron-bindin g capacity (TIBC), serum 2022 023 [facility] (Lab), [address] [place], [address], 3 21:18:32 ferritin, serum or plasma 2022 023 [facility] (Lab), [address] [place], [address], 3 21:30:47 CBC w/ auto diff 2022 023 [facility] (Lab), [address] [place], [address], 3 19:51:06 vitamin B12, serum 2022 023 [facility] (Lab), [address] [place], [address], 3 22:11:07 folate, serum 2022 023 [facility] (Lab), [address] [place], [address], 3 22:11:13 Referral None recorded. Procedures None recorded. Surgeries None recorded. Imaging None recorded. Medication Orders cyanocobala min (vit B-12) 1,000 mcg/mL injection solution 2022 023 [email or web address] Not available 15:17:43 cyanocobala min (vit B-12) 1,000 mcg/mL injection solution 2022 023 [email or web address] Not available 5 15:17:43 cyanocobala min (vit B-12) 1,000 mcg tablet 2022 023 [email or web address] [id number], [address] [place], [address], 15:17:40 Patient TargetsNo targets recorded. Patient InstructionsNo instructions recorded. Reason for Referral None Reported. Results Created Date Observation Date Name Description Value Unit Range Abnormal Flag Note LastModifiedBy Organization Detail LastModifiedTime 12/13/1912/12/2020 VITAM IN B12 (LINDA SY ) vb12 312 pg/mL 239-93 1 Not Available [facility] (Lab) [address] [place], [address], 12/12/2020 22:45:39 12/13/1912/12/2020 PASQUALE TIN ferritin 6 NG/mL 6.24-1 37 low Not Available [facility] (Lab) [address] [place], [address], 12/12/2020 22:22:01 12/13/1912/12/2020 TSH thyroid-stim ulating hormone 0.998 uIU/m L 0.465- 4.680 Not Available [facility] (Lab) [address] [place], [address], 12/12/2020 22:19:06 12/13/1912/12/2020 VITAM IN D 25-HY DROXY vd25oh 47.1 NG/mL 30-100 Vitam in D Statu s: Defic ient: <20 ng/mL Insuf ficie nt: 20-29 ng/mL Suffi cient : 30-10 0 ng/mL Not Available [facility] (Lab) [address] [place], [address], 12/12/2020 22:11:16 12/13/1912/12/2020 T4 FREE free T4 1.05 NG/dL 0.78-2 .19 Not Available [facility] (Lab) [address] [place], [address], 12/12/2020 22:04:07 12/13/1912/12/2020 IRON/ TIBC PANEL total iron binding capacity 366 mcg/d L 265-47 5 Not Available [facility] (Lab) [address] [place], [address], 12/12/2020 21:54:28 12/13/1912/12/2020 IRON/ TIBC PANEL % transferrin saturation 32 % 20-55 Not Available [facility] (Lab) [address] [place], [address], 12/12/2020 21:54:28 12/13/1912/12/2020 IRON/ TIBC PANEL unsaturated iron bind capacity 248 mcg/d L 126-38 2 Not Available [facility] (Lab) [address] [place], [address], 12/12/2020 21:54:28 12/13/1912/12/2020 IRON/ TIBC PANEL iron 118 mcg/d L 42-175 Not Available [facility] (Lab) [address] [place], [address], 12/12/2020 21:54:28 12/13/1912/12/2020 MAGNE SIUM magnesium 2.1 mg/dL 1.6-2. 3 Not Available [facility] (Lab) [address] [place], [address], 12/12/2020 21:53:51 12/13/19 21 12/12/2020 COMPR EHENS NAHOMY METAB OLIC PANEL agap 10.0 mmol/ L 14-22 low Not Available [facility] (Lab) [address] [place], [address], 12/12/2020 21:53:48 12/13/19 21 12/12/2020 COMPR EHENS NAHOMY METAB OLIC PANEL sodium 138 mmol/ L 137-14 5 Not Available [facility] (Lab) [address] [place], [address], 12/12/2020 21:53:48 12/13/19 21 12/12/2020 COMPR EHENS NAHOMY METAB OLIC PANEL potassium 4.0 mmol/ L 3.5-5. 1 Not Available [facility] (Lab) [address] [place], [address], 12/12/2020 21:53:48 12/13/1912/12/2020 COMPR EHENS NAHOMY METAB OLIC PANEL chloride 106 mmol/ L 98-107 Not Available [facility] (Lab) [address] [place], [address], 12/12/2020 21:53:48 12/13/19 21 12/12/2020 COMPR EHENS NAHOMY METAB OLIC PANEL carbon dioxide 26 mmol/ L 22-30 Not Available [facility] (Lab) [address] [place], [address], 12/12/2020 21:53:48 12/13/19 21 12/12/2020 COMPR EHENS NAHOMY METAB OLIC PANEL glucose 95 mg/dL 70-99 Not Available [facility] (Lab) [address] [place], [address], 12/12/2020 21:53:48 12/13/19 21 12/12/2020 COMPR EHENS NAHOMY METAB OLIC PANEL BUN 10 mg/dL 8-19 Not Available [facility] (Lab) [address] [place], [address], 12/12/2020 21:53:48 12/13/1912/12/2020 COMPR EHENS NAHOMY METAB OLIC PANEL creatinine 0.60 mg/dL 0.66-1 .25 low Not Available [facility] (Lab) [address] [place], [address], 12/12/2020 21:53:48 12/13/1912/12/2020 COMPR EHENS NAHOMY METAB OLIC PANEL GFR >60 Refer ence Range : [place] GFR Healt hy Adult : >60 [...] locat ed on the [facility] websi te: https ://dee dee serrano/pr ginoess ional s/kdo qi/gf r_cal culat or Not Available [facility] (Lab) [address] [place], [address], 12/12/2020 21:53:48 12/13/1912/12/2020 COMPR EHENS NAHOMY METAB OLIC PANEL alkaline phosphatase 43 U/L 38-126 Not Available [facility] (Lab) [address] [place], [address], 12/12/2020 21:53:48 12/13/19 21 12/12/2020 COMPR EHENS NAHOMY METAB OLIC PANEL alanine aminotransfe rase 19 U/L 0-35 Not Available [facility] (Lab) [address] [place], [address], 12/12/2020 21:53:48 12/13/1912/12/2020 COMPR EHENS NAHOMY METAB OLIC PANEL aspartate aminotransfe rase 29 U/L 15-37 Not Available [facility] (Lab) [address] [place], [address], 12/12/2020 21:53:48 12/13/19 21 12/12/2020 COMPR EHENS NAHOMY METAB OLIC PANEL bilirubin, total 0.70 mg/dL 0.20-1 .30 Not Available [facility] (Lab) [address] [place], [address], 12/12/2020 21:53:48 12/13/1912/12/2020 COMPR EHENS NAHOMY METAB OLIC PANEL calcium 9.8 mg/dL 8.4-10 .2 Not Available [facility] (Lab) [address] [place], [address], 12/12/2020 21:53:48 12/13/19 21 12/12/2020 COMPR EHENS NAHOMY METAB OLIC PANEL total protein 7.3 g/dL 6.3-8. 2 Not Available [facility] (Lab) [address] [place], [address], 12/12/2020 21:53:48 12/13/19 21 12/12/2020 COMPR EHENS NAHOMY METAB OLIC PANEL albumin 4.5 g/dL 3.4-5. 0 Not Available [facility] (Lab) [address] [place], [address], 12/12/2020 21:53:48 12/13/19 21 12/12/2020 COMPR EHENS NAHOMY METAB OLIC PANEL globulin 2.8 g/dL 2.6-4. 2 Not Available [facility] (Lab) [address] [place], [address], 12/12/2020 21:53:48 12/13/1912/12/2020 COMPR EHENS NAHOMY METAB OLIC PANEL A/G ratio 1.6 ratio 1.0-2. 0 Not Available [facility] (Lab) [address] [place], [address], 12/12/2020 21:53:48 12/13/1912/12/2020 HEMOG LOBIN A1C HA1C 5.4 % 4.0-6. 0 Diabe angela Scree mallory Crite stephenie: <5.7% Consi stent with absen ce of diabe angela 5.7-6 .4% Consi stent with incre ased risk for diabe angela (pred iabet es) >OR=6 .5% Consi stent with diabe angela REFER ENCE: Diabe angela Care 2016, 39( ppl.1 ):s13 -s22 Not Available [facility] (Lab) [address] [place], [address], 12/12/2020 21:36:09 12/13/1912/12/2020 CBC/C OMPLE TE BLD COUNT W/DIF F hematocrit 39.9 % 35.7-4 5.7 Not Available [facility] (Lab) [address] [place], [address], 12/12/2020 20:06:02 12/13/19 21 12/12/2020 CBC/C OMPLE TE BLD COUNT W/DIF F white blood cells 8.3 x10'3 /uL 4.2-10 .8 Not Available [facility] (Lab) [address] [place], [address], 12/12/2020 20:06:02 12/13/19 21 12/12/2020 CBC/C OMPLE TE BLD COUNT W/DIF F red blood cells 4.55 x10'6 /uL 3.80-5 .20 Not Available [facility] (Lab) [address] [place], [address], 12/12/2020 20:06:02 12/13/1912/12/2020 CBC/C OMPLE TE BLD COUNT W/DIF F hemoglobin 13.0 g/dL 12.0-1 5.6 Not Available [facility] (Lab) [address] [place], [address], 12/12/2020 20:06:02 12/13/1912/12/2020 CBC/C OMPLE TE BLD COUNT W/DIF F mean red cell volume 87.7 fL 82.0-9 9.0 Not Available [facility] (Lab) [address] [place], [address], 12/12/2020 20:06:02 12/13/1912/12/2020 CBC/C OMPLE TE BLD COUNT W/DIF F mean red cell hemoglobin 28.6 pg 27.0-3 3.0 Not Available [facility] (Lab) [address] [place], [address], 12/12/2020 20:06:02 12/13/1912/12/2020 CBC/C OMPLE TE BLD COUNT W/DIF F mean RBC HGB concentratio n 32.6 g/dL 31.0-3 6.0 Not Available [facility] (Lab) [address] [place], [address], 12/12/2020 20:06:02 12/13/1912/12/2020 CBC/C OMPLE TE BLD COUNT W/DIF F red cell distribution width 14.4 % 11.8-1 5.5 Not Available [facility] (Lab) [address] [place], [address], 12/12/2020 20:06:02 12/13/19 21 12/12/2020 CBC/C OMPLE TE BLD COUNT W/DIF F platelets 369 x10'3 /uL 150-40 0 Not Available [facility] (Lab) [address] [place], [address], 12/12/2020 20:06:02 12/13/1912/12/2020 CBC/C OMPLE TE BLD COUNT W/DIF F mean platelet volume 10.4 fL 9.0-12 .4 Not Available [facility] (Lab) [address] [place], [address], 12/12/2020 20:06:02 12/13/1912/12/2020 CBC/C OMPLE TE BLD COUNT W/DIF F neutrophils 55.5 % 39.0-7 2.0 Not Available [facility] (Lab) [address] [place], [address], 12/12/2020 20:06:02 12/13/1912/12/2020 CBC/C OMPLE TE BLD COUNT W/DIF F lymphocytes 36.4 % 16.0-4 7.0 Not Available [facility] (Lab) [address] [place], [address], 12/12/2020 20:06:02 12/13/1912/12/2020 CBC/C OMPLE TE BLD COUNT W/DIF F monocytes 5.9 % 5.0-12 .0 Not Available [facility] (Lab) [address] [place], [address], 12/12/2020 20:06:02 12/13/1912/12/2020 CBC/C OMPLE TE BLD COUNT W/DIF F eosinophils 1.2 % 1.0-7. 0 Not Available [facility] (Lab) [address] [place], [address], 12/12/2020 20:06:02 12/13/19 21 12/12/2020 CBC/C OMPLE TE BLD COUNT W/DIF F basophils 0.5 % 0.0-2. 0 Not Available [facility] (Lab) [address] [place], [address], 12/12/2020 20:06:02 12/13/1912/12/2020 CBC/C OMPLE TE BLD COUNT W/DIF F immature granulocytes 0.5 % 0.00-0 .50 Not Available [facility] (Lab) [address] [place], [address], 12/12/2020 20:06:02 12/13/1912/12/2020 CBC/C OMPLE TE BLD COUNT W/DIF F neutrophils, absolute count 4.58 x10'3 /uL 1.5-8. 0 Not Available [facility] (Lab) [address] [place], [address], 12/12/2020 20:06:02 12/13/1912/12/2020 CBC/C OMPLE TE BLD COUNT W/DIF F lymphocytes, absolute count 3.00 x10'3 /uL 1.07-3 .43 Not Available [facility] (Lab) [address] [place], [address], 12/12/2020 20:06:02 12/13/1912/12/2020 CBC/C OMPLE TE BLD COUNT W/DIF F monocytes, absolute count 0.49 x10'3 /uL 0.29-0 .99 Not Available [facility] (Lab) [address] [place], [address], 12/12/2020 20:06:02 12/13/19 21 12/12/2020 CBC/C OMPLE TE BLD COUNT W/DIF F eosinophils, absolute count 0.10 x10'3 /uL 0.02-0 .53 Not Available [facility] (Lab) [address] [place], [address], 12/12/2020 20:06:02 12/13/19 21 12/12/2020 CBC/C OMPLE TE BLD COUNT W/DIF F basophils, absolute count 0.04 x10'3 /uL 0.01-0 .08 Not Available [facility] (Lab) [address] [place], [address], 12/12/2020 20:06:02 12/13/19 21 12/12/2020 CBC/C OMPLE TE BLD COUNT W/DIF F immature granulocytes ,absolute 0.04 x10'3 /uL 0.00-0 .05 Not Available [facility] (Lab) [address] [place], [address], 12/12/2020 20:06:02 12/13/19 21 12/12/2020 CBC/C OMPLE TE BLD COUNT W/DIF F nucleated red blood cells 0.0 % -0 Not Available [facility] (Lab) [address] [place], [address], 12/12/2020 20:06:02 12/13/19 21 12/12/2020 CBC/C OMPLE TE BLD COUNT W/DIF F NRBC# 0.00 x10'3 /uL Not Available [facility] (Lab) [address] [place], [address], 12/12/2020 20:06:02 06/05/19 22 06/06/2021 KAMAR/A NTINU CLEAR ANTIB ODIES ,IFA antinuclear antibodies, ifa negati ve Negat nahomy <1:80 Borde rline 1:80 Posit nahomy >1:80 ICAP nomen clatu re: AC-0 For more infor tomasio n about Hep-2 cell patte rns use ANApa ttern s.org , the offic ial websi te for the Inter natio nal Conse nsus on Antin uclea r Antib adilia (KAMAR) Patte rns ([facility] ). Perfo rmed at: - [facility] [address], [facility], [place] [id number] Lab Direc tor: Cornelius stewart PhD, Phone : [phone] Not Available [facility] [address] [place], [address], 06/06/2021 17:09:51 06/05/19 22 06/04/2021 VITAM IN B12 (LINDA SY ) vb12 272 pg/mL 239-93 1 Not Available [facility] (Lab) [address] [place], [address], 06/04/2021 22:32:44 06/05/19 22 06/04/2021 VITAM IN D 25-HY DROXY vd25oh 23.9 NG/mL 30-100 low Vitam in D Statu s: Defic ient: <20 ng/mL Insuf ficie nt: 20-29 ng/mL Suffi cient : 30-10 0 ng/mL Not Available [facility] (Lab) [address] [place], [address], 06/04/2021 22:00:05 06/05/19 22 06/04/2021 HEMOG LOBIN A1C HA1C 5.1 % 4.0-6. 0 Diabe angela Scree mallory Crite stephenie: <5.7% Consi stent with absen ce of diabe angela 5.7-6 .4% Consi stent with incre ased risk for diabe angela (pred iabet es) >OR=6 .5% Consi stent with diabe angela REFER ENCE: Diabe angela Care 2016, 39(Soto ppl.1 ):s13 -s22 Not Available [facility] (Lab) [address] [place], [address], 06/04/2021 20:27:57 06/05/19 22 06/04/2021 PASQUALE TIN ferritin 7 NG/mL 6.24-1 37 Not Available [facility] (Lab) [address] [place], [address], 06/04/2021 20:03:55 06/05/19 22 06/04/2021 TSH thyroid-stim ulating hormone 1.570 uIU/m L 0.465- 4.680 Not Available [facility] (Lab) [address] [place], [address], 06/04/2021 20:02:19 06/05/19 22 06/04/2021 SEDIM ENTAT ION RATE erythrocyte sedimentatio n rate 12 mm/HR 0-20 Not Available [facility] (Lab) [address] [place], [address], 06/04/2021 19:47:26 06/05/19 22 06/04/2021 T4 FREE free T4 1.18 NG/dL 0.78-2 .19 Not Available [facility] (Lab) [address] [place], [address], 06/04/2021 19:38:29 06/05/19 22 06/04/2021 IRON/ TIBC PANEL total iron binding capacity 356 mcg/d L 265-47 5 Not Available [facility] (Lab) [address] [place], [address], 06/04/2021 19:33:02 06/05/19 22 06/04/2021 IRON/ TIBC PANEL % transferrin saturation 9 % 20-55 low Not Available [facility] (Lab) [address] [place], [address], 06/04/2021 19:33:02 06/05/19 22 06/04/2021 IRON/ TIBC PANEL unsaturated iron bind capacity 325 mcg/d L 126-38 2 Not Available [facility] (Lab) [address] [place], [address], 06/04/2021 19:33:02 06/05/19 22 06/04/2021 IRON/ TIBC PANEL iron 31 mcg/d L 42-175 low Not Available [facility] (Lab) [address] [place], [address], 06/04/2021 19:33:02 06/05/19 22 06/04/2021 C REACT NAHOMY PROTE IN,UL TRA SENS C-reactive protein <0.030 mg/dL 0.0-0. 5 Not Available [facility] (Lab) [address] [place], [address], 06/04/2021 19:32:16 06/05/19 22 06/04/2021 RHEUM ATOID FACTO R rf <8.6 IU/mL 0.0-11 .9 Not Available [facility] (Lab) [address] [place], [address], 06/04/2021 19:32:15 06/05/19 22 06/04/2021 MAGNE SIUM magnesium 2.1 mg/dL 1.6-2. 3 Not Available [facility] (Lab) [address] [place], [address], 06/04/2021 19:30:47 06/05/19 22 06/04/2021 COMPR EHENS NAHOMY METAB OLIC PANEL carbon dioxide 23 mmol/ L 22-30 Not Available [facility] (Lab) [address] [place], [address], 06/04/2021 19:30:44 06/05/19 22 06/04/2021 COMPR EHENS NAHOMY METAB OLIC PANEL sodium 136 mmol/ L 137-14 5 low Not Available [facility] (Lab) [address] [place], [address], 06/04/2021 19:30:44 06/05/19 22 06/04/2021 COMPR EHENS NAHOMY METAB OLIC PANEL potassium 4.1 mmol/ L 3.5-5. 1 Not Available [facility] (Lab) [address] [place], [address], 06/04/2021 19:30:44 06/05/19 22 06/04/2021 COMPR EHENS NAHOMY METAB OLIC PANEL chloride 103 mmol/ L 98-107 Not Available [facility] (Lab) [address] [place], [address], 06/04/2021 19:30:44 06/05/19 22 06/04/2021 COMPR EHENS NAHOMY METAB OLIC PANEL agap 14.1 mmol/ L 14-22 Not Available [facility] (Lab) [address] [place], [address], 06/04/2021 19:30:44 06/05/19 22 06/04/2021 COMPR EHENS NAHOMY METAB OLIC PANEL glucose 98 mg/dL 70-99 Not Available [facility] (Lab) [address] [place], [address], 06/04/2021 19:30:44 06/05/19 22 06/04/2021 COMPR EHENS NAHOMY METAB OLIC PANEL BUN 10 mg/dL 8-19 Not Available [facility] (Lab) [address] [place], [address], 06/04/2021 19:30:44 06/05/19 22 06/04/2021 COMPR EHENS NAHOMY METAB OLIC PANEL creatinine 0.57 mg/dL 0.66-1 .25 low Not Available [facility] (Lab) [address] [place], [address], 06/04/2021 19:30:44 06/05/19 22 06/04/2021 COMPR EHENS NAHOMY METAB OLIC PANEL GFR >60 Refer ence Range : [place] ge GFR Healt hy Adult : >60 [...] avail able on the [facility] websi te: https ://dee dee w.jose davison.o zach/pr ofess ional s/kdo qi/gf r_cal culat or Not Available [facility] (Lab) [address] [place], [address], 06/04/2021 19:30:44 06/05/19 22 06/04/2021 COMPR EHENS NAHOMY METAB OLIC PANEL alkaline phosphatase 50 U/L 38-126 Not Available [facility] (Lab) [address] [place], [address], 06/04/2021 19:30:44 06/05/19 22 06/04/2021 COMPR EHENS NAHOMY METAB OLIC PANEL alanine aminotransfe rase 18 U/L 0-35 Not Available [facility] (Lab) [address] [place], [address], 06/04/2021 19:30:44 06/05/19 22 06/04/2021 COMPR EHENS NAHOMY METAB OLIC PANEL aspartate aminotransfe rase 24 U/L 15-37 Not Available [facility] (Lab) [address] [place], [address], 06/04/2021 19:30:44 06/05/19 22 06/04/2021 COMPR EHENS NAHOMY METAB OLIC PANEL bilirubin, total 0.40 mg/dL 0.20-1 .30 Not Available [facility] (Lab) [address] [place], [address], 06/04/2021 19:30:44 06/05/19 22 06/04/2021 COMPR EHENS NAHOMY METAB OLIC PANEL calcium 10.2 mg/dL 8.4-10 .2 Not Available [facility] (Lab) [address] [place], [address], 06/04/2021 19:30:44 06/05/19 22 06/04/2021 COMPR EHENS NAHOMY METAB OLIC PANEL total protein 7.6 g/dL 6.3-8. 2 Not Available [facility] (Lab) [address] [place], [address], 06/04/2021 19:30:44 06/05/19 22 06/04/2021 COMPR EHENS NAHOMY METAB OLIC PANEL albumin 4.9 g/dL 3.4-5. 0 Not Available [facility] (Lab) [address] [place], [address], 06/04/2021 19:30:44 06/05/19 22 06/04/2021 COMPR EHENS NAHOMY METAB OLIC PANEL globulin 2.7 g/dL 2.6-4. 2 Not Available [facility] (Lab) [address] [place], [address], 06/04/2021 19:30:44 06/05/19 22 06/04/2021 COMPR EHENS NAHOMY METAB OLIC PANEL A/G ratio 1.8 ratio 1.0-2. 0 Not Available [facility] (Lab) [address] [place], [address], 06/04/2021 19:30:44 06/05/19 22 06/04/2021 CBC/C OMPLE TE BLD COUNT W/DIF F hematocrit 35.6 % 35.7-4 5.7 low Not Available [facility] (Lab) [address] [place], [address], 06/04/2021 19:05:36 06/05/19 22 06/04/2021 CBC/C OMPLE TE BLD COUNT W/DIF F white blood cells 7.6 x10'3 /uL 4.2-10 .8 Not Available [facility] (Lab) [address] [place], [address], 06/04/2021 19:05:36 06/05/19 22 06/04/2021 CBC/C OMPLE TE BLD COUNT W/DIF F red blood cells 4.12 x10'6 /uL 3.80-5 .20 Not Available [facility] (Lab) [address] [place], [address], 06/04/2021 19:05:36 06/05/19 22 06/04/2021 CBC/C OMPLE TE BLD COUNT W/DIF F hemoglobin 11.7 g/dL 12.0-1 5.6 low Not Available [facility] (Lab) [address] [place], [address], 06/04/2021 19:05:36 06/05/19 22 06/04/2021 CBC/C OMPLE TE BLD COUNT W/DIF F mean red cell volume 86.4 fL 82.0-9 9.0 Not Available [facility] (Lab) [address] [place], [address], 06/04/2021 19:05:36 06/05/19 22 06/04/2021 CBC/C OMPLE TE BLD COUNT W/DIF F mean red cell hemoglobin 28.4 pg 27.0-3 3.0 Not Available [facility] (Lab) [address] [place], [address], 06/04/2021 19:05:36 06/05/19 22 06/04/2021 CBC/C OMPLE TE BLD COUNT W/DIF F mean RBC HGB concentratio n 32.9 g/dL 31.0-3 6.0 Not Available [facility] (Lab) [address] [place], [address], 06/04/2021 19:05:36 06/05/19 22 06/04/2021 CBC/C OMPLE TE BLD COUNT W/DIF F neutrophils 56.5 % 39.0-7 2.0 Not Available [facility] (Lab) [address] [place], [address], 06/04/2021 19:05:36 06/05/19 22 06/04/2021 CBC/C OMPLE TE BLD COUNT W/DIF F red cell distribution width 17.8 % 11.8-1 5.5 high Not Available [facility] (Lab) [address] [place], [address], 06/04/2021 19:05:36 06/05/19 22 06/04/2021 CBC/C OMPLE TE BLD COUNT W/DIF F platelets 365 x10'3 /uL 150-40 0 Not Available [facility] (Lab) [address] [place], [address], 06/04/2021 19:05:36 06/05/19 22 06/04/2021 CBC/C OMPLE TE BLD COUNT W/DIF F mean platelet volume 10.4 fL 9.0-12 .4 Not Available [facility] (Lab) [address] [place], [address], 06/04/2021 19:05:36 06/05/19 22 06/04/2021 CBC/C OMPLE TE BLD COUNT W/DIF F lymphocytes 33.0 % 16.0-4 7.0 Not Available [facility] (Lab) [address] [place], [address], 06/04/2021 19:05:36 06/05/19 22 06/04/2021 CBC/C OMPLE TE BLD COUNT W/DIF F monocytes 8.4 % 5.0-12 .0 Not Available [facility] (Lab) [address] [place], [address], 06/04/2021 19:05:36 06/05/19 22 06/04/2021 CBC/C OMPLE TE BLD COUNT W/DIF F eosinophils 1.7 % 1.0-7. 0 Not Available [facility] (Lab) [address] [place], [address], 06/04/2021 19:05:36 06/05/19 22 06/04/2021 CBC/C OMPLE TE BLD COUNT W/DIF F basophils 0.3 % 0.0-2. 0 Not Available [facility] (Lab) [address] [place], [address], 06/04/2021 19:05:36 06/05/19 22 06/04/2021 CBC/C OMPLE TE BLD COUNT W/DIF F immature granulocytes 0.1 % 0.00-0 .50 Not Available [facility] (Lab) [address] [place], [address], 06/04/2021 19:05:36 06/05/19 22 06/04/2021 CBC/C OMPLE TE BLD COUNT W/DIF F neutrophils, absolute count 4.31 x10'3 /uL 1.5-8. 0 Not Available [facility] (Lab) [address] [place], [address], 06/04/2021 19:05:36 06/05/19 22 06/04/2021 CBC/C OMPLE TE BLD COUNT W/DIF F lymphocytes, absolute count 2.52 x10'3 /uL 1.07-3 .43 Not Available [facility] (Lab) [address] [place], [address], 06/04/2021 19:05:36 06/05/19 22 06/04/2021 CBC/C OMPLE TE BLD COUNT W/DIF F monocytes, absolute count 0.64 x10'3 /uL 0.29-0 .99 Not Available [facility] (Lab) [address] [place], [address], 06/04/2021 19:05:36 06/05/19 22 06/04/2021 CBC/C OMPLE TE BLD COUNT W/DIF F nucleated red blood cells 0.0 % -0 Not Available [facility] (Lab) [address] [place], [address], 06/04/2021 19:05:36 06/05/19 22 06/04/2021 CBC/C OMPLE TE BLD COUNT W/DIF F eosinophils, absolute count 0.13 x10'3 /uL 0.02-0 .53 Not Available [facility] (Lab) [address] [place], [address], 06/04/2021 19:05:36 06/05/19 22 06/04/2021 CBC/C OMPLE TE BLD COUNT W/DIF F basophils, absolute count 0.02 x10'3 /uL 0.01-0 .08 Not Available [facility] (Lab) [address] [place], [address], 06/04/2021 19:05:36 06/05/19 22 06/04/2021 CBC/C OMPLE TE BLD COUNT W/DIF F immature granulocytes ,absolute 0.01 x10'3 /uL 0.00-0 .05 Not Available [facility] (Lab) [address] [place], [address], 06/04/2021 19:05:36 06/05/19 22 06/04/2021 CBC/C OMPLE TE BLD COUNT W/DIF F NRBC# 0.00 x10'3 /uL Not Available [facility] (Lab) [address] [place], [address], 06/04/2021 19:05:36 04/24/19 23 04/24/2022 VITAM IN B12 (LINDA SY ) vb12 265 pg/mL 239-93 1 Not Available [facility] (Lab) [address] [place], [address], 04/24/2022 23:07:27 04/24/19 23 04/24/2022 VITAM IN D 25-HY DROXY vd25oh 16.0 NG/mL 30-100 low Vitam in D Statu s: Defic ient: <20 ng/mL Insuf ficie nt: 20-29 ng/mL Suffi cient : 30-10 0 ng/mL Not Available [facility] (Lab) [address] [place], [address], 04/24/2022 22:19:47 04/24/19 23 04/24/2022 PASQUALE TIN ferritin 15 NG/mL 6.24-1 37 Not Available [facility] (Lab) [address] [place], [address], 04/24/2022 21:49:59 04/24/19 23 04/24/2022 TSH thyroid-stim ulating hormone 3.070 uIU/m L 0.465- 4.680 Not Available [facility] (Lab) [address] [place], [address], 04/24/2022 21:49:24 04/24/19 23 04/24/2022 T4 FREE free T4 1.01 NG/dL 0.78-2 .19 Not Available [facility] (Lab) [address] [place], [address], 04/24/2022 21:47:07 04/24/1904/24/2022 IRON/ TIBC PANEL total iron binding capacity 306 mcg/d L 265-47 5 Not Available [facility] (Lab) [address] [place], [address], 04/24/2022 21:45:37 04/24/19 23 04/24/2022 IRON/ TIBC PANEL % transferrin saturation 36 % 20-55 Not Available [facility] (Lab) [address] [place], [address], 04/24/2022 21:45:37 04/24/19 23 04/24/2022 IRON/ TIBC PANEL unsaturated iron bind capacity 196 mcg/d L 126-38 2 Not Available [facility] (Lab) [address] [place], [address], 04/24/2022 21:45:37 04/24/19 23 04/24/2022 IRON/ TIBC PANEL iron 110 mcg/d L 42-175 Not Available [facility] (Lab) [address] [place], [address], 04/24/2022 21:45:37 04/24/1904/24/2022 MAGNE SIUM magnesium 2.0 mg/dL 1.6-2. 3 Not Available [facility] (Lab) [address] [place], [address], 04/24/2022 21:44:23 04/24/19 23 04/24/2022 COMPR EHENS NAHOMY METAB OLIC PANEL glucose 87 mg/dL 70-99 Not Available [facility] (Lab) [address] [place], [address], 04/24/2022 21:44:19 04/24/19 23 04/24/2022 COMPR EHENS NAHOMY METAB OLIC PANEL sodium 138 mmol/ L 137-14 5 Not Available [facility] (Lab) [address] [place], [address], 04/24/2022 21:44:19 04/24/19 23 04/24/2022 COMPR EHENS NAHOMY METAB OLIC PANEL potassium 4.5 mmol/ L 3.5-5. 1 Not Available [facility] (Lab) [address] [place], [address], 04/24/2022 21:44:19 04/24/19 23 04/24/2022 COMPR EHENS NAHOMY METAB OLIC PANEL chloride 108 mmol/ L 98-107 high Not Available [facility] (Lab) [address] [place], [address], 04/24/2022 21:44:19 04/24/19 23 04/24/2022 COMPR EHENS NAHOMY METAB OLIC PANEL carbon dioxide 21 mmol/ L 22-30 low Not Available [facility] (Lab) [address] [place], [address], 04/24/2022 21:44:19 04/24/19 23 04/24/2022 COMPR EHENS NAHOMY METAB OLIC PANEL anion gap 13.5 mmol/ L 14-22 low Not Available [facility] (Lab) [address] [place], [address], 04/24/2022 21:44:19 04/24/19 23 04/24/2022 COMPR EHENS NAHOMY METAB OLIC PANEL BUN 10 mg/dL 8-19 Not Available [facility] (Lab) [address] [place], [address], 04/24/2022 21:44:19 04/24/19 23 04/24/2022 COMPR EHENS NAHOMY METAB OLIC PANEL creatinine 0.57 mg/dL 0.66-1 .25 low Not Available [facility] (Lab) [address] [place], [address], 04/24/2022 21:44:19 04/24/19 23 04/24/2022 COMPR EHENS NAHOMY METAB OLIC PANEL GFR >60 Refer ence Range : [place] ge GFR Healt hy Adult : >60 [...] or ethni c subgr oups, such as Hisgloria nics. Outsi de the valid ated elizabeth [...] avail able on the [facility] websi te: https ://dee dee mane.jose davison.o zach/pr ofess ional s/kdo qi/gf r_cal culat or Not Available [facility] (Lab) [address] [place], [address], 04/24/2022 21:44:19 04/24/19 23 04/24/2022 COMPR EHENS NAHOMY METAB OLIC PANEL alkaline phosphatase 51 U/L 38-126 Not Available [facility] (Lab) [address] [place], [address], 04/24/2022 21:44:19 04/24/19 23 04/24/2022 COMPR EHENS NAHOMY METAB OLIC PANEL alanine aminotransfe rase 21 U/L 0-35 Not Available [facility] (Lab) [address] [place], [address], 04/24/2022 21:44:19 04/24/19 23 04/24/2022 COMPR EHENS NAHOMY METAB OLIC PANEL aspartate aminotransfe rase 25 U/L 15-37 Not Available [facility] (Lab) [address] [place], [address], 04/24/2022 21:44:19 04/24/19 23 04/24/2022 COMPR EHENS NAHOMY METAB OLIC PANEL bilirubin, total 0.40 mg/dL 0.20-1 .30 Not Available [facility] (Lab) [address] [place], [address], 04/24/2022 21:44:19 04/24/19 23 04/24/2022 COMPR EHENS NAHOMY METAB OLIC PANEL calcium 9.9 mg/dL 8.4-10 .2 Not Available [facility] (Lab) [address] [place], [address], 04/24/2022 21:44:19 04/24/19 23 04/24/2022 COMPR EHENS NAHOMY METAB OLIC PANEL total protein 7.2 g/dL 6.3-8. 2 Not Available [facility] (Lab) [address] [place], [address], 04/24/2022 21:44:19 04/24/19 23 04/24/2022 COMPR EHENS NAHOMY METAB OLIC PANEL albumin 4.5 g/dL 3.4-5. 0 Not Available [facility] (Lab) [address] [place], [address], 04/24/2022 21:44:19 04/24/19 23 04/24/2022 COMPR EHENS NAHOMY METAB OLIC PANEL globulin 2.7 g/dL 2.6-4. 2 Not Available [facility] (Lab) [address] [place], [address], 04/24/2022 21:44:19 04/24/19 23 04/24/2022 COMPR EHENS NAHOMY METAB OLIC PANEL A/G ratio 1.7 ratio 1.0-2. 0 Not Available [facility] (Lab) [address] [place], [address], 04/24/2022 21:44:19 04/24/19 23 04/24/2022 HEMOG LOBIN A1C HA1C 5.4 % 4.0-6. 0 Diabe angela Scree mallory Crite stephenie: <5.7% Consi stent with absen ce of diabe angela 5.7-6 .4% Consi stent with incre ased risk for diabe angela (pred iabet es) >OR=6 .5% Consi stent with diabe angela REFER ENCE: Diabe angela Care 2016, 39(Soto ppl.1 ):s13 -s22 Not Available [facility] (Lab) [address] [place], [address], 04/24/2022 21:39:34 04/24/1904/24/2022 CBC/C OMPLE TE BLD COUNT W/DIF F mean red cell volume 94.6 fL 82.0-9 9.0 Not Available [facility] (Lab) [address] [place], [address], 04/24/2022 20:12:45 04/24/19 23 04/24/2022 CBC/C OMPLE TE BLD COUNT W/DIF F white blood cells 12.0 x10'3 /uL 4.2-10 .8 high Not Available [facility] (Lab) [address] [place], [address], 04/24/2022 20:12:45 04/24/19 23 04/24/2022 CBC/C OMPLE TE BLD COUNT W/DIF F red blood cells 4.25 x10'6 /uL 3.80-5 .20 Not Available [facility] (Lab) [address] [place], [address], 04/24/2022 20:12:45 04/24/19 23 04/24/2022 CBC/C OMPLE TE BLD COUNT W/DIF F hemoglobin 13.3 g/dL 12.0-1 5.6 Not Available [facility] (Lab) [address] [place], [address], 04/24/2022 20:12:45 04/24/19 23 04/24/2022 CBC/C OMPLE TE BLD COUNT W/DIF F hematocrit 40.2 % 35.7-4 5.7 Not Available [facility] (Lab) [address] [place], [address], 04/24/2022 20:12:45 04/24/19 23 04/24/2022 CBC/C OMPLE TE BLD COUNT W/DIF F mean red cell hemoglobin 31.3 pg 27.0-3 3.0 Not Available [facility] (Lab) [address] [place], [address], 04/24/2022 20:12:45 04/24/19 23 04/24/2022 CBC/C OMPLE TE BLD COUNT W/DIF F mean RBC HGB concentratio n 33.1 g/dL 31.0-3 6.0 Not Available [facility] (Lab) [address] [place], [address], 04/24/2022 20:12:45 04/24/19 23 04/24/2022 CBC/C OMPLE TE BLD COUNT W/DIF F red cell distribution width 13.1 % 11.8-1 5.5 Not Available [facility] (Lab) [address] [place], [address], 04/24/2022 20:12:45 04/24/19 23 04/24/2022 CBC/C OMPLE TE BLD COUNT W/DIF F platelets 375 x10'3 /uL 150-40 0 Not Available [facility] (Lab) [address] [place], [address], 04/24/2022 20:12:45 04/24/19 23 04/24/2022 CBC/C OMPLE TE BLD COUNT W/DIF F mean platelet volume 11.3 fL 9.0-12 .4 Not Available [facility] (Lab) [address] [place], [address], 04/24/2022 20:12:45 04/24/19 23 04/24/2022 CBC/C OMPLE TE BLD COUNT W/DIF F neutrophils 63.3 % 39.0-7 2.0 Not Available [facility] (Lab) [address] [place], [address], 04/24/2022 20:12:45 04/24/19 23 04/24/2022 CBC/C OMPLE TE BLD COUNT W/DIF F lymphocytes 26.5 % 16.0-4 7.0 Not Available [facility] (Lab) [address] [place], [address], 04/24/2022 20:12:45 04/24/1904/24/2022 CBC/C OMPLE TE BLD COUNT W/DIF F monocytes 7.0 % 5.0-12 .0 Not Available [facility] (Lab) [address] [place], [address], 04/24/2022 20:12:45 04/24/1904/24/2022 CBC/C OMPLE TE BLD COUNT W/DIF F eosinophils 2.4 % 1.0-7. 0 Not Available [facility] (Lab) [address] [place], [address], 04/24/2022 20:12:45 04/24/19 23 04/24/2022 CBC/C OMPLE TE BLD COUNT W/DIF F basophils 0.3 % 0.0-2. 0 Not Available [facility] (Lab) [address] [place], [address], 04/24/2022 20:12:45 04/24/19 23 04/24/2022 CBC/C OMPLE TE BLD COUNT W/DIF F immature granulocytes 0.5 % 0.00-0 .50 Not Available [facility] (Lab) [address] [place], [address], 04/24/2022 20:12:45 04/24/19 23 04/24/2022 CBC/C OMPLE TE BLD COUNT W/DIF F neutrophils, absolute count 7.58 x10'3 /uL 1.5-8. 0 Not Available [facility] (Lab) [address] [place], [address], 04/24/2022 20:12:45 04/24/19 23 04/24/2022 CBC/C OMPLE TE BLD COUNT W/DIF F lymphocytes, absolute count 3.17 x10'3 /uL 1.07-3 .43 Not Available [facility] (Lab) [address] [place], [address], 04/24/2022 20:12:45 04/24/1904/24/2022 CBC/C OMPLE TE BLD COUNT W/DIF F monocytes, absolute count 0.84 x10'3 /uL 0.29-0 .99 Not Available [facility] (Lab) [address] [place], [address], 04/24/2022 20:12:45 04/24/1904/24/2022 CBC/C OMPLE TE BLD COUNT W/DIF F eosinophils, absolute count 0.29 x10'3 /uL 0.02-0 .53 Not Available [facility] (Lab) [address] [place], [address], 04/24/2022 20:12:45 04/24/19 23 04/24/2022 CBC/C OMPLE TE BLD COUNT W/DIF F basophils, absolute count 0.04 x10'3 /uL 0.01-0 .08 Not Available [facility] (Lab) [address] [place], [address], 04/24/2022 20:12:45 04/24/19 23 04/24/2022 CBC/C OMPLE TE BLD COUNT W/DIF F immature granulocytes ,absolute 0.06 x10'3 /uL 0.00-0 .05 high Not Available [facility] (Lab) [address] [place], [address], 04/24/2022 20:12:45 04/24/19 23 04/24/2022 CBC/C OMPLE TE BLD COUNT W/DIF F nucleated red blood cells 0.0 % -0 Not Available [facility] (Lab) [address] [place], [address], 04/24/2022 20:12:45 04/24/19 23 04/24/2022 CBC/C OMPLE TE BLD COUNT W/DIF F NRBC# 0.00 x10'3 /uL Not Available [facility] (Lab) [address] [place], [address], 04/24/2022 20:12:45 09/16/19 23 09/15/2022 CBC/C OMPLE TE BLD COUNT W/DIF F white blood cells 9.2 x10'3 /uL 4.2-10 .8 Not Available [facility] (Lab) [address] [place], [address], 09/15/2022 19:51:06 09/16/1909/15/2022 CBC/C OMPLE TE BLD COUNT W/DIF F red blood cells 4.35 x10'6 /uL 3.80-5 .20 Not Available [facility] (Lab) [address] [place], [address], 09/15/2022 19:51:06 09/16/19 23 09/15/2022 CBC/C OMPLE TE BLD COUNT W/DIF F hemoglobin 13.4 g/dL 12.0-1 5.6 Not Available [facility] (Lab) [address] [place], [address], 09/15/2022 19:51:06 09/16/19 23 09/15/2022 CBC/C OMPLE TE BLD COUNT W/DIF F hematocrit 40.6 % 35.7-4 5.7 Not Available [facility] (Lab) [address] [place], [address], 09/15/2022 19:51:06 09/16/19 23 09/15/2022 CBC/C OMPLE TE BLD COUNT W/DIF F mean red cell volume 93.3 fL 82.0-9 9.0 Not Available [facility] (Lab) [address] [place], [address], 09/15/2022 19:51:06 09/16/19 23 09/15/2022 CBC/C OMPLE TE BLD COUNT W/DIF F mean red cell hemoglobin 30.8 pg 27.0-3 3.0 Not Available [facility] (Lab) [address] [place], [address], 09/15/2022 19:51:06 09/16/19 23 09/15/2022 CBC/C OMPLE TE BLD COUNT W/DIF F mean RBC HGB concentratio n 33.0 g/dL 31.0-3 6.0 Not Available [facility] (Lab) [address] [place], [address], 09/15/2022 19:51:06 09/16/19 23 09/15/2022 CBC/C OMPLE TE BLD COUNT W/DIF F red cell distribution width 14.1 % 11.8-1 5.5 Not Available [facility] (Lab) [address] [place], [address], 09/15/2022 19:51:06 09/16/1909/15/2022 CBC/C OMPLE TE BLD COUNT W/DIF F platelets 401 x10'3 /uL 150-40 0 high Not Available [facility] (Lab) [address] [place], [address], 09/15/2022 19:51:06 09/16/19 23 09/15/2022 CBC/C OMPLE TE BLD COUNT W/DIF F mean platelet volume 10.5 fL 9.0-12 .4 Not Available [facility] (Lab) [address] [place], [address], 09/15/2022 19:51:06 09/16/19 23 09/15/2022 CBC/C OMPLE TE BLD COUNT W/DIF F neutrophils 62.5 % 39.0-7 2.0 Not Available [facility] (Lab) [address] [place], [address], 09/15/2022 19:51:06 09/16/1909/15/2022 CBC/C OMPLE TE BLD COUNT W/DIF F lymphocytes 28.1 % 16.0-4 7.0 Not Available [facility] (Lab) [address] [place], [address], 09/15/2022 19:51:06 09/16/1909/15/2022 CBC/C OMPLE TE BLD COUNT W/DIF F monocytes 6.6 % 5.0-12 .0 Not Available [facility] (Lab) [address] [facility] [place], [address], 09/15/2022 19:51:06 09/16/19 23 09/15/2022 CBC/C OMPLE TE BLD COUNT W/DIF F eosinophils 2.0 % 1.0-7. 0 Not Available [facility] (Lab) [address] [place], [address], 09/15/2022 19:51:06 09/16/1909/15/2022 CBC/C OMPLE TE BLD COUNT W/DIF F basophils 0.5 % 0.0-2. 0 Not Available [facility] (Lab) [address] [place], [address], 09/15/2022 19:51:06 09/16/19 23 09/15/2022 CBC/C OMPLE TE BLD COUNT W/DIF F immature granulocytes 0.3 % 0.00-0 .50 Not Available [facility] (Lab) [address] [place], [address], 09/15/2022 19:51:06 09/16/19 23 09/15/2022 CBC/C OMPLE TE BLD COUNT W/DIF F neutrophils, absolute count 5.73 x10'3 /uL 1.5-8. 0 Not Available [facility] (Lab) [address] [place], [address], 09/15/2022 19:51:06 09/16/19 23 09/15/2022 CBC/C OMPLE TE BLD COUNT W/DIF F lymphocytes, absolute count 2.58 x10'3 /uL 1.07-3 .43 Not Available [facility] (Lab) [address] [place], [address], 09/15/2022 19:51:06 09/16/19 23 09/15/2022 CBC/C OMPLE TE BLD COUNT W/DIF F monocytes, absolute count 0.61 x10'3 /uL 0.29-0 .99 Not Available [facility] (Lab) [address] [place], [address], 09/15/2022 19:51:06 09/16/19 23 09/15/2022 CBC/C OMPLE TE BLD COUNT W/DIF F eosinophils, absolute count 0.18 x10'3 /uL 0.02-0 .53 Not Available [facility] (Lab) [address] [place], [address], 09/15/2022 19:51:06 09/16/19 23 09/15/2022 CBC/C OMPLE TE BLD COUNT W/DIF F basophils, absolute count 0.05 x10'3 /uL 0.01-0 .08 Not Available [facility] (Lab) [address] [place], [address], 09/15/2022 19:51:06 09/16/19 23 09/15/2022 CBC/C OMPLE TE BLD COUNT W/DIF F immature granulocytes ,absolute 0.03 x10'3 /uL 0.00-0 .05 Not Available [facility] (Lab) [address] [place], [address], 09/15/2022 19:51:06 09/16/19 23 09/15/2022 CBC/C OMPLE TE BLD COUNT W/DIF F nucleated red blood cells 0.0 % -0 Not Available [facility] (Lab) [address] [place], [address], 09/15/2022 19:51:06 09/16/19 23 09/15/2022 CBC/C OMPLE TE BLD COUNT W/DIF F NRBC# 0.00 x10'3 /uL Not Available [facility] (Lab) [address] [place], [address], 09/15/2022 19:51:06 09/16/1909/15/2022 IRON/ TIBC PANEL total iron binding capacity 331 mcg/d L 265-47 5 Not Available [facility] (Lab) [address] [place], [address], 09/15/2022 21:20:57 07/18/20 23 09/15/2022 IRON/ TIBC PANEL % transferrin saturation 45 % 20-55 Not Available [facility] (Lab) [address] [place], [address], 09/15/2022 21:20:57 09/16/19 23 09/15/2022 IRON/ TIBC PANEL unsaturated iron bind capacity 181 mcg/d L 126-38 2 Not Available [facility] (Lab) [address] [place], [address], 09/15/2022 21:20:57 09/16/19 23 09/15/2022 IRON/ TIBC PANEL iron 150 mcg/d L 42-175 Not Available [facility] (Lab) [address] [place], [address], 09/15/2022 21:20:57 09/16/19 23 09/15/2022 PASQUALE TIN ferritin 12 NG/mL 6.24-1 37 Not Available [facility] (Lab) [address] [place], [address], 09/15/2022 21:30:47 09/16/19 23 09/15/2022 VITAM IN B12 (LINDA SY ) vb12 271 pg/mL 239-93 1 Not Available [facility] (Lab) [address] [place], [address], 09/15/2022 22:11:07 09/16/19 23 09/15/2022 FOLAT E, SERUM /PLAS MA folate 3.59 NG/mL 2.76-2 0.0 Not Available [facility] (Lab) [address] [place], [address], 09/15/2022 22:11:13 Result Notes None recorded. Problems Name Problem SNOMED Code Status Onset Date Resolution Date Notes Provider Name and Address Organization Details Recorded Time Cobalamin deficiency 182536500 Active 2021 Not Available [facility] Vitamin D deficiency 26504691 Active 2021 Not Available [facility] 3 23:30:02 Depressive disorder 45002512 Active 2020 Not Available [facility] 3 23:30:02 Adult attention deficit hyperactivity disorder 312834420 Active 2020 Not Available [facility] 3 23:30:02 Anxiety 06581727 Active 2020 Not Available [facility] 3 23:30:02 Iron deficiency anemia 83906904 Active 2021 Not Available [facility] 3 23:30:02 Paresthesia 25236244 Active 2022 Taina Freeman MD [address] [facility], [facility] [address], [place], [address] , [facility] [employer] 3 13:47:15 Problem Notes None recorded. Medical [...] B-12) 1,000 mcg tablet 1 po qday 06/13 completed Not Available Not Available Not Available acetaminoph en 500 mg tablet 04/23 completed [...] TAKE 1 TABLET BY MOUTH EVERY DAY 06/13 completed Not Available Not Available Not Available cyanocobala min (vit B-12) 1,000 mcg/mL injection solution Inject 1 mL every month by subcutane ous route. 06/13 completed Not Available Not Available Not Available ferrous sulfate 325 mg (65 mg iron) [...] 1 CAPSULE EVERY WEEK BY ORAL ROUTE. 06/13 completed Not Available Not Available Not Available lorazepam 1 mg tablet TAKE 1 TABLET BY MOUTH THREE TIMES A DAY 06/13 completed Not Available Not Available Not Available ibuprofen 600 mg tablet 04/23 completed Not Available Not Available Not Available albuterol sulfate HFA 90 mcg/actuati on aerosol inhaler 2 PUFF INHALED FOUR TIMES DAILY NEEDED FOR SHORTNESS OF BREATH OR WHEEZING 04/23 completed Not Available Not Available Not Available norethindro ne (contracept nahomy) 0.35 mg tablet TAKE 1 TABLET BY MOUTH AT THE SAME TIME EACH DAY 06/13 completed Not Available Not Available Not Available sertraline 50 mg tablet TAKE 1 TABLET BY MOUTH EVERY DAY 04/23 completed Not Available Not Available Not Available risperidone 1 mg tablet TAKE 1 TABLET BY MOUTH IN THE MORNING AND 1 AT BEDTIME 04/23 completed Not Available Not Available Not Available amoxicillin 875 mg-kiki m clavulanate 125 mg tablet TAKE 1 [...] % 95 % 93 /min 98.3 [degF] 57006.1 7 g 110 mm[Hg] 74 mm[Hg] Not Available [facility] 3 23:29:10 Date Recorded Body mass index (BMI) Body height Oxygen saturation Oxygen saturation in Arterial blood by Pulse oximetry Heart rate Body temperature Body weight Systolic blood pressure Diastolic blood pressure Provider Name and Address Organization Details Last Updated DateTime 2 17.4 kg/m2 154.94 cm 98 % 98 % 122 /min 98.2 [degF] 00800.5 g 106 mm[Hg] 76 mm[Hg] Not Available [facility] 3 23:29:11 Date Recorded Body mass index (BMI) Body height Oxygen saturation Oxygen saturation in Arterial blood by Pulse oximetry Heart rate Body temperature Body weight Systolic blood pressure Diastolic blood pressure Provider Name and Address Organization Details Last Updated DateTime 3 21.2 kg/m2 154.94 cm 100 % 100 % 83 /min 98.5 [degF] 77398.3 5 g 118 mm[Hg] 70 mm[Hg] Not Available [facility] 3 23:29:11 Date Recorded Body height Body mass index (BMI) Body weight Body temperature Heart rate Oxygen saturation Oxygen saturation in Arterial blood by Pulse oximetry Systolic blood pressure Diastolic blood pressure Provider Name and Address Organization Details Last Updated DateTime 3 154.94 cm 20.2 kg/m2 67207.3 8 g 98 [degF] 84 /min 99 % 99 % 116 mm[Hg] 76 mm[Hg] Jacqueline Ingram RN [place] - [facility] [employer] 3 08:45:12 Date Recorded Body height Body mass index (BMI) Body weight Body temperature Heart rate Oxygen saturation Oxygen saturation in Arterial blood by Pulse oximetry Systolic blood pressure Diastolic blood pressure Provider Name and Address Organization Details Last Updated DateTime 3 154.94 cm 19.3 kg/m2 40596.4 2 g 98.2 [degF] 92 /min 99 % 99 % 100 mm[Hg] 60 mm[Hg] Jacqueline Ingram RN [place] [employer] 3 12:01:00 Social History Question Answer Notes LastModified by Organizat ion Details LastModified Time Tobacco Smoking Status Current Every Day Smoker Not Available [facility] 04/29/2022 23:28:30 What Is Your Level Of Caffeine Consumption? Occasional [id number] Information not available 04/29/2022 What Type Of Diet Are You Following? REGULAR [id number] Information not available 04/29/2022 What Was The Date Of Your Most Recent Tobacco Screening? 12/12/2020 [id number] Information not available 04/29/2022 What Is Your Current Pack Years? 20-29packyears [id number] Information not available 04/29/2022 What Is Your Relationship Status? Single [id number] Information not available 04/29/2022 Do You Use Your Seat Belt Or Car Seat Routinely? Yes [id number] Information not available 04/29/2022 At What Age Did You Start Smoking Tobacco? 20 [id number] Information not available 04/29/2022 How Much Tobacco Do You Smoke? 1 PPD [id number] Information not available 04/29/2022 Do You Participate In Social Media? No [id number] Information not available 04/29/2022 Do You Feel Stressed (tense, Restless, Nervous, Or Anxious, Or Unable To Sleep At Night)? [id number] Information not available 04/29/2022 Do You Use Any Illicit Or Recreational Drugs? No [id number] Information not available 04/29/2022 Has Tobacco Cessation Counseling Been Provided? No [id number] Information not available 04/29/2022 Do You Have Any Dietary Restrictions? No [id number] Information not available 04/29/2022 Do You Or Have You Ever Used Any Other Forms Of Tobacco Or Nicotine? No [id number] Information not available 04/29/2022 Sex: Female Functional Status Question Answer Note LastModified by Organizat ion Details LastModified Time What is your exercise level? Occasional [id number] Information not available 04/29/2022 Mental Status None recorded. Family History Relationship Description Onset Age of this Age Resolved Age Notes LastModified by Organization Details LastModified Time Father Cerebrovascu lar accident [id number] Not available 04/29/2022 23:28:48 Father Essential hypertension MIGRATION.588 [id number] Not available 04/29/2022 23:28:48 Father Chronic pain MIGRATION.0 30 [id number] Not available 04/29/2022 23:28:48 Mother Chronic pain MIGRATION.0 30 [id number] Not available 04/29/2022 23:28:48 Sister Deep venous thrombosis MIGRATION.987 [id number] Not available 04/29/2022 23:28:48 Sister Cardiac arrest 30 MIGRATION.419 [id number] Not available 04/29/2022 23:28:49 Maternal Aunt Deep venous thrombosis MIGRATION.640 [id number] Not available 04/29/2022 23:28:49 Maternal Grandmother Deep venous thrombosis MIGRATION.124 [id number] Not available 04/29/2022 23:28:49 Maternal Grandmother Amyotrophic lateral sclerosis MIGRATION.470 [id number] Not available 04/29/2022 23:28:49 Notes:Potentially some pater [...] SNOMED-CT Code Diagnosis ICD10 Code Diagnosis Note [id number] [facility] Primary Care [facility] [address] [address] [place] [address] 12/12/2020 00:00:00 12/19/2020 09:58:51 [id number] [facility] Primary Care Willian babin [address] [facility] [address] [place], [place] [address] 06/04/2021 00:00:00 06/04/2021 17:00:43 [id number] [facility] Primary Care Willian babin [address] [facility] [address] [place], [place] [address] 04/23/2022 00:00:00 04/28/2022 08:02:27 [id number] Taina Freeman MD [facility] Primary Care Willian babin [address] [facility] [address] [place], [place] [address] 08/05/2022 08:40:07 08/05/2022 09:27:02 Cobalamin deficiency [id number] E53.8 b12 was below 300, pt with numbness/t ingling, [id number] 1000 mcg IM x 1b12 1000 mcg po qdayf/u in 4 weeks, recheck labsconsid er further testing if no improvemen t vs neuro referral Iron defic iency anemia [id number] D50.9 labs in April normal, but pt notes she had iron infusion in Dec2rechec k labs in 4 weeks to monitor [id number] Taina Freeman MD [facility] Primary Care Willian babin [address] [facility] [address] [place], [place] [address] 09/15/2022 11:56:31 09/15/2022 13:14:41 Cobalamin deficiency [id number] E53.8 b12 was below 300, pt with numbness/t ingling, [id number] 1000 mcg IM x 1b12 1000 mcg po qdayf/u in 4 weeks, recheck labsconsid er further testing if no improvemen t vs neuro referral update 09/15/22 B12 shot todayrepea t labsif normal, will refer to neurology for further evaluation of symptoms Iron defic iency anemia [id number] D50.9 labs in April normal, but pt notes she had iron infusion in Dec2rechec k labs in 4 weeks to monitor update 09/15/22: Check labs todayunabl e to tolerate oral iron, will refer for iron infusion if low Health Concerns Section Related Observation LastModified by Organization Detai ls LastModified Time None Recorded Concern Status LastModified by Organization Details LastModified Time None Recorded Advance Directives Directive None Recorded Payers Encounter Date Sequence Insurance Name Policy Number Policy Mccormack Covered Member ID Mccormack Member ID Guarantor Name 08/05/2022 1 [facility] (MEDICAID HMO) [id number] Huyen Hardingyer [id number] Huyen Suzan 09/15/2022 1 [facility] (MEDICAID HMO) [id number] [facility] [id number] Huy[address] [facility] Notes Date Note Type Note Provider Name [...] Freeman MD [address], [place], [address], [employer] 08/05/2022 09:03:49 09/15/2022 text/html very fatigued, still [...] Freeman MD [address], [place], [address], [employer] 09/15/2022 12:12:29 OBGyn Episode No OBEpisode recorded.
--- OUTSIDE RECORDS SUMMARY | 2024-06-13 17:39 | XMS_ITS | Referral Summary ---
Author Organization [address] Address [address] [place] [phone] Care Team Providers Care Nursing Aide Name Role Phone Taina Freeman MD Primary Care Provider + Encounters Date Type Department Care Team Description 04/28/2024 9:00 AM FIELD PROJECT MANAGER Procedure visit [facility] [address] [place] [address] Floor [address] [place] [phone] Jayleen Amaral MD Encounter for IUD insertion (Primary Dx); Screen for STD (sexually transmitted disease); Abnormal uterine bleeding 03/30/2024 2:15 PM FIELD PROJECT MANAGER Office Visit [facility] [address] [place] [address] Floor [address] [place] [phone] Jayleen Amaral MD Bilateral ovarian cysts (Primary [...] intrauterine Continuous (implanted device) 04/28/2024 0 Active Active Problems Problem Noted Date Diagnosed Date [...] # Disposition: Follow up task sent to [facility] scheduling pool. Desires discharge home today. [...] education: completed in all 3 trimesters [x] Legal Aide: Completed [x] Car seat discussed [x] PP [...] often do you attend chur ch or restoration services? More than 4 times per year 02/01/2022 Do you belong to any clubs o r organizations such as latter day groups, unions, fraternal or athletic groups, or [...] you are drinking? Patient does not drink 2 Q3: How often do you have si x or more drinks on one occasion? Never 12/24/2021 Overall Financial Resource Strain (CARDIA) Answe r Date Recorded How hard is it for you to pa y for the very basics like food, housing, medical care, and heating? Not very hard 02/01/2022 [facility] of Occupat ional Health - Occupational Stress [...] place to sleep or slept in a usp (including now)? No 02/01/2022 [place] Depression Scale Answer Date Recorded [place] Depression Scale Total 20 10/27/2021 The thought [...] Comments Blood Pressure 130/83 04/28/2024 9:10 AM FIELD PROJECT MANAGER Pulse 99 04/28/2024 9:10 AM FIELD PROJECT MANAGER Temperature 37.2 C (99 F) 01/24/2024 5:00 PM FIELD PROJECT MANAGER Respiratory Rate 18 01/24/2024 9:37 PM FIELD PROJECT MANAGER Oxygen Saturation 99% 04/28/2024 9:10 AM FIELD PROJECT MANAGER Inhaled Oxygen Concentration - - Weight 44 kg (96 lb 14.4 oz) 04/28/2024 9:10 AM FIELD PROJECT MANAGER Height 154.9 cm (5' 1 ) 03/30/2024 2:23 PM FIELD PROJECT MANAGER Body Mass Index 18.31 03/30/2024 2:23 PM FIELD PROJECT MANAGER Plan of Treatment Not on file Procedures Procedure Name Priority Date/Time Associated Diagnosis Comments TRICHOMONAS VAGINALIS PCR Routine 04/28/2024 9:50 AM FIELD PROJECT MANAGER N. GONORRHOEAE/C. TRACHOMATIS AMPLIFICATION Routine 04/28/2024 9:50 AM FIELD PROJECT MANAGER POCT HCG, URINE Routine 04/28/2024 9:16 AM FIELD PROJECT MANAGER Encounter for IUD insertion PROLACTIN Routine 03/30/2024 3:02 PM FIELD PROJECT MANAGER Abnormal uterine bleeding TOTAL TESTOSTERONE Routine 03/30/2024 3: 02 PM FIELD PROJECT MANAGER Abnormal uterine bleeding ESTRADIOL Routine 03/30/2024 3:02 PM FIELD PROJECT MANAGER Abnormal uterine bleeding FOLLICLE STIMULATING HORMONE Routine 03/30/2024 3:02 PM FIELD PROJECT MANAGER Abnormal uterine bleeding CBC WITHOUT DIFFERENTIAL Routine 03/30/2024 3:02 PM FIELD PROJECT MANAGER Abnormal uterine bleeding THYROID FUNCTION CASCADE Routine 03/30/2024 3:02 PM FIELD PROJECT MANAGER Abnormal uterine bleeding PAP WITH REFLEX TO HIGH RISK HPV Routine 08/29/2021 10:23 AM CDT Encounter for supervision of other normal in second trimester HEPATITIS C ANTIBODY Routine 08/27/2021 2:39 PM CDT , unspecified gestational age from Last 3 Months or Most Recently Relevant to Health Maintenance Results * N. gonorrhoeae/C. trachomatis Amplification Endocervical (04/28/2024 9:50 AM FIELD PROJECT MANAGER) C. trachomatis Not Detected [facility] N. gonorrhoeae Not Detected [facility] Comment: Interpretive Data This assay detects Chlamydia trachomatis and Neisseria gonorrhoeae by nucleic acid amplification testing (NAAT). This assay has been cleared by the [place] Food and Drug administration. The performance characteristics of this test have been verified by the [facility] Molecular Infectious Disease laboratory. The performance characteristics of this test have not been evaluated in individuals less than 14 years of age. Current Interpretive Data was last revised on 2023. Endocervical 04/28/2024 9:5 0 AM FIELD PROJECT MANAGER 04/28/2024 11:42 AM FIELD PROJECT MANAGER us Jayleen Amaral MD LAB MICROBIOLOGY - GENE [facility] ORDERABLES Final Result [facility] Department [place] [address] [facility] * Trichomonas vaginalis PCR Endocervical (04/28/2024 9:50 AM FIELD PROJECT MANAGER) [facility] Trichomonas DNA Not Detected [facility] Comment: Interpretive Data This assay detects Trichomonas vaginalis by nucleic acid amplification testing (NAAT). This assay has been cleared by the [place] Food and Drug administration. The performance characteristics of this test have been verified by the [facility] Infectious Disease laboratory. The performance of this test has not been evaluated in individuals less than 18 years of age. Current Interpretive Data was last revised on 2023. Endocervical 04/28/2024 9:50 AM FIELD PROJECT MANAGER 04/28/2024 11:42 AM FIELD PROJECT MANAGER Jayleen Amaral MD LAB MICROBIOLOGY - GENE RAL ORDERABLES Final Result Performing Organization Address [facility] Co de Phone Number [facility] Department [place] [address] [facility] * POCT hCG, urine (04/28/2024 9:16 AM FIELD PROJECT MANAGER) [facility] HCG, ur, POC Negative Negative Lot Number [id number] QC Backgroud Clear Acceptable QC Control Line Acceptable Urine 04/28/2024 9:16 AM FIELD PROJECT MANAGER Jayleen Amaarl MD POINT OF CARE TEST ORDE RABLES Final Result * Thyroid Function Harmony (03/30/2024 3:02 PM FIELD PROJECT MANAGER) [facility] TSH 1.18 0.30 - 4.20 mcIUnit/mL Blood 03/30/2024 3:02 PM FIELD PROJECT MANAGER 03/30/2024 3:26 PM FIELD PROJECT MANAGER Jayleen Amaral MD LAB BLOOD ORDERABLES Fi nal Result Performing Organization Address City/[facility] Co de Phone Number [facility] Department [place] [address] * (ABNORMAL) Prolactin (03/30/2024 3:02 PM FIELD PROJECT MANAGER) [facility] Prolactin 4.1(L) 4.8 - 23.3 ng/mL Blood 03/30/2024 3:02 PM FIELD PROJECT MANAGER 03/30/2024 3:33 PM FIELD PROJECT MANAGER Jayleen Amaral MD LAB BLOOD ORDERABLES Fi nal Result Performing Organization Address [facility] de Phone Number [facility] [place] [address] * Estradiol (03/30/2024 3:02 PM FIELD PROJECT MANAGER) [facility] Estradiol 69.6 pg/mL Comment: Interpretive Data Males: 11 43 pg/mL Females: Premenopausal: 31 533 pg/mL Postmenopausal: < 50 pg/mL Patients treated with Fluvestrant (Faslodex) should be tested using an alternate assay such as LC-MS due to potential for cross-reactivity. Estradiol varies widely throughout the menstrual cycle. Current interpretive data was last revised 2023. Blood 03/30/2024 3:02 PM FIELD PROJECT MANAGER 03/30/2024 3:26 PM FIELD PROJECT MANAGER Jayleen Amaral MD LAB BLOOD ORDERABLES Fi nal Result Performing Organization Address [facility] de Phone Number [facility] [place] [address] * (ABNORMAL) CBC without differential (03/30/2024 3:02 PM FIELD PROJECT MANAGER) [facility] WBC 8.6 3.8 - 9.9 K/cumm Hgb 11.7(L) 11.9 - 15.5 g/dL [facility] Hct 35.5(L) 35.6 - 45.5 % [facility] Plt 292 150 - 400 K/cumm [facility] MPV 10.0 9.1 - 12.3 fL [facility] RBC 3.89(L) 3.90 - 5.20 M/cumm [facility] MCV 91.3 81.3 - 96.4 fL [facility] MCH 30.1 27.1 - 33.3 pg [facility] MCHC 33.0 32.3 - 35.7 g/dL [facility] RDW CV 13.4 11.1 - 14.9 % [facility] RDW SD 45.4 35.7 - 48.1 fL [facility] NRBC abs 0.00 0.00 - 0.01 K/cumm [facility] Blood 03/30/2024 3:02 PM FIELD PROJECT MANAGER 03/30/2024 3:26 PM FIELD PROJECT MANAGER Jayleen Amaral MD LAB BLOOD ORDERABLES Fi nal Result Performing Organization Address City/[facility]/ZIP Co de Phone Number [facility] Department [place] [address] * Total testosterone (03/30/2024 3:02 PM FIELD PROJECT MANAGER) Testosterone 20.0 8.4 - 48.1 ng/dL Blood 03/30/2024 3:02 PM FIELD PROJECT MANAGER 03/30/2024 3:33 PM FIELD PROJECT MANAGER Jayleen Amaral MD LAB BLOOD ORDERABLES Fi nal Result Performing Organization Address [facility] Co de Phone Number [facility] Department [place] [address] * Follicle stimulating hormone (03/30/2024 3:02 PM FIELD PROJECT MANAGER) FSH 3.0 IUnits/L Comment: Interpretive Data Male: Adults: 1.5 - 12.4 IUnits/L Female: Follicular: 3.5 - 12.5 IUnits/L Ovulation: 4.7 - 21.5 IUnits/L Luteal: 1.7 - 7.7 IUnits/L Postmenopausal: 25.8 - 134.8 IUnits/L Current interpretive data was last revised 2015. Blood 03/30/2024 3:02 PM FIELD PROJECT MANAGER 03/30/2024 3:26 PM FIELD PROJECT MANAGER us Jayleen Amaral MD LAB BLOOD ORDERABLES Fi nal Result [facility] Department [place] [address] * Pap with reflex to High Risk HPV (08/29/2021 10:23 AM CDT) Thin prep (Pap test) 08/29/2021 10:23 AM CDT 08/29/2021 12:26 PM CDT Narrative PATHOLOGY [facility] - 09/11/2021 11:52 AM CDT EPIC results best viewed via link to PDF [facility] Sharyn Guerrero [facility] [place] [address] Note to Patients: This report may contain [...] Gender: F : 1990 (Age: 31) Address: [address] [place] [address] Hospital #: [id number] 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 09/11/2021 11:52 CLEVE Bartholomew(ASCP) Report Electronically [...] determined by the Surgical Pathology Department at [facility] as part of an ongoing quality project manager program and in compliance with federally mandated [...] determined by the Surgical Pathology Department of [facility]. It has not been cleared or approved by the [place]. S. Food and Drug Administration. Les Couch MD PhD LAB CYTOLOGY ORDERA BLES Final Result PATHOLOGY [facility] 3rd Floor [place], [place] [phone] * Hepatitis C antibody (08/27/2021 2:39 PM CDT) Hep C Ab Nonreactive Nonreactive [facility] Comment:Antibodies to HCV no t detected. Does NOT exclude the possibility of recent exposure to HCV. Blood 08/27/2021 2:39 PM CDT 08/27/2021 3:18 PM CDT us Les Couch MD PhD LAB MICROBI OLOGY - GENERAL ORDERABLES Edited Result - Final [facility] Department [place] [address] from Last 3 Months or Most Recently Relevant to Health Maintenance Insurance [facility] Advance Directives For more information, please contact: [phone] * Full Code (Latest Code Status on File) Date Activated Date Inactivated Comments 01/30/2022 9:49 AM 02/01/2022 6:51 PM * Full Code Date Activated Date Inactivated Comments 01/29/2022 10:53 PM 01/30/2022 9:49 AM Full CPR in case of cardiopulmonary arrest * Full Code Date Activated Date Inactivated Comments 01/21/2022 3:22 PM 01/22/2022 12:25 AM Full CPR in case of cardiopulmonary arrest Care Teams Nursing Aide Relationship Specialty Start Date End Date Taina Freeman MD [address] [place] [address] [address] PCP - General Family Medicine 08/27/21
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
[2024-06-13 17:41] VITALS: BP 144/106; PULSE 135; RESP 20; TEMP 36.4; O2SAT 100
--- OUTSIDE RECORDS SUMMARY | 2024-06-13 19:22 | XMS_ITS | Referral Summary ---
Author Organization [address] Address [address] [place] [id number] Care Team Providers Care Motorboat Mechanic Inboard Name Role Phone Taina Freeman MD Primary Care Provider + Encounters Date Type Department Care Team Description 04/28/2024 9:00 AM SUPERINTENDENT SYSTEM OPERATION Procedure visit [facility] [address] [place] [address] Floor [address] [place] [phone] Jayleen Amaral MD Encounter for IUD insertion (Primary Dx); Screen for STD (sexually transmitted disease); Abnormal uterine bleeding 03/30/2024 2:15 PM SUPERINTENDENT SYSTEM OPERATION Office Visit [facility] [address] [place] [address] Floor [address] [place] [phone] Jayleen Amaral MD Bilateral ovarian cysts (Primary [...] # Disposition: Follow up task sent to [facility] scheduling pool. Desires discharge home today. [...] education: completed in all 3 trimesters [x] Presales Consultant: Completed [x] Car seat discussed [x] PP [...] often do you attend chur ch or faith services? More than 4 times per year [...] care, and heating? Not very hard 02/01/2022 [facility] of Occupat ional Health - Occupational Stress [...] place to sleep or slept in a senior living (including now)? No 02/01/2022 Lynn Depression Scale Answer Date Recorded Lynn Depression Scale Total 20 10/27/2021 The thought [...] Comments Blood Pressure 130/83 04/28/2024 9:10 AM SUPERINTENDENT SYSTEM OPERATION Pulse 99 04/28/2024 9:10 AM SUPERINTENDENT SYSTEM OPERATION Temperature 37.2 C (99 F) 01/24/2024 5:00 PM SUPERINTENDENT SYSTEM OPERATION Respiratory Rate 18 01/24/2024 9:37 PM SUPERINTENDENT SYSTEM OPERATION Oxygen Saturation 99% 04/28/2024 9:10 AM SUPERINTENDENT SYSTEM OPERATION Inhaled Oxygen Concentration - - Weight 44 kg (96 lb 14.4 oz) 04/28/2024 9:10 AM SUPERINTENDENT SYSTEM OPERATION Height 154.9 cm (5' 1 ) 03/30/2024 2:23 PM SUPERINTENDENT SYSTEM OPERATION Body Mass Index 18.31 03/30/2024 2:23 PM SUPERINTENDENT SYSTEM OPERATION Plan of Treatment Not on file Procedures Procedure Name Priority Date/Time Associated Diagnosis Comments TRICHOMONAS VAGINALIS PCR Routine 04/28/2024 9:50 AM SUPERINTENDENT SYSTEM OPERATION N. GONORRHOEAE/C. TRACHOMATIS AMPLIFICATION Routine 04/28/2024 9:50 AM SUPERINTENDENT SYSTEM OPERATION POCT HCG, URINE Routine 04/28/2024 9:16 AM SUPERINTENDENT SYSTEM OPERATION Encounter for IUD insertion PROLACTIN Routine 03/30/2024 3:02 PM SUPERINTENDENT SYSTEM OPERATION Abnormal uterine bleeding TOTAL TESTOSTERONE Routine 03/30/2024 3: 02 PM SUPERINTENDENT SYSTEM OPERATION Abnormal uterine bleeding ESTRADIOL Routine 03/30/2024 3:02 PM SUPERINTENDENT SYSTEM OPERATION Abnormal uterine bleeding FOLLICLE STIMULATING HORMONE Routine 03/30/2024 3:02 PM SUPERINTENDENT SYSTEM OPERATION Abnormal uterine bleeding CBC WITHOUT DIFFERENTIAL Routine 03/30/2024 3:02 PM SUPERINTENDENT SYSTEM OPERATION Abnormal uterine bleeding THYROID FUNCTION CASCADE Routine 03/30/2024 3:02 PM SUPERINTENDENT SYSTEM OPERATION Abnormal uterine bleeding PAP WITH REFLEX TO HIGH RISK HPV Routine 08/29/2021 10:23 AM CDT Encounter for supervision of other normal in second trimester HEPATITIS C ANTIBODY Routine 08/27/2021 2:39 PM CDT , unspecified gestational age from Last 3 Months or Most Recently Relevant to Health Maintenance Results * N. gonorrhoeae/C. trachomatis Amplification Endocervical (04/28/2024 9:50 AM SUPERINTENDENT SYSTEM OPERATION) C. trachomatis Not Detected [facility] N. gonorrhoeae Not Detected [facility] Comment: Interpretive Data This assay detects Chlamydia trachomatis and Neisseria gonorrhoeae by nucleic acid amplification testing (NAAT). This assay has been cleared by the [place] Food and Drug administration. The performance characteristics of this test have been verified by the [facility] Molecular Infectious Disease laboratory. The performance characteristics of this test have not been evaluated in individuals less than 14 years of age. Current Interpretive Data was last revised on 2023. Endocervical 04/28/2024 9:5 0 AM SUPERINTENDENT SYSTEM OPERATION 04/28/2024 11:42 AM SUPERINTENDENT SYSTEM OPERATION us Jayleen Amaral MD LAB MICROBIOLOGY - GENE [facility] ORDERABLES Final Result [facility] Department [place] [address] [facility] * Trichomonas vaginalis PCR Endocervical (04/28/2024 9:50 AM SUPERINTENDENT SYSTEM OPERATION) [facility] Trichomonas DNA Not Detected [facility] Comment: Interpretive Data This assay detects Trichomonas vaginalis by nucleic acid amplification testing (NAAT). This assay has been cleared by the [place] Food and Drug administration. The performance characteristics of this test have been verified by the [facility] Molecular Infectious Disease laboratory. The performance of this test has not been evaluated in individuals less than 18 years of age. Current Interpretive Data was last revised on 2023. Endocervical 04/28/2024 9:50 AM SUPERINTENDENT SYSTEM OPERATION 04/28/2024 11:42 AM SUPERINTENDENT SYSTEM OPERATION Jayleen Amaral MD LAB MICROBIOLOGY - GENE [facility] ORDERABLES Final Result Performing Organization Address [facility] Co de Phone Number [facility] Department [place] [address] [facility] * POCT hCG, urine (04/28/2024 9:16 AM SUPERINTENDENT SYSTEM OPERATION) [facility] HCG, ur, POC Negative Negative Lot Number [id number] QC Backgroud Clear Acceptable QC Control Line Acceptable Urine 04/28/2024 9:16 AM SUPERINTENDENT SYSTEM OPERATION Jayleen Amaral MD POINT OF CARE TEST ORDE RABLES Final Result * Thyroid Function [place] (03/30/2024 3:02 PM SUPERINTENDENT SYSTEM OPERATION) [facility] TSH 1.18 0.30 - 4.20 mcIUnit/mL Blood 03/30/2024 3:02 PM SUPERINTENDENT SYSTEM OPERATION 03/30/2024 3:26 PM SUPERINTENDENT SYSTEM OPERATION Jayleen Amaral MD LAB BLOOD ORDERABLES Fi nal Result Performing Organization Address City/[facility] Co de Phone Number [facility] Department [place] [address] * (ABNORMAL) Prolactin (03/30/2024 3:02 PM SUPERINTENDENT SYSTEM OPERATION) [facility] Prolactin 4.1(L) 4.8 - 23.3 ng/mL Blood 03/30/2024 3:02 PM SUPERINTENDENT SYSTEM OPERATION 03/30/2024 3:33 PM SUPERINTENDENT SYSTEM OPERATION Jayleen Amaral MD LAB BLOOD ORDERABLES Fi nal Result Performing Organization Address [facility] de Phone Number [facility] [place] [place] [address] * Estradiol (03/30/2024 3:02 PM SUPERINTENDENT SYSTEM OPERATION) [facility] Estradiol 69.6 pg/mL Comment: Interpretive Data Males: 11 43 pg/mL Females: Premenopausal: 31 533 pg/mL Postmenopausal: < 50 pg/mL Patients treated with Fluvestrant (Faslodex) should be tested using an alternate assay such as LC-MS due to potential for cross-reactivity. Estradiol varies widely throughout the menstrual cycle. Current interpretive data was last revised 2023. Blood 03/30/2024 3:02 PM SUPERINTENDENT SYSTEM OPERATION 03/30/2024 3:26 PM SUPERINTENDENT SYSTEM OPERATION Jayleen Amaral MD LAB BLOOD ORDERABLES Fi nal Result Performing Organization Address [facility] de Phone Number [facility] [place] [place] [address] * (ABNORMAL) CBC without differential (03/30/2024 3:02 PM SUPERINTENDENT SYSTEM OPERATION) [facility] WBC 8.6 3.8 - 9.9 K/cumm Hgb 11.7(L) 11.9 - 15.5 g/dL [facility] Hct 35.5(L) 35.6 - 45.5 % [facility] Plt 292 150 - 400 K/cumm [facility] MPV 10.0 9.1 - 12.3 fL [facility] RBC 3.89(L) 3.90 - 5.20 M/cumm [facility] MCV 91.3 81.3 - 96.4 fL [facility] MCH 30.1 27.1 - 33.3 pg [facility] MCHC 33.0 32.3 - 35.7 g/dL [facility] RDW CV 13.4 11.1 - 14.9 % [facility] RDW SD 45.4 35.7 - 48.1 fL [facility] NRBC abs 0.00 0.00 - 0.01 K/cumm [facility] Blood 03/30/2024 3:02 PM SUPERINTENDENT SYSTEM OPERATION 03/30/2024 3:26 PM SUPERINTENDENT SYSTEM OPERATION Jayleen Amaral MD LAB BLOOD ORDERABLES Fi nal Result Performing Organization Address City/[facility]/ZIP Co de Phone Number [facility] Department [place] [address] * Total testosterone (03/30/2024 3:02 PM SUPERINTENDENT SYSTEM OPERATION) Testosterone 20.0 8.4 - 48.1 ng/dL Blood 03/30/2024 3:02 PM SUPERINTENDENT SYSTEM OPERATION 03/30/2024 3:33 PM SUPERINTENDENT SYSTEM OPERATION Jayleen Amaral MD LAB BLOOD ORDERABLES Fi nal Result Performing Organization Address City/[facility] Co de Phone Number [facility] Department [place] [address] * Follicle stimulating hormone (03/30/2024 3:02 PM SUPERINTENDENT SYSTEM OPERATION) [facility] 3.0 IUnits/L Comment: Interpretive Data Male: Adults: 1.5 - 12.4 IUnits/L Female: Follicular: 3.5 - 12.5 IUnits/L Ovulation: 4.7 - 21.5 IUnits/L Luteal: 1.7 - 7.7 IUnits/L Postmenopausal: 25.8 - 134.8 IUnits/L Current interpretive data was last revised 2015. Blood 03/30/2024 3:02 PM SUPERINTENDENT SYSTEM OPERATION 03/30/2024 3:26 PM SUPERINTENDENT SYSTEM OPERATION us Jayleen Amaral MD LAB BLOOD ORDERABLES Fi nal Result [facility] Department [place] [address] * Pap with reflex to High Risk HPV (08/29/2021 10:23 AM CDT) Thin prep (Pap test) 08/29/2021 10:23 AM CDT 08/29/2021 12:26 PM CDT Narrative PATHOLOGY [facility] - 09/11/2021 11:52 AM CDT EPIC results best viewed via link to PDF [facility] Sharyn Guerrero [facility] [place] [address] Note to Patients: This report may contain [...] Gender: F : 1990 (Age: 31) Address: [address] [place] [address] Hospital #: [id number] Service: FOUNTAIN CLERK Location: [facility][1] Patient Type: [facility] Ref Lab Taken: 08/29/2021 Received: [...] been rescreened in accordance with this laboratory's Marine Habitat Resource Specialist Program. 09/11/2021 11:52 CLEVE Bartholomew(ASCP) Report Electronically [...] determined by the Surgical Pathology Department at [facility] as part of an ongoing supplier quality specialist program and in compliance with [...] determined by the Surgical Pathology Department of [facility]. It has not been cleared or approved by the [place]. [place]. Food and Drug Administration. Les Couch MD PhD LAB CYTOLOGY ORDERA BLES Final Result PATHOLOGY [facility] 3rd Floor [place], [place] [phone] * Hepatitis C antibody (08/27/2021 2:39 PM CDT) Hep C Ab Nonreactive Nonreactive [facility] Comment:Antibodies to HCV no t detected. Does NOT exclude the possibility of recent exposure to HCV. Blood 08/27/2021 2:39 PM CDT 08/27/2021 3:18 PM CDT us Les Couch MD PhD LAB MICROBI OLOGY - GENERAL ORDERABLES Edited Result - Final [facility] Department [place] [address] from Last 3 Months or Most Recently Relevant to Health Maintenance Insurance [facility] Advance Directives For more information, please contact: [phone] * Full Code (Latest Code Status on File) Date Activated Date Inactivated Comments 01/30/2022 9:49 AM 02/01/2022 6:51 PM * Full Code Date Activated Date Inactivated Comments 01/29/2022 10:53 PM 01/30/2022 9:49 AM Full CPR in case of cardiopulmonary arrest * Full Code Date Activated Date Inactivated Comments 01/21/2022 3:22 PM 01/22/2022 12:25 AM Full CPR in case of cardiopulmonary arrest Care Teams Motorboat Mechanic Inboard Relationship Specialty Start Date End Date Taina Freeman MD [address] [place] [address] [address] PCP - General Family Medicine 08/27/21
--- OUTSIDE RECORDS SUMMARY | 2024-06-13 19:22 | XMS_ITS | Clinical Summary ---
Author Organization [facility] Address [facility] [place] [address] Care Team Providers Care Product Examiner Name Role Phone None, Provider Primary Care Provider Taina Wallace MD Unavailable [phone] Allergies Active Allergy Reactions Criticality Noted Date [...] COVID-19 Vaccine ( season) 2023 PHQ-2 (Physician Algaaciq) 03/01/2024 Cervical Cancer Screening Pap Smear (Age [...] complete this topic Insurance [employer] Care Teams Product Examiner Relationship Specialty Start Date End Date None, Provider, PCP - General 08/26/20 Taina Freeman MD [address] [place] [address] FAMILY PRACTICE 05/12/23
--- OUTSIDE RECORDS SUMMARY | 2024-06-13 19:22 | XMS_ITS | Clinical Summary ---
Author Organization [facility] Address [address] [facility] [place] [address] Care Team Providers Care Business Control Specialist Name Role Phone Barbra Kendrick PA-C Unavailable [phone] Barbra Kendrick PA-C Primary Care Provider [phone] Source Comments [facility],non-owned Affiliates and Associated Physician Practices is amultiple site organization consisting of ambulatory clinics and hospital sitesin [place], [place], [place] and [place]. This disclosure is being madepursuant to the Care Everywhere program and may not contain all information available regarding this patient. Last updated 17.[facility] Allergies Active Allergy Reactions Criticality Noted [...] 20 mg by mouth once daily Active Cqyjsubi-Kwn-Xu- FA ( VITAMIN WITH IRON) tabletIndication s:Supervision [...] P24 AG PANEL Routine 04/26/2017 3:30 PM MATURITY CHECKER Supervision of high-risk of young primigravida GLUCOSE CHALLENGE Routine 03/30/2017 1:3 8 PM MATURITY CHECKER Supervision of high-risk of young primigravida from Last 3 Months or Most Recently Relevant to Health Maintenance Results * (ABNORMAL) CULTURE STREP B (06/01/2017 3:22 PM CDT) Culture Strep B Growth of Streptococcus agalactiae (Group B)(AA) [place] 06/03/2017 3:13 PM CDT [facility] MICROBIOLOGY Microbiology MISCELLANEOUS SAMPLES / Unknown Collection / Unknown 06/01/2017 3:22 PM CDT 06/01/2017 3:29 PM CDT Narrative [facility] MICROBIOLOGY - 06/03/2017 3:13 PM CDT Susceptibility testing of penicillin, other beta-lactam antibiotics, and vancomycin is not necessary for beta-hemolytic streptococci groups A,B,C and G because resistant strains have not been recognized. Debra Cortes MD LAB - MICROBIOLOGY ORDERABLE S Final Result [facility] MICROBIOLOGY [address] [place] [address], [facility] [phone] * HIV-1 HIV-2 ANTIBODY + HIV P24 AG PANEL (04/26/2017 3:30 PM MATURITY CHECKER) [facility] HIV1/2 Ab + P24 Ag Non Reactive Non Reactive 04/27/2017 12:22 AM MATURITY CHECKER [facility] Blood BLOOD SPECIMEN / Unknown Venipuncture / Unknown 04/26/2017 3:30 PM MATURITY CHECKER 04/26/2017 3:46 PM MATURITY CHECKER Narrative [facility] - 04/27/2017 12:22 AM MATURITY CHECKER No Laboratory evidence of HIV infection. us Judit Ingram MD LAB - CHEMISTRY ORDERABLE S Final Result Performing Organization Address [facility]/ZIP Co de Phone Number [facility] [address] [place] [phone] * GLUCOSE CHALLENGE (03/30/2017 1:38 PM MATURITY CHECKER) [facility] Glucose Challenge 97 64 - 140 mg/dL 03/30/2017 2:28 PM MATURITY CHECKER [facility] Glucose Challenge Time 1 hr 03/30/2017 2:28 PM MATURITY CHECKER [facility] Blood BLOOD SPECIMEN / Unknown Venipuncture / Unknown 03/30/2017 1:38 PM MATURITY CHECKER 03/30/2017 2:04 PM MATURITY CHECKER Kwadwo Givens MD LAB - CHEMISTRY ORDERABLES Final Result [facility] [address] [place] [phone] from Last 3 Months or Most Recently Relevant to Health Maintenance Insurance [facility] Advance Directives * Full Code (Latest Code Status on File) Date Activated Date Inactivated Comments 07/09/2017 12:57 PM 07/12/2017 5:35 PM * Full Code Date Activated Date Inactivated Comments 03/03/2017 4:49 AM 03/03/2017 2:29 PM * Full Code Date Activated Date Inactivated Comments 03/03/2017 4:08 AM 03/03/2017 4:49 AM Care Teams Business Control Specialist Relationship Specialty Start Date End Date Barbra Kendrick PA-C PCP - General 02/08/18 Barbra Kendrick PA-C Physician Assistant Manager Trainee 12/16/16
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
[2024-06-13] MEDS: SODIUM CHLORIDE 0.9% IV 1,000 ML 999 ML IV CONT ×2 (19:31→21:04)
[2024-06-13 19:42] LABS: Basophils Percent Auto 0.4 % (0.2-1.2); Eosinophils Percent Auto 0.5 % (0-4.4); Hematocrit 34.8 % (37.0-47.0); Hemoglobin 11.3 g/dL (12.0-15.0); Immature Granulocyte Absolute 0.03 K/mm3 (0.00-0.031); Immature Granulocyte Percent A 0.4 % (0-0.5); Lymphocytes Absolute Auto 2.15 K/mm3 (0.9-3.2); Mean Corpuscular HGB Conc 32.5 g/dl (32-36); Mean Corpuscular Hemoglobin 30.3 pg (26-34); Mean Corpuscular Volume 93.3 fl (80-100); Mean Platelet Volume 9.6 fl (7.4-10.4); Monocytes Absolute Auto 0.6 K/mm3 (0.1-0.6); Monocytes Percent Auto 7.5 % (2.6-8.5); Neutrophils Absolute Auto 5.4 K/mm3 (1.3-6.7); Neutrophils Percent Auto 65.2 % (45.5-73.1); Platelet Count Result 413 k/mm3 (150-375); Red Blood Count 3.73 M/mm3 (4.2-5.4); Red Cell Distribution Width 15.9 % (11.5-14.5); White Blood Count 8.3 K/mm3 (4.5-10.0)
[2024-06-13 19:49] LABS: SPREG INTERNAL CONTROL Positive; Serum Qual hCG Negative
[2024-06-13 19:51] LABS: Magnesium 2.3 mg/dL (1.6-2.3)
--- NOTE | 2024-06-13 19:52 | ED.GENADULT ---
HPI - General Adult General Chief complaint: Headache Stated complaint: Headache, dizziness, short of breath Time Seen by Provider: 06/13/24 19:05 History of Present Illness HPI narrative: Patient is a 34-year-old female who presents the emergency department this evening with multiple complaints. Patient states that for past week or so she has been having right-sided frontal headache associated with double vision and fogginess. Patient states that currently she does not have any double vision or fogginess in her headache is mild to moderate, however, went for started earlier in the week it was worse. Patient states that she does get headaches from time to time but not this bad. Also admits to intermittent chest pain and shortness of breath throughout the past week, however, currently denying any chest pain or shortness of breath at this time. Patient states that she has been having bilateral calf and foot cramps when walking, denies any pain to her bilateral calves/legs when she is resting. Patient states he recently started seeing a new provider as her primary care physician. Patient also states that throughout the past few years she has been having intermittent rectal bleeding but throughout the past few weeks she has noticed that now it is occurring more frequently. Denies any nausea vomiting abdominal pain. Denies any recent illness, fevers or chills. No additional symptoms or concerns at this time. Related Data Home Medications ?Medication ?Instructions ?Recorded ?Confirmed ?Last Taken ?Type dextroamphetamine-amphetamine 10 10 mg BID 01/10/24 01/10/24 Unknown History mg tablet gabapentin 300 mg capsule 300 mg HS 01/10/24 01/10/24 Unknown History lorazepam 0.5 mg tablet 0.5 mg HS 01/10/24 01/10/24 Unknown History Allergies Allergy/AdvReac Type Severity Reaction Status Date / Time No Known Allergies Allergy Verified 06/13/24 17:37 Review of Systems Review of Systems: All systems are reviewed and are negative unless stated otherwise in the HPI. [facility] Social History Social History Gender identity (if verbalized by the patient): Female Exam Narrative: General: Alert, awake, afebrile, in no acute distress. HEENT: PERRL, no rhinorrhea, no post nasal drip, oropharynx clear. Neck: Trachea midline, no JVD, no lymphadenopathy. Cardiovascular: Tachycardic with regular rhythm, no murmurs, rubs or gallops, no peripheral edema. Respiratory: Clear to auscultation bilaterally, no tachypnea, no wheezing, no rhonchi, no rubs, no respiratory distress. Abdomen: Soft, nontender, nondistended, no rebound, no guarding, no peritoneal signs. Musculoskeletal: No joint swelling or deformity, normal muscle tone. Skin: No rashes or petechia, no signs of infection. Psychiatric: Alert and oriented, normal behavior and judgment for situation. Neurological: Alert and oriented to person, place, and time. Follows all commands. No focal deficits, speech is clear and fluent. Course Vital Signs Vital signs: Vital Signs Temperature 97.6 F 06/13/24 17:41 Pulse Rate 135 H 06/13/24 17:41 Respiratory Rate 20 06/13/24 17:41 Blood Pressure 144/106 H 06/13/24 17:41 Pulse Oximetry 100 06/13/24 17:41 Temperature 97.6 F 06/13/24 17:41 Pulse Rate 135 H 06/13/24 17:41 Respiratory Rate 20 06/13/24 17:41 Blood Pressure 144/106 H 06/13/24 17:41 Pulse Oximetry 100 06/13/24 17:41 Medical Decision Making MDM Narrative Medical decision making narrative: The patient was evaluated by myself in the emergency department. History is obtained from patient who is an independent historian and physical exam was performed. External medical records were reviewed at this time. IV was established and pertinent tests were ordered. Patient was administered 1 L IV fluid bolus with normal saline. EKG was obtained which revealed sinus rhythm rate of [address] changes, T wave inversions or evidence of acute ischemia. EKG was independently interpreted by me and is currently pending official cardiology read. Laboratory results obtained revealing a hemoglobin of 11.3, however, patient did have a significant decline from hemoglobin of 14.7 on May 16, 2024. The remainder of the blood work is unremarkable. Patient was informed that she will need to follow-up with GI for further evaluation regarding her bloody stools as this could be the source of her hemoglobin drop. Patient was also informed that she might be iron deficient and will need to have her iron levels/folate/B12 checked by home primary care physician as this could be contributing to her symptoms of headache, fogginess, shortness of breath and leg cramps. Imaging studies obtained included CT brain without IV contrast which was independently interpreted by me revealing no acute intracranial process, which is pending final radiology interpretation. CXR was also obtained at this time and bloody interpreted by me revealing no acute cardiopulmonary process. Differential diagnosis considerations include upper versus lower GI bleed, migraine headache, tension like headache, cluster headache, acute viral syndrome, dehydration, electrolyte derangements. Comorbidities impacting this visit include none. I have evaluated and discussed social determinants of health with the patient that could potentially impact subsequent diagnosis and treatment plans. On repeat assessment of the patient, reevaluation revealed that the patient is doing well and is in no acute distress. Patient symptoms have improved since she arrived to our emergency department. Repeat vital signs were all reviewed and noted to be stable. Differential diagnosis and treatment plan were discussed with the patient at bedside. Patient agrees with discussion and after shared medical decision making agrees with discharge. All questions were answered to the patient's satisfaction. Patient will follow up with Her PCP in 3-5 days. She was also provided to the GI referral instructed to call to set up a follow-up appointment. Patient was provided with strict return precautions and instructed to return to the emergency department if any new or worsening symptoms develop. The patient was discharged in stable condition. Vital Signs Vital Signs: Vital Signs Temperature 97.6 F 06/13/24 17:41 Pulse Rate 135 H 06/13/24 17:41 Respiratory Rate 20 06/13/24 17:41 Blood Pressure 144/106 H 06/13/24 17:41 Pulse Oximetry 100 06/13/24 17:41 Temperature 97.6 F 06/13/24 17:41 Pulse Rate 135 H 06/13/24 17:41 Respiratory Rate 20 06/13/24 17:41 Blood Pressure 144/106 H 06/13/24 17:41 Pulse Oximetry 100 06/13/24 17:41 Lab Data 06/13/24 19:35 06/13/24 19:35 Labs: Lab Results 06/13/24 06/13/24 06/13/24 Range/Units 19:35 19:35 20:25 WBC 8.3 (4.5-10.0) K/mm3 RBC 3.73 L (4.2-5.4) M/mm3 Hgb 11.3 L D (12.0-15.0) g/dL Hct 34.8 L (37.0-47.0) % MCV 93.3 (80-100) fl MCH 30.3 (26-34) pg MCHC 32.5 (32-36) g/dl RDW 15.9 H (11.5-14.5) % Plt Count 413 H (150-375) k/mm3 MPV 9.6 (7.4-10.4) fl Immature Gran % (Auto) 0.4 (0-0.5) % Neut % (Auto) 65.2 (45.5-73.1) % Lymph % (Auto) 26.0 (18.3-44.2) % Emanuel % (Auto) 7.5 (2.6-8.5) % Eos % (Auto) 0.5 (0-4.4) % Baso % (Auto) 0.4 (0.2-1.2) % Lymph # (Auto) 2.15 (0.9-3.2) K/mm3 Emanuel # (Auto) 0.6 (0.1-0.6) K/mm3 Eos # (Auto) 0.0 (0-0.3) K/mm3 Baso # (Auto) 0.0 (0.0-0.1) K/mm3 Abs Immat Gran (auto) 0.03 (0.00-0.031) K/mm3 Absolute Neuts (auto) 5.4 (1.3-6.7) K/mm3 Absolute Nucleated RBC 0.000 (0.0-0.012) K/mm3 Nucleated RBC % 0.0 (0.0-0.2) % PT 12.9 (11.1-14.7) Seconds INR 1.0 APTT 27.5 (22.3-36.8) Seconds D-Dimer 0.28 Cancelled (<0.48) ug/mL Sodium 140 (137-145) mmol/L Potassium 4.2 (3.4-5.0) mmol/L Chloride 104 (98-107) mmol/L Carbon Dioxide 24 (22-30) mmol/L Anion Gap 12 (4-12) mmol/L BUN 11 (7-17) mg/dL Creatinine 0.66 L (0.7-1.0) mg/dL Estim Creat Clear Calc 70 ml/min Estimated GFR > 60 (59 - ) Glucose 81 (65-110) mg/dL Calcium 9.7 (8.4-10.2) mg/dL Magnesium 2.3 (1.6-2.3) mg/dL Total Bilirubin 0.3 (0.2-1.3) mg/dL AST 24 (14-36) U/L ALT 17 (6-35) U/L Alkaline Phosphatase 52 (38-126) U/L Troponin I < 0.012 (0.000-0.034) ng/mL Total Protein 8.0 (6.3-8.2) g/dL Albumin 4.7 (3.5-5.1) g/dL Serum HCG, Qual Negative Influenza A (RT-PCR) Pending Influenza B (RT-PCR) Pending SARS-CoV-2 RNA (RT-PCR) Pending Discharge Plan Discharge Clinical Impression: Bloody stool, Headache, Bilateral leg cramps, GI (gastrointestinal bleed) Patient Disposition: Home Condition: Improved Instructions: Antibiotic Form, Gastrointestinal Bleeding (ED) Additional Instructions: Please follow-up with your family doctor within the next 3-5 days. Your provided with a GI referral instructed to call tomorrow to set up a follow-up appointment. Return to the emergency department if any new or worsening symptoms develop. Patient Language: Japanese Prescriptions: No Action dextroamphetamine-amphetamine 10 mg tablet 10 mg BID lorazepam 0.5 mg tablet 0.5 mg HS gabapentin 300 mg capsule 300 mg HS ofloxacin 0.3 % drops See Rx Instructions .ROUTE .COMPLEX Qty: 10 0RF Rx Instructions: put 1-2 drps into affected eye(s) every 2-4 h x 2 days, then 1-2 drps 4 times/day days 3-7 clindamycin HCl 300 mg capsule 300 mg PO Q6H 7 Days Qty: 28 0RF ibuprofen 600 mg tablet 600 mg PO TID PRN (Reason: pain) Qty: 30 0RF acetaminophen 500 mg capsule 1,000 mg PO Q6H PRN (Reason: pain) Qty: 30 0RF ibuprofen 800 mg tablet 800 mg PO TID PRN (Reason: pain) 7 Days Qty: 21 0RF acetaminophen 500 mg tablet 1,000 mg PO TID PRN (Reason: cassandra) 7 Days Qty: 42 0RF ondansetron 4 mg tablet,disintegrating 4 mg PO Q8H PRN (Reason: nausea and vomiting) Qty: 14 0RF Follow-up/Referrals: Wesley Whitmore MD [Physician] - 3 Days Dmitri Jimenes MD [Primary Care Provider] - 3 Days Time of Disposition: 21:01
[2024-06-13 19:55] LABS: Alanine Aminotransferase 17 U/L (6-35); Albumin Level 4.7 g/dL (3.5-5.1); Alkaline Phosphatase 52 U/L (38-126); Anion Gap 12 mmol/L (4-12); Aspartate Amino Transferase 24 U/L (14-36); Bilirubin,Total 0.3 mg/dL (0.2-1.3); Blood Urea Nitrogen 11 mg/dL (7-17); Calcium 9.7 mg/dL (8.4-10.2); Carbon Dioxide 24 mmol/L (22-30); Chloride 104 mmol/L (98-107); Estimated CRCL calculation 70 ml/min; Estimated Glomerular Filt Rate > 60; Glucose 81 mg/dL (65-110); Potassium 4.2 mmol/L (3.4-5.0); Sodium 140 mmol/L (137-145)
--- NOTE | 2024-06-13 19:55 | ECG_ITS ---
Test Date: 2024-06-13 20:15:18 Measurements Intervals [place] Rate: 81 P: 70 CO: 156 QRS: -27 QRSD: 89 T: 23 QT: 382 QTc: 444 Interpretive Statements SINUS RHYTHM POSSIBLE RIGHT VENTRICULAR CONDUCTION DELAY BASELINE ARTIFACT- II, III, AVR, AVL, AVF, V2, V4 BORDERLINE ECG No previous ECG available for comparison Electronically Signed On 06-14-2024 06:43:00 CDT by Jeremy Cuevas D.O.
[2024-06-13 20:03] LABS: Troponin I < 0.012 ng/mL (0.000-0.034)
[2024-06-13 20:04] LABS: Prothrombin Time 12.9 Seconds (11.1-14.7)
[2024-06-13 20:05] LABS: Partial Thromboplastin Time 27.5 Seconds (22.3-36.8)
[2024-06-13 20:08] LABS: D Dimer 0.28 ug/mL (<0.48)
[2024-06-13] MEDS: KETOROLAC 15 MG/ML VIAL (*BKC) IV PUSH (21:04)
[2024-06-13 21:05] LABS: Influenza A QL RT-PCR Negative (Negative); Influenza B QL RT-PCR Negative (Negative); SARS-CoV-2 RNA PCR Negative (Negative)
== END 2024-06-13 22:12 | disposition home or self-care (01) ==
PROVIDERS: Emergency Provider Emergency Medicine; PCP Emergency Medicine
DX: R51.9 Headache, unspecified (principal); K92.1 Melena; K92.2 Gastrointestinal hemorrhage, unspecified; R25.2 Cramp and spasm; R94.31 Abnormal electrocardiogram [ECG] [EKG]
CPT/HCPCS: 36415; 70450; 71045; 80053; 83735; 84484; 84703; 85025; 85380; 85610; 85730; 87636; 93005; 96361; 96374; 99284; J1885; J7030

== ENCOUNTER 2024-06-27 15:48 | Outpatient (CLI) | payer OTHER, SELFPAY ==
[2024-06-27 16:25] LABS: Hematocrit 36.8 % (37.0-47.0); Hemoglobin 11.8 g/dL (12.0-15.0); Mean Corpuscular HGB Conc 32.1 g/dl (32-36); Mean Corpuscular Hemoglobin 30.2 pg (26-34); Mean Corpuscular Volume 94.1 fl (80-100); Platelet Count Result 327 k/mm3 (150-375); Red Blood Count 3.91 M/mm3 (4.2-5.4); Red Cell Distribution Width 14.7 % (11.5-14.5); White Blood Count 7.1 K/mm3 (4.5-10.0)
[2024-06-27 16:40] LABS: Iron 108 ug/dL (37-170)
[2024-06-27 16:46] LABS: CRP < 0.5 mg/dL (<1.0)
[2024-06-27 16:53] LABS: Percent Iron Saturation 28 % (20-50)
[2024-06-27 17:17] LABS: Ferritin 6.08 ng/mL (6.24-137)
[2024-06-27 17:49] LABS: Erythrocyte Sedimentation Rate 13 mm/hr (0-20)
[2024-06-30 12:34] LABS: Anti Nuclear Antibody Pattern Nuclear, Homogeneous; Anti Nuclear Antibody Titer 1:40 titer
[2024-06-30 17:08] LABS: Immunoglobulin A 204 mg/dL (47-310); TTG IGA AB <1.0 U/mL
== END 2024-06-27 15:49 | disposition home or self-care (01) ==
LOC: ANHLAB 15:49
PROVIDERS: PCP Emergency Medicine; Visit Provider Nurse Practitioner
DX: K92.1 Melena (principal); R19.8 Other specified symptoms and signs involving the digestive system and abdomen; K92.0 Hematemesis; D64.9 Anemia, unspecified; K52.9 Noninfective gastroenteritis and colitis, unspecified; R53.83 Other fatigue
CPT/HCPCS: 36415; 82607; 82652; 82728; 82746; 82784; 83516; 83540; 83550; 84443; 85027; 85652; 86038; 86039; 86140

== ENCOUNTER 2024-07-13 11:27 | Outpatient (CLI) | payer OTHER, SELFPAY ==
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
--- OUTSIDE RECORDS SUMMARY | 2024-07-13 11:31 | XMS_ITS | Referral Summary ---
Author Organization [address] Address [address] [place] [id number] Care Team Providers Care Process Development Associate Name Role Phone Taina Freeman MD Primary Care Provider + Encounters Date Type Department Care Team Description 04/28/2024 9:00 AM CLINICAL DOCUMENTATION SPECIALIST Procedure visit Obstetrics and Gynecology Clinic [facility] 3rd Floor [address] [place] [address] Jayleen Amaral MD Encounter for IUD insertion (Primary Dx); Screen for STD (sexually transmitted disease); Abnormal uterine bleeding from Last 3 Months Allergies Active Allergy [...] increased risk on complications such as sudden infant syndrome. Ms. Prince currently smokes 1 pack [...] # Disposition: Follow up task sent to [facility] scheduling pool. Desires discharge home today. [...] education: completed in all 3 trimesters [x] Center Hole Reamer: Completed [x] Car seat discussed [x] PP [...] How often do you attend [facility] or episcopalian services? More than 4 times per year 02/01/2022 Do you belong to any clubs o r organizations such as worship groups, unions, fraternal or athletic groups, or [...] care, and heating? Not very hard 02/01/2022 [facility] - Occupational Stress Questionnaire Answer Date [...] place to sleep or slept in a [place] health care facility (including now)? No 02/01/2022 [place] Depression Scale Answer Date Recorded [place] Depression Scale Total 20 10/27/2021 The thought [...] Comments Blood Pressure 130/83 04/28/2024 9:10 AM CLINICAL DOCUMENTATION SPECIALIST Pulse 99 04/28/2024 9:10 AM CLINICAL DOCUMENTATION SPECIALIST Temperature 37.2 C (99 F) 01/24/2024 5:00 PM CLINICAL DOCUMENTATION SPECIALIST Respiratory Rate 18 01/24/2024 9:37 PM CLINICAL DOCUMENTATION SPECIALIST Oxygen Saturation 99% 04/28/2024 9:10 AM CLINICAL DOCUMENTATION SPECIALIST Inhaled Oxygen Concentration - - Weight 44 kg (96 lb 14.4 oz) 04/28/2024 9:10 AM CLINICAL DOCUMENTATION SPECIALIST Height 154.9 cm (5' 1 ) 03/30/2024 2:23 PM CLINICAL DOCUMENTATION SPECIALIST Body Mass Index 18.31 03/30/2024 2:23 PM CLINICAL DOCUMENTATION SPECIALIST Plan of Treatment Not on file Procedures Procedure Name Priority Date/Time Associated Diagnosis Comments TRICHOMONAS VAGINALIS PCR Routine 04/28/2024 9:50 AM CLINICAL DOCUMENTATION SPECIALIST N. GONORRHOEAE/C. TRACHOMATIS AMPLIFICATION Routine 04/28/2024 9:50 AM CLINICAL DOCUMENTATION SPECIALIST POCT HCG, URINE Routine 04/28/2024 9:16 AM CLINICAL DOCUMENTATION SPECIALIST Encounter for IUD insertion PAP WITH REFLEX TO HIGH RISK HPV Routine 08/29/2021 10:23 AM CDT Encounter for supervision of other normal in second trimester HEPATITIS C ANTIBODY Routine 08/27/2021 2:39 PM CDT , unspecified gestational age from Last 3 Months or Most Recently Relevant to Health Maintenance Results * N. gonorrhoeae/C. trachomatis Amplification Endocervical (04/28/2024 9:50 AM CLINICAL DOCUMENTATION SPECIALIST) C. trachomatis Not Detected [facility] N. gonorrhoeae Not Detected [facility] Comment: Interpretive Data This assay detects Chlamydia trachomatis and Neisseria gonorrhoeae by nucleic acid amplification testing (NAAT). This assay has been cleared by the [place] Food and Drug administration. The performance characteristics of this test have been verified by the [facility] Molecular Infectious Disease laboratory. The performance characteristics of this test have not been evaluated in individuals less than 14 years of age. Current Interpretive Data was last revised on 2023. Endocervical 04/28/2024 9:50 AM CLINICAL DOCUMENTATION SPECIALIST 04/28/2024 11:42 AM CLINICAL DOCUMENTATION SPECIALIST Jayleen Amaral MD LAB MICROBIOLOGY - GENE RAL ORDERABLES Final Result Performing Organization Address [facility] de Phone Number [facility] [place] [address] [facility] * Trichomonas vaginalis PCR Endocervical (04/28/2024 9:50 AM CLINICAL DOCUMENTATION SPECIALIST) [facility] Trichomonas DNA Not Detected [facility] Comment: Interpretive Data This assay detects Trichomonas vaginalis by nucleic acid amplification testing (NAAT). This assay has been cleared by the [place] Food and Drug administration. The performance characteristics of this test have been verified by the [facility] Molecular Infectious Disease laboratory. The performance of this test has not been evaluated in individuals less than 18 years of age. Current Interpretive Data was last revised on 2023. Endocervical 04/28/2024 9:50 AM CLINICAL DOCUMENTATION SPECIALIST 04/28/2024 11:42 AM CLINICAL DOCUMENTATION SPECIALIST Jayleen Amaral MD LAB MICROBIOLOGY - GENE RAL ORDERABLES Final Result Performing Organization Address [facility] de Phone Number [facility] [address] [facility] * POCT hCG, urine (04/28/2024 9:16 AM CLINICAL DOCUMENTATION SPECIALIST) HCG, ur, POC Negative Negative Lot Number [id number] QC Backgroud Clear Acceptable QC Control Line Acceptable Urine 04/28/2024 9:16 AM CLINICAL DOCUMENTATION SPECIALIST us Jayleen Amaral MD POINT OF CARE TEST SILVIANO HOLLIDAY Final Result * Pap with reflex to High Risk HPV (08/29/2021 10:23 AM CDT) Thin prep (Pap test) 08/29/2021 10:23 AM CDT 08/29/2021 12:26 [address]ative PATHOLOGY [facility] - 09/11/2021 11:52 AM CDT EPIC results best viewed via link to PDF [facility] Sharyn Guerrero Laboratory [place] [address] Note to Patients: This report may contain [...] Gender: F : 1990 (Age: 31) Address: [address] [place], [place] [id number] Hospital #: [id number] Service: BILLING SERVICES MANAGER Location: [facility] Patient Type: [facility] Ref Lab Taken: 08/29/2021 Received: 08/29/2021 [...] been rescreened in accordance with this laboratory's Childcare Center Director Program. 09/11/2021 11:52 CLEVE Bartholomew(ASCP) Report Electronically [...] determined by the Surgical Pathology Department at [facility] as part of an ongoing supplier quality engineering manager program and in compliance with federally [...] determined by the Surgical Pathology Department of [facility]. It has not been cleared or approved by the U. S. Food and Drug Administration. Les Couch MD PhD LAB CYTOLOGY ORDERA BLES Final Result PATHOLOGY [facility] 3rd Floor [place], [place] [phone] * Hepatitis C antibody (08/27/2021 2:39 PM CDT) Hep C Ab Nonreactive Nonreactive [facility] Comment:Antibodies to HCV no t detected. Does NOT exclude the possibility of recent exposure to HCV. Blood 08/27/2021 2:39 PM CDT 08/27/2021 3:18 PM CDT us Les Couch MD PhD LAB MICROBI OLY - GENERAL ORDERABLES Edited Result - Final FRED [facility] [place] [address] from Last 3 Months or Most Recently Relevant to Health Maintenance Insurance [facility] Advance Directives For more information, please contact: [phone] * Full Code (Latest Code Status on File) Date Activated Date Inactivated Comments 01/30/2022 9:49 AM 02/01/2022 6:51 PM * Full Code Date Activated Date Inactivated Comments 01/29/2022 10:53 PM 01/30/2022 9:49 AM Full CPR in case of cardiopulmonary arrest * Full Code Date Activated Date Inactivated Comments 01/21/2022 3:22 PM 01/22/2022 12:25 AM Full CPR in case of cardiopulmonary arrest Care Teams Process Development Associate Relationship Specialty Start Date End Date Taina Freeman MD [address] [address] PCP - General Family Medicine 08/27/21
--- OUTSIDE RECORDS SUMMARY | 2024-07-13 11:31 | XMS_ITS | Clinical Summary ---
Author Organization [facility] Address [facility] [place] [address] Care Team Providers Care Senior Front End Engineer Name Role Phone None, Provider Primary Care Provider Taina Wallace MD Unavailable [phone] Allergies Active Allergy Reactions Criticality Noted Date [...] Date Last Done Comments Annual Physical 1995 Hepatitis C 2010 Pneumococcal Vaccine: Pediatrics (0 to 5 Years) and At-Risk Patients (6 to 49 Years) (1 of 2 - PCV) 2011 HPV Vaccines (2 - 3-dose series) 07/22/2016 06/24/2016 Cervical Cancer Screening Pap with HPV Testing (Age 30 to 64) Every 5 Years 2022 COVID-19 Vaccine ( season) 2023 PHQ-2 (Physician [place]) 03/01/2024 Cervical Cancer Screening Pap Smear (Age [...] this topic Insurance [employer] Care Teams Senior Front End Engineer Relationship Specialty Start Date End Date None, Provider, PCP - General 08/26/20 Taina Freeman MD [address] [place] [address] FAMILY PRACTICE 05/12/23
--- OUTSIDE RECORDS SUMMARY | 2024-07-13 11:31 | XMS_ITS | Data Portability ---
Author Organization [place] - [facility] [address], Main Office Address [address] [place] [address] Assessment No assessment recorded. Plan of Treatment Reminders Order Date Submit Date Provider Last Modified By Organization Details Last Modified Time Details Appointments None recorded. Lab iron + total iron-bindin g capacity (TIBC), serum 2022 023 [facility] (Lab), [address] [place], [address], 3 21:18:32 ferritin, serum or plasma 2022 023 [facility] (Lab), [address] [place], [address], 3 21:30:47 CBC w/ auto diff 2022 023 [facility] (Lab), [address] [place], [address], 3 19:51:06 vitamin B12, serum 2022 023 [facility] (Lab), [address] [place], [address], 3 22:11:07 folate, serum 2022 023 [facility] (Lab), [address] [place], [address], 3 22:11:13 Referral None recorded. Procedures None recorded. Surgeries None recorded. Imaging None recorded. Medication Orders cyanocobala min (vit B-12) 1,000 mcg/mL injection solution 2022 023 [email or web address] Not available 15:17:43 cyanocobala min (vit B-12) 1,000 mcg/mL injection solution 2022 023 [email or web address] Not available 15:17:43 cyanocobala min (vit B-12) 1,000 mcg tablet 2022 023 [email or web address] [id number], [address] [place], [address], 15:17:40 Patient TargetsNo targets recorded. Patient InstructionsNo instructions recorded. Reason for Referral None Reported. Results Created Date Observation Date Name Description Value Unit Range Abnormal Flag Note LastModifiedBy Organization Detail LastModifiedTime 12/13/1912/12/2020 VITAM IN B12 (LINDA SY ) vb12 312 pg/mL 239-93 1 Not Available [facility] (Lab) [address] [place], [address], 12/12/2020 22:45:39 12/13/1912/12/2020 PASQUALE TIN ferritin 6 NG/mL 6.24-1 37 low Not Available [facility] (Lab) [address] [place], [address], 12/12/2020 22:22:01 12/13/1912/12/2020 TSH thyroid-stim ulating hormone 0.998 uIU/m L 0.465- 4.680 Not Available [facility] (Lab) [address] [place], [address], 12/12/2020 22:19:06 12/13/1912/12/2020 VITAM IN D 25-HY DROXY vd25oh 47.1 NG/mL 30-100 Vitam in D Statu s: Defic ient: <20 ng/mL Insuf ficie nt: 20-29 ng/mL Suffi cient : 30-10 0 ng/mL Not Available [facility] (Lab) [address] [place], [address], 12/12/2020 22:11:16 12/13/1912/12/2020 T4 FREE free T4 1.05 NG/dL 0.78-2 .19 Not Available [facility] (Lab) [address] [place], [address], 12/12/2020 22:04:07 12/13/1912/12/2020 IRON/ TIBC PANEL total iron binding capacity 366 mcg/d L 265-47 5 Not Available [facility] (Lab) [address] [place], [address], 12/12/2020 21:54:28 12/13/1912/12/2020 IRON/ TIBC PANEL % transferrin saturation 32 % 20-55 Not Available [facility] (Lab) [address] [place], [address], 12/12/2020 21:54:28 12/13/1912/12/2020 IRON/ TIBC PANEL unsaturated iron bind capacity 248 mcg/d L 126-38 2 Not Available [facility] (Lab) [address] [place], [address], 12/12/2020 21:54:28 12/13/1912/12/2020 IRON/ TIBC PANEL iron 118 mcg/d L 42-175 Not Available [facility] (Lab) [address] [place], [address], 12/12/2020 21:54:28 12/13/19 21 12/12/2020 MAGNE SIUM magnesium 2.1 mg/dL 1.6-2. 3 Not Available [facility] (Lab) [address] [place], [address], 12/12/2020 21:53:51 12/13/19 21 12/12/2020 COMPR EHENS NAHOMY METAB OLIC PANEL agap 10.0 mmol/ L 14-22 low Not Available [facility] (Lab) [address] [place], [address], 12/12/2020 21:53:48 12/13/19 21 12/12/2020 COMPR EHENS NAHOMY METAB OLIC PANEL sodium 138 mmol/ L 137-14 5 Not Available [facility] (Lab) [address] [place], [address], 12/12/2020 21:53:48 12/13/1912/12/2020 COMPR EHENS NAHOMY METAB OLIC PANEL potassium 4.0 mmol/ L 3.5-5. 1 Not Available [facility] (Lab) [address] [place], [address], 12/12/2020 21:53:48 12/13/1912/12/2020 COMPR EHENS NAHOMY METAB OLIC PANEL chloride 106 mmol/ L 98-107 Not Available [facility] (Lab) [address] [place], [address], 12/12/2020 21:53:48 12/13/19 21 12/12/2020 COMPR EHENS NAHOMY METAB OLIC PANEL carbon dioxide 26 mmol/ L 22-30 Not Available [facility] (Lab) [address] [place], [address], 12/12/2020 21:53:48 12/13/19 21 12/12/2020 COMPR EHENS NAHOMY METAB OLIC PANEL glucose 95 mg/dL 70-99 Not Available [facility] (Lab) [address] [place], [address], 12/12/2020 21:53:48 12/13/19 21 12/12/2020 COMPR EHENS NAHOMY METAB OLIC PANEL BUN 10 mg/dL 8-19 Not Available [facility] (Lab) [address] [place], [address], 12/12/2020 21:53:48 12/13/1912/12/2020 COMPR EHENS NAHOMY METAB OLIC PANEL creatinine 0.60 mg/dL 0.66-1 .25 low Not Available [facility] (Lab) [address] [place], [address], 12/12/2020 21:53:48 12/13/1912/12/2020 COMPR EHENS NAHOMY METAB OLIC PANEL GFR >60 Refer ence Range : [place] ge GFR Healt hy Adult : >60 [...] [facility] websi te: https ://dee dee davison.javed serrano/pr ginoess ional s/kdo qi/gf r_cal culat or Not Available [facility] (Lab) [address] [place], [address], 12/12/2020 21:53:48 12/13/1912/12/2020 COMPR EHENS NAHOMY METAB OLIC PANEL alkaline phosphatase 43 U/L 38-126 Not Available [facility] (Lab) [address] [place], [address], 12/12/2020 21:53:48 12/13/19 21 12/12/2020 COMPR EHENS NAHOMY METAB OLIC PANEL alanine aminotransfe rase 19 U/L 0-35 Not Available [facility] (Lab) [address] [place], [address], 12/12/2020 21:53:48 12/13/1912/12/2020 COMPR EHENS NAHOMY METAB OLIC PANEL aspartate aminotransfe rase 29 U/L 15-37 Not Available [facility] (Lab) [address] [place], [address], 12/12/2020 21:53:48 12/13/19 21 12/12/2020 COMPR EHENS NAHOMY METAB OLIC PANEL bilirubin, total 0.70 mg/dL 0.20-1 .30 Not Available [facility] (Lab) [address] [place], [address], 12/12/2020 21:53:48 12/13/1912/12/2020 COMPR EHENS NAHOMY METAB OLIC PANEL calcium 9.8 mg/dL 8.4-10 .2 Not Available [facility] (Lab) [address] [place], [address], 12/12/2020 21:53:48 12/13/1912/12/2020 COMPR EHENS NAHOMY METAB OLIC PANEL total protein 7.3 g/dL 6.3-8. 2 Not Available [facility] (Lab) [address] [place], [address], 12/12/2020 21:53:48 12/13/19 21 12/12/2020 COMPR EHENS NAHOMY METAB OLIC PANEL albumin 4.5 g/dL 3.4-5. 0 Not Available [facility] (Lab) [address] [place], [address], 12/12/2020 21:53:48 12/13/19 21 12/12/2020 COMPR EHENS NAHOMY METAB OLIC PANEL globulin 2.8 g/dL 2.6-4. 2 Not Available [facility] (Lab) [address] [place], [address], 12/12/2020 21:53:48 12/13/1912/12/2020 COMPR EHENS NAHOMY METAB OLIC PANEL A/G ratio 1.6 ratio 1.0-2. 0 Not Available [facility] (Lab) [address] [place], [address], 12/12/2020 21:53:48 12/13/1912/12/2020 HEMOG LOBIN A1C HA1C 5.4 % 4.0-6. 0 Diabe angela Scree mallory Crite stephenie: <5.7% Consi stent with absen ce of diabe angela 5.7-6 .4% Consi stent with incre ased risk for diabe angela (pred iabet es) >OR=6 .5% Consi stent with diabe angela REFER ENCE: Diabe angela Care 2016, 39(Soto ppl.1 ):s13 -s22 Not Available [facility] (Lab) [address] [place], [address], 12/12/2020 21:36:09 12/13/1912/12/2020 CBC/C OMPLE TE BLD COUNT W/DIF F hematocrit 39.9 % 35.7-4 5.7 Not Available [facility] (Lab) [address] [place], [address], 12/12/2020 20:06:02 12/13/19 21 12/12/2020 CBC/C OMPLE TE BLD COUNT W/DIF F white blood cells 8.3 x10'3 /uL 4.2-10 .8 Not Available [facility] (Lab) [address] [place], [address], 12/12/2020 20:06:02 12/13/19 21 12/12/2020 CBC/C OMPLE TE BLD COUNT W/DIF F red blood cells 4.55 x10'6 /uL 3.80-5 .20 Not Available [facility] (Lab) [address] [place], [address], 12/12/2020 20:06:02 12/13/1912/12/2020 CBC/C OMPLE TE BLD COUNT W/DIF F hemoglobin 13.0 g/dL 12.0-1 5.6 Not Available [facility] (Lab) [address] [place], [address], 12/12/2020 20:06:02 12/13/1912/12/2020 CBC/C OMPLE TE BLD COUNT W/DIF F mean red cell volume 87.7 fL 82.0-9 9.0 Not Available [facility] (Lab) [address] [place], [address], 12/12/2020 20:06:02 12/13/1912/12/2020 CBC/C OMPLE TE BLD COUNT W/DIF F mean red cell hemoglobin 28.6 pg 27.0-3 3.0 Not Available [facility] (Lab) [address] [place], [address], 12/12/2020 20:06:02 12/13/1912/12/2020 CBC/C OMPLE TE BLD COUNT W/DIF F mean RBC HGB concentratio n 32.6 g/dL 31.0-3 6.0 Not Available [facility] (Lab) [address] [place], [address], 12/12/2020 20:06:02 12/13/1912/12/2020 CBC/C OMPLE TE BLD COUNT W/DIF F red cell distribution width 14.4 % 11.8-1 5.5 Not Available [facility] (Lab) [address] [place], [address], 12/12/2020 20:06:02 12/13/19 21 12/12/2020 CBC/C OMPLE TE BLD COUNT W/DIF F platelets 369 x10'3 /uL 150-40 0 Not Available [facility] (Lab) [address] [place], [address], 12/12/2020 20:06:02 12/13/1912/12/2020 CBC/C OMPLE TE BLD COUNT W/DIF F mean platelet volume 10.4 fL 9.0-12 .4 Not Available [facility] (Lab) [address] [place], [address], 12/12/2020 20:06:02 12/13/1912/12/2020 CBC/C OMPLE TE BLD COUNT W/DIF F neutrophils 55.5 % 39.0-7 2.0 Not Available [facility] (Lab) [address] [place], [address], 12/12/2020 20:06:02 12/13/1912/12/2020 CBC/C OMPLE TE BLD COUNT W/DIF F lymphocytes 36.4 % 16.0-4 7.0 Not Available [facility] (Lab) [address] [place], [address], 12/12/2020 20:06:02 12/13/1912/12/2020 CBC/C OMPLE TE BLD COUNT W/DIF F monocytes 5.9 % 5.0-12 .0 Not Available [facility] (Lab) [address] [place], [address], 12/12/2020 20:06:02 12/13/1912/12/2020 CBC/C OMPLE TE BLD COUNT W/DIF F eosinophils 1.2 % 1.0-7. 0 Not Available [facility] (Lab) [address] [place], [address], 12/12/2020 20:06:02 12/13/19 21 12/12/2020 CBC/C OMPLE TE BLD COUNT W/DIF F basophils 0.5 % 0.0-2. 0 Not Available [facility] (Lab) [address] [place], [address], 12/12/2020 20:06:02 12/13/1912/12/2020 CBC/C OMPLE TE BLD COUNT W/DIF F immature granulocytes 0.5 % 0.00-0 .50 Not Available [facility] (Lab) [address] [place], [address], 12/12/2020 20:06:02 12/13/1912/12/2020 CBC/C OMPLE TE BLD COUNT W/DIF F neutrophils, absolute count 4.58 x10'3 /uL 1.5-8. 0 Not Available [facility] (Lab) [address] [place], [address], 12/12/2020 20:06:02 12/13/1912/12/2020 CBC/C OMPLE TE BLD COUNT W/DIF F lymphocytes, absolute count 3.00 x10'3 /uL 1.07-3 .43 Not Available [facility] (Lab) [address] [place], [address], 12/12/2020 20:06:02 12/13/1912/12/2020 CBC/C OMPLE TE BLD COUNT W/DIF F monocytes, absolute count 0.49 x10'3 /uL 0.29-0 .99 Not Available [facility] (Lab) [address] [place], [address], 12/12/2020 20:06:02 12/13/19 21 12/12/2020 CBC/C OMPLE TE BLD COUNT W/DIF F eosinophils, absolute count 0.10 x10'3 /uL 0.02-0 .53 Not Available [facility] (Lab) [address] [place], [address], 12/12/2020 20:06:02 12/13/19 21 12/12/2020 CBC/C OMPLE TE BLD COUNT W/DIF F basophils, absolute count 0.04 x10'3 /uL 0.01-0 .08 Not Available [facility] (Lab) [address] [place], [address], 12/12/2020 20:06:02 12/13/19 21 12/12/2020 CBC/C OMPLE TE BLD COUNT W/DIF F immature granulocytes ,absolute 0.04 x10'3 /uL 0.00-0 .05 Not Available [facility] (Lab) [address] [place], [address], 12/12/2020 20:06:02 12/13/1912/12/2020 CBC/C OMPLE TE BLD COUNT W/DIF F nucleated red blood cells 0.0 % -0 Not Available [facility] (Lab) [address] [place], [address], 12/12/2020 20:06:02 12/13/19 21 12/12/2020 CBC/C OMPLE TE BLD COUNT W/DIF F NRBC# 0.00 x10'3 /uL Not Available [facility] (Lab) [address] [place], [address], 12/12/2020 20:06:02 06/05/19 22 06/06/2021 KAMAR/A NTINU CLEAR ANTIB ODIES ,IFA antinuclear antibodies, ifa negati ve Negat nahomy <1:80 Borde rline 1:80 Posit nahomy >1:80 ICAP nomen clatu re: AC-0 For more infor matio n about Hep-2 cell patte rns use ANApa ttern s.org , the offic ial websi te for the Inter natio nal Conse nsus on Antin uclea r Antib adilia (KAMAR) Patte rns ([facility] ). Perfo rmed at: - [facility] n [address] [facility], [facility], [place] [id number] Lab Direc tor: Cornelius stewart PhD, Phone : [phone] Not Available [facility] [address] [place], [address], 06/06/2021 17:09:51 06/05/19 22 06/04/2021 VITAM IN B12 (LINDA SY ) vb12 272 pg/mL 239-93 1 Not Available [facility] (Lab) [address] [place], [address], 06/04/2021 22:32:44 06/05/19 22 06/04/2021 VITAM IN D 25-HY DROXY vd25oh 23.9 NG/mL 30-100 low Vitam in D Statu s: Defic ient: <20 ng/mL Insuf ficie nt: 20-29 ng/mL Suffi cient : 30-10 0 ng/mL Not Available [facility] (Lab) [address] [place], [address], 06/04/2021 22:00:05 06/05/19 22 06/04/2021 HEMOG LOBIN A1C HA1C 5.1 % 4.0-6. 0 Diabe angela Scree mallory Crite stephenie: <5.7% Consi stent with absen ce of diabe angela 5.7-6 .4% Consi stent with incre ased risk for diabe angela (pred iabet es) >OR=6 .5% Consi stent with diabe angela REFER ENCE: Diabe angela Care 2016, 39(Soto ppl.1 ):s13 -s22 Not Available [facility] (Lab) [address] [place], [address], 06/04/2021 20:27:57 06/05/19 22 06/04/2021 PASQUALE TIN ferritin 7 NG/mL 6.24-1 37 Not Available [facility] (Lab) [address] [place], [address], 06/04/2021 20:03:55 06/05/19 22 06/04/2021 TSH thyroid-stim ulating hormone 1.570 uIU/m L 0.465- 4.680 Not Available [facility] (Lab) [address] [place], [address], 06/04/2021 20:02:19 06/05/19 22 06/04/2021 SEDIM ENTAT ION RATE erythrocyte sedimentatio n rate 12 mm/HR 0-20 Not Available [facility] (Lab) [address] [place], [address], 06/04/2021 19:47:26 06/05/19 22 06/04/2021 T4 FREE free T4 1.18 NG/dL 0.78-2 .19 Not Available [facility] (Lab) [address] [place], [address], 06/04/2021 19:38:29 06/05/19 22 06/04/2021 IRON/ TIBC PANEL total iron binding capacity 356 mcg/d L 265-47 5 Not Available [facility] (Lab) [address] [place], [address], 06/04/2021 19:33:02 06/05/19 22 06/04/2021 IRON/ TIBC PANEL % transferrin saturation 9 % 20-55 low Not Available [facility] (Lab) [address] [place], [address], 06/04/2021 19:33:02 06/05/19 22 06/04/2021 IRON/ TIBC PANEL unsaturated iron bind capacity 325 mcg/d L 126-38 2 Not Available [facility] (Lab) [address] [place], [address], 06/04/2021 19:33:02 06/05/19 22 06/04/2021 IRON/ TIBC PANEL iron 31 mcg/d L 42-175 low Not Available [facility] (Lab) [address] [place], [address], 06/04/2021 19:33:02 06/05/19 22 06/04/2021 C REACT NAHOMY PROTE IN,UL TRA SENS C-reactive protein <0.030 mg/dL 0.0-0. 5 Not Available [facility] (Lab) [address] [place], [address], 06/04/2021 19:32:16 06/05/19 22 06/04/2021 RHEUM ATOID FACTO R rf <8.6 IU/mL 0.0-11 .9 Not Available [facility] (Lab) [address] [place], [address], 06/04/2021 19:32:15 06/05/19 22 06/04/2021 MAGNE SIUM magnesium 2.1 mg/dL 1.6-2. 3 Not Available [facility] (Lab) [address] [place], [address], 06/04/2021 19:30:47 06/05/19 22 06/04/2021 COMPR EHENS NAHOMY METAB OLIC PANEL carbon dioxide 23 mmol/ L 22-30 Not Available [facility] (Lab) [address] [place], [address], 06/04/2021 19:30:44 06/05/19 22 06/04/2021 COMPR EHENS NAHOMY METAB OLIC PANEL sodium 136 mmol/ L 137-14 5 low Not Available [facility] (Lab) [address] [place], [address], 06/04/2021 19:30:44 06/05/19 22 06/04/2021 COMPR EHENS NAHOMY METAB OLIC PANEL potassium 4.1 mmol/ L 3.5-5. 1 Not Available [facility] (Lab) [address] [place], [address], 06/04/2021 19:30:44 06/05/19 22 06/04/2021 COMPR EHENS NAHOMY METAB OLIC PANEL chloride 103 mmol/ L 98-107 Not Available [facility] (Lab) [address] [place], [address], 06/04/2021 19:30:44 06/05/19 22 06/04/2021 COMPR EHENS NAHOMY METAB OLIC PANEL agap 14.1 mmol/ L 14-22 Not Available [facility] (Lab) [address] [place], [address], 06/04/2021 19:30:44 06/05/19 22 06/04/2021 COMPR EHENS NAHOMY METAB OLIC PANEL glucose 98 mg/dL 70-99 Not Available [facility] (Lab) [address] [place], [address], 06/04/2021 19:30:44 06/05/19 22 06/04/2021 COMPR EHENS NAHOMY METAB OLIC PANEL BUN 10 mg/dL 8-19 Not Available [facility] (Lab) [address] [place], [address], 06/04/2021 19:30:44 06/05/19 22 06/04/2021 COMPR EHENS NAHOMY METAB OLIC PANEL creatinine 0.57 mg/dL 0.66-1 .25 low Not Available [facility] (Lab) [address] [place], [address], 06/04/2021 19:30:44 06/05/19 22 06/04/2021 COMPR EHENS NAHOMY METAB OLIC PANEL GFR >60 Refer ence Range : [place] ge GFR Healt hy Adult : >60 [...] [facility] websi te: https ://dee dee w.jose davison.o zach/pr ofess ional s/kdo qi/gf r_cal culat or Not Available [facility] (Lab) [address] [place], [address], 06/04/2021 19:30:44 06/05/19 22 06/04/2021 COMPR EHENS NAHOMY METAB OLIC PANEL alkaline phosphatase 50 U/L 38-126 Not Available [facility] (Lab) [address] [place], [address], 06/04/2021 19:30:44 06/05/19 22 06/04/2021 COMPR EHENS NAHOMY METAB OLIC PANEL alanine aminotransfe rase 18 U/L 0-35 Not Available [facility] (Lab) [address] [place], [address], 06/04/2021 19:30:44 06/05/19 22 06/04/2021 COMPR EHENS NAHOMY METAB OLIC PANEL aspartate aminotransfe rase 24 U/L 15-37 Not Available [facility] (Lab) [address] [place], [address], 06/04/2021 19:30:44 06/05/19 22 06/04/2021 COMPR EHENS NAHOMY METAB OLIC PANEL bilirubin, total 0.40 mg/dL 0.20-1 .30 Not Available [facility] (Lab) [address] [place], [address], 06/04/2021 19:30:44 06/05/19 22 06/04/2021 COMPR EHENS NAHOMY METAB OLIC PANEL calcium 10.2 mg/dL 8.4-10 .2 Not Available [facility] (Lab) [address] [place], [address], 06/04/2021 19:30:44 06/05/19 22 06/04/2021 COMPR EHENS NAHOMY METAB OLIC PANEL total protein 7.6 g/dL 6.3-8. 2 Not Available [facility] (Lab) [address] [place], [address], 06/04/2021 19:30:44 06/05/19 22 06/04/2021 COMPR EHENS NAHOMY METAB OLIC PANEL albumin 4.9 g/dL 3.4-5. 0 Not Available [facility] (Lab) [address] [place], [address], 06/04/2021 19:30:44 06/05/19 22 06/04/2021 COMPR EHENS NAHOMY METAB OLIC PANEL globulin 2.7 g/dL 2.6-4. 2 Not Available [facility] (Lab) [address] [place], [address], 06/04/2021 19:30:44 06/05/19 22 06/04/2021 COMPR EHENS NAHOMY METAB OLIC PANEL A/G ratio 1.8 ratio 1.0-2. 0 Not Available [facility] (Lab) [address] [place], [address], 06/04/2021 19:30:44 06/05/19 22 06/04/2021 CBC/C OMPLE TE BLD COUNT W/DIF F hematocrit 35.6 % 35.7-4 5.7 low Not Available [facility] (Lab) [address] [place], [address], 06/04/2021 19:05:36 06/05/19 22 06/04/2021 CBC/C OMPLE TE BLD COUNT W/DIF F white blood cells 7.6 x10'3 /uL 4.2-10 .8 Not Available [facility] (Lab) [address] [place], [address], 06/04/2021 19:05:36 06/05/19 22 06/04/2021 CBC/C OMPLE TE BLD COUNT W/DIF F red blood cells 4.12 x10'6 /uL 3.80-5 .20 Not Available [facility] (Lab) [address] [place], [address], 06/04/2021 19:05:36 06/05/19 22 06/04/2021 CBC/C OMPLE TE BLD COUNT W/DIF F hemoglobin 11.7 g/dL 12.0-1 5.6 low Not Available [facility] (Lab) [address] [place], [address], 06/04/2021 19:05:36 06/05/19 22 06/04/2021 CBC/C OMPLE TE BLD COUNT W/DIF F mean red cell volume 86.4 fL 82.0-9 9.0 Not Available [facility] (Lab) [address] [place], [address], 06/04/2021 19:05:36 06/05/19 22 06/04/2021 CBC/C OMPLE TE BLD COUNT W/DIF F mean red cell hemoglobin 28.4 pg 27.0-3 3.0 Not Available [facility] (Lab) [address] [place], [address], 06/04/2021 19:05:36 06/05/19 22 06/04/2021 CBC/C OMPLE TE BLD COUNT W/DIF F mean RBC HGB concentratio n 32.9 g/dL 31.0-3 6.0 Not Available [facility] (Lab) [address] [facility] [facility] [place], [address], 06/04/2021 19:05:36 06/05/19 22 06/04/2021 CBC/C OMPLE TE BLD COUNT W/DIF F neutrophils 56.5 % 39.0-7 2.0 Not Available [facility] (Lab) [address] [place], [address], 06/04/2021 19:05:36 06/05/19 22 06/04/2021 CBC/C OMPLE TE BLD COUNT W/DIF F red cell distribution width 17.8 % 11.8-1 5.5 high Not Available [facility] (Lab) [address] [place], [address], 06/04/2021 19:05:36 06/05/19 22 06/04/2021 CBC/C OMPLE TE BLD COUNT W/DIF F platelets 365 x10'3 /uL 150-40 0 Not Available [facility] (Lab) [address] [place], [address], 06/04/2021 19:05:36 06/05/19 22 06/04/2021 CBC/C OMPLE TE BLD COUNT W/DIF F mean platelet volume 10.4 fL 9.0-12 .4 Not Available [facility] (Lab) [address] [place], [address], 06/04/2021 19:05:36 06/05/19 22 06/04/2021 CBC/C OMPLE TE BLD COUNT W/DIF F lymphocytes 33.0 % 16.0-4 7.0 Not Available [facility] (Lab) [address] [place], [address], 06/04/2021 19:05:36 06/05/19 22 06/04/2021 CBC/C OMPLE TE BLD COUNT W/DIF F monocytes 8.4 % 5.0-12 .0 Not Available [facility] (Lab) [address] [place], [address], 06/04/2021 19:05:36 06/05/19 22 06/04/2021 CBC/C OMPLE TE BLD COUNT W/DIF F eosinophils 1.7 % 1.0-7. 0 Not Available [facility] (Lab) [address] [place], [address], 06/04/2021 19:05:36 06/05/19 22 06/04/2021 CBC/C OMPLE TE BLD COUNT W/DIF F basophils 0.3 % 0.0-2. 0 Not Available [facility] (Lab) [address] [place], [address], 06/04/2021 19:05:36 06/05/19 22 06/04/2021 CBC/C OMPLE TE BLD COUNT W/DIF F immature granulocytes 0.1 % 0.00-0 .50 Not Available [facility] (Lab) [address] [place], [address], 06/04/2021 19:05:36 06/05/19 22 06/04/2021 CBC/C OMPLE TE BLD COUNT W/DIF F neutrophils, absolute count 4.31 x10'3 /uL 1.5-8. 0 Not Available [facility] (Lab) [address] [place], [address], 06/04/2021 19:05:36 06/05/19 22 06/04/2021 CBC/C OMPLE TE BLD COUNT W/DIF F lymphocytes, absolute count 2.52 x10'3 /uL 1.07-3 .43 Not Available [facility] (Lab) [address] [id number]|2024-07-13 11:31:00|2024-07-13 11:31:00|XMS_ITS|PILLO MCDUFFIE|External Medical Summaries|[id number]|" Clinical Summary Created on: July 13, 2024 Annel Edwards : 05/20/1952 Sex: Female Author Organization [facility] Address [address] [place] [address] Phone Care Team Providers Care Grinder Set Up Operator Thread Name Role Phone Chele Harding MD Primary Care Provider [phone] Martha Kitchen APRN, JUNIOR HIGH MATH TEACHER Unavailable [phone] Allergies Active Allergy Reactions Criticality Noted Date Comments Amoxicillin Unknown 12/31/2022 Cashew Nut (Anacardium Occid entale) Skin Test Unknown 12/31/2022 Citalopram Unknown 12/31/2022 Dexamethasone Unknown 12/31/2022 Ibuprofen Unknown 12/31/2022 Loratadine Unknown 12/31/2022 Peanut (Diagnostic) Unknown 12/31/2022 Penicillins Unknown 12/31/2022 Prednisone Unknown 12/31/2022 Pregabalin Unknown 12/31/2022 Varenicline Tartrate Hives 12/31/2022 Medications Topiramate 50 MG Tablet Take 50 mg by mouth 2 times daily. Active Metoprolol Succinate 50 MG Capsule ER 24 Hour Sprinkle Take by mouth. A ctive tiotropium (Spiriva HandiHaler) 18 MCG Capsule take 1 Puff by inhalation daily. Active furosemide (LASIX) 20 MG Tablet Take 20 mg by mouth daily. Active lisinopril (PRINIVIL, ZESTRIL) 20 MG Tablet Take 20 mg by mouth daily. Active aspirin 325 MG Tablet Take 325 mg by mouth daily. Active pantoprazole (PROTONIX) 40 MG Tablet Delayed Response Take 40 mg by mouth daily. Active montelukast (SINGULAIR) 10 MG Tablet Take 10 mg by mouth every evening. Active sodium chloride 1 GM Tablet Take 1 g by mouth daily. Active ALBUTEROL IN take by inhalation. Active HYDROcodone-akash taminophen (NORCO) 10-325 MG Tablet Take 1 Tablet by mouth every 6 hours as needed. Active ALPRAZolam (XANAX) 1 MG Tablet Take 1 mg by mouth 3 times daily. Active Family History Medical History Relation Name Comments Diabetes Father Diabetes Mother Relation Name Status Comments Father Mother Social History Tobacco Use Types Packs/Day Years Used Date Smoking Tobacco: Every Day Cigarettes 0.3 40 Smokeless Tobacco: Never Tobacco Cessation:Ready to Q uit: Yes Comments:6 daily Alcohol Use Standard Drinks/Week Comments Never 0 (1 standard drink = 0.6 oz pur e alcohol) Comments Unknown Sex and Gender Information Value Date Recorded Sex Assigned at Not on file Legal Sex Female 9:13 AM CDT Gender Identity Not on file Sexual Orientation Not on file Last Filed Vital Signs Vital Sign Reading Time Taken Comments Blood Pressure 120/74 04/19/2023 9:28 AM REDUCTION FURNACE OPERATOR HELPER Pulse 91 04/19/2023 9:28 AM REDUCTION FURNACE OPERATOR HELPER Temperature 36.4 C (97.6 F) 04/19/2023 9:28 AM REDUCTION FURNACE OPERATOR HELPER Respiratory Rate 18 04/19/2023 9:28 AM REDUCTION FURNACE OPERATOR HELPER Oxygen Saturation 96% 04/19/2023 9:28 AM REDUCTION FURNACE OPERATOR HELPER Inhaled Oxygen Concentration - - Weight 82.7 kg (182 lb 6.4 oz) 04/19/2023 9:28 A M REDUCTION FURNACE OPERATOR HELPER Height 154.9 cm (5' 1 ) 04/19/2023 9:28 AM REDUCTION FURNACE OPERATOR HELPER Body Mass Index 34.46 04/19/2023 9:28 AM REDUCTION FURNACE OPERATOR HELPER Plan of Treatment Health Maintenance Due Date Last Done Comments DEXA Bone Density 05/20/1952 Hepatitis C Virus (HCV) Screening 05/20/1954 Mammogram 05/20/1954 Colonoscopy 05/21/1999 Colorectal Cancer Screening 05/21/1999 Cologuard 05/20/2004 Immunochemical Fecal Occult Blood 05/20/2004 Pneumococcal Immunization (50+ years) (2 of 2 - PPSV23) 01/06/2016 11/11/2015 Zoster Immunization (2 of 2) 12/24/2022 10/29/2022 Influenza Immunization (#1) 2023 SARS-COV-2 Immunization ( season) 2023 11/22/2021, 06/13/2021, 12/09/2020, Additional history exists Respiratory Syncytial Virus (RSV) Immunization (Adult) (1 - 1-dose 75+ series) 05/20/2029 DTaP/Tdap/Td Immunization Discontinued 09/03/2022, 03/2010 TdaP Immunization Completed 09/03/2022 Hepatitis B Immunization Aged Out No longer eligible based on patient's age to complete this topic Meningococcal Immunization (ACWY) Aged Out No longer eligible based on patient's age to complete this topic Rotavirus Immunization Aged Out No lo nger eligible based on patient's age to complete this topic Insurance Care Teams Grinder Set Up Operator Thread Relationship Specialty Start Date End Date Chele Harding MD PCP - General Family Medicine 12/24/22 Martha Kitchen, [employer], [employer]IOR [employer] [address] [place] [address] Nurse Practitioner Advanced Practice Nurse 12/24/22 "
--- OUTSIDE RECORDS SUMMARY | 2024-07-13 11:31 | XMS_ITS | Clinical Summary ---
Author Organization [facility] Address [address] [place] [address] Care Team Providers Care Framing And Hanging Name Role Phone Barbra Kendrick PA-C Unavailable [phone] Dmitri Jimenes MD Primary Care Provider [phone] Source Comments [facility],non-owned Affiliates and Associated Physician Practices is amultiple site organization consisting of ambulatory clinics and hospital sitesin [place], [place], [place] and [place]. This disclosure is being madepursuant to the Care Everywhere program and may not contain all information available regarding this patient. Last updated 17.[facility] Allergies Active Allergy Reactions Criticality Noted Date Comments Cefaclor Urticaria Medium 12/16/2016 Patient stated she has taken other penicillins and she has not had a reaction. Patient stated she has taken other penicillins and she has not had a reaction. Medications * This document contains information received from the source organization and may not represent a complete record from that organization. * Be aware that medications may not be up to date on this document. Alwaysverify current medications with the patient. ferrous sulfate EC (FERROUS SULFATE) 324 (65 FE) MG tablet Take 1 tablet by mouth once daily 60 tablet 3 8 Active LORazepam (Ativan) 0.5 MG tablet Take 1 (one) tablet by mouth 2 times daily 5 Active sertraline (ZOLOFT) 100 MG tablet Take 1 tablet by mouth once daily 30 tablet 5 8 07/12/19 Discontinu ed(List Clean-Up) hydrOXYzine hcl (ATARAX) 25 MG tablet Take 1 tablet by mouth 4 times daily as needed for Itching 30 tablet 3 8 07/12/19 Discontinu ed(List Clean-Up) busPIRone (BUSPAR) 10 MG tablet Take 20 mg by mouth once daily 07/12/19 Discontinu ed(List Clean-Up) Ywyluoaw-Aey-Vr- FA ( VITAMIN WITH IRON) tabletIndication s:Supervision of high-risk of young primigravida (HCC) Take 1 tablet by mouth once daily 30 tablet 4 8 07/12/19 Discontinu ed(List Clean-Up) ondansetron (ZOFRAN) 4 MG tablet Take 1 tablet by mouth every 6 hours as needed for Nausea/Vomit ing 120 tablet 8 07/12/19 Discontinu ed(List Clean-Up) docusate sodium (COLACE) 100 MG capsule Take 1 capsule by mouth once daily 60 capsule 3 8 07/12/19 Discontinu ed(List Clean-Up) pantoprazole EC (PROTONIX) 40 MG tablet Take 1 tablet by mouth once daily 90 tablet 3 8 07/12/19 Discontinu ed(List Clean-Up) sertraline (ZOLOFT) 25 MG tablet Take 1 tablet by mouth once daily Take in addition to the 100 mg tablet daily (total of 125 mg daily) 60 tablet 3 8 07/12/19 Discontinu ed(List Clean-Up) docusate sodium (COLACE) 100 MG capsule Take 1 capsule by mouth 2 times daily 60 capsule 11 8 07/12/19 Discontinu ed(List Clean-Up) ibuprofen (MOTRIN) 600 MG tablet Take 1 tablet by mouth every 6 hours as needed for Pain 50 tablet 8 07/12/19 Discontinu ed(List Clean-Up) Vit-Fe Fumarate-FA ( VITAMINS) 28-0.8 MG TABS Take 1 tablet by mouth once daily 30 tablet 11 8 07/12/19 25 Discontinu ed(List Clean-Up) Active Problems Patient Care Coordination No te Formatting of this note migh t be different from the original. NOPP-11/2016 Problem Noted Date Diagnosed Date Positive KAMAR (antinuclear an tibody) borderline positive 1:40 homogenous 07/11/2024 Assessment & Plan (07/11/2024 3:24 PM CDT): By itself, a positive KAMAR test does not indicate the presence of an autoimmune disease or the need for therapy. Approximately 15% of the normal population will have a positive KAMAR test;and can also be seen in other conditions, such as thyroid diseases, viral infections or caused by some medications. The finding of a positive antinuclear antibody (KAMAR), especially with a low pretest probability for an associated connective tissue disease, is currently considered to be of undetermined clinical significance (often referred to as a false positive result) with her historical elements/symptoms reviewed, current clinical examination findings, and additional available laboratory results reviewed, regarding this result not consistent with a specific diagnosis of a defined systemic connective tissue disease including systemic lupus erythematosus or systemic inflammatory rheumatic disorder by [employer] (ACR) diagnostic classification criteria at this time. Savanna Mares lacks features of any systemic autoimmune KAMAR-related connective tissue disease. KAMAR positivity is present in up to 30% of the normal population . Since the prevalence of SLE is only ~0.1%, most positive KAMAR results can be attributed to other etiologies or considered represent f alse-positive results. KAMAR positivity increases in prevalence with female gender, older age, and numerous other conditions. Antinuclear antibody overview: A test for antinuclear antibodies (KAMAR) is common in people who are suspected of having an autoimmune or systemic connective tissue disease disorder. Antibodies are proteins that are made as part of the immune response. The result of an KAMAR test may be used in 1 or more ways: To aid in diagnosis of an autoimmune or connective tissue disease disorder, to rule out autoimmune or connective tissue disease disorders in people presenting only with a few symptoms, to measure disease activity, and order to determine the specific type of disease that affects the patient. Of people with the following disorders or characteristics may have positive KAMAR test results including systemic lupus erythematosus, scleroderma, mixed connective tissue disease, polymyositis/dermatomyositis, rheumatoid arthritis, rheumatoid vasculitis, Sjogren syndrome, drug-induced lupus, discoid lupus, possibly articular juvenile chronic idiopathic arthritis or ANCA related vasculitic syndromes. In addition, some people with autoimmune diseases that affect the gastrointestinal tract, thyroid gland, liver, or lung (including Jaime's thyroiditis, Graves disease, autoimmune hepatitis, primary biliary cirrhosis, primary autoimmune cholangitis, inflammatory bowel disease including Crohn's disease or ulcerative colitis, and idiopathic pulmonary arterial hypertension) can have a positive KAMAR test. Additionally, certain chronic infectious diseases, such as mononucleosis/EBV, hepatitis C virus infection, subacute bacterial endocarditis, tuberculosis, lymphoproliferative diseases, and human immunodeficiency virus (HIV) may also produce a positive KAMAR test. As such, a positive KAMAR does not necessarily mean that the person has lupus or another systemic connective tissue disease disorder. As noted earlier, many healthy people may have a positive KAMAR test. The KAMAR test is said to be a f alse positive test result when a person test positive but does not have any other features of autoimmune disease. This situation occurs more often in women and elderly people especially when tested in individuals with a low pretest probability for systemic lupus erythematosus or other systemic rheumatic connective tissue disease. Certain medications also may increase the chance of having a positive KAMAR test which may or may not represent a drug-induced lupus type syndrome. Depending on the symptoms that led to the initial KAMAR screening testing may be necessary and ordered for further evaluation may or may not be recommended for 1 or more of the disorders that can be associated with a positive KAMAR. 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 Encounter to establish gestational [...] smoking affecting pr egnancy, antepartum 12/11/2016 12/16/2016 Encounters Date Type Department Care Team Description 07/11/2024 2:40 PM CDT Office Visit [facility] - Rheumatology [address] [place] [address], [address] [place] [address] Fadi Guidry DO Positive KAMAR (antinuclear antibody) borderline positive 1:40 homogenous (Primary Dx) from Last 3 Months Immunizations Immunization Administration Dates Next Due HEP [...] drink = 0.6 oz pur e alcohol) PHQ-2 Answer Date Recorded Patient Health Questionnaire-2 Score 0 07/11/2024 Comments No Sex and Gender Information Value Date Recorded Sex Assigned at Not on file Legal Sex Female 4:01 PM CDT Gender Identity Not on file Sexual Orientation Not on file Last Filed Vital Signs Vital Sign Reading Time Taken Comments Blood Pressure 138/80 07/11/2024 2:34 PM CDT Pulse 85 07/11/2024 2:34 PM CDT Temperature 36.1 C (97 F) 07/11/2024 2:34 PM CDT Respiratory Rate 16 07/11/2024 2:34 PM CDT Oxygen Saturation 98% 07/11/2024 2:34 PM CDT Inhaled Oxygen Concentration - - Weight 43.9 kg (96 lb 12.8 oz) 07/11/2024 2:34 P M CDT Height 152.4 cm (5') 07/11/2024 2:34 PM CDT Body Mass Index 18.9 07/11/2024 2:34 PM CDT Plan of Treatment Health Maintenance Due Date Last Done Comments PAP SMEAR 1992 HEPATITIS C SCREENING 03/22/2010 HEPATITIS B VACCINE (2 of 3 - 19+ 3-dose series) 07/22/2016 06/24/2016 HPV VACCINE (2 - 3-dose series) 07/22/2016 06/24/2016 COVID-19 VACCINE (2023-2 5 season) 2023 INFLUENZA VACCINE (Season Ended) 2024 02/01/2017 DTAP/TDAP/TD VACCINES (3 - T d or Tdap) 04/26/2027 04/26/2017, 06/24/2016 ZOSTER VACCINE (1 of 2) 2042 MENINGOCOCCAL GROUPS A/C/Y/W VACCINE Aged Out 06/24/2016 No longer eligible b ased on patient's age to complete this topic HIV SCREENING Completed 04/26/2017 DEPRESSION SCREENING Completed 07/11/2024 HIB VACCINE Aged Out No longer eligi ble based on patient's age to complete this topic MENINGOCOCCAL (Group B) VACCINE SHARED DECISION-MAKING Aged Out No longer eligible based on patient's age to complete this topic PNEUMOCOCCAL VACCINE Aged Out No long er eligible based on patient's age to complete this topic Procedures Procedure Name Priority Date/Time Associated Diagnosis Comments HIV-1 HIV-2 ANTIBODY + HIV P24 AG PANEL Routine 04/26/2017 3:30 PM PIPE [employer]TER G[employer] PIPE Supervision of high-risk of young primigravida from Last 3 Months or Most Recently Relevant to Health Maintenance Results * HIV-1 HIV-2 ANTIBODY + HIV P24 AG PANEL (04/26/2017 3:30 PM PIPE [employer]TER G[employer] PIPE) HIV1/2 Ab + P24 Ag Non Reactive Non Reactive 04/27/2017 12:22 AM PIPE FITTER G[employer] PIPE [facility] Blood BLOOD SPECIMEN / Unknown Venipuncture / Unknown 04/26/2017 3:30 PM PIPE [employer]TER [employer] PIPE 04/26/2017 3:46 PM PIPE [employer]TER [employer] PIPE Narrative [facility] - 04/27/2017 12:22 AM PIPE [employer]TER [employer] PIPE No Laboratory evidence of HIV infection. us Judit Ingram MD LAB - CHEMISTRY ORDERABLE S Final Result [facility] [address] [place] [address] from Last 3 Months or Most Recently Relevant to Health Maintenance Insurance Advance Directives * Full Code (Latest Code Status on File) Date Activated Date Inactivated Comments 07/09/2017 12:57 PM 07/12/2017 5:35 PM * Full Code Date Activated Date Inactivated Comments 03/03/2017 4:49 AM 03/03/2017 2:29 PM * Full Code Date Activated Date Inactivated Comments 03/03/2017 4:08 AM 03/03/2017 4:49 AM Care Teams Framing And Hanging Relationship Specialty Start Date End Date Dmitri Jimenes MD [address] [place] [id number] PCP - General Family Medicine 07/06/24 Barbra Kendrick PA-C Physician Prekindergarten Teacher 12/16/16
[2024-07-13 14:31] LABS: Toxigenic C. Diff NEGATIVE (NEGATIVE)
[2024-07-18 23:48] LABS: Pancreatic Elastase, Stool >800 mcg/g (>200)
[2024-07-20 01:49] LABS: Calprotectin, Stool 15 mcg/g
== END 2024-07-13 11:28 | disposition home or self-care (01) ==
LOC: ANHLAB 11:28
PROVIDERS: PCP Emergency Medicine; Visit Provider Nurse Practitioner
DX: K52.9 Noninfective gastroenteritis and colitis, unspecified (principal); R19.8 Other specified symptoms and signs involving the digestive system and abdomen; K92.0 Hematemesis; D64.9 Anemia, unspecified; R53.83 Other fatigue
CPT/HCPCS: 82653; 83993; 87045; 87269; 87427; 87449; 87493

== ENCOUNTER 2024-09-12 00:23 | Day surgery (SDC) | payer OTHER, SELFPAY ==
[2024-09-06 13:58] VITALS: BMI 18.7
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
--- OUTSIDE RECORDS SUMMARY | 2024-09-12 00:28 | XMS_ITS | Encounter Summary ---
Author Organization [facility] Healthcare Address [address] [place] [address] Care Team Providers Care Senior Cytogenetic Technologist Name Role Phone Taina Freeman MD Primary Care Provider + Encounter Details Date Type Department Care Team (Late st Contact Info) Description 08/08/2024 Results Follow-Up [facility] [address] [place] [phone] Judit Beavers MD [address] [facility] [address] [phone] Trichomonas vaginalis PCR Vaginal, N. gonorrhoeae/C. trachomatis Amplification Vaginal, Pap and High Risk HPV and Genotyping (Cytology Component) Social History Tobacco Use Types Packs/Day Years Used Date Smoking Tobacco: Every Day Cigarettes Smokeless Tobacco: Never Humiliation, Afraid, Rape, and Kick questionnair e [...] often do you attend chur ch or alevism services? More than 4 times per year 02/01/2022 Do you belong to any clubs o r organizations such as shinto groups, unions, fraternal or athletic groups, or [...] care, and heating? Not very hard 02/01/2022 [facility] - [...] in a fci (including now)? No 02/01/2022 [place] Depression Scale Answer Date Recorded [place] Depression Scale Total 20 10/27/2021 The thought [...] on file Sexual Orientation Not on file documented as of this encounter Plan of Treatment Not on file documented as of this encounter Visit Diagnoses Not on filedocumented in this encounter Care Teams Senior Cytogenetic Technologist Relationship Specialty Start Date End Date Taina Freeman MD [address] [place] [address] [address] PCP - General Family Medicine 08/27/21 documented as of this encounter
--- OUTSIDE RECORDS SUMMARY | 2024-09-12 00:28 | XMS_ITS | Clinical Summary ---
Author Organization [facility] Address [facility] [place] [address] Care Team Providers Care Foreclosure Home Inspector Name Role Phone None, Provider Primary Care Provider Taina Wallace MD Unavailable [phone] Allergies Active Allergy Reactions Criticality Noted Date [...] COVID-19 Vaccine ( season) 2023 PHQ-2 (Physician [place]) 03/01/2024 Cervical Cancer Screening Pap Smear (Age [...] complete this topic Insurance [employer] Care Teams Foreclosure Home Inspector Relationship Specialty Start Date End Date None, Provider, PCP - General 08/26/20 Taina Freeman MD [address] [place] [address] FAMILY PRACTICE 05/12/23
--- OUTSIDE RECORDS SUMMARY | 2024-09-12 00:28 | XMS_ITS | Data Portability ---
Author Organization [facility] Address [address] [place] [address] Assessment Encounter Date Assessment Date Assessment LastModified by Organization Details LastModified Time 08/25/2024 08/25/2024 - Perform a swab to check for infection due to unusual discharge. - Conduct an ultrasound to verify IUD placement and assess uterine condition. payton Not available 08/27/2024 23:17:27 Plan of Treatment Reminders Order Date Submit Date Provider Last Modified By Organization Details Last Modified Time Details Appointments None recorded. Lab bacterial vaginosis + vaginitis panel, [facility] 2024 [facility] [address] [place], [address], 18:11:04 Referral None recorded. Procedures None recorded. Surgeries None recorded. Imaging US, transvagina l 2024 025 JALIL Not available 09:00:51 Medication Orders None recorded. Patient TargetsNo targets recorded. Patient Instructions Encounter Date Encounter Id Patient Instructions Last Modified By Organization Details Last Modified Time 08/25/2024 [id number] - Follow up with the ultrasound appointment to check IUD placement. - Monitor for any new or worsening symptoms and report them to the healthcare provider. Please read all patient instructions that come with any prescriptions. The prescription medication side effects and adverse effects are listed in detail in the information with the medication. Read this thoroughly prior to taking any medication. payton Not available 08/27/2024 23:19:43 The patient was reassured about the nature of the tissue passage, suspected to be a decidual cast, and the importance of monitoring for any new symptoms was emphasized. There are risks and benefits associated with all medications and procedures including but not limited to: medical side effects, medical adverse effects, or surgical complications. There are also risks and benefits associated with doing nothing. Risks of control pills do include blood clots in the legs or lungs. payton Not available 08/27/2024 23:19:50 Reason for Referral None Reported. Results Created Date Observation Date Name Description Value Unit Range Abnormal Flag Note LastModifiedBy Organization Detail LastModifiedTime 08/26/1908/30/2024 VAGIN ITIS PLUS STD PANEL bacterial vaginosis BV POS negati ve abnormal Not Available [facility] [address] [place] [address], [id number], 08/30/2024 18:11:04 08/26/1908/30/2024 VAGIN ITIS PLUS STD PANEL ramírez species C. spp neg negati ve normal Not Available [facility] [address] [place] [address], [id number], 08/30/2024 18:11:04 08/26/1908/30/2024 VAGIN ITIS PLUS STD PANEL ramírez glabrata C. gla neg negati ve normal Not Available [facility] [address] [place] [address], [id number], 08/30/2024 18:11:04 08/26/19 25 08/30/2024 VAGIN ITIS PLUS STD PANEL trichomonas vaginalis CV/TV TRICH neg negati ve normal Not Available [facility] [address] [place] [address], [id number], 08/30/2024 18:11:04 08/26/1908/30/2024 VAGIN ITIS PLUS STD PANEL chlamydia trachomatis CT neg negati ve normal This repor t is inten ded for us in clini chela monit oring and manag ement of galdino jerez. It is not inten ded for use in medic al-le gal appli catio n. Not Available [facility] [address] [place], [address], 08/30/2024 18:11:04 06/27/20 25 08/30/2024 VAGIN ITIS PLUS STD PANEL neisseria gonorrhoeae GC neg negati ve normal This repor t is inten ded for us in clini chela monit oring and manag ement of galdino jerez. It is not inten ded for use in medic al-le gal appli catio n. Not Available [facility] [address] [place], [address], 08/30/2024 18:11:04 08/27/19 25 08/25/2024 US, trans vagin al No observ ation record ed. [facility] [address], [place], [address], 08/26/2024 17:34:06 Result Notes None recorded. Procedures Surgical History Date Name Laterality Status Provider Name and Address Organization Details Recorded Time 08/04/2024 Date of Last Pap Smear completed GAYLE BONILLA [address] [facility], [place], [address], [facility] 08/25/2024 21:57:23 Imaging Results None recorded. Procedure Notes None recorded. Medical Equipment None Reported. Allergies No known drug allergies Medications Name Sig Start Date Stop Date Status Note LastModified by Organization Details LastModified Time clindamycin HCl 300 mg capsule TAKE 1 CAPSULE BY MOUTH EVERY 6 HOURS FOR 5 DAYS 08/25 completed Not Available Not Available Not Available ibuprofen 800 mg tablet TAKE 1 TABLET BY MOUTH THREE TIMES DAILY FOR 7 DAYS NEEDED FOR PAIN 08/25 completed Not Available Not Available Not Available methylpheni date 10 mg tablet TAKE 1 TABLET BY MOUTH TWICE A DAY 08/25 completed Not Available Not Available Not Available dextroamphe tamine-amph etamine 10 mg tablet TAKE 1 TABLET BY MOUTH TWICE A DAY 08/25 completed Not Available Not Available Not Available metronidazo le 500 mg tablet TAKE 1 TABLET BY MOUTH TWICE A DAY FOR 7 DAYS active Not Available Not Available No t Available acetaminoph en 500 mg tablet TAKE 2 TABLETS BY MOUTH EVERY 6 HOURS NEEDED FOR PAIN 08/25 completed Not Available Not Available Not Available lorazepam 0.5 mg tablet TAKE 1 TABLET BY MOUTH TWICE A DAY active Not Available Not Available No t Available gabapentin 300 mg capsule TAKE 1 CAPSULE BY MOUTH THREE TIMES A DAY active Not Available Not Available No t Available ergocalcife rol (vitamin D2) 1,250 mcg (50,000 unit) capsule TAKE 1 CAPSULE BY MOUTH ONE TIME PER WEEK 08/25 completed Not Available Not Available Not Available ibuprofen 600 mg tablet TAKE 1 TABLET BY MOUTH THREE TIMES DAILY NEEDED FOR PAIN 08/25 completed Not Available Not Available Not Available methylpredn isolone 4 mg tablets in a dose pack FOLLOW PACKAGE DIRECTION S 08/25 completed Not Available Not Available Not Available ferrous sulfate 325 mg (65 mg iron) tablet,melony yed release TAKE 1 TABLET BY MOUTH EVERY DAY FOR 2 MONTHS 08/25 completed Not Available Not Available Not Available ondansetron 4 mg disintegrat ing tablet DISSOLVE 1 TABLET ON THE TONGUE EVERY 8 HOURS NEEDED FOR NAUSEA OR VOMITING 08/25 completed Not Available Not Available Not Available bupropion HCl XL 300 mg 24 hr tablet, extended release TAKE 1 TABLET BY MOUTH EVERY DAY active Not Available Not Available No t Available bupropion HCl XL 150 mg 24 hr tablet, extended release TAKE 1 TABLET BY MOUTH EVERY DAY active Not Available Not Available No t Available Zumandimine (28) 3 mg-0.03 mg tablet TAKE 1 TABLET BY MOUTH EVERY DAY 08/25 completed Not Available Not Available Not Available Vitals Date Recorded Body height Body mass index (BMI) Body weight Systolic And Diastolic Provider Name and Address Organization Details Last Updated DateTime 08/25/2024 154.94 cm 18.7 kg/m2 02636.93 g 100/60 mm[Hg] Lucy Tanya [facility] [employer] [facility] 08/25/2024 17:57:42 Social History Question Answer Notes LastModified by Organizat ion Details LastModified Time Tobacco Smoking Status Never Smoker Lucy Martínez [facility] [employer] [facility] 08/25/2024 17:49:46 Are You Blind Or Do You Have Difficulty Seeing? No Information not available 08/25/2024 Are You Deaf Or Do You Have Serious Difficulty Hearing? No Information not available 08/25/2024 What Type Of Diet Are You Following? REGULAR Information not available 08/25/2024 How Many Children Do You Have? 2 Information not available 08/25/2024 What Is Your Relationship Status? Single Information not available 08/25/2024 Are You Sexually Active? Yes Information not available 08/25/2024 Sex: Unknown Functional Status Question Answer Note LastModified by Organizat ion Details LastModified Time Do you use any illicit or recreational drugs? No Information not available 08/25/2024 What is your level of alcohol consumption? None Information not available 08/25/2024 What is your exercise level? Occasional Information not available 08/25/2024 Mental Status None recorded. Family History Nothing Reported. Medical History Condition Response Other Cancer N High Blood Pressure N Colon Cancer N Cytomegalovirus N Hyperthyroidism N Breast Cancer N Herpes (HSV) N MRSA N Blood Transfusion N Lung Cancer N Depression N Hypothyroidism N Incontinence N Panic Attacks N Neurological Disorder N Deep Vein Thrombosis N Anxiety Disorder N Autoimmune disease N Arthritis N Shingles N Tuberculosis/Positive PPD N Infertility N Polycystic Ovarian Syndrome N Cervical Cancer N Chlamydia N Hematuria N Stroke N Varicosities N Seasonal allergies N Crohn's Disease N Alzheimer's/Dementia N COPD/Emphysema N Endometriosis N HPV/Genital Warts N IBS (Irritable Bowel Syndrome) N History of Abnormal Pap N High Cholesterol N Liver Disease N Kidney Infection N Fibromyalgia N Ulcer N Kidney Disease N HIV N Gallbladder disease N Von Willebrand disease N Sickle Cell Disease/Trait N ADD/ADHD N Eating Disorder N Diabetes Mellitus (non-insulin dependent ) N Anemia N Ovarian Problems N Multiple Sclerosis N Gonorrhea N Frequent Urinary Tract infections N Osteopenia N Headaches/migraines N GERD (reflux) N Ovarian Cancer N Diabetes (insulin dependent) N Seizures/Epilepsy N Breast Problems N Fibroids N Asthma N Heart Attack N Endometrial Cancer N Lupus N Rubella N Blood Clotting Disorder N Bipolar Disorder N Diabetes Mellitus (during ) N Ulcerative Colitis N Hepatitis N Heart Disease N Pulmonary Embolism N RPR N Chicken Pox N Osteoporosis N Gynecological History Statement/Question Response Flow Light Date of LMP 08/22/2024 Date of Last Pap Smear 08/04/2024 Duration of Flow (days) 2 Current Control Method IUD Age at Menarche 14 Obstetrics History GPAL:G 2 P 2 0 0 2 Type Value Full Term 2 Living 2 Total 2 Past Encounters Encounter ID Performer Location Encounter Start Date Encounter Closed Date Diagnosis/Indication Diagnosis SNOMED-CT Code Diagnosis ICD10 Code Diagnosis Note [id number] GAYLE [facility]ONILLA [facility] [address] [place] [address] 08/25/2024 17:35:02 08/28/2024 14:37:23 Intrauterine contraceptive device in situ 985549300 Z97.5 TVUS shows IUD in proper position in EMC, Ovaries WNL with right dominant follicle Irregular periods 679599 07 N92.6 Pt showed picture of tissue on phone which appears to be decidual cast, discussed benign nature of decidual cast-Sures wab obtained, will treat based upon results Health Concerns Section Related Observation LastModified by Organization Detai ls LastModified Time None Recorded Concern Status LastModified by Organization Details LastModified Time None Recorded Advance Directives Directive None Recorded Payers Insurance Date Sequence Insurance Name Policy Number Policy Mccormack Covered Member ID Mccormack Member ID Guarantor Name 08/30/2024 1 [facility] (MEDICAID HMO) [id number] Huyen Mares [id number] Huyen Mares Notes Date Note Type Note Provider Name and Address Organization Details Recorded Time 08/25/2024 text/html Huyen is a 34-year-old female presenting with concerns of vaginal discharge and passage of tissue. The patient had an IUD inserted in April, and since then, she has experienced regular menstrual cycles without significant issues until recently. On Wednesday night, the patient noticed the passage of a large piece of tissue, which she described as resembling a decidual cast. She experienced cramping and abdominal discomfort, which improved after the passage of the tissue. The patient has a history of ovarian cysts, which have previously caused significant bleeding and discomfort. She expressed concern about the possibility of new cyst formation, although the current symptoms did not align with her past experiences of cyst rupture. GAYLE BONILLA [address] [facility], [place], [address], [facility] 08/27/2024 23:20:33 OBGyn Episode Ob Episode Information Episode Created Date Number of Fetuses Patient Bloodtype Patient rh Status Prepregnancy Weight lbs Domestic Partner Domestic Partner Phone Father Name Nuclear Powerplant Mechanic Status 08/26/19 25 1 CLOSED Fetus Data First Name Last Name Admitted to NICU Weight (g) Sex Living Outcome Pediatric Complications Fetus ID Race Codes Race Delivery Type F Full Term [id number] Keyshawn Calculation Initial Keyshawn Date Initial Exam Date Initial Exam Provider Initial Ultrasound Date Last Menstrual Period Date Ultra Sound Weeks Gestation 0 Eighteen To Twenty Week Keyshawn Update Ultra Sound Date Fundal Height At Umbil Quickening Date Ultra Sound Latest Weeks Gestation Final Keyshawn Confirmed By Final Keyshawn Confirmed Date Final Keyshawn Date Ultra Sound Latest Days Gestation 0 0 Menstrual History Last Menstrual Date Menses Monthly On Bcp Conception Prior Menses Frequency Hcg Plus Date Menarche Onset Age Delivery Information Delivery Date Delivery Type Labor Anesthesia Weeks Gestation Incision Type Labor Labor Length Hrs Delivered By Post Complications Tubal Sterilization Discharge Date Comments 2 Discharge Information Feeding Method Contraceptive Method Maternal HG B and HCT Levels Ob Episode Information Episode Created Date Number of Fetuses Patient Bloodtype Patient rh Status Prepregnancy Weight lbs Domestic Partner Domestic Partner Phone Father Name Nuclear Powerplant Mechanic Status 08/26/19 25 1 CLOSED Fetus Data First Name Last Name Admitted to NICU Weight (g) Sex Living Outcome Pediatric Complications Fetus ID Race Codes Race Delivery Type F Full Term [id number] Keyshawn Calculation Initial Keyshawn Date Initial Exam Date Initial Exam Provider Initial Ultrasound Date Last Menstrual Period Date Ultra Sound Weeks Gestation 0 Eighteen To Twenty Week Keyshawn Update Ultra Sound Date Fundal Height At Umbil Quickening Date Ultra Sound Latest Weeks Gestation Final Keyshawn Confirmed By Final Keyshawn Confirmed Date Final Keyshawn Date Ultra Sound Latest Days Gestation 0 0 Menstrual History Last Menstrual Date Menses Monthly On Bcp Conception Prior Menses Frequency Hcg Plus Date Menarche Onset Age Delivery Information Delivery Date Delivery Type Labor Anesthesia Weeks Gestation Incision Type Labor Labor Length Hrs Delivered By Post Complications Tubal Sterilization Discharge Date Comments 8 Discharge Information Feeding Method Contraceptive Method Maternal HG B and HCT Levels
--- OUTSIDE RECORDS SUMMARY | 2024-09-12 00:28 | XMS_ITS | Clinical Summary ---
Author Organization [facility] Address [address] [place] [address] Care Team Providers Care Newspaper Photographer Name Role Phone Barbra Kendrick PA-C Unavailable [phone] Dmitri Jimenes MD Primary Care Provider [phone] Source Comments [facility],non-owned Affiliates and Associated Physician Practices is amultiple site organization consisting of ambulatory clinics and hospital sitesin [place], [place], [place] and [place]. This disclosure is being madepursuant to the Care Everywhere program and may not contain all information available regarding this patient. Last updated 17.[facility] Allergies Active Allergy Reactions Criticality Noted [...] once daily 60 tablet 3 04/26/2017 Active LORazepam (Ativan) 0.5 MG tablet Take 1 (one) tablet by mouth 2 times daily 06/16/2024 Active Active Problems Patient Care Coordination No [...] erythematosus or systemic inflammatory rheumatic disorder by [employer] (ACR) diagnostic classification criteria at this time. Huyen Mares lacks features of any systemic autoimmune [...] Encounters Date Type Department Care Team Description 07/17/2024 Results Follow-Up [facility] - Rheumatology [address], [address] [place] [id number] Fadi Guidry DO 07/11/2024 2:40 PM CDT Office Visit [facility] - Rheumatology [address], [address] [place] [id number] Fadi Guidry DO Positive KAMAR (antinuclear antibody) [...] Health Maintenance Due Date Last Done Comments HEPATITIS C SCREENING 03/22/2010 PAP SMEAR 2013 HEPATITIS B VACCINE (2 of 3 - 19+ 3-dose series) 07/22/2016 06/24/2016 HPV VACCINE (2 - 3-dose series) 07/22/2016 06/24/2016 COVID-19 VACCINE ( - 2023-2 5 season) 2023 INFLUENZA VACCINE (#1) 2024 02/01/2017 DTAP/TDAP/TD VACCINES (3 - T [...] Procedure Name Priority Date/Time Associated Diagnosis Comments THYROID PEROXIDASE ANTIBODY Routine 07/13/2024 12:28 PM CDT Positive KAMAR (antinuclear antibody) borderline positive 1:40 homogenous THYROGLOBULIN ANTIBODY Routine 07/13/2024 12:28 PM CDT Positive KAMAR (antinuclear antibody) borderline positive 1:40 homogenous CARDIOLIPIN ANTIBODY IGA/IGG/IGM PANEL Routine 07/13/2024 12:28 PM CDT Positive KAMAR (antinuclear antibody) borderline positive 1:40 homogenous LUPUS ANTICOAGULANT PANEL W RFLX Routine 07/13/2024 12:28 PM CDT Positive KAMAR (antinuclear antibody) borderline positive 1:40 homogenous COMPLEMENT C3 C4 PANEL Routine 07/13/2024 12:28 PM CDT Positive KAMAR (antinuclear antibody) borderline positive 1:40 homogenous KAMAR PANEL COMPREHENSIVE Routine 07/13/2024 12:28 PM CDT Positive KAMAR (antinuclear antibody) borderline positive 1:40 homogenous HIV-1 HIV-2 ANTIBODY + HIV P24 AG PANEL Routine 04/26/2017 3:30 PM [employer]ER[employer] TEAM LEADER Supervision of high-risk of young primigravida from Last 3 Months or Most Recently Relevant to Health Maintenance Results * CARDIOLIPIN ANTIBODY IGA/IGG/IGM PANEL (07/13/2024 12:28 PM CDT) Pathologist [facility] Cardiolipin Antibody IgA <2.0 APL-U/mL [facility] Comment: Value Interpretation ----- < 20.0 Antibody not detected > or = 20.0 Antibody detected Cardiolipin Antibody IgG <2.0 GPL-U/mL [facility] Comment: Value Interpretation ----- < 20.0 Antibody not detected > or = 20.0 Antibody detected Cardiolipin Antibody IgM <2.0 MPL-U/mL [facility] Comment: Value Interpretation ----- < 20.0 Antibody not detected > or = 20.0 Antibody detected The antiphospholipid antibody syndrome (APS) is a clinical-pathologic correlation that includes a clinical event (e.g. arterial or venous thrombosis, morbidity) and persistent positive antiphospholipid antibodies (IgM, IgG Cardiolipin or b2GPI antibodies greater than the 99th percentile; or a lupus anticoagulant). International consensus guidelines for APS suggest waiting at least 12 weeks before retesting to confirm antibody persistence. The Systemic Lupus International Collaborating [facility] immunological classification criteria for systemic lupus erythematosus (SLE) include testing for isotype IgA, which has yet to be incorporated into APS criteria. Low level antiphospholipid antibodies may sometimes be detected in the setting of infection, drug therapy or aging. For additional information, please refer to http://[employer].Me-Mover/faq/HSQ677 (This link is being provided for informational/ educational purposes only.) Test Performed at: [facility] [address] [place] [address] TREVER Feliciano WILLY Blood BLOOD SPECIMEN / Unknown 07/13/2024 12:28 PM CDT 07/13/2024 12:34 PM CDT us Fadi Guidry DO LAB - SEROLOGY ORDERABLES Final Result [facility] [id number] [place] [address] * KAMAR PANEL COMPREHENSIVE (07/13/2024 12:28 PM CDT) KAMAR Screen NEGATIVE NEGATIVE [facility] Comment: KAMAR IFA is a first line screen for detecting the presence of up to approximately 150 autoantibodies in various autoimmune diseases. A negative KAMAR IFA result suggests an KAMAR-associated autoimmune disease is not present at this time, but is not definitive. If there is high clinical suspicion for Sjogren's syndrome, testing for anti-SS-A/Ro antibody should be considered. Anti-Erica-1 antibody should be considered for clinically suspected inflammatory myopathies. AC-0: Negative International Consensus on KAMAR Patterns (https://doi.org/10.1515/mzmx-5755-9291) For additional information, please refer to http://[employer].Shoptagr/faq/CAF191 (This link is being provided for informational/ educational purposes only.) dsDNA Antibody <1 IU/mL [facility] Comment: IU/mL Interpretation < or = 4 Negative 5-9 Indeterminate > or = 10 Positive SCL-70 Antibody <1.0 NEG <1.0 NEG AI [facility] SM Antibody <1.0 NEG <1.0 NEG AI [facility] SM/FAMILY COURT COUNSELLOR Antibody <1.0 NEG <1.0 NEG AI [facility] Sjogren's Antibodies (SSA) <1.0 NEG <1.0 NEG AI [facility] Sjogren's Antibodies (SSB) <1.0 NEG <1.0 NEG AI [facility] Comment: Test Performed at: [facility] [address] [place] [address] ROSA BACON MD Blood BLOOD SPECIMEN / Unknown 07/13/2024 12:28 PM CDT 07/13/2024 12:34 PM CDT Fadi Guidry DO LAB - SEROLOGY ORDERABLES Final Result Performing Organization Address [place] Co de Phone Number [place] [phone] * LUPUS ANTICOAGULANT PANEL W RFLX (07/13/2024 12:28 PM CDT) Lupus Anticoagulant NOT DETECTED [facility] Comment: A Lupus Anticoagulant is not detected. For more information on this test, go to: http://[employer].Me-Mover/faq/VYO84b2 (This link is being provided for informational/ educational purposes only.) This interpretation is based on the following test results: PTT LA Screen 36 < OR = 40 sec [facility] dRVVT Screen 28 < OR = 45 sec [facility] Comment: Test Performed at: [facility] [address] [address] TREVER AGUILERA Blood BLOOD SPECIMEN / Unknown 07/13/2024 12:28 PM CDT 07/13/2024 12:34 PM CDT Fadi Guidry DO LAB - HEMATOLOGY ORDERABLES Amy l Result Performing Organization Address [place] de Phone Number [address] [address] * THYROID PEROXIDASE ANTIBODY (07/13/2024 12:28 PM CDT) Thyroid Peroxidase TPO Antibody <1 <9 IU/mL [facility] Comment: REPORT COMMENT: FASTING:NO Test Performed at: [facility] [address] [place] [address] TREVER AGUILERA Blood BLOOD SPECIMEN / Unknown 07/13/2024 12:28 PM CDT 07/13/2024 12:34 PM CDT Fadi Guidry DO LAB - CHEMISTRY ORDERABLES Final Result Performing Organization Address [facility] [place] [address] * THYROGLOBULIN ANTIBODY (07/13/2024 12:28 PM CDT) [facility] Thyroglobulin Antibody <1 < or = 1 IU/mL [facility] Comment: Test Performed at: [facility] [address] [place] [address] TREVER AGUILERA Blood BLOOD SPECIMEN / Unknown 07/13/2024 12:28 PM CDT 07/13/2024 12:34 PM CDT Fadi Guidry DO LAB - CHEMISTRY ORDERABLES Final Result Performing Organization Address [facility] [place] [address] * (ABNORMAL) COMPLEMENT C3 C4 PANEL (07/13/2024 12:28 PM CDT) [facility] Complement C3 91 83 - 193 mg/dL [facility] Complement C4 14(L) 15 - 57 mg/dL [facility] Comment: Test Performed at: [facility] [address] [place] [address] ROSA BACON MD Blood BLOOD SPECIMEN / Unknown 07/13/2024 12:28 PM CDT 07/13/2024 12:34 PM CDT Fadi Guidry DO LAB - CHEMISTRY ORDERABLES Final Result Performing Organization Address [place] [place] [address] * HIV-1 HIV-2 ANTIBODY + HIV P24 AG PANEL (04/26/2017 3:30 PM [employer]FETERIA TEAM LEADER) [facility] HIV1/2 Ab + P24 Ag Non Reactive Non Reactive 04/27/2017 12:22 AM [employer]FETERIA TEAM LEADER [facility] Blood BLOOD SPECIMEN / Unknown Venipuncture / Unknown 04/26/2017 3:30 PM [employer]FETERIA TEAM LEADER 04/26/2017 3:46 PM CAFETERIA TEAM LEADER Narrative [facility] - 04/27/2017 12:22 AM [employer] TEAM LEADER No Laboratory evidence of HIV infection. us Judit Ingram MD LAB - CHEMISTRY ORDERABLE S Final Result [facility] [address] [facility] [place] [address] from Last 3 Months or Most Recently Relevant to Health Maintenance Insurance [address] [place] [address] Advance Directives * Full Code (Latest Code Status on File) Date Activated Date Inactivated Comments 07/09/2017 12:57 PM 07/12/2017 5:35 PM * Full Code Date Activated Date Inactivated Comments 03/03/2017 4:49 AM 03/03/2017 2:29 PM * Full Code Date Activated Date Inactivated Comments 03/03/2017 4:08 AM 03/03/2017 4:49 AM Care Teams Newspaper Photographer Relationship Specialty Start Date End Date Dmitri Jimenes MD [address] [place] [id number] PCP - General Family Medicine 07/06/24 Barbra Kendrick PA-C Physician Neuropsychology Medical Consultant 12/16/16
--- OUTSIDE RECORDS SUMMARY | 2024-09-12 00:28 | XMS_ITS | Data Portability ---
Author Organization [place] - [facility], Main Office Address [address] [place] [address] Assessment No assessment recorded. Plan of Treatment Reminders Order Date Submit Date Provider Last Modified By Organization Details Last Modified Time Details Appointments None recorded. Lab iron + total iron-bindin g capacity (TIBC), serum 2022 023 [facility] (Lab), [address] [place], [address], 3 21:18:32 ferritin, serum or plasma 2022 023 [facility] (Lab), [address] [place], [address], 3 21:30:47 CBC w/ auto diff 2022 023 [facility] (Lab), [address] [place], [address], 3 19:51:06 vitamin B12, serum 2022 023 [facility] (Lab), [address] [place], [address], 3 22:11:07 folate, serum 2022 023 [facility] (Lab), [address] [place], [address], 3 22:11:13 Referral None recorded. Procedures None recorded. Surgeries None recorded. Imaging None recorded. Medication Orders cyanocobala min (vit B-12) 1,000 mcg/mL injection solution 2022 023 [email or web address] Not available 15:17:43 cyanocobala min (vit B-12) 1,000 mcg/mL injection solution 2022 023 [email or web address] Not available 5 15:17:43 cyanocobala min (vit B-12) 1,000 mcg tablet 2022 023 [email or web address] [facility] #[id number], [address] [place], [address], 15:17:40 Patient TargetsNo targets recorded. Patient InstructionsNo instructions recorded. Reason for Referral None Reported. Results Created Date Observation Date Name Description Value Unit Range Abnormal Flag Note LastModifiedBy Organization Detail LastModifiedTime 12/13/1912/12/2020 VITAM IN B12 (LINDA SY ) vb12 312 pg/mL 239-93 1 Not Available [facility] (Lab) [address] [place], [address], 12/12/2020 22:45:39 12/13/1912/12/2020 PASQUALE TIN ferritin 6 NG/mL 6.24-1 37 low Not Available [facility] (Lab) [address] [place], [address], 12/12/2020 22:22:01 12/13/1912/12/2020 TSH thyroid-stim ulating hormone 0.998 uIU/m L 0.465- 4.680 Not Available [facility] (Lab) [address] [place], [address], 12/12/2020 22:19:06 12/13/1912/12/2020 VITAM IN D 25-HY DROXY vd25oh 47.1 NG/mL 30-100 Vitam in D Statu s: Defic ient: <20 ng/mL Insuf ficie nt: 20-29 ng/mL Suffi cient : 30-10 0 ng/mL Not Available [facility] (Lab) [address] [place], [address], 12/12/2020 22:11:16 12/13/1912/12/2020 T4 FREE free T4 1.05 NG/dL 0.78-2 .19 Not Available [facility] (Lab) [address] [place], [address], 12/12/2020 22:04:07 12/13/1912/12/2020 IRON/ TIBC PANEL total iron binding capacity 366 mcg/d L 265-47 5 Not Available [facility] (Lab) [address] [place], [address], 12/12/2020 21:54:28 12/13/1912/12/2020 IRON/ TIBC PANEL % transferrin saturation 32 % 20-55 Not Available [facility] (Lab) [address] [place], [address], 12/12/2020 21:54:28 12/13/1912/12/2020 IRON/ TIBC PANEL unsaturated iron bind capacity 248 mcg/d L 126-38 2 Not Available [facility] (Lab) [address] [place], [address], 12/12/2020 21:54:28 12/13/1912/12/2020 IRON/ TIBC PANEL iron 118 mcg/d L 42-175 Not Available [facility] (Lab) [address] [place], [address], 12/12/2020 21:54:28 12/13/1912/12/2020 MAGNE SIUM magnesium 2.1 mg/dL 1.6-2. 3 Not Available [facility] (Lab) [address] [place], [address], 12/12/2020 21:53:51 12/13/19 21 12/12/2020 COMPR EHENS NAHOMY METAB OLIC PANEL agap 10.0 mmol/ L 14-22 low Not Available [facility] (Lab) [address] [place], [address], 12/12/2020 21:53:48 12/13/19 21 12/12/2020 COMPR EHENS NAHOYM METAB OLIC PANEL sodium 138 mmol/ L 137-14 5 Not Available [facility] (Lab) [address] [place], [address], 12/12/2020 21:53:48 12/13/1912/12/2020 COMPR EHENS NAHOMY METAB OLIC PANEL potassium 4.0 mmol/ L 3.5-5. 1 Not Available [facility] (Lab) [address] [place], [address], 12/12/2020 21:53:48 12/13/1912/12/2020 COMPR EHENS NAHOMY METAB OLIC PANEL chloride 106 mmol/ L 98-107 Not Available [facility] (Lab) [address] [place], [address], 12/12/2020 21:53:48 12/13/19 21 12/12/2020 COMPR EHENS NAHOMY METAB OLIC PANEL carbon dioxide 26 mmol/ L 22-30 Not Available [facility] (Lab) [address] [place], [address], 12/12/2020 21:53:48 12/13/19 21 12/12/2020 COMPR EHENS NAHOMY METAB OLIC PANEL glucose 95 mg/dL 70-99 Not Available [facility] (Lab) [address] [place], [address], 12/12/2020 21:53:48 12/13/19 21 12/12/2020 COMPR EHENS NAHOMY METAB OLIC PANEL BUN 10 mg/dL 8-19 Not Available [facility] (Lab) [address] [place], [address], 12/12/2020 21:53:48 12/13/1912/12/2020 COMPR EHENS NAHOMY METAB OLIC PANEL creatinine 0.60 mg/dL 0.66-1 .25 low Not Available [facility] (Lab) [address] [place], [address], 12/12/2020 21:53:48 12/13/1912/12/2020 COMPR EHENS NAHOMY METAB OLIC PANEL GFR >60 Refer ence Range : Sarah Ann ge GFR Healt hy Adult : >60 [...] lator can be locat ed on the [facility] websi te: https :[email or web address] dee [email or web address] zach/pr ofess ional s/kdo qi/gf r_cal culat or Not Available [facility] (Lab) [address] [place], [address], 12/12/2020 21:53:48 12/13/1912/12/2020 COMPR EHENS NAHOMY METAB OLIC PANEL alkaline phosphatase 43 U/L 38-126 Not Available [facility] (Lab) [address] [place], [address], 12/12/2020 21:53:48 12/13/19 21 12/12/2020 COMPR EHENS NAHOMY METAB OLIC PANEL alanine aminotransfe rase 19 U/L 0-[address] [facility] (Lab) [address] [place], [address], 12/12/2020 21:53:48 12/13/1912/12/2020 COMPR EHENS NAHOMY METAB OLIC PANEL aspartate aminotransfe rase 29 U/L 15-[address] [facility] (Lab) [address] [place], [address], 12/12/2020 21:53:48 12/13/1912/12/2020 COMPR EHENS NAHOMY METAB OLIC PANEL bilirubin, total 0.70 mg/dL 0.20-1 .30 Not Available [facility] (Lab) [address] [place], [address], 12/12/2020 21:53:48 12/13/1912/12/2020 COMPR EHENS NAHOMY METAB OLIC PANEL calcium 9.8 mg/dL 8.4-10 .2 Not Available [facility] (Lab) [address] [place], [address], 12/12/2020 21:53:48 12/13/19 21 12/12/2020 COMPR EHENS NAHOMY METAB OLIC PANEL total protein 7.3 g/dL 6.3-8. 2 Not Available [facility] (Lab) [address] [place], [address], 12/12/2020 21:53:48 12/13/19 21 12/12/2020 COMPR EHENS NAHOMY METAB OLIC PANEL albumin 4.5 g/dL 3.4-5. 0 Not Available [facility] (Lab) [address] [place], [address], 12/12/2020 21:53:48 12/13/19 21 12/12/2020 COMPR EHENS NAHOMY METAB OLIC PANEL globulin 2.8 g/dL 2.6-4. 2 Not Available [facility] (Lab) [address] [place], [address], 12/12/2020 21:53:48 12/13/1912/12/2020 COMPR EHENS NAHOMY METAB OLIC PANEL A/G ratio 1.6 ratio 1.0-2. 0 Not Available [facility] (Lab) [address] [place], [address], 12/12/2020 21:53:48 12/13/1912/12/2020 HEMOG LOBIN A1C HA1C 5.4 % 4.0-6. 0 Diabe angela Scree mallory Crite stephenie: <5.7% Consi stent with absen ce of diabe angela 5.7-6 .4% Consi stent with incre ased risk for diabe angela (pred iabet es) >OR=6 .5% Consi stent with diabe angela REFER ENCE: Diabe angela Care 2016, 39(Soto ppl.1 ):s13 -s22 Not Available [facility] (Lab) [address] [place], [address], 12/12/2020 21:36:09 12/13/1912/12/2020 CBC/C OMPLE TE BLD COUNT W/DIF F hematocrit 39.9 % 35.7-4 5.7 Not Available [facility] (Lab) [address] [place], [address], 12/12/2020 20:06:02 12/13/19 21 12/12/2020 CBC/C OMPLE TE BLD COUNT W/DIF F white blood cells 8.3 x10'3 /uL 4.2-10 .8 Not Available [facility] (Lab) [address] [place], [address], 12/12/2020 20:06:02 12/13/19 21 12/12/2020 CBC/C OMPLE TE BLD COUNT W/DIF F red blood cells 4.55 x10'6 /uL 3.80-5 .20 Not Available [facility] (Lab) [address] [place], [address], 12/12/2020 20:06:02 12/13/1912/12/2020 CBC/C OMPLE TE BLD COUNT W/DIF F hemoglobin 13.0 g/dL 12.0-1 5.6 Not Available [facility] (Lab) [address] [place], [address], 12/12/2020 20:06:02 12/13/1912/12/2020 CBC/C OMPLE TE BLD COUNT W/DIF F mean red cell volume 87.7 fL 82.0-9 9.0 Not Available [facility] (Lab) [address] [place], [address], 12/12/2020 20:06:02 12/13/1912/12/2020 CBC/C OMPLE TE BLD COUNT W/DIF F mean red cell hemoglobin 28.6 pg 27.0-3 3.0 Not Available [facility] (Lab) [address] [place], [address], 12/12/2020 20:06:02 12/13/1912/12/2020 CBC/C OMPLE TE BLD COUNT W/DIF F mean RBC HGB concentratio n 32.6 g/dL 31.0-3 6.0 Not Available [facility] (Lab) [address] [place], [address], 12/12/2020 20:06:02 12/13/1912/12/2020 CBC/C OMPLE TE BLD COUNT W/DIF F red cell distribution width 14.4 % 11.8-1 5.5 Not Available [facility] (Lab) [address] [place], [address], 12/12/2020 20:06:02 12/13/19 21 12/12/2020 CBC/C OMPLE TE BLD COUNT W/DIF F platelets 369 x10'3 /uL 150-40 0 Not Available [facility] (Lab) [address] [facility] [place], [address], 12/12/2020 20:06:02 12/13/1912/12/2020 CBC/C OMPLE TE BLD COUNT W/DIF F mean platelet volume 10.4 fL 9.0-12 .4 Not Available [facility] (Lab) [address] [place], [address], 12/12/2020 20:06:02 12/13/19 21 12/12/2020 CBC/C OMPLE TE BLD COUNT W/DIF F neutrophils 55.5 % 39.0-7 2.0 Not Available [facility] (Lab) [address] [place], [address], 12/12/2020 20:06:02 12/13/1912/12/2020 CBC/C OMPLE TE BLD COUNT W/DIF F lymphocytes 36.4 % 16.0-4 7.0 Not Available [facility] (Lab) [address] [place], [address], 12/12/2020 20:06:02 12/13/1912/12/2020 CBC/C OMPLE TE BLD COUNT W/DIF F monocytes 5.9 % 5.0-12 .0 Not Available [facility] (Lab) [address] [place], [address], 12/12/2020 20:06:02 12/13/19 21 12/12/2020 CBC/C OMPLE TE BLD COUNT W/DIF F eosinophils 1.2 % 1.0-7. 0 Not Available [facility] (Lab) [address] [place], [address], 12/12/2020 20:06:02 12/13/19 21 12/12/2020 CBC/C OMPLE TE BLD COUNT W/DIF F basophils 0.5 % 0.0-2. 0 Not Available [facility] (Lab) [address] [place], [address], 12/12/2020 20:06:02 12/13/1912/12/2020 CBC/C OMPLE TE BLD COUNT W/DIF F immature granulocytes 0.5 % 0.00-0 .50 Not Available [facility] (Lab) [address] [place], [address], 12/12/2020 20:06:02 12/13/19 21 12/12/2020 CBC/C OMPLE TE BLD COUNT W/DIF F neutrophils, absolute count 4.58 x10'3 /uL 1.5-8. 0 Not Available [facility] (Lab) [address] [place], [address], 12/12/2020 20:06:02 12/13/19 21 12/12/2020 CBC/C OMPLE TE BLD COUNT W/DIF F lymphocytes, absolute count 3.00 x10'3 /uL 1.07-3 .43 Not Available [facility] (Lab) [address] [place], [address], 12/12/2020 20:06:02 12/13/1912/12/2020 CBC/C OMPLE TE BLD COUNT W/DIF F monocytes, absolute count 0.49 x10'3 /uL 0.29-0 .99 Not Available [facility] (Lab) [address] [place], [address], 12/12/2020 20:06:02 12/13/19 21 12/12/2020 CBC/C OMPLE TE BLD COUNT W/DIF F eosinophils, absolute count 0.10 x10'3 /uL 0.02-0 .53 Not Available [facility] (Lab) [address] [place], [address], 12/12/2020 20:06:02 12/13/19 21 12/12/2020 CBC/C OMPLE TE BLD COUNT W/DIF F basophils, absolute count 0.04 x10'3 /uL 0.01-0 .08 Not Available [facility] (Lab) [address] [place], [address], 12/12/2020 20:06:02 12/13/19 21 12/12/2020 CBC/C OMPLE TE BLD COUNT W/DIF F immature granulocytes ,absolute 0.04 x10'3 /uL 0.00-0 .05 Not Available [facility] (Lab) [address] [place], [address], 12/12/2020 20:06:02 12/13/19 21 12/12/2020 CBC/C OMPLE TE BLD COUNT W/DIF F nucleated red blood cells 0.0 % -[address] [facility] (Lab) [address] [place], [address], 12/12/2020 20:06:02 12/13/19 21 12/12/2020 CBC/C OMPLE TE BLD COUNT W/DIF F NRBC# 0.00 x10'3 /uL Not Available [facility] (Lab) [address] [place], [address], 12/12/2020 20:06:02 06/05/19 22 06/06/2021 KAMAR/A NTINU CLEAR ANTIB ODIES ,IFA antinuclear antibodies, ifa negati ve Negat nahomy <1:80 Borde rline 1:80 Posit nahomy >1:80 ICAP nomen clatu re: AC-0 For more infor jann duvall about Hep-2 cell patte rns use ANAgloria ttern s.org , the offic ial websi te for the Inter natio nal Conse nsus on Antin uclea r Antib adilia (KAMAR) Patte rns ([facility] ). Perfo rmed at: - [facility] [address] [place] [address], [place] [address] Lab Direc tor: Cornelius stewart PhD, Phone : [phone] Not Available [facility] [address] [place], [address], 06/06/2021 17:09:51 06/05/19 22 06/04/2021 VITAM IN B12 (LINDA SY ) vb12 272 pg/mL 239-93 1 Not Available [facility] (Lab) [address] [place], [address], 06/04/2021 22:32:44 06/05/19 22 06/04/2021 VITAM IN D 25-HY DROXY vd25oh 23.9 NG/mL 30-100 low Vitam in D Statu s: Defic ient: <20 ng/mL Insuf ficie nt: 20-29 ng/mL Suffi cient : 30-10 0 ng/mL Not Available [facility] (Lab) [address] [place], [address], 06/04/2021 22:00:05 06/05/19 22 06/04/2021 HEMOG LOBIN A1C HA1C 5.1 % 4.0-6. 0 Diabe angela Scree mallory Crite stephenie: <5.7% Consi stent with absen ce of diabe angela 5.7-6 .4% Consi stent with incre ased risk for diabe angela (pred iabet es) >OR=6 .5% Consi stent with diabe angela REFER ENCE: Diabe angela Care 2016, 39(Soto ppl.1 ):s13 -s22 Not Available [facility] (Lab) [address] [place], [address], 06/04/2021 20:27:57 06/05/19 22 06/04/2021 PASQUALE TIN ferritin 7 NG/mL 6.24-1 37 Not Available [facility] (Lab) [address] [place], [address], 06/04/2021 20:03:55 06/05/19 22 06/04/2021 TSH thyroid-stim ulating hormone 1.570 uIU/m L 0.465- 4.680 Not Available [facility] (Lab) [address] [place], [address], 06/04/2021 20:02:19 06/05/19 22 06/04/2021 SEDIM ENTAT ION RATE erythrocyte sedimentatio n rate 12 mm/HR 0-[address] [facility] (Lab) [address] [place], [address], 06/04/2021 19:47:26 06/05/19 22 06/04/2021 T4 FREE free T4 1.18 NG/dL 0.78-2 .19 Not Available [facility] (Lab) [address] [place], [address], 06/04/2021 19:38:29 06/05/19 22 06/04/2021 IRON/ TIBC PANEL total iron binding capacity 356 mcg/d L 265-47 5 Not Available [facility] (Lab) [address] [place], [address], 06/04/2021 19:33:02 06/05/19 22 06/04/2021 IRON/ TIBC PANEL % transferrin saturation 9 % 20-55 low Not Available [facility] (Lab) [address] [place], [address], 06/04/2021 19:33:02 06/05/19 22 06/04/2021 IRON/ TIBC PANEL unsaturated iron bind capacity 325 mcg/d L 126-38 2 Not Available [facility] (Lab) [address] [place], [address], 06/04/2021 19:33:02 06/05/19 22 06/04/2021 IRON/ TIBC PANEL iron 31 mcg/d L 42-175 low Not Available [facility] (Lab) [address] [place], [address], 06/04/2021 19:33:02 06/05/19 22 06/04/2021 C REACT NAHOMY PROTE IN,UL TRA SENS C-reactive protein <0.030 mg/dL 0.0-0. 5 Not Available [facility] (Lab) [address] [place], [address], 06/04/2021 19:32:16 06/05/19 22 06/04/2021 RHEUM ATOID FACTO R rf <8.6 IU/mL 0.0-11 .9 Not Available [facility] (Lab) [address] [place], [address], 06/04/2021 19:32:15 06/05/19 22 06/04/2021 MAGNE SIUM magnesium 2.1 mg/dL 1.6-2. 3 Not Available [facility] (Lab) [address] [place], [address], 06/04/2021 19:30:47 06/05/19 22 06/04/2021 COMPR EHENS NAHOMY METAB OLIC PANEL carbon dioxide 23 mmol/ L 22-30 Not Available [facility] (Lab) [address] [place], [address], 06/04/2021 19:30:44 06/05/19 22 06/04/2021 COMPR EHENS NAHOMY METAB OLIC PANEL sodium 136 mmol/ L 137-14 5 low Not Available [facility] (Lab) [address] [place], [address], 06/04/2021 19:30:44 06/05/19 22 06/04/2021 COMPR EHENS NAHOMY METAB OLIC PANEL potassium 4.1 mmol/ L 3.5-5. 1 Not Available [facility] (Lab) [address] [place], [address], 06/04/2021 19:30:44 06/05/19 22 06/04/2021 COMPR EHENS NAHOMY METAB OLIC PANEL chloride 103 mmol/ L 98-107 Not Available [facility] (Lab) [address] [place], [address], 06/04/2021 19:30:44 06/05/19 22 06/04/2021 COMPR EHENS NAHOMY METAB OLIC PANEL agap 14.1 mmol/ L 14-22 Not Available [facility] (Lab) [address] [place], [address], 06/04/2021 19:30:44 06/05/19 22 06/04/2021 COMPR EHENS NAHOMY METAB OLIC PANEL glucose 98 mg/dL 70-99 Not Available [facility] (Lab) [address] [place], [address], 06/04/2021 19:30:44 06/05/19 22 06/04/2021 COMPR EHENS NAHOMY METAB OLIC PANEL BUN 10 mg/dL 8-19 Not Available [facility] (Lab) [address] [place], [address], 06/04/2021 19:30:44 06/05/19 22 06/04/2021 COMPR EHENS NAHOMY METAB OLIC PANEL creatinine 0.57 mg/dL 0.66-1 .25 low Not Available [facility] (Lab) [address] [place], [address], 06/04/2021 19:30:44 06/05/19 22 06/04/2021 COMPR EHENS NAHOMY METAB OLIC PANEL GFR >60 Refer ence Range : Sarah Ann ge GFR Healt hy Adult : >60 [...] calcu lator is avail able on the [facility] websi te: https ://dee dee mane.jose davison.o zach/bong mcnally s/yuno qi/gf r_cal culat or Not Available [facility] (Lab) [address] [place], [address], 06/04/2021 19:30:44 06/05/19 22 06/04/2021 COMPR EHENS NAHOMY METAB OLIC PANEL alkaline phosphatase 50 U/L 38-126 Not Available [facility] (Lab) [address] [place], [address], 06/04/2021 19:30:44 06/05/19 22 06/04/2021 COMPR EHENS NAHOMY METAB OLIC PANEL alanine aminotransfe rase 18 U/L 0-[address] [facility] (Lab) [address] [place], [address], 06/04/2021 19:30:44 06/05/19 22 06/04/2021 COMPR EHENS NAHOMY METAB OLIC PANEL aspartate aminotransfe rase 24 U/L 15-[address] [facility] (Lab) [address] [place], [address], 06/04/2021 19:30:44 06/05/19 22 06/04/2021 COMPR EHENS NAHOMY METAB OLIC PANEL bilirubin, total 0.40 mg/dL 0.20-1 .30 Not Available [facility] (Lab) [address] [place], [address], 06/04/2021 19:30:44 06/05/19 22 06/04/2021 COMPR EHENS NAHOMY METAB OLIC PANEL calcium 10.2 mg/dL 8.4-10 .2 Not Available [facility] (Lab) [address] [place], [address], 06/04/2021 19:30:44 06/05/19 22 06/04/2021 COMPR EHENS NAHOMY METAB OLIC PANEL total protein 7.6 g/dL 6.3-8. 2 Not Available [facility] (Lab) [address] [place], [address], 06/04/2021 19:30:44 06/05/19 22 06/04/2021 COMPR EHENS NAHOMY METAB OLIC PANEL albumin 4.9 g/dL 3.4-5. 0 Not Available [facility] (Lab) [address] [place], [address], 06/04/2021 19:30:44 06/05/19 22 06/04/2021 COMPR EHENS NAHOMY METAB OLIC PANEL globulin 2.7 g/dL 2.6-4. 2 Not Available [facility] (Lab) [address] [place], [address], 06/04/2021 19:30:44 06/05/19 22 06/04/2021 COMPR EHENS NAHOMY METAB OLIC PANEL A/G ratio 1.8 ratio 1.0-2. 0 Not Available [facility] (Lab) [address] [place], [address], 06/04/2021 19:30:44 06/05/19 22 06/04/2021 CBC/C OMPLE TE BLD COUNT W/DIF F hematocrit 35.6 % 35.7-4 5.7 low Not Available [facility] (Lab) [address] [place], [address], 06/04/2021 19:05:36 06/05/19 22 06/04/2021 CBC/C OMPLE TE BLD COUNT W/DIF F white blood cells 7.6 x10'3 /uL 4.2-10 .8 Not Available [facility] (Lab) [address] [place], [address], 06/04/2021 19:05:36 06/05/19 22 06/04/2021 CBC/C OMPLE TE BLD COUNT W/DIF F red blood cells 4.12 x10'6 /uL 3.80-5 .20 Not Available [facility] (Lab) [address] [place], [address], 06/04/2021 19:05:36 06/05/19 22 06/04/2021 CBC/C OMPLE TE BLD COUNT W/DIF F hemoglobin 11.7 g/dL 12.0-1 5.6 low Not Available [facility] (Lab) [address] [place], [address], 06/04/2021 19:05:36 06/05/19 22 06/04/2021 CBC/C OMPLE TE BLD COUNT W/DIF F mean red cell volume 86.4 fL 82.0-9 9.0 Not Available [facility] (Lab) [address] [place], [address], 06/04/2021 19:05:36 06/05/19 22 06/04/2021 CBC/C OMPLE TE BLD COUNT W/DIF F mean red cell hemoglobin 28.4 pg 27.0-3 3.0 Not Available [facility] (Lab) [address] [place], [address], 06/04/2021 19:05:36 06/05/19 22 06/04/2021 CBC/C OMPLE TE BLD COUNT W/DIF F mean RBC HGB concentratio n 32.9 g/dL 31.0-3 6.0 Not Available [facility] (Lab) [address] [place], [address], 06/04/2021 19:05:36 06/05/19 22 06/04/2021 CBC/C OMPLE TE BLD COUNT W/DIF F neutrophils 56.5 % 39.0-7 2.0 Not Available [facility] (Lab) [address] [place], [address], 06/04/2021 19:05:36 06/05/19 22 06/04/2021 CBC/C OMPLE TE BLD COUNT W/DIF F red cell distribution width 17.8 % 11.8-1 5.5 high Not Available [facility] (Lab) [address] [place], [address], 06/04/2021 19:05:36 06/05/19 22 06/04/2021 CBC/C OMPLE TE BLD COUNT W/DIF F platelets 365 x10'3 /uL 150-40 0 Not Available [facility] (Lab) [address] [place], [address], 06/04/2021 19:05:36 06/05/19 22 06/04/2021 CBC/C OMPLE TE BLD COUNT W/DIF F mean platelet volume 10.4 fL 9.0-12 .4 Not Available [facility] (Lab) [address] [place], [address], 06/04/2021 19:05:36 06/05/19 22 06/04/2021 CBC/C OMPLE TE BLD COUNT W/DIF F lymphocytes 33.0 % 16.0-4 7.0 Not Available [facility] (Lab) [address] [place], [address], 06/04/2021 19:05:36 06/05/19 22 06/04/2021 CBC/C OMPLE TE BLD COUNT W/DIF F monocytes 8.4 % 5.0-12 .0 Not Available [facility] (Lab) [address] [place], [address], 06/04/2021 19:05:36 06/05/19 22 06/04/2021 CBC/C OMPLE TE BLD COUNT W/DIF F eosinophils 1.7 % 1.0-7. 0 Not Available [facility] (Lab) [address] [place], [address], 06/04/2021 19:05:36 06/05/19 22 06/04/2021 CBC/C OMPLE TE BLD COUNT W/DIF F basophils 0.3 % 0.0-2. 0 Not Available [facility] (Lab) [address] [place], [address], 06/04/2021 19:05:36 06/05/19 22 06/04/2021 CBC/C OMPLE TE BLD COUNT W/DIF F immature granulocytes 0.1 % 0.00-0 .50 Not Available [facility] (Lab) [address] [place], [address], 06/04/2021 19:05:36 06/05/19 22 06/04/2021 CBC/C OMPLE TE BLD COUNT W/DIF F neutrophils, absolute count 4.31 x10'3 /uL 1.5-8. 0 Not Available [facility] (Lab) [address] [place], [address], 06/04/2021 19:05:36 06/05/19 22 06/04/2021 CBC/C OMPLE TE BLD COUNT W/DIF F lymphocytes, absolute count 2.52 x10'3 /uL 1.07-3 .43 Not Available [facility] (Lab) [address] [place], [address], 06/04/2021 19:05:36 06/05/19 22 06/04/2021 CBC/C OMPLE TE BLD COUNT W/DIF F monocytes, absolute count 0.64 x10'3 /uL 0.29-0 .99 Not Available [facility] (Lab) [address] [place], [address], 06/04/2021 19:05:36 06/05/19 22 06/04/2021 CBC/C OMPLE TE BLD COUNT W/DIF F nucleated red blood cells 0.0 % -[address] [facility] (Lab) [address] [place], [address], 06/04/2021 19:05:36 06/05/19 22 06/04/2021 CBC/C OMPLE TE BLD COUNT W/DIF F eosinophils, absolute count 0.13 x10'3 /uL 0.02-0 .53 Not Available [facility] (Lab) [address] [place], [address], 06/04/2021 19:05:36 06/05/19 22 06/04/2021 CBC/C OMPLE TE BLD COUNT W/DIF F basophils, absolute count 0.02 x10'3 /uL 0.01-0 .08 Not Available [facility] (Lab) [address] [place], [address], 06/04/2021 19:05:36 06/05/19 22 06/04/2021 CBC/C OMPLE TE BLD COUNT W/DIF F immature granulocytes ,absolute 0.01 x10'3 /uL 0.00-0 .05 Not Available [facility] (Lab) [address] [place], [address], 06/04/2021 19:05:36 06/05/19 22 06/04/2021 CBC/C OMPLE TE BLD COUNT W/DIF F NRBC# 0.00 x10'3 /uL Not Available [facility] (Lab) [address] [place], [address], 06/04/2021 19:05:36 04/24/19 23 04/24/2022 VITAM IN B12 (LINDA SY ) vb12 265 pg/mL 239-93 1 Not Available [facility] (Lab) [address] [place], [address], 04/24/2022 23:07:27 04/24/19 23 04/24/2022 VITAM IN D 25-HY DROXY vd25oh 16.0 NG/mL 30-100 low Vitam in D Statu s: Defic ient: <20 ng/mL Insuf ficie nt: 20-29 ng/mL Suffi cient : 30-10 0 ng/mL Not Available [facility] (Lab) [address] [place], [address], 04/24/2022 22:19:47 04/24/19 23 04/24/2022 PASQUALE TIN ferritin 15 NG/mL 6.24-1 37 Not Available [facility] (Lab) [address] [place], [address], 04/24/2022 21:49:59 04/24/19 23 04/24/2022 TSH thyroid-stim ulating hormone 3.070 uIU/m L 0.465- 4.680 Not Available [facility] (Lab) [address] [place], [address], 04/24/2022 21:49:24 04/24/19 23 04/24/2022 T4 FREE free T4 1.01 NG/dL 0.78-2 .19 Not Available [facility] (Lab) [address] [place], [address], 04/24/2022 21:47:07 04/24/19 23 04/24/2022 IRON/ TIBC PANEL total iron binding capacity 306 mcg/d L 265-47 5 Not Available [facility] (Lab) [address] [place], [address], 04/24/2022 21:45:37 04/24/19 23 04/24/2022 IRON/ TIBC PANEL % transferrin saturation 36 % 20-55 Not Available [facility] (Lab) [address] [place], [address], 04/24/2022 21:45:37 04/24/19 23 04/24/2022 IRON/ TIBC PANEL unsaturated iron bind capacity 196 mcg/d L 126-38 2 Not Available [facility] (Lab) [address] [place], [address], 04/24/2022 21:45:37 04/24/19 23 04/24/2022 IRON/ TIBC PANEL iron 110 mcg/d L 42-175 Not Available [facility] (Lab) [address] [place], [address], 04/24/2022 21:45:37 04/24/1904/24/2022 MAGNE SIUM magnesium 2.0 mg/dL 1.6-2. 3 Not Available [facility] (Lab) [address] [place], [address], 04/24/2022 21:44:23 04/24/19 23 04/24/2022 COMPR EHENS NAHOMY METAB OLIC PANEL glucose 87 mg/dL 70-99 Not Available [facility] (Lab) [address] [place], [address], 04/24/2022 21:44:19 04/24/19 23 04/24/2022 COMPR EHENS NAHOMY METAB OLIC PANEL sodium 138 mmol/ L 137-14 5 Not Available [facility] (Lab) [address] [place], [address], 04/24/2022 21:44:19 04/24/19 23 04/24/2022 COMPR EHENS NAHOMY METAB OLIC PANEL potassium 4.5 mmol/ L 3.5-5. 1 Not Available [facility] (Lab) [address] [place], [address], 04/24/2022 21:44:19 04/24/19 23 04/24/2022 COMPR EHENS NAHOMY METAB OLIC PANEL chloride 108 mmol/ L 98-107 high Not Available [facility] (Lab) [address] [place], [address], 04/24/2022 21:44:19 04/24/19 23 04/24/2022 COMPR EHENS NAHOMY METAB OLIC PANEL carbon dioxide 21 mmol/ L 22-30 low Not Available [facility] (Lab) [address] [place], [address], 04/24/2022 21:44:19 04/24/19 23 04/24/2022 COMPR EHENS NAHOMY METAB OLIC PANEL anion gap 13.5 mmol/ L 14-22 low Not Available [facility] (Lab) [address] [place], [address], 04/24/2022 21:44:19 04/24/19 23 04/24/2022 COMPR EHENS NAHOMY METAB OLIC PANEL BUN 10 mg/dL 8-19 Not Available [facility] (Lab) [address] [place], [address], 04/24/2022 21:44:19 04/24/19 23 04/24/2022 COMPR EHENS NAHOMY METAB OLIC PANEL creatinine 0.57 mg/dL 0.66-1 .25 low Not Available [facility] (Lab) [address] [place], [address], 04/24/2022 21:44:19 04/24/19 23 04/24/2022 COMPR EHENS NAHOMY METAB OLIC PANEL GFR >60 Refer ence Range : Sarah Ann ge GFR Healt hy Adult : >60 [...] or ethni c subgr oups, such as Hisnh nics. Outsi de the valid ated elizabeth [...] calcu lator is avail able on the [facility] websi te: https :[email or web address] dee [email or web address] [email or web address].o rg/pr ofess ional s/kdo qi/gf r_cal culat or Not Available [facility] (Lab) [address] [place], [address], 04/24/2022 21:44:19 04/24/19 23 04/24/2022 COMPR EHENS NAHOMY METAB OLIC PANEL alkaline phosphatase 51 U/L 38-126 Not Available [facility] (Lab) [address] [place], [address], 04/24/2022 21:44:19 04/24/19 23 04/24/2022 COMPR EHENS NAHOMY METAB OLIC PANEL alanine aminotransfe rase 21 U/L 0-[address] [facility] (Lab) [address] [place], [address], 04/24/2022 21:44:19 04/24/19 23 04/24/2022 COMPR EHENS NAHOMY METAB OLIC PANEL aspartate aminotransfe rase 25 U/L 15-[address] [facility] (Lab) [address] [place], [address], 04/24/2022 21:44:19 04/24/19 23 04/24/2022 COMPR EHENS NAHOMY METAB OLIC PANEL bilirubin, total 0.40 mg/dL 0.20-1 .30 Not Available [facility] (Lab) [address] [place], [address], 04/24/2022 21:44:19 04/24/19 23 04/24/2022 COMPR EHENS NAHOMY METAB OLIC PANEL calcium 9.9 mg/dL 8.4-10 .2 Not Available [facility] (Lab) [address] [place], [address], 04/24/2022 21:44:19 04/24/19 23 04/24/2022 COMPR EHENS NAHOMY METAB OLIC PANEL total protein 7.2 g/dL 6.3-8. 2 Not Available [facility] (Lab) [address] [place], [address], 04/24/2022 21:44:19 04/24/19 23 04/24/2022 COMPR EHENS NAHOMY METAB OLIC PANEL albumin 4.5 g/dL 3.4-5. 0 Not Available [facility] (Lab) [address] [place], [address], 04/24/2022 21:44:19 04/24/19 23 04/24/2022 COMPR EHENS NAHOMY METAB OLIC PANEL globulin 2.7 g/dL 2.6-4. 2 Not Available [facility] (Lab) [address] [place], [address], 04/24/2022 21:44:19 04/24/1904/24/2022 COMPR EHENS NAHOMY METAB OLIC PANEL A/G ratio 1.7 ratio 1.0-2. 0 Not Available [facility] (Lab) [address] [place], [address], 04/24/2022 21:44:19 04/24/19 23 04/24/2022 HEMOG LOBIN A1C HA1C 5.4 % 4.0-6. 0 Diabe angela Scree mallory Crite stephenie: <5.7% Consi stent with absen ce of diabe angela 5.7-6 .4% Consi stent with incre ased risk for diabe angela (pred iabet es) >OR=6 .5% Consi stent with diabe angela REFER ENCE: Diabe angela Care 2016, 39(Soto ppl.1 ):s13 -s22 Not Available [facility] (Lab) [address] [place], [address], 04/24/2022 21:39:34 04/24/1904/24/2022 CBC/C OMPLE TE BLD COUNT W/DIF F mean red cell volume 94.6 fL 82.0-9 9.0 Not Available [facility] (Lab) [address] [place], [address], 04/24/2022 20:12:45 04/24/1904/24/2022 CBC/C OMPLE TE BLD COUNT W/DIF F white blood cells 12.0 x10'3 /uL 4.2-10 .8 high Not Available [facility] (Lab) [address] [place], [address], 04/24/2022 20:12:45 04/24/19 23 04/24/2022 CBC/C OMPLE TE BLD COUNT W/DIF F red blood cells 4.25 x10'6 /uL 3.80-5 .20 Not Available [facility] (Lab) [address] [place], [address], 04/24/2022 20:12:45 04/24/19 23 04/24/2022 CBC/C OMPLE TE BLD COUNT W/DIF F hemoglobin 13.3 g/dL 12.0-1 5.6 Not Available [facility]Lab[facility] [address] [facility] [place], [address], 04/24/2022 20:12:45 04/24/19 23 04/24/2022 CBC/C OMPLE TE BLD COUNT W/DIF F hematocrit 40.2 % 35.7-4 5.7 Not Available [facility] (Lab[facility] [address] [facility] [place], [address], 04/24/2022 20:12:45 04/24/19 23 04/24/2022 CBC/C OMPLE TE BLD COUNT W/DIF F mean red cell hemoglobin 31.3 pg 27.0-3 3.0 Not Available [facility] (Lab) [address] [place], [address], 04/24/2022 20:12:45 04/24/1904/24/2022 CBC/C OMPLE TE BLD COUNT W/DIF F mean RBC HGB concentratio n 33.1 g/dL 31.0-3 6.0 Not Available [facility] (Lab) [address] [place], [address], 04/24/2022 20:12:45 04/24/19 23 04/24/2022 CBC/C OMPLE TE BLD COUNT W/DIF F red cell distribution width 13.1 % 11.8-1 5.5 Not Available [facility] (Lab) [address] [place], [address], 04/24/2022 20:12:45 04/24/19 23 04/24/2022 CBC/C OMPLE TE BLD COUNT W/DIF F platelets 375 x10'3 /uL 150-40 0 Not Available [facility] (Lab) [address] [place], [address], 04/24/2022 20:12:45 04/24/19 23 04/24/2022 CBC/C OMPLE TE BLD COUNT W/DIF F mean platelet volume 11.3 fL 9.0-12 .4 Not Available [facility] (Lab) [address] [place], [address], 04/24/2022 20:12:45 04/24/1904/24/2022 CBC/C OMPLE TE BLD COUNT W/DIF F neutrophils 63.3 % 39.0-7 2.0 Not Available [facility] (Lab) [address] [place], [address], 04/24/2022 20:12:45 04/24/19 23 04/24/2022 CBC/C OMPLE TE BLD COUNT W/DIF F lymphocytes 26.5 % 16.0-4 7.0 Not Available [facility] (Lab) [address] [place], [address], 04/24/2022 20:12:45 04/24/1904/24/2022 CBC/C OMPLE TE BLD COUNT W/DIF F monocytes 7.0 % 5.0-12 .0 Not Available [facility] (Lab) [address] [place], [address], 04/24/2022 20:12:45 04/24/1904/24/2022 CBC/C OMPLE TE BLD COUNT W/DIF F eosinophils 2.4 % 1.0-7. 0 Not Available [facility] (Lab) [address] [place], [address], 04/24/2022 20:12:45 04/24/19 23 04/24/2022 CBC/C OMPLE TE BLD COUNT W/DIF F basophils 0.3 % 0.0-2. 0 Not Available [facility] (Lab) [address] [place], [address], 04/24/2022 20:12:45 04/24/1904/24/2022 CBC/C OMPLE TE BLD COUNT W/DIF F immature granulocytes 0.5 % 0.00-0 .50 Not Available [facility] (Lab) [address] [place], [address], 04/24/2022 20:12:45 04/24/1904/24/2022 CBC/C OMPLE TE BLD COUNT W/DIF F neutrophils, absolute count 7.58 x10'3 /uL 1.5-8. 0 Not Available [facility] (Lab) [address] [place], [address], 04/24/2022 20:12:45 04/24/1904/24/2022 CBC/C OMPLE TE BLD COUNT W/DIF F lymphocytes, absolute count 3.17 x10'3 /uL 1.07-3 .43 Not Available [facility] (Lab) [address] [place], [address], 04/24/2022 20:12:45 04/24/1904/24/2022 CBC/C OMPLE TE BLD COUNT W/DIF F monocytes, absolute count 0.84 x10'3 /uL 0.29-0 .99 Not Available [facility] (Lab) [address] [place], [address], 04/24/2022 20:12:45 04/24/1904/24/2022 CBC/C OMPLE TE BLD COUNT W/DIF F eosinophils, absolute count 0.29 x10'3 /uL 0.02-0 .53 Not Available [facility] (Lab) [address] [place], [address], 04/24/2022 20:12:45 04/24/19 23 04/24/2022 CBC/C OMPLE TE BLD COUNT W/DIF F basophils, absolute count 0.04 x10'3 /uL 0.01-0 .08 Not Available [facility] (Lab) [address] [place], [address], 04/24/2022 20:12:45 04/24/19 23 04/24/2022 CBC/C OMPLE TE BLD COUNT W/DIF F immature granulocytes ,absolute 0.06 x10'3 /uL 0.00-0 .05 high Not Available [facility] (Lab) [address] [place], [address], 04/24/2022 20:12:45 04/24/19 23 04/24/2022 CBC/C OMPLE TE BLD COUNT W/DIF F nucleated red blood cells 0.0 % -[address] [facility] (Lab) [address] [place], [address], 04/24/2022 20:12:45 04/24/19 23 04/24/2022 CBC/C OMPLE TE BLD COUNT W/DIF F NRBC# 0.00 x10'3 /uL Not Available [facility] (Lab) [address] [place], [address], 04/24/2022 20:12:45 09/16/19 23 09/15/2022 CBC/C OMPLE TE BLD COUNT W/DIF F white blood cells 9.2 x10'3 /uL 4.2-10 .8 Not Available [facility] (Lab) [address] [place], [address], 09/15/2022 19:51:06 09/16/1909/15/2022 CBC/C OMPLE TE BLD COUNT W/DIF F red blood cells 4.35 x10'6 /uL 3.80-5 .20 Not Available [facility] (Lab) [address] [place], [address], 09/15/2022 19:51:06 09/16/19 23 09/15/2022 CBC/C OMPLE TE BLD COUNT W/DIF F hemoglobin 13.4 g/dL 12.0-1 5.6 Not Available [facility] (Lab) [address] [place], [address], 09/15/2022 19:51:06 09/16/19 23 09/15/2022 CBC/C OMPLE TE BLD COUNT W/DIF F hematocrit 40.6 % 35.7-4 5.7 Not Available [facility] (Lab) [address] [place], [address], 09/15/2022 19:51:06 09/16/19 23 09/15/2022 CBC/C OMPLE TE BLD COUNT W/DIF F mean red cell volume 93.3 fL 82.0-9 9.0 Not Available [facility] (Lab) [address] [place], [address], 09/15/2022 19:51:06 09/16/19 23 09/15/2022 CBC/C OMPLE TE BLD COUNT W/DIF F mean red cell hemoglobin 30.8 pg 27.0-3 3.0 Not Available [facility] (Lab) [address] [place], [address], 09/15/2022 19:51:06 09/16/19 23 09/15/2022 CBC/C OMPLE TE BLD COUNT W/DIF F mean RBC HGB concentratio n 33.0 g/dL 31.0-3 6.0 Not Available [facility] (Lab) [address] [place], [address], 09/15/2022 19:51:06 09/16/19 23 09/15/2022 CBC/C OMPLE TE BLD COUNT W/DIF F red cell distribution width 14.1 % 11.8-1 5.5 Not Available [facility] (Lab) [address] [place], [address], 09/15/2022 19:51:06 09/16/1909/15/2022 CBC/C OMPLE TE BLD COUNT W/DIF F platelets 401 x10'3 /uL 150-40 0 high Not Available [facility] (Lab) [address] [place], [address], 09/15/2022 19:51:06 09/16/19 23 09/15/2022 CBC/C OMPLE TE BLD COUNT W/DIF F mean platelet volume 10.5 fL 9.0-12 .4 Not Available [facility] (Lab) [address] [place], [address], 09/15/2022 19:51:06 09/16/1909/15/2022 CBC/C OMPLE TE BLD COUNT W/DIF F neutrophils 62.5 % 39.0-7 2.0 Not Available [facility] (Lab) [address] [place], [address], 09/15/2022 19:51:06 09/16/1909/15/2022 CBC/C OMPLE TE BLD COUNT W/DIF F lymphocytes 28.1 % 16.0-4 7.0 Not Available [facility] (Lab) [address] [place], [address], 09/15/2022 19:51:06 09/16/1909/15/2022 CBC/C OMPLE TE BLD COUNT W/DIF F monocytes 6.6 % 5.0-12 .0 Not Available [facility] (Lab) [address] [place], [address], 09/15/2022 19:51:06 09/16/19 23 09/15/2022 CBC/C OMPLE TE BLD COUNT W/DIF F eosinophils 2.0 % 1.0-7. 0 Not Available [facility] (Lab) [address] [place], [address], 09/15/2022 19:51:06 09/16/1909/15/2022 CBC/C OMPLE TE BLD COUNT W/DIF F basophils 0.5 % 0.0-2. 0 Not Available [facility] (Lab) [address] [place], [address], 09/15/2022 19:51:06 09/16/19 23 09/15/2022 CBC/C OMPLE TE BLD COUNT W/DIF F immature granulocytes 0.3 % 0.00-0 .50 Not Available [facility] (Lab) [address] [facility] [place], [address], 09/15/2022 19:51:06 09/16/19 23 09/15/2022 CBC/C OMPLE TE BLD COUNT W/DIF F neutrophils, absolute count 5.73 x10'3 /uL 1.5-8. 0 Not Available [facility] (Lab) [address] [place], [address], 09/15/2022 19:51:06 09/16/19 23 09/15/2022 CBC/C OMPLE TE BLD COUNT W/DIF F lymphocytes, absolute count 2.58 x10'3 /uL 1.07-3 .43 Not Available [facility] (Lab) [address] [place], [address], 09/15/2022 19:51:06 09/16/19 23 09/15/2022 CBC/C OMPLE TE BLD COUNT W/DIF F monocytes, absolute count 0.61 x10'3 /uL 0.29-0 .99 Not Available [facility] (Lab) [address] [place], [address], 09/15/2022 19:51:06 09/16/19 23 09/15/2022 CBC/C OMPLE TE BLD COUNT W/DIF F eosinophils, absolute count 0.18 x10'3 /uL 0.02-0 .53 Not Available [facility] (Lab) [address] [place], [address], 09/15/2022 19:51:06 09/16/19 23 09/15/2022 CBC/C OMPLE TE BLD COUNT W/DIF F basophils, absolute count 0.05 x10'3 /uL 0.01-0 .08 Not Available [facility] (Lab) [address] [place], [address], 09/15/2022 19:51:06 09/16/19 23 09/15/2022 CBC/C OMPLE TE BLD COUNT W/DIF F immature granulocytes ,absolute 0.03 x10'3 /uL 0.00-0 .05 Not Available [facility] (Lab) [address] [place], [address], 09/15/2022 19:51:06 09/16/19 23 09/15/2022 CBC/C OMPLE TE BLD COUNT W/DIF F nucleated red blood cells 0.0 % -[address] [facility] (Lab) [address] [place], [address], 09/15/2022 19:51:06 09/16/19 23 09/15/2022 CBC/C OMPLE TE BLD COUNT W/DIF F NRBC# 0.00 x10'3 /uL Not Available [facility] (Lab) [address] [place], [address], 09/15/2022 19:51:06 09/16/1909/15/2022 IRON/ TIBC PANEL total iron binding capacity 331 mcg/d L 265-47 5 Not Available [facility] (Lab) [address] [place], [address], 09/15/2022 21:20:57 09/16/1909/15/2022 IRON/ TIBC PANEL % transferrin saturation 45 % 20-55 Not Available [facility] (Lab) [address] [place], [address], 09/15/2022 21:20:57 09/16/19 23 09/15/2022 IRON/ TIBC PANEL unsaturated iron bind capacity 181 mcg/d L 126-38 2 Not Available [facility] (Lab) [address] [place], [address], 09/15/2022 21:20:57 09/16/19 23 09/15/2022 IRON/ TIBC PANEL iron 150 mcg/d L 42-175 Not Available [facility] (Lab) [address] [place], [address], 09/15/2022 21:20:57 09/16/19 23 09/15/2022 PASQUALE TIN ferritin 12 NG/mL 6.24-1 37 Not Available [facility] (Lab) [address] [place], [address], 09/15/2022 21:30:47 09/16/19 23 09/15/2022 VITAM IN B12 (LINDA SY ) vb12 271 pg/mL 239-93 1 Not Available [facility] (Lab) [address] [place], [address], 09/15/2022 22:11:07 09/16/19 23 09/15/2022 FOLAT E, SERUM /PLAS MA folate 3.59 NG/mL 2.76-2 0.0 Not Available [facility] (Lab) [address] [place], [address], 09/15/2022 22:11:13 Result Notes None recorded. Problems Name Problem SNOMED Code Status Onset Date Resolution Date Notes Provider Name and Address Organization Details Recorded Time Cobalamin deficiency 186146418 Active 2021 Not Available [employer] 23:30:02 Vitamin D deficiency 50281712 Active 2021 Not Available [facility] 3 23:30:02 Depressive disorder 01905093 Active 2020 Not Available [facility] 3 23:30:02 Adult attention deficit hyperactivity disorder 180065974 Active 2020 Not Available [facility] 3 23:30:02 Anxiety 07304233 Active 2020 Not Available [facility] 3 23:30:02 Iron deficiency anemia 56267152 Active 2021 Not Available [facility] 3 23:30:02 Paresthesia 36410042 Active 2022 Taina Freeman MD [address] [place] [address], [facility] [address], [place], [address] , [facility] [employer] 3 13:47:15 Problem Notes None recorded. Medical [...] completed Not Available Not Available Not Available clindamycin HCl 300 mg capsule TAKE 1 CAPSULE BY MOUTH EVERY 6 HOURS FOR 5 DAYS active Not Available Not Available No t Available ibuprofen 800 mg tablet TAKE 1 TABLET BY MOUTH THREE TIMES DAILY FOR 7 DAYS NEEDED FOR PAIN active Not Available Not Available No t Available methylpheni date 10 mg tablet TAKE 1 TABLET BY MOUTH TWICE A DAY active Not Available Not Available No t Available ondansetron HCl 4 mg tablet TAKE [...] Available Not Available No t Available sertraline 100 mg tablet 04/23 completed Not Available Not Available Not Available cyanocobala min (vit B-12) 1,000 mcg tablet 1 po qday 06/13 completed Not Available Not Available Not Available acetaminoph en 500 mg tablet TAKE 2 TABLETS BY MOUTH EVERY 6 HOURS NEEDED FOR PAIN active Not Available Not Available No t Available lamotrigine 25 mg tablet TAKE 1 [...] Not Available Not Available No t Available pantoprazol e 40 mg tablet,melony yed [...] completed Not Available Not Available Not Available gabapentin 300 mg capsule TAKE 1 CAPSULE BY MOUTH THREE TIMES A DAY active Not Available Not Available No t Available dextroamphe tamine-amph etamine ER 10 mg 24hr capsule,ext end release 12/12 completed Not Available Not Available Not Available hydroxyzine HCl 25 mg tablet TAKE 1 TABLET BY MOUTH 3 TIMES A DAY NEEDED FOR ITCHING. 04/23 completed Not Available Not Available Not Available ergocalcife rol (vitamin D2) 1,250 mcg (50,000 unit) capsule TAKE 1 CAPSULE BY MOUTH ONE TIME PER WEEK active Not Available Not Available No t Available lorazepam 1 mg tablet TAKE 1 TABLET BY MOUTH THREE TIMES A DAY 06/13 completed Not Available Not Available Not Available ibuprofen 600 mg tablet TAKE 1 TABLET BY MOUTH THREE TIMES DAILY NEEDED FOR PAIN active Not Available Not Available No t Available methylpredn isolone 4 mg tablets in a dose pack FOLLOW PACKAGE DIRECTION S active Not Available Not Available No t Available albuterol sulfate HFA 90 mcg/actuati on aerosol inhaler 2 PUFF INHALED FOUR TIMES DAILY NEEDED FOR SHORTNESS OF BREATH OR WHEEZING 04/23 completed Not Available Not Available Not Available ferrous sulfate 325 mg (65 mg iron) tablet,melony yed release TAKE 1 TABLET BY MOUTH EVERY DAY FOR 2 MONTHS active Not Available Not Available No t Available norethindro ne (contracept nahomy) 0.35 mg tablet TAKE 1 TABLET BY MOUTH AT THE SAME TIME EACH DAY 06/13 completed Not Available Not Available Not Available ondansetron 4 mg disintegrat ing tablet DISSOLVE 1 TABLET ON THE TONGUE EVERY 8 HOURS NEEDED FOR NAUSEA OR VOMITING active Not Available Not Available No t [...] Not Available Not Available No t Available nitrofurant oin monohydrate /macrocryst als 100 mg capsule 12/12 completed Not Available Not Available Not Available aripiprazol e 2 mg tablet 12/12 completed Not Available Not Available Not Available Zumandimine (28) 3 mg-0.03 mg tablet TAKE 1 TABLET BY MOUTH EVERY DAY active Not Available Not Available No t Available Vitals Date Recorded Body mass index (BMI) Body height Oxygen saturation Oxygen saturation in Arterial blood by Pulse oximetry Heart rate Body temperature Body weight Systolic And Diastolic Provider Name and Address Organization Details Last Updated DateTime 3 21.2 kg/m2 154.94 cm 100 % 100 % 83 /min 98.5 [degF] 01047.3 5 g 118/70 mm[Hg] Not Available [facility] 3 23:29:11 Date Recorded Body mass index (BMI) Body height Oxygen saturation Oxygen saturation in Arterial blood by Pulse oximetry Heart rate Body temperature Body weight Systolic And Diastolic Provider Name and Address Organization Details Last Updated DateTime 2 17.4 kg/m2 154.94 cm 98 % 98 % 122 /min 98.2 [degF] 11429.5 g 106/76 mm[Hg] Not Available [facility] 3 23:29:11 Date Recorded Body height Body mass index (BMI) Body weight Body temperature Heart rate Oxygen saturation Oxygen saturation in Arterial blood by Pulse oximetry Systolic And Diastolic Provider Name and Address Organization Details Last Updated DateTime 3 154.94 cm 20.2 kg/m2 89675.3 8 g 98 [degF] 84 /min 99 % 99 % 116/76 mm[Hg] [facility] 3 08:45:12 Date Recorded Body height Body mass index (BMI) Body weight Body temperature Heart rate Oxygen saturation Oxygen saturation in Arterial blood by Pulse oximetry Systolic And Diastolic Provider Name and Address Organization Details Last Updated DateTime 3 154.94 cm 19.3 kg/m2 76971.4 2 g 98.2 [degF] 92 /min 99 % 99 % 100/60 mm[Hg] [facility] 3 12:01:00 Date Recorded Body mass index (BMI) Body height Oxygen saturation Oxygen saturation in Arterial blood by Pulse oximetry Heart rate Body temperature Body weight Systolic And Diastolic Provider Name and Address Organization Details Last Updated DateTime 1 15.7 kg/m2 154.94 cm 95 % 95 % 93 /min 98.3 [degF] 23611.1 7 g 110/74 mm[Hg] Not Available [facility] 3 23:29:10 Social History Question Answer Notes LastModified by Organizat ion Details LastModified Time Tobacco Smoking Status Current Every Day Smoker Not Available [facility] 04/29/2022 23:28:30 What Is Your Level Of Caffeine Consumption? Occasional [id number] Information not available 04/29/2022 What Type Of Diet Are You Following? REGULAR [id number] Information not available 04/29/2022 What Was The Date Of Your Most Recent Tobacco Screening? 12/12/2020 [id number] Information not available 04/29/2022 What Is Your Current Pack Years? 20-29packyears [id number] Information not available 04/29/2022 What Is Your Relationship Status? Single [id number] Information not available 04/29/2022 Do You Use Your Seat Belt Or Car Seat Routinely? Yes [id number] Information not available 04/29/2022 At What Age Did You Start Smoking Tobacco? 20 [id number] Information not available 04/29/2022 How Much Tobacco Do You Smoke? 1 PPD [id number] Information not available 04/29/2022 Do You Participate In Social Media? No [id number] Information not available 04/29/2022 Has Tobacco Cessation Counseling Been Provided? No [id number] Information not available 04/29/2022 Do You Have Any Dietary Restrictions? No [id number] Information not available 04/29/2022 Sex: Female Functional Status Question Answer Note LastModified by Organizat ion Details LastModified Time Do you use any illicit or recreational drugs? No [id number] Information not available 04/29/2022 Do you or have you ever used any other forms of tobacco or nicotine? No [id number] Information not available 04/29/2022 What is your exercise level? Occasional [id number] Information not available 04/29/2022 Mental Status Question Answer Note LastModified by Organizat ion Details LastModified Time Do you feel stressed (tense, restless, nervous, or anxious, or unable to sleep at night)? [id number] Information not available 04/29/2022 Family History Relationship Description Onset Age of this Age Resolved Age Notes LastModified by Organization Details LastModified Time Father Cerebrovascu lar accident [id number] Not available 04/29/2022 23:28:48 Father Essential hypertension [id number] Not available 04/29/2022 23:28:48 Father Chronic pain MIGRATION.0 30 [id number] Not available 04/29/2022 23:28:48 Mother Chronic pain MIGRATION.0 30 [id number] Not available 04/29/2022 23:28:48 Sister Deep venous thrombosis [id number] Not available 04/29/2022 23:28:48 Sister Cardiac arrest 30 [id number] Not available 04/29/2022 23:28:49 Maternal Aunt Deep venous thrombosis [id number] Not available 04/29/2022 23:28:49 Maternal Grandmother Deep venous thrombosis [id number].909 [id number] Not available 04/29/2022 23:28:49 Maternal Grandmother Amyotrophic lateral sclerosis [id number].157 [id number] Not available 04/29/2022 23:28:49 Notes:Potentially some pater [...] SNOMED-CT Code Diagnosis ICD10 Code Diagnosis Note [id number] Taina Freeman MD [facility] [address] [facility] [facility] [address] [place] [address] 12/12/2020 00:00:00 12/19/2020 09:58:51 [id number] Taina Freeman MD [facility] Primary Care [place] [address] [place] [id number] 06/04/2021 00:00:00 06/04/2021 17:00:43 [id number] Taina Freeman MD [facility] Primary Care [place] [address] [place] [id number] 04/23/2022 00:00:00 04/28/2022 08:02:27 [id number] Taina Freeman MD [facility] Primary Care [facility] lle [address] [place] [address] 08/05/2022 08:40:08/05/2022 09:27:02 Cobalamin deficiency [id number] E53.8 b12 was below 300, pt with numbness/t ingling, [id number] 1000 mcg IM x 1b12 1000 mcg po qdayf/u in 4 weeks, recheck labsconsid er further testing if no improvemen t vs neuro referral Iron defic iency anemia [id number] D50.9 labs in April normal, but pt notes she had iron infusion in Dec2rechec k labs in 4 weeks to monitor [id number] Taina Freeman MD [facility] [place] [address] [facility] [address] [facility] [place] [address] 09/15/2022 11:56:31 09/15/2022 13:14:41 Cobalamin deficiency [id number] E53.8 b12 was below 300, pt with numbness/t ingling, [id number] 1000 mcg IM x 1b12 1000 mcg po qdayf/u in 4 weeks, recheck labsconsid er further testing if no improvemen t vs neuro referral update 09/15/22 B12 shot todayrepea t labsif normal, will refer to neurology for further evaluation of symptoms Iron defic iency anemia [id number] D50.9 labs in April normal, but pt [...] Member ID Mccormack Member ID Guarantor Name 09/03/2024 1 [facility] (MEDICAID HMO) [id number] Huyen Mares [id number] Huyen Mares Notes Date Note Type Note [...] interval change in symptoms. Taina Freeman MD [address], [facility] [address], [place], [address], [facility] rimidi [facility] 08/05/2022 09:03:49 09/15/2022 text/html very fatigued, still [...] otherwise no interval change. Taina Freeman MD [address], [address], [place], [address], scanR [facility] Nomios [facility] 09/15/2022 12:12:29 OBGyn Episode No OBEpisode recorded.
--- OUTSIDE RECORDS SUMMARY | 2024-09-12 00:28 | XMS_ITS | Encounter Summary ---
Author Organization [facility] Address [address] [place] [address] Care Team Providers Care Student Dean Name Role Phone Barbra Kendrick PA-C Unavailable [phone] Dmitri Jimenes MD Primary Care Provider [phone] Encounter Details Date Type Department Care Team (Late st Contact Info) Description 07/17/2024 Results Follow-Up [facility] Medical [facility] - Rheumatology [address] [facility], [facility] [address] [place] [address] Fadi Guidry DO [address] [facility] [address] [place] [address] Social History Tobacco Use Types Packs/Day Years Used Date Smoking Tobacco: Former Cigarettes Q uit: 08/2016 Smokeless Tobacco: Never Alcohol Use Standard Drinks/Week Comments No 0 (1 standard drink = 0.6 oz pur e alcohol) PHQ-2 Answer Date Recorded Patient Health Questionnaire-2 Score 0 07/11/2024 Comments No Sex and Gender Information Value Date Recorded Sex Assigned at Not on file Legal Sex Female 4:01 PM CDT Gender Identity Not on file Sexual Orientation Not on file documented as of this encounter Functional Status * Is person deaf or have serious hearing difficulty? Answer Date of Assessment Author No 07/09/2017 11:15 AM Barbra Hernandez RN * Is person blind or have serious difficulty seeing? Answer Date of Assessment Author No 07/09/2017 11:15 AM Barbra Hernandez RN * Does person have serious difficulty walking/climbing stairs? Answer Date of Assessment Author No 07/09/2017 11:15 AM Barbra Hernandez RN * Does person have difficulty dressing/bathing? Answer Date of Assessment Author No 07/09/2017 11:15 AM Barbra Hernandez RN * Does person have difficulty doing errands alone? Answer Date of Assessment Author No 07/09/2017 11:15 AM Barbra Hernandez RN documented as of this encounter Mental Status * Does person have difficulty concentrating/remembering/making decisions? Answer Entry Date Author No 07/09/2017 11:15 AM Barbra Hernandez RN documented in this encounter Plan of Treatment Not on file documented as of this encounter Visit Diagnoses Not on filedocumented in this encounter Care Teams Student Dean Relationship Specialty Start Date End Date Dmitri Jimenes MD [address] [place] [address] PCP - General Family Medicine 07/06/24 Barbra Kendrick PA-C Physician Thermal Cutter Helper 12/16/16 documented as of this encounter
--- OUTSIDE RECORDS SUMMARY | 2024-09-12 00:28 | XMS_ITS | Referral Summary ---
Author Organization [address] Address [address] [place] [address] Care Team Providers Care Animal Caregiver Name Role Phone Taina Freeman MD Primary Care Provider + Encounters Date Type Department Care Team Description 09/05/2024 3:15 PM CDT Office Visit [facility] [address] [place] [address] [address] [place] [address] Judit Beavers MD Family history of ovarian cancer (Primary Dx); Follow-up exam 08/17/[address] [address] Judit Beavers MD 08/08/2024 Results Follow-Up [address] [address] Judit Beavers MD Trichomonas vaginalis PCR Vaginal, N. gonorrhoeae/C. trachomatis Amplification Vaginal, Pap and High Risk HPV and Genotyping (Cytology Component) 08/04/2024 4:55 PM CDT - 08/04/2024 11:59 PM CDT Hospital Encounter [address] [address] Cervical cancer screening Discharge Disposition: Discharge to home or self care 08/04/2024 12:30 PM CDT Office Visit [facility]stetrics and Gynecology Clinic [address] [place] [address] [address] [place] [address] [facility] Encounter for well woman exam with routine gynecological exam (Primary Dx); Screening examination for STI; Iron deficiency anemia due to chronic blood loss; Cervical cancer screening; Family history of ovarian cancer; Former smoker; Bloody stool from Last 3 Months Allergies Active Allergy [...] testing to evaluate hereditary cancer risk through [employer]. We reviewed genetic screening in general, benefits and risks (TONY protections, impact on life insurance, disability insurance), the possible results (positive, negative, VUS). The patient was counseled on available genetic testing to evaluate hereditary cancer risk through [employer]. We reviewed the type of screening this [...] # Disposition: Follow up task sent to [facility] scheduling pool. Desires discharge home today. [...] education: completed in all 3 trimesters [x] Clerical Administrator: Completed [x] Car seat discussed [x] PP [...] week 02/01/2022 How often do you attend [facility] or rastafari services? More than 4 times per year 02/01/2022 Do you belong to any clubs o r organizations such as temple groups, unions, fraternal or athletic groups, or [...] care, and heating? Not very hard 02/01/2022 [facility] - Occupational Stress [...] place to sleep or slept in a mcc (including now)? No 02/01/2022 Bergheim Depression Scale Answer Date Recorded Bergheim Depression Scale Total 20 10/27/2021 The thought [...] 37.2 C (99 F) 01/24/2024 5:00 PM [employer] Respiratory Rate 18 09/05/2024 3:45 PM CDT Oxygen Saturation 99% 09/05/2024 3:45 PM CDT Inhaled Oxygen Concentration - - Weight 44.6 kg (98 lb 4.8 oz) 09/05/2024 3:45 PM CDT Height 154.9 cm (5' 1) 03/30/2024 2:23 PM [employer] Body Mass Index 18.57 03/30/2024 2:23 PM [employer] Plan of Treatment Not on file Procedures [...] 1:08 PM CDT) C. trachomatis Not Detected [facility] N. gonorrhoeae Not Detected [facility] Comment: Interpretive Data This assay detects Chlamydia trachomatis and Neisseria gonorrhoeae by nucleic acid amplification testing (NAAT). This assay has been cleared by the [place] Food and Drug administration. The performance characteristics of this test have been verified by the [facility] Molecular Infectious Disease laboratory. The performance characteristics of this test have not been evaluated in individuals less than 14 years of age. Current Interpretive Data was last revised on 2023. Vaginal (None) 08/04/2024 1: 08 PM CDT 08/04/2024 4:19 PM CDT Judit Beavers MD LAB MICROBIOLOG Y - GENERAL ORDERABLES Final Result [facility] Department [place] [address] [facility] * Trichomonas vaginalis PCR Vaginal (08/04/2024 1:08 PM CDT) Trichomonas DNA Not Detected [facility] Comment: Interpretive Data This assay detects Trichomonas vaginalis by nucleic acid amplification testing (NAAT). This assay has been cleared by the [place] Food and Drug administration. The performance characteristics of this test have been verified by the [facility] Molecular Infectious Disease laboratory. The performance of this test has not been evaluated in individuals less than 18 years of age. Current Interpretive Data was last revised on 2023. Vaginal 08/04/2024 1:08 PM CDT 08/04/2024 4:19 PM CDT Judit Beavers MD LAB MICROBIOLOG Y - GENERAL ORDERABLES Final Result [facility] [place] [address] [facility] * (ABNORMAL) High Risk HPV DNA Detection with Genotyping (Molecular component) (08/04/2024 12:58 PM CDT) Pathologist [facility] HPV HR 16 Not Detected Not Detected [facility] HPV HR 18 Not Detected Not Detected [facility] HPV HR Non 16/18 Detected(A) Not Detected [facility] Comment: Interpretive Data Nucleic acid amplification for [...] test have been verified by the [facility] Molecular Infectious Disease laboratory. Correlate with separately reported cytology results, as applicable. Interpretive data last revised 22 Endocervical 08/04/2024 12:5 8 PM CDT 08/09/2024 1:27 PM CDT Narrative [facility] - 08/10/2024 5:00 AM CDT Clinical history and diagnosis->screening Number of vials->1 Testing type->Screening Last menstrual period (date if known)->unk Menstrual status->Irregular Contraceptive use->IUD us Judit Beavers MD LAB BODY FLUIDS AND STOOLS ORDERABLES Final Result [facility] [place] [address] [facility] * Pap and High Risk HPV and Genotyping (Cytology Component) (08/04/2024 12:58 PM CDT) Thin prep (Pap test) 08/04/2024 12:58 PM CDT 08/04/2024 3:52 PM CDT Narrative PATHOLOGY [facility] - 08/16/2024 10:30 PM CDT EPIC results best viewed via link to PDF [facility] Sharyn Guerrero [facility] [place] [address] Note to Patients: This report may contain [...] Gender: F : 1990 (Age: 34) Address: [address] [place] [address] Hospital #: [id number] Service: LAB[employer]ER [employer] Location: Patient Type: [facility] SPECIMEN Taken: 08/04/2024 Received: 08/04/2024 Accessioned: 08/09/2024 [...] Papilloma virus (HPV) is performed by the [employer] HPV test. This assay specifically detects HPV-16 [...] test have been verified by the [facility] Molecular Infectious Disease laboratory. Correlate with reported cytology results, as applicable. Interpretive data last revised 22 hrk/08/16/2024 16:27 By this signature, I attest that the above diagnosis is based upon my personal examination of the slides(and/or other material indicated in the diagnosis). Yovana Marte M.D. Report Electronically Reviewed and Signed Out By Yoavna Marte M.D. 08/16/2024 22:30:52 Kenan Ruiz [facility]), [facility] Cervicovaginal Cytology (Pap Test) Disclaimer: The Pap test is a screening test used to detect cervical cancer and its precursors; it is not a diagnostic procedure. False negative and false positive results do occur. Pap test results should be interpreted in the context of pertinent clinical information and biopsy results as indicated. [facility] Clinical Laboratory Improvement Amendments (CLIA) mandate that cytologic and histologic results be correlated for laboratory quality technician & improvement standards. FOR ALL HIGH-GRADE CASES [...] determined by the Surgical Pathology Department at [facility] as part of an ongoing air quality consultant program and in compliance with federally [...] determined by the Surgical Pathology Department of [facility]. It has not been cleared or approved by the [place]. S. Food and Drug Administration. Judit Beavers MD LAB CYTOLOGY OR DERABLES Final Result PATHOLOGY [facility] 3rd Floor [place], [place] [phone] * Hepatitis C antibody (08/27/2021 2:39 PM CDT) Hep C Ab Nonreactive Nonreactive [facility] Comment:Antibodies to HCV no t detected. Does NOT exclude the possibility of recent exposure to HCV. Blood 08/27/2021 2:39 PM CDT 08/27/2021 3:18 PM CDT Les Couch MD PhD LAB MICROBI OLOGY - GENERAL ORDERABLES Edited Result - Final [facility] [place] [address] from Last 3 Months or Most Recently Relevant to Health Maintenance Insurance [facility] Advance Directives For more information, please contact: [phone] * Full Code (Latest Code Status on File) Date Activated Date Inactivated Comments 01/30/2022 9:49 AM 02/01/2022 6:51 PM * Full Code Date Activated Date Inactivated Comments 01/29/2022 10:53 PM 01/30/2022 9:49 AM Full CPR in case of cardiopulmonary arrest * Full Code Date Activated Date Inactivated Comments 01/21/2022 3:22 PM 01/22/2022 12:25 AM Full CPR in case of cardiopulmonary arrest Care Teams Animal Caregiver Relationship Specialty Start Date End Date Taina Freeman MD [address] [place] [address] [address] PCP - General Family Medicine 08/27/21
[2024-09-12 13:29] VITALS: BP 141/83; PULSE 83; RESP 16; TEMP 37.3; O2SAT 98; BMI 17.7
[2024-09-12] MEDS: SIMETHICONE ORAL SUSPENSION 20 MG/0.3 ML 30 ML BOTTLE 1.8 ML PO (13:35)
[2024-09-12 13:45] LABS: BEDSIDEPREGUCG Negative (Negative)
[2024-09-12] MEDS: LACTATED RINGERS 1,000 ML 150 ML IV CONT (14:01)
--- NOTE | 2024-09-12 14:30 | P.PNAN_ITS ---
Anes - Initial Pre Proc Eval Procedure: Operation Date: 09/12/24 14:30 Proposed Procedures p Esophagogastroduodenoscopy & Colonoscopy - Dennis Cali MD Date/Time: 09/12/24 14:30 Surgeon: Dennis Cali MD Pre Op Diagnosis: Hematemesis, Melena, Noninfective gastroenteritis Patient Data Age: 34 Gender: F Height: 1.55 m Weight: 42.6 kg Last Vital Signs Temp 99.2 F 09/12/24 13:29 Pulse 83 09/12/24 13:29 Resp 16 09/12/24 13:29 BP 141/83 H 09/12/24 13:29 Pulse Ox 98 09/12/24 13:29 O2 Del Method Room Air 09/12/24 13:29 Allergies Allergy/AdvReac Type Severity Reaction Status Date / Time No Known Allergies Allergy Verified 09/12/24 13:36 Home Medications ?Medication ?Instructions ?Recorded ?Confirmed ?Type lorazepam 0.5 mg tablet 0.5 mg PO HS 01/10/24 09/12/24 History dextroamphetamine-amphetamine 10 10 mg PO BID 09/06/24 09/12/24 History mg tablet ergocalciferol (vitamin D2) 1,250 1,250 mcg PO WEEKLY 09/06/24 09/12/24 History mcg (50,000 unit) capsule ferrous sulfate 325 mg (65 mg 325 mg PO DAILY 09/06/24 09/06/24 History iron) tablet,delayed release methylphenidate HCl 10 mg tablet 10 mg PO DAILY 09/12/24 09/12/24 History Laboratory Tests 09/12/24 09/12/24 13:41 13:55 Beta HCG, Quant Pending POC Urine HCG, Qual Negative (Negative) Patient hx anesthesia problems: none Family hx anesthesia problems: none Results Review: All pre-operative results and documents have been reviewed as part of the pre- operative evaluation. [facility] Social History Social History Smoking packs per day: 1 Smoking cigarettes per day: 20.0 Years smoked: 5 Smoking pack-years: 5.00 Smoking status: Current every day smoker Tobacco type: cigarettes Alcohol intake: never Substance use type: does not use Living arrangements: with family Gender identity (if verbalized by the patient): Female Spiritual care concerns: No Anes - Eval Final PreProcedure Day of Procedure 09/12/24 14:30 Patient weight: thin Lungs: normal air movement Airway: Mallampati scale class II and special considerations (Edentulous. ) Neurological: alert and oriented Last oral intake: >/= 8 hours ASA classification: II Emergent: no Anesthetic plan: proceed Anesthesia type and monitoring: general GIVS and standard monitoring Results Review: All pre-operative results and documents have been reviewed as part of the pre- operative evaluation. Anemia, anxiety. Informed Consent: The patient's anesthetic plan and its attendant risks and benefits were discussed with the patient/family/POA. Questions were solicited and answers provided to the satisfaction of the patient/family/POA.
[2024-09-12 14:45] LABS: Beta HCG Quantitative < 2.39 mIU/ML
--- NOTE | 2024-09-12 14:57 | PM.IMHP ---
H&P: HPI History of Present Illness Date/Time: 09/12/24 14:57 Chief Complaint: diarrhea - rectal bleeding- GERD Narrative: The patient reports bright red to dark blood per rectum since January 2023, with alternating constipation and diarrhea for over a year but mainly diarrhea occurring multiple bowel movements per day with incomplete evacuation and occasional abdominal cramping. Hemoglobin has decreased from 14.7 on 05/16/2024 to 11.3 on 06/13/2024 with visible GI blood loss. she also reports frequent heartburn and a few episodes of ?hematemesis Review of Systems Review of Systems: All systems reviewed & are unremarkable except as noted in HPI and below PMFSH Social History Social History Smoking packs per day: 1 Smoking cigarettes per day: 20.0 Years smoked: 5 Smoking pack-years: 5.00 Smoking status: Current every day smoker Tobacco type: cigarettes Alcohol intake: never Substance use type: does not use Living arrangements: with family Gender identity (if verbalized by the patient): Female Spiritual care concerns: No Meds Home Medications and Allergies Home Medications ?Medication ?Instructions ?Recorded ?Confirmed ?Type lorazepam 0.5 mg tablet 0.5 mg PO HS 01/10/24 09/12/24 History dextroamphetamine-amphetamine 10 10 mg PO BID 09/06/24 09/12/24 History mg tablet ergocalciferol (vitamin D2) 1,250 1,250 mcg PO WEEKLY 09/06/24 09/12/24 History mcg (50,000 unit) capsule ferrous sulfate 325 mg (65 mg 325 mg PO DAILY 09/06/24 09/06/24 History iron) tablet,delayed release methylphenidate HCl 10 mg tablet 10 mg PO DAILY 09/12/24 09/12/24 History Allergies Allergy/AdvReac Type Severity Reaction Status Date / Time No Known Allergies Allergy Verified 09/12/24 13:36 Vital Signs Vital Signs - 24 hr 09/12/24 13:29 Temperature 99.2 F Pulse Rate 83 Respiratory Rate 16 Blood Pressure 141/83 H Pulse Oximetry 98 Oxygen Delivery Room Air Exam Const: General: cooperative and healthy appearing Resp: Effort & Inspection: normal respiratory effort and able to speak in complete sentences Auscultation: clear to auscultation bilaterally Cardio: Rate: regular rate Rhythm: regular rhythm GI: Inspection: normal to inspection GI Palp: No No hepatosplenomegaly present Auscultation: normal bowel sounds Rectal Exam: deferred Skin: General skin exam: normal color Psych: Appearance: grossly normal Mental Status: mental status grossly normal Assessment and Plan Assessment and plan (1) Chronic diarrhea: Code(s): K52.9 - Noninfective gastroenteritis and colitis, unspecified Status: Acute Assessment and Plan: The patient is deemed a good candidate for the procedures. Consent signed. Will proceed. (2) GERD (gastroesophageal reflux disease): Code(s): K21.9 - Gastro-esophageal reflux disease without esophagitis Status: Acute
--- NOTE | 2024-09-12 15:20 | SUR.OPER ---
EGD END: 1515 COLONOSCOPY START: 152
--- NOTE | 2024-09-12 15:21 | S_PTH ---
PATIENT: Huyen Mares LOC: [facility] U#:[id number] AGE/SX: 34/F ROOM: RE09/12/[address]: Dennis Cali MD : 1990 BED: DIS: 09/12/2024 SPEC #: [id number] RECD: 09/13/24 06:53 STATUS: GILMAR REQ #: [id number] GEOFFREY: 09/12/24 15:[address]: Dennis Cali DEPT: [facility] Surgical RECD BY: Yanci Palma ENTERED: 09/13/24 06:53 SP TYPE: Surgical OTHR DR: Dmitri Jimenes MD Tissues: A - Gastric Biopsy B - Gastric Biopsy C - Colon Biopsy D - Colon Biopsy Procedures: Hematoxylin and Eosin Stain Gross and Microscopic Level 4
[2024-09-12 15:35] VITALS: BP 111/72; PULSE 69; RESP 22; O2SAT 100
[2024-09-12 15:45] VITALS: BP 131/91; PULSE 77; RESP 20; O2SAT 100
[2024-09-12 15:55] VITALS: BP 141/86; PULSE 98; RESP 20; O2SAT 100
--- NOTE | 2024-09-12 16:14 | SUR.PHASEII ---
during recovery after egd and colonoscopy pt became very upset that no active bleeding noted during procedure. states everyone is gaslighting her and that she feels the procedure lester't even done. attempted to calm pt, tried to go over postop instructions, showed her the images taken during procedure. pt stated that those were probably not even my pictures, I don't believe it. her mother was at bedside, states she is a nurse but she agreed with pt that images probably weren't her results. attempted to assure pt and family present that the procedure was completed, multiple bx's were taken that would be reviewed and may be able to explain her symptoms but pt again stated she would not believe anything she was told. Manager [employer] informed of pts concerns, she will notify dr smith office tomorrow. pts mother signed discharge papers and pt was taken out by wheelchair, refused to talk any further about instructions or recommendations.
== END 2024-09-12 16:00 | disposition home or self-care (01) ==
PROVIDERS: Anesthesiology; PCP Emergency Medicine; Visit Provider Internal Medicine Gastroenterology
PROC: 0DJ08ZZ Inspection of Upper Intestinal Tract, Via Natural or Artificial Opening Endoscopic (ICD-10-PCS; CPT 45378; principal; 2024-09-12 14:30)
DX: K62.5 Hemorrhage of anus and rectum (principal); K64.8 Other hemorrhoids; R19.7 Diarrhea, unspecified; F17.210 Nicotine dependence, cigarettes, uncomplicated
CPT/HCPCS: 45380; 43239; 36415; 84702; 88305; J2003; J2371; J2704; J7120

== ENCOUNTER 2024-12-07 15:21 | Outpatient (CLI) | payer OTHER, SELFPAY ==
[2024-12-07 15:33] LABS: Hematocrit 37.6 % (37.0-47.0); Hemoglobin 12.3 g/dL (12.0-15.0); Immature Granulocyte Percent A 0.3 % (0-0.5); Lymphocytes Absolute Auto 2.61 K/mm3 (0.9-3.2); Mean Corpuscular HGB Conc 32.7 g/dl (32-36); Mean Corpuscular Hemoglobin 29.2 pg (26-34); Mean Corpuscular Volume 89.3 fl (80-100); Nucleated Red Blood Cells Absolute Auto 0.000 K/mm3 (0.0-0.012); Nucleated Red Blood Cells Perc 0.0 % (0.0-0.2); Platelet Count Result 311 k/mm3 (150-375); Red Blood Count 4.21 M/mm3 (4.2-5.4); White Blood Count 9.3 K/mm3 (4.5-10.0)
[2024-12-07 16:20] LABS: Alanine Aminotransferase 38 U/L (6-35); Albumin Level 5.2 g/dL (3.5-5.1); Alkaline Phosphatase 58 U/L (38-126); Anion Gap 11 mmol/L (4-12); Aspartate Amino Transferase 44 U/L (14-36); Bilirubin,Total 0.7 mg/dL (0.2-1.3); Blood Urea Nitrogen 7 mg/dL (7-17); Calcium 10.0 mg/dL (8.4-10.2); Carbon Dioxide 26 mmol/L (22-30); Chloride 101 mmol/L (98-107); Estimated Glomerular Filt Rate > 60; Glucose 104 mg/dL (65-110); Potassium 3.7 mmol/L (3.4-5.0); Sodium 138 mmol/L (137-145); Total Protein 8.1 g/dL (6.3-8.2)
[2024-12-07 16:21] LABS: Iron 33 ug/dL (37-170)
[2024-12-07 16:34] LABS: Percent Iron Saturation 9 % (20-50)
[2024-12-07 17:03] LABS: Ferritin 6.24 ng/mL (6.24-137)
[2024-12-07 17:31] LABS: Vitamin B12 232.0 pg/mL (239-931)
== END 2024-12-07 15:22 | disposition home or self-care (01) ==
LOC: ANHLAB 15:22
PROVIDERS: Visit Provider Internal Medicine Hematology & Oncology
DX: D64.9 Anemia, unspecified (principal)
CPT/HCPCS: 36415; 80053; 82607; 82728; 82746; 83540; 83550; 84238; 85025